=== PATIENT | male | born 1930 | race Caucasian/White ===

== ENCOUNTER 2016-07-05 08:05 | Emergency (ER) | payer MEDICARE ==
[~2016-07-05] VITALS: Ht 177.8 cm; Wt 99.8 kg
[~2016-07-05 08:05] MED LIST: AVOD0.5CAP PO; CPR250T PO; CYCL10TA9 PO; FLUT16SP22 NS; LEVO75TA57 PO; LORA10CA PO; LOVA20TA2 PO; MECL-124 PO; MNTL10T PO; MTF500T PO; SULF1TAB38 PO; TADA2.5T PO; TEST5GEL6 TD; TMSL.4C PO; VARD20TA30 PO; meclizine
[2016-07-05 08:59] LABS: BASOPHILS % (AUTO) 0 % (0-10); EOSINOPHILS % (AUTO) 0 % (0-10); LYMPHOCYTES % (AUTO) 33 % (12-44); MEAN CORPUSCULAR HEMOGLOBIN 30 PG (25-34); MEAN CORPUSCULAR HGB CONC 33 G/DL (32-36); MEAN CORPUSCULAR VOLUME 90 FL (80-99); MEAN PLATELET VOLUME 11.3 FL (7.4-10.4); MONOCYTES # (AUTO) 0.9 X 10^3 (0.0-1.0); MONOCYTES % (AUTO) 10 % (0-12); NEUTROPHILS # (AUTO) 5.2 X 10^3 (1.8-7.8); NEUTROPHILS % (AUTO) 57 % (42-75); PLATELET COUNT 273 10^3/uL (130-400); RED BLOOD COUNT 5.07 10^6/uL (4.35-5.85); RED CELL DISTRIBUTION WIDTH 15.7 % (10.0-14.5); WHITE BLOOD COUNT 9.3 10^3/uL (4.3-11.0)
[2016-07-05] MEDS ORDERED: TAMOXIFEN (09:02)
[2016-07-05] MEDS ORDERED: CIALIS (09:02)
[2016-07-05] MEDS ORDERED: CRESTOR (09:02)
[2016-07-05 09:10] LABS: ANION GAP 10 MMOL/L (5-14); BLOOD UREA NITROGEN 15 MG/DL (7-18); BUN/CREATININE RATIO 16; CARBON DIOXIDE 23 MMOL/L (21-32); CHLORIDE 102 MMOL/L (98-107); CREATININE SERUM 0.92 MG/DL (0.60-1.30); POTASSIUM 4.3 MMOL/L (3.6-5.0); SODIUM 135 MMOL/L (135-145)
[2016-07-05 09:11] LABS: ALANINE AMINOTRANSFERASE 19 U/L (0-55); ALBUMIN 4.2 G/DL (3.2-4.5); ASPARTATE AMINO TRANSFERASE 19 U/L (5-34); BILIRUBIN,TOTAL 0.8 MG/DL (0.1-1.0); CALCIUM 9.7 MG/DL (8.5-10.1); GFR ESTIMATED > 60; GLUCOSE 131 MG/DL (70-105); TOTAL PROTEIN 7.5 G/DL (6.4-8.2)
[2016-07-05 09:20] LABS: BILIRUBIN,URINE NEGATIVE (NEGATIVE); KETONES,URINE 1+ (NEGATIVE); LEUKOCYTE ESTERASE ,URINE NEGATIVE (NEGATIVE); NITRITE,URINE NEGATIVE (NEGATIVE); PH,URINE 5 (5-9); PROTEIN,URINE NEGATIVE (NEGATIVE); UROBILINOGEN,URINE NORMAL (NORMAL)
[2016-07-05 09:27] LABS: SQUAMOUS EPITHELIAL CELL,UR RARE /HPF; WBC,URINE RARE /HPF
--- NOTE | 2016-07-05 10:19 | ED General ---
General Chief Complaint: Dizziness/Syncope Stated Complaint: DIZZINESS Nursing Triage Note: TO ROOM 03 VIA WITH COMPLAINTS OF DIZZINESS STARTING LAST NIGHT. DENIES ANY OTHER SYMPTOMS. Nursing Sepsis Screen: No Definite Risk Source of Information: Patient, Family Exam Limitations: No Limitations History of Present Illness Time Seen by Provider: 10:19 Initial Comments The patient is an 85-year-old white male who presents this morning with a sense of lightheadedness and impaired balance. He denies spinning or tinnitus. He is not normally this way. He reported that previously he had had a mild episode of this after eating [place] food. Coincidentally I suspect he ate [place]i food yesterday evening. Timing/Duration: 12 Hours Allergies and Home Medications Allergies Coded Allergies: No Known Drug Allergies (Unverified , 11/25/09) Home Medications Dutasteride 0.5 Mg Cap, 0.5 MG PO PRN, (Reported) Fluticasone Propionate 16 Gm [place].susp, 16 GM NS PRN, (Reported) Levothyroxine Sodium 75 Mcg Tablet, 50 MCG PO DAILY, (Reported) Metformin Hcl 500 Mg Tablet, 1 EACH PO BID WITH MEALS, (Reported) [Cialis] , (Reported) [Crestor] , (Reported) [Tamoxifen] , (Reported) Constitutional: see HPI EENTM: no symptoms reported Respiratory: no symptoms reported Cardiovascular: no symptoms reported Gastrointestinal: no symptoms reported Genitourinary: no symptoms reported Musculoskeletal: no symptoms reported Skin: no symptoms reported Psychiatric/Neurological: No Symptoms Reported Hematologic/Lymphatic: No Symptoms Reported Immunological/Allergic: no symptoms reported Past Tgxsybf-Bybvux-Nyfqit Hx Patient Social History Alcohol Use: Denies Use Recreational Drug Use: No Smoking Status: Never a Smoker Former Smoker/When Quit: Feb 09, 1969 2nd Hand Smoke Exposure: No Recent Foreign Travel: No Contact w/Someone Who Travel: No Recent Infectious Disease Expo: No Recent Hopitalizations: No Immunizations Up To Date Date of Pneumonia Vaccine: Feb 09, 2009 Seasonal Allergies Seasonal Allergies: Yes Surgeries HX Surgeries: Yes (cyst removed, repair of fx fibula with plate) Respiratory Hx Respiratory Disorders: No Cardiovascular Hx Cardiac Disorders: Yes Cardiac Disorders: High Cholesterol, Hypertension Neurological Hx Neurological Disorders: No Reproductive System Hx Reproductive Disorders: No Sexually Transmitted Disease: No Genitourinary Hx Genitourinary Disorders: Yes Genitourinary Disorders: Benign Prostatic Hyperpl Gastrointestinal Hx Gastrointestinal Disorders: No Gastrointestinal Disorders: Gastroesophageal Reflux, Gastrointestinal Bleed, Chronic Constipation, Hemorrhoids Musculoskeletal Hx Musculoskeletal Disorders: Yes Musculoskeletal Disorders: Arthritis, Fractures Endocrine Hx Endocrine Disorders: Yes (TAKES METFORMIN) Endocrine Disorders: Hypothyroidsim, Diabetes, Non-Insulin dep HEENT HX ENT Disorders: No Hearing Impairment: Hard of Hearing, Bilateral Hearing Aide Cancer Hx Cancer: No Psychosocial Hx Psychiatric Problems: No Integumentary HX Skin/Integumentary Disorder: No Blood Transfusions Hx Blood Disorders: No Family Medical History Family Medial History: Diabetes mellitus 19 FATHER G8 BROTHER FH: lung cancer G8 BROTHER (PAST AWAY FROM [facility]) Physical Exam Vital Signs Vital Sign - Last 12Hours 07/05/16 07/05/16 08:30 08:40 Temp 98.0 Pulse 73 Resp 18 B/P (MAP) 141/77 Pulse Ox 91 O2 Delivery Nasal Cannula O2 Flow Rate 2.00 Capillary Refill : Less Than 3 Seconds General Appearance: No Apparent Distress, WD/WN Eyes: Bilateral Eye Normal Inspection HEENT: Normal ENT Inspection Neck: Normal Inspection Respiratory: Chest Non Tender, Lungs Clear, Normal Breath Sounds, No Accessory Muscle Use, No Respiratory Distress Cardiovascular: Regular Rate, Rhythm, No Edema, No Gallop, No JVD, No Murmur, Normal Peripheral Pulses Gastrointestinal: Normal Bowel Sounds, No Organomegaly, No Pulsatile Mass, Non Tender, Soft Back: Normal Inspection, No CVA Tenderness, No Vertebral Tenderness Extremity: Normal Capillary Refill, Normal Inspection, Normal Range of Motion, Non Tender, No Calf Tenderness, No Pedal Edema Neurologic/Psychiatric: Alert, Oriented x3, No Motor/Sensory Deficits, Normal Mood/Affect Skin: Normal Color Lymphatic: No Adenopathy Progress/Results/Core Measures Results/Orders Lab Results Laboratory Tests Test 07/05/16 08:40 07/05/16 09:10 Range/Units White Blood Count 9.3 4.3-11.0 10^3/uL Red Blood Count 5.07 4.35-5.85 10^6/uL Hemoglobin 15.3 13.3-17.7 G/DL Hematocrit 46 40-54 % Mean Corpuscular Volume 90 80-99 FL Mean Corpuscular Hemoglobin 30 25-34 PG Mean Corpuscular Hemoglobin Concent 33 32-36 G/DL Red Cell Distribution Width 15.7 H 10.0-14.5 % Platelet Count 273 130-400 10^3/uL Mean Platelet Volume 11.3 H 7.4-10.4 FL Neutrophils (%) (Auto) 57 42-75 % Lymphocytes (%) (Auto) 33 12-44 % Monocytes (%) (Auto) 10 0-12 % Eosinophils (%) (Auto) 0 0-10 % Basophils (%) (Auto) 0 0-10 % Neutrophils # (Auto) 5.2 1.8-7.8 X 10^3 Lymphocytes # (Auto) 3.0 1.0-4.0 X 10^3 Monocytes # (Auto) 0.9 0.0-1.0 X 10^3 Eosinophils # (Auto) 0.0 0.0-0.3 10^3/uL Basophils # (Auto) 0.0 0.0-0.1 10^3/uL Sodium Level 135 135-145 MMOL/L Potassium Level 4.3 3.6-5.0 MMOL/L Chloride Level 102 98-107 MMOL/L Carbon Dioxide Level 23 21-32 MMOL/L Anion Gap 10 5-14 MMOL/L Blood Urea Nitrogen 15 7-18 MG/DL Creatinine 0.92 0.60-1.30 MG/DL Estimat Glomerular Filtration Rate > 60 BUN/Creatinine Ratio 16 Glucose Level 131 H 70-105 MG/DL Calcium Level 9.7 8.5-10.1 MG/DL Total Bilirubin 0.8 0.1-1.0 MG/DL Aspartate Amino Transf (AST/SGOT) 19 5-34 U/L Alanine Aminotransferase (ALT/SGPT) 19 0-55 U/L Alkaline Phosphatase 47 40-136 U/L Total Protein 7.5 6.4-8.2 G/DL Albumin 4.2 3.2-4.5 G/DL Urine Color YELLOW Urine Clarity CLEAR Urine pH 5 5-9 Urine Specific [place] 1.020 1.016-1.022 Urine Protein NEGATIVE NEGATIVE Urine Glucose (UA) NEGATIVE NEGATIVE Urine Ketones 1+ H NEGATIVE Urine Nitrite NEGATIVE NEGATIVE Urine Bilirubin NEGATIVE NEGATIVE Urine Urobilinogen NORMAL NORMAL MG/DL Urine Leukocyte Esterase NEGATIVE NEGATIVE Urine RBC (Auto) NEGATIVE NEGATIVE Urine RBC RARE /HPF Urine WBC RARE /HPF Urine Squamous Epithelial Cells RARE /HPF Urine Crystals NONE /LPF Urine Bacteria NEGATIVE /HPF Urine Casts NONE /LPF Urine Mucus NEGATIVE /LPF Urine Culture Indicated NO My Orders Orders - JADA BERKOWITZ MD Cbc With Automated Diff (07/05/16 08:51) Comprehensive Metabolic Panel (07/05/16 08:51) Ua Culture If Indicated (07/05/16 08:51) Continuous Ekg Monitoring (07/05/16 09:44) Ekg Tracing (07/05/16 10:01) Troponin I (07/05/16 10:01) Vital Signs/I&O Vital Sign - Last 12Hours 07/05/16 07/05/16 08:30 08:40 Temp 98.0 Pulse 73 Resp 18 B/P (MAP) 141/77 Pulse Ox 91 89 O2 Delivery Nasal Cannula O2 Flow Rate 2.00 Blood Pressure Mean: 98 Departure Impression Impression: Primary Impression: Impairment of balance Disposition: 01 HOME, SELF-CARE Condition: Stable/Unchanged Departure-Patient Inst. Decision time for Depature: 10:18 Referrals: BAN FRANK MD (PCP/Family) Primary Care Physician Add. Discharge Instructions: All discharge instructions reviewed with patient and/or family. Voiced understanding. Rest today and engage only and light activities If symptoms continue see your provider JADA BERKOWITZ MD July 05, 2016 10:19
[2016-07-05 10:54] VITALS: BP 118/70
== END 2016-07-05 10:54 | disposition home or self-care (01) ==
LOC: EDUNIT# 08:05 → ER 08:07
DX: R26.2 Difficulty in walking, not elsewhere classified (principal); I10 Essential (primary) hypertension; E11.9 Type 2 diabetes mellitus without complications; Z79.84 Long term (current) use of oral hypoglycemic drugs; Z79.899 Other long term (current) drug therapy
CPT/HCPCS: 36415; 80053; 81000; 84484; 85025; 93005

== ENCOUNTER 2016-08-09 10:52 | Emergency (ER) | payer MEDICARE ==
[~2016-08-09] VITALS: Ht 177.8 cm; Wt 90.7 kg
[~2016-08-09 10:52] MED LIST changes: +CIALIS; +CRESTOR; +TAMOXIFEN
--- NOTE | 2016-08-09 11:07 | ED EENT ---
History of Present Illness General Chief Complaint: Cough/Cold/Flu Symptoms Stated Complaint: SINUS INFECTION Source: patient Exam Limitations: no limitations History of Present Illness Time seen by provider: 11:05 Initial Comments To ER with concerns of a sinus infection. He has left maxillary tenderness since last night. He also some swelling to that side of his face. He states he had a similar event last year that was believed to be a sinus infection. He was given a shot of steroids and oral antibiotics and he cleared up in about 5 days. He does report some sinus drainage and a cough that only occurs when he is lying down. Denies fevers or chills. Timing/Duration: abrupt Severity: moderate Location: facial Associated Symptoms: denies symptoms Allergies and Home Medications Allergies Coded Allergies: No Known Drug Allergies (Unverified , 11/25/09) Home Medications Amoxicillin/Potassium Clav 1 Each Tablet, 1 EACH PO BID, #14 Prescribed by: SONIA RUIZ on 08/09/16 1141 Dutasteride 0.5 Mg Cap, 0.5 MG PO PRN, (Reported) Fluticasone Propionate 16 Gm [place].susp, 16 GM NS PRN, (Reported) Levothyroxine Sodium 75 Mcg Tablet, 50 MCG PO DAILY, (Reported) Metformin Hcl 500 Mg Tablet, 1 EACH PO BID WITH MEALS, (Reported) Ondansetron 8 Mg Tab.rapdis, 8 MG PO Q6H PRN for NAUSEA/VOMITING-1ST LINE, #10 Prescribed by: SONIA RUIZ on 08/09/16 1141 [Cialis] , (Reported) [Crestor] , (Reported) [Tamoxifen] , (Reported) Review of Systems Constitutional: see HPI Eyes: No Symptoms Reported Ears: No Symptoms Reported Nose: no symptoms reported Mouth: no symptoms reported Throat: no symptoms reported Respiratory: no symptoms reported Cardiovascular: no symptoms reported Musculoskeletal: no symptoms reported Skin: no symptoms reported Past Kyurhkl-Wnqeso-Sbdamy Hx Patient Social History Former Smoker/When Quit: Feb 09, 1969 2nd Hand Smoke Exposure: No Recent Foreign Travel: No Contact w/Someone Who Travel: No Recent Hopitalizations: No Immunizations Up To Date Date of Pneumonia Vaccine: Feb 09, 2009 Seasonal Allergies Seasonal Allergies: Yes Surgeries HX Surgeries: Yes (cyst removed, repair of fx fibula with plate) Respiratory Hx Respiratory Disorders: No Cardiovascular Hx Cardiac Disorders: Yes Cardiac Disorders: High Cholesterol, Hypertension Neurological Hx Neurological Disorders: No Reproductive System Hx Reproductive Disorders: No Sexually Transmitted Disease: No Genitourinary Hx Genitourinary Disorders: Yes Genitourinary Disorders: Benign Prostatic Hyperpl Gastrointestinal Hx Gastrointestinal Disorders: No Gastrointestinal Disorders: Gastroesophageal Reflux, Gastrointestinal Bleed, Chronic Constipation, Hemorrhoids Musculoskeletal Hx Musculoskeletal Disorders: Yes Musculoskeletal Disorders: Arthritis, Fractures Endocrine Hx Endocrine Disorders: Yes (TAKES METFORMIN) Endocrine Disorders: Hypothyroidsim, Diabetes, Non-Insulin dep HEENT HX ENT Disorders: No Hearing Impairment: Hard of Hearing, Bilateral Hearing Aide Cancer Hx Cancer: No Psychosocial Hx Psychiatric Problems: No Integumentary HX Skin/Integumentary Disorder: No Blood Transfusions Hx Blood Disorders: No Family Medical History Family Medial History: Diabetes mellitus 19 FATHER G8 BROTHER FH: lung cancer G8 BROTHER ([facility] Physical Exam Vital Signs Vital Sign - Last 12Hours 08/09/16 11:02 Temp 97.5 Pulse 72 Resp 16 B/P (MAP) 149/72 Pulse Ox 98 O2 Delivery Room Air General Appearance: WD/WN, no apparent distress Eyes: bilateral eye EOMI, bilateral eye PERRL, bilateral eye normal inspection Ears: bilateral ear TM normal, bilateral ear auricle normal, bilateral ear canal normal Mouth/Throat: normal mouth inspection, other (there is no fluctuant abscess to the buccal or lingual mucosa surrounding the left upper teeth. Externally there is a bit of swelling over the left maxillary sinus with tenderness to palpation.) Neck: non-tender, full range of motion Respiratory: no respiratory distress, no accessory muscle use Gastrointestinal: normal bowel sounds, non tender, soft Neurologic/Psychiatric: alert, normal mood/affect, oriented x 3 Skin: normal color, warm/dry Progress/Results/Core Measures Results/Orders My Orders Orders - SONIA RUIZ APRN Dexamethasone Pf Injection (Decadron Pf (08/09/16 11:15) Ceftriaxone Injection (Rocephin Injectio (08/09/16 11:15) Lidocaine 1% Injection (Xylocaine 1% Inj (08/09/16 11:15) Ct Maxillofacial Wo (08/09/16 11:08) Medications Given in ED Current Medications Medications Dose Ordered Sig/Justus Route Start Time Stop Time Status Last Admin Dose Admin Ceftriaxone Sodium 1,000 mg ONCE ONCE IM 08/09/16 11:15 08/09/16 11:17 DC 08/09/16 11:38 1,000 MG Dexamethasone Sodium Phosphate 10 mg ONCE ONCE IM 08/09/16 11:15 08/09/16 11:17 DC 08/09/16 11:39 10 MG Lidocaine HCl 2.1 ml ONCE ONCE INJ 08/09/16 11:15 08/09/16 11:17 DC 08/09/16 11:38 2.1 ML Vital Signs/I&O Vital Sign - Last 12Hours 08/09/16 08/09/16 08/09/16 08/09/16 11:02 11:38 11:38 11:39 Temp 97.5 97.5 97.5 97.5 Pulse 72 Resp 16 B/P (MAP) 149/72 Pulse Ox 98 O2 Delivery Room Air Departure Impression Impression: Primary Impression: Dental abscess Disposition: HOME, SELF-CARE Condition: Stable Departure-Patient Inst. Decision time for Depature: 11:09 Referrals: BAN FRANK MD (PCP/Family) Primary Care Physician Patient Instructions: NO INSTRUCTIONS GIVEN Add. Discharge Instructions: 1. Return to ER for any concerns 2. See your regular doctor dentist next week 3. Antibiotics as directed and the nausea medication as needed. Eat food with the antibiotics because they may upset your stomach. All discharge instructions reviewed with patient and/or family. Voiced understanding. Scripts Ondansetron (Zofran Odt) 8 Mg Tab.rapdis 8 MG PO Q6H Y for NAUSEA/VOMITING-1ST LINE, #10 TAB Prov: SONIA RUIZ APRN 08/09/16 Amoxicillin/Potassium Clav (Augmentin 875-125 Tablet) 1 Each Tablet 1 EACH PO BID, #14 TAB Prov: SONIA RUIZ APRN 08/09/16 Copy Copies To 1: BAN FRANK MD, PETER J APRN Aug 09, 2016 11:07
[2016-08-09] MEDS ORDERED: LIDOCAINE 1% INJ 20 ML (XYLOCAINE) VIAL INJ ONE (11:15)
[2016-08-09] MEDS ORDERED: cefTRIAXone 1 GM (ROCEPHIN) VIAL IM ONE (11:15)
[2016-08-09] MEDS ORDERED: DEXAMETHASONE PF 10 MG/ML (DECADRON) VIAL IM ONE (11:15)
[2016-08-09] MEDS ORDERED: AMOX-358 PO (11:41)
[2016-08-09] MEDS ORDERED: ONDA8TAB9 PO (11:41)
--- NOTE | 2016-08-09 11:43 | Diagnostic Imaging Report ---
PROCEDURE: CT maxillofacial without contrast. TECHNIQUE: Multiple contiguous axial images were obtained through the facial bones without the use of intravenous contrast. INDICATION: Left cheek swelling. Findings: Noncontrasted study. There is considerable beam hardening artifact from dental amalgam. There is lucency surrounding the roots of the remaining anterior molar in the left maxilla. This does extend into the base of the maxillary sinus which shows diffuse mucosal thickening. There is adjacent soft tissue edema along the cheek and the left maxilla. The right maxillary sinuses clear. Ethmoid sinuses are clear as is the frontal sinus. IMPRESSION: 1. 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 Dictated by: Dictated on workstation # [id number]
[2016-08-09 11:51] VITALS: BP 142/70
== END 2016-08-09 11:51 | disposition home or self-care (01) ==
LOC: EDUNIT# 10:52 → ER 10:54
DX: K04.7 Periapical abscess without sinus (principal); E03.9 Hypothyroidism, unspecified; E11.9 Type 2 diabetes mellitus without complications; M19.90 Unspecified osteoarthritis, unspecified site; N40.0 Benign prostatic hyperplasia without lower urinary tract symptoms; I10 Essential (primary) hypertension; E78.00 Pure hypercholesterolemia, unspecified; Z87.891 Personal history of nicotine dependence; Z79.84 Long term (current) use of oral hypoglycemic drugs
CPT/HCPCS: 70486; 99282

== ENCOUNTER → 2016-08-14 | Outpatient (CLI) | payer MEDICARE ==
[~2016-08-14] MED LIST changes: +AMOX-358 PO; +ONDA8TAB9 PO
== END ==
LOC: CARD 12:31
PROVIDERS: ATTEND Internal Medicine Cardiovascular Disease
DX: I25.10 Atherosclerotic heart disease of native coronary artery without angina pectoris (principal); R07.89 Other chest pain; I10 Essential (primary) hypertension; E78.2 Mixed hyperlipidemia; E03.9 Hypothyroidism, unspecified
CPT/HCPCS: 93306

== ENCOUNTER → 2020-04-19 | Outpatient (CLI) | payer MEDICARE ==
--- NOTE | 2020-04-19 12:06 | Diagnostic Imaging Report ---
PROCEDURE: CT abdomen and pelvis without contrast. TECHNIQUE: Multiple contiguous axial images were obtained through the abdomen and pelvis without the use of intravenous contrast. Auto Exposure Controls were utilized during the CT exam to meet ALARA standards for radiation dose reduction. INDICATION: Gross hematuria. FINDINGS: Linear atelectasis and/or scarring is seen in the left lung base. There is an approximately 1 cm low-density subcapsular nodule in the right hepatic lobe, laterally. This could represent cyst or hemangioma. Otherwise, unenhanced images of the liver, gallbladder, pancreas, adrenal glands and spleen are unremarkable. There is no evidence of renal calculus or hydronephrosis. No perinephric fluid collection is seen. There is no evidence of free fluid within the abdomen or pelvis. No localized inflammation is identified. Bladder is decompressed and unopacified but otherwise unremarkable. There is significant enlargement of the prostate gland which indents the base of the urinary bladder. There is moderate lumbar spondylosis and aortoiliac atherosclerotic calcification. That is herniated into the inguinal canals, greater on the left. IMPRESSION: No evidence of urinary tract calculus or obstruction although there is significant enlargement of the prostate gland which indents the bladder base. Dictated by: Dictated on workstation # [id number]
--- NOTE | 2020-04-19 13:32 | Diagnostic Imaging Report ---
INDICATION: Hematuria. History of renal calculi. COMPARISON: CT from same day. FINDINGS: Single supine radiographic view of the abdomen was obtained and demonstrates nondistended loops of small bowel. There is no large collection of free peritoneal air. Moderate air and stool are seen scattered throughout the colon. No unexpected extraosseous calcifications or radiopaque foreign bodies are seen. Bony structures show no gross acute abnormalities. IMPRESSION: 1. Nonobstructed small bowel gas pattern. 2. Moderate colonic air and stool. Please correlate for constipation Dictated by: Dictated on workstation # [id number]
== END ==
LOC: RAD 11:05
PROVIDERS: ATTEND Urology
DX: N40.0 Benign prostatic hyperplasia without lower urinary tract symptoms (principal); K56.41 Fecal impaction; Z87.442 Personal history of urinary calculi
CPT/HCPCS: 74018; 74176

== ENCOUNTER 2020-09-24 05:51 | Inpatient (IN) | payer MEDICARE ==
[~2020-09-24] VITALS: Ht 178 cm; Wt 94.0 kg
[2020-09-24] MEDS ORDERED: DIFLORASONE (06:06)
[2020-09-24] MEDS ORDERED: FINA5TAB6 (06:06)
[2020-09-24] MEDS ORDERED: METF-397 PO (06:06)
[2020-09-24] MEDS ORDERED: ROSU20TA32 PO (06:06)
[2020-09-24] MEDS ORDERED: MTP25TSR PO (06:06)
[2020-09-24 06:13] LABS: BASOPHILS % (AUTO) 0 % (0-10); MONOCYTES # (AUTO) 2.2 10^3/uL (0.0-1.0)
[2020-09-24] MEDS ORDERED: ASPIRIN 81 MG CHEW (CHILDREN'S ASA) PO ONE (06:15)
[2020-09-24 06:16] LABS: EOSINOPHILS # (AUTO) 0.1 10^3/uL (0.0-0.3); EOSINOPHILS % (AUTO) 0 % (0-10); HEMATOCRIT 52 % (40-54); HEMOGLOBIN 16.9 g/dL (13.3-17.7); LYMPHOCYTES # (AUTO) 2.5 10^3/uL (1.0-4.0); LYMPHOCYTES % (AUTO) 15 % (12-44); MEAN CORPUSCULAR HEMOGLOBIN 29 pg (25-34); MEAN CORPUSCULAR HGB CONC 32 g/dL (32-36); MEAN CORPUSCULAR VOLUME 89 fL (80-99); MEAN PLATELET VOLUME 11.1 fL (9.0-12.2); MONOCYTES % (AUTO) 13 % (0-12); NEUTROPHILS # (AUTO) 12.7 10^3/uL (1.8-7.8); NEUTROPHILS % (AUTO) 72 % (42-75); PLATELET COUNT 423 10^3/uL (130-400); WHITE BLOOD COUNT 17.6 10^3/uL (4.3-11.0)
[2020-09-24 06:21] LABS: ALBUMIN 4.2 GM/DL (3.2-4.5)
[2020-09-24 06:22] LABS: POTASSIUM 4.1 MMOL/L (3.6-5.0)
[2020-09-24 06:24] LABS: INR 1.2 (0.8-1.4); PROTHROMBIN TIME PATIENT 15.1 SEC (12.2-14.7); TOTAL PROTEIN 8.4 GM/DL (6.4-8.2)
[2020-09-24 06:26] LABS: BILIRUBIN,TOTAL 1.1 MG/DL (0.1-1.0)
[2020-09-24 06:28] LABS: CREATININE SERUM 1.37 MG/DL (0.60-1.30)
[2020-09-24] MEDS ORDERED: LIDOCAINE 2% VISCOUS 15 ML UDC PO ONE (06:30)
[2020-09-24] MEDS ORDERED: ANTACID SUSP 30 ML UDC (MYLANTA) PO ONE (06:30)
[2020-09-24 06:42] LABS: BAND NEUTROPHILS 5 %; EOSINOPHILS % (MANUAL) 1 %; LYMPHOCYTES % (MANUAL) 15 %; MONOCYTES % (MANUAL) 10 %; NEUTROPHILS % (MANUAL) 69 %
[2020-09-24] MEDS ORDERED: LACTATED RINGERS 1,000 ML IV ONE (06:45)
--- NOTE | 2020-09-24 06:50 | ED Abdominal Pain ---
General Chief Complaint: Abdominal/GI Problems Stated Complaint: ACID REFLUX Nursing Triage Note: MID ABDOMINAL PAIN, VOMITTING, REFLUX SINCE THURSDAY. Source of Information: Patient, Family Exam Limitations: No Limitations NPO Since: 16:30 yesterday (SILVIA WOODS STUDENT) History of Present Illness Date Seen by Provider: Sep 24, 2020 Time Seen by Provider: 06:10 Initial Comments Pt presents to ED with at bedside with complaints of abd pain for 2 days. He states that he had intractable nausea w/ vomiting on Thursday with continuous 7/10 epigastric pain along with reflux into his mouth. He came to the ED this morning after he had trouble falling asleep last night and continuous symptoms. Last BM on Thursday and has had decreased appetite since his symptoms began. He has taken Pepto Bismol yesterday and tried sitting upright with no relief of symptoms. Denies chest pain, SOB. History of 3x CABG. Timing/Duration: 2-3 Days Severity/Quality: Moderate, Dull Location: Epigastric Radiation: No Radiation Activities at Onset: None Modifying Factors: Improves With Other (Pt took Pepto Bismol yesterday with no relief) Associated Symptoms: No Chest Pain, No Fever/Chills, No Fatigue; Heartburn, Nausea/Vomiting; No Shortness of Air (SILVIA WOODS STUDENT) Initial Comments The patient also endorses episodes of emesis 10 times yesterday. No fevers or chills. He checked his temperature throughout. He denies any sick contacts or recent travel. No diarrhea. He has had regular bowel movements up until his last one Thursday morning. He has had poor appetite. He feels slightly weak and short of breath worse with exertion. Not worse with laying down flat. He denies a history of pancreatitis. He drinks 1 glass of scotch a year. He denies a history of aortic aneurysm. The pain is not sharp and does not radiate to his back or anywhere else. (REMI HA) Allergies and Home Medications Allergies Coded Allergies: No Known Drug Allergies (Unverified , 11/25/09) Home Medications Aspirin 81 Mg Tablet., 81 MG PO HS, (Reported) Last Action: Reviewed Levothyroxine Sodium 75 Mcg Tablet, 75 MCG PO DAILY, (Reported) Last Action: Reviewed Lisinopril 5 Mg Tablet, 5 MG PO HS, (Reported) Last Action: Reviewed Metformin HCl 500 Mg Tablet, 500 MG PO DAILY, (Reported) Last Action: Reviewed Methyl-B12/l-Mefolate/B6 Phos 1 Each Tablet, 1 EACH PO DAILY, (Reported) Last Action: Reviewed Metoprolol Succinate 25 Mg Tab.er.24h, 25 MG PO DAILY, (Reported) Last Action: Reviewed Multivitamin 1 Each Tablet, 1 EACH PO DAILY, (Reported) Last Action: Reviewed Rosuvastatin Calcium 20 Mg Tablet, 20 MG PO HS, (Reported) Last Action: Reviewed Tadalafil 5 Mg Tablet, 5 MG PO HS, (Reported) Last Action: Reviewed Patient Home Medication List Home Medication List Reviewed: Yes (SILVIA WOODS) Review of Systems Review of Systems Constitutional: No chills, No dizziness, No fever EENTM: No Eye Pain, No Mouth Pain Respiratory: Denies Cough, Denies Shortness of Air Cardiovascular: Denies Chest Pain, Denies Edema, Denies Lightheadedness Gastrointestinal: Abdominal Pain (7/10 epigastric, dull, nonradiating), Nausea, Vomiting Genitourinary: Denies Burning, Denies Drainage, Denies Hematuria Musculoskeletal: No back pain, No joint pain Skin: No change in color, No change in hair/nails Psychiatric/Neurological: Denies Headache, Denies Numbness, Denies Paresthesia (SILVIA WOODS) All Other Systems Reviewed Negative Unless Noted: Yes (SILVIA WOODS) Past Ayysioj-Gqvmwd-Bfurgo Hx Patient Social History Tobacco Use?: Yes Tobacco type used: Cigarettes Smoking Status: Former Smoker (20 pack/year history, quit 20-30 years ago) Substance use?: No Alcohol Use?: No Pt feels they are or have been: No (SILVIA WOODS) Immunizations Up To Date First/Initial COVID19 Vaccinat: 05/30 Second COVID19 Vaccination Leodan: 06/29 (SILVIA WOODS) Seasonal Allergies Seasonal Allergies: Yes (SILVIA WOODS) Past Medical History Surgery/Hospitalization HX: CABG, GERD, HTN, HYPOTHRYOID, BPH, NIDDM Surgeries: Yes (cyst removed, repair of fx fibula with plate) Respiratory: No Currently Using CPAP: No Currently Using BIPAP: No Cardiac: Yes High Cholesterol, Hypertension Neurological: No Reproductive Disorders: No Sexually Transmitted Disease: No Benign Prostatic Hyperpl Gastrointestinal: No Gastroesophageal Reflux, Gastrointestinal Bleed, Chronic Constipation, Hemorrhoids Musculoskeletal: Yes Arthritis, Fractures Endocrine: Yes (TAKES METFORMIN) Hypothyroidsim, Diabetes, Non-Insulin dep Hearing Impairment: Hard of Hearing, Bilateral Hearing Aide Cancer: No Psychosocial: No Integumentary: No Blood Disorders: No (SILVIA WOODS [employer] STUDENT) Family Medical History Diabetes mellitus 19 FATHER G8 BROTHER FH: lung cancer G8 BROTHER (PA[facility] AWAY FROM [facility]) Physical Exam Vital Signs Vital Signs - First Documented 09/24/20 09/24/20 06:00 07:14 Temp 36.4 Pulse 91 Resp 18 B/P (MAP) 144/79 (100) Pulse Ox 92 O2 Delivery Room Air O2 Flow Rate 2.00 (REMI HA) Vital Signs Capillary Refill : Less Than 3 Seconds (SILVIA WOODS VIP Parking STUDENT) Height/Weight/BMI Height: 5'10.00" Weight: 200lbs. 4.0oz. 90.491296hh; 29.00 BMI Method:Estimated General Appearance: WD/WN, moderate distress (tachypneic, speaks in short phrases) HEENT: PERRL/EOMI, normal ENT inspection, pharynx normal Neck: non-tender, full range of motion, supple, normal inspection Respiratory: chest non-tender, lungs clear, normal breath sounds, no accessory muscle use, other (clear lungs, short/rapid breathing 93% O2sat on RA) Cardiovascular: normal peripheral pulses, regular rate, rhythm, no edema, no murmur Peripheral Pulses: 2+ Radial Pulses (R), 2+ Radial Pulses (L) Gastrointestinal: normal bowel sounds, soft, tenderness (mild tenderness epigastric, no radiation) Rectal: deferred Extremities: normal range of motion, non-tender, normal inspection, no pedal edema, normal capillary refill Back: normal inspection, no CVA tenderness, no vertebral tenderness Neurologic/Psychiatric: no motor/sensory deficits, alert; No normal mood/affect (anxious); oriented x 3 Skin: normal color, warm/dry (SILVIA WOODS [employer]ing STUDENT) Progress/Results/Core Measures Results/Orders Lab Results Laboratory Tests Test 09/24/20 06:06 09/24/20 06:09 Range/Units Lipase 14 8-78 U/L White Blood Count 17.6 H 4.3-11.0 10^3/uL Red Blood Count 5.90 H 4.30-5.52 10^6/uL Hemoglobin 16.9 13.3-17.7 g/dL Hematocrit 52 40-54 % Mean Corpuscular Volume 89 80-99 fL Mean Corpuscular Hemoglobin 29 25-34 pg Mean Corpuscular Hemoglobin Concent 32 32-36 g/dL Red Cell Distribution Width 14.2 10.0-14.5 % Platelet Count 423 H 130-400 10^3/uL Mean Platelet Volume 11.1 9.0-12.2 fL Immature Granulocyte % (Auto) 0 % Neutrophils (%) (Auto) 72 42-75 % Lymphocytes (%) (Auto) 15 12-44 % Monocytes (%) (Auto) 13 H 0-12 % Eosinophils (%) (Auto) 0 0-10 % Basophils (%) (Auto) 0 0-10 % Neutrophils # (Auto) 12.7 H 1.8-7.8 10^3/uL Lymphocytes # (Auto) 2.5 1.0-4.0 10^3/uL Monocytes # (Auto) 2.2 H 0.0-1.0 10^3/uL Eosinophils # (Auto) 0.1 0.0-0.3 10^3/uL Basophils # (Auto) 0.0 0.0-0.1 10^3/uL Immature Granulocyte # (Auto) 0.1 0.0-0.1 10^3/uL Neutrophils % (Manual) 69 % Lymphocytes % (Manual) 15 % Monocytes % (Manual) 10 % Eosinophils % (Manual) 1 % Band Neutrophils 5 % Percent Immature Platelet Fraction 8.7 H 0.0-7.6 % Prothrombin Time 15.1 H 12.2-14.7 SEC INR Comment 1.2 0.8-1.4 Activated Partial Thromboplast Time 38 H 24-35 SEC Sodium Level 130 L 135-145 MMOL/L Potassium Level 4.1 3.6-5.0 MMOL/L Chloride Level 89 L 98-107 MMOL/L Carbon Dioxide Level 25 21-32 MMOL/L Anion Gap 16 H 5-14 MMOL/L Blood Urea Nitrogen 18 7-18 MG/DL Creatinine 1.37 H 0.60-1.30 MG/DL Estimat Glomerular Filtration Rate 49 BUN/Creatinine Ratio 13 Glucose Level 190 H 70-105 MG/DL Calcium Level 11.0 H 8.5-10.1 MG/DL Corrected Calcium 10.8 H 8.5-10.1 MG/DL Magnesium Level 2.0 1.6-2.4 MG/DL Total Bilirubin 1.1 H 0.1-1.0 MG/DL Aspartate Amino Transf (AST/SGOT) 18 5-34 U/L Alanine Aminotransferase (ALT/SGPT) 12 0-55 U/L Alkaline Phosphatase 58 40-136 U/L Myoglobin 65.9 10.0-92.0 NG/ML Troponin I < 0.028 <0.028 NG/ML Total Protein 8.4 H 6.4-8.2 GM/DL Albumin 4.2 3.2-4.5 GM/DL (REMI HA) My Orders Orders - REMI HA Continuous Ekg Monitoring (09/24/20 06:01) Ekg Tracing (09/24/20 06:01) Cbc With Automated Diff (09/24/20 06:01) Magnesium (09/24/20 06:01) Chest 1 View, Ap/Pa Only (09/24/20 06:01) Comprehensive Metabolic Panel (09/24/20 06:01) Myoglobin Serum (09/24/20 06:01) Protime With Inr (09/24/20 06:01) Partial Thromboplastin Time (09/24/20 06:01) O2 (09/24/20 06:01) Lipid Panel (09/25/20 06:00) Ed Iv/Invasive Line Start (09/24/20 06:01) Troponin I (09/24/20 06:01) Aspirin Chewable Tablet (Baby Aspirin Ch (09/24/20 06:15) Manual Differential (09/24/20 06:09) Lipase (09/24/20 06:20) Antacid Suspension (Mylanta Suspension (09/24/20 06:30) Lidocaine 2% Viscous 15 Ml (Xylocaine Vi (09/24/20 06:30) Ed Iv/Invasive Line Start (09/24/20 06:41) Lactated Ringers (Lr 1000 Ml Iv Solution (09/24/20 06:45) Ondansetron Injection (Zofran Injectio (09/24/20 07:00) Morphine Injection (Morphine Injection (09/24/20 06:59) Ct Abdomen/Pelvis W (09/24/20 06:59) Iohexol Injection (Omnipaque 350 Mg/Ml 1 (09/24/20 08:00) Received Contrast (Hold Metformin- Contr (09/24/20 08:00) Ns (Ivpb) (Sodium Chloride 0.9% Ivpb Bag (09/24/20 08:00) (REMI HA) Medications Given in ED Current Medications Medications Dose Ordered Sig/Justus Route Start Time Stop Time Status Last Admin Dose Admin Al Hydrox/Mg Hydrox/Simethicone 30 ml ONCE ONCE PO 09/24/20 06:30 09/24/20 06:31 DC 09/24/20 06:33 30 ML Aspirin 324 mg ONCE ONCE PO 09/24/20 06:15 09/24/20 06:16 DC 09/24/20 06:33 324 MG Iohexol 100 ml ONCE ONCE IV 09/24/20 08:00 09/24/20 08:01 DC 09/24/20 07:49 100 ML Lactated Ringer's 1,000 ml @ 0 mls/hr Q0M ONCE IV 09/24/20 06:45 09/24/20 06:46 DC 09/24/20 06:48 0 MLS/HR Lidocaine HCl 5 ml ONCE ONCE PO 09/24/20 06:30 09/24/20 06:31 DC 09/24/20 06:33 5 ML Ondansetron HCl 8 mg ONCE ONCE IVP 09/24/20 07:00 09/24/20 07:01 DC 09/24/20 07:08 8 MG Sodium Chloride 100 ml ONCE ONCE IV 09/24/20 08:00 09/24/20 08:01 DC 09/24/20 07:49 100 ML (REMI HA) Vital Signs/I&O 09/24/20 09/24/20 06:00 07:14 Temp 36.4 Pulse 91 Resp 18 B/P (MAP) 144/79 (100) Pulse Ox 92 O2 Delivery Room Air Nasal Cannula O2 Flow Rate 2.00 (REMI HA) Blood Pressure Mean: 100 Progress Progress Note : Time: 07:04 Progress Note Atypical angina versus PUD versus bowel obstruction versus gastroenteritis from viral or other source. His electrolytes certainly demonstrate he has been vomiting. His creatinine is a little bit elevated probably owing to him being dehydrated. A liter of lactated Ringer's was ordered. His initial troponin is negative making atypical angina much less likely. We did give him some aspirin. We attempted a GI cocktail which she promptly vomited up but pretty 15 to 20 minutes he had it in his stomach he stated his pain did improve significantly. Our next step is to get a CT of the abdomen and pelvis with IV contrast. 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 (REMI HA) Initial ECG Impression Date: Sep 24, 2020 Initial ECG Impression Time: 06:06 Initial ECG Rate: 92 Initial ECG Rhythm: Normal Sinus Initial ECG Intervals: QT (523) Initial ECG Impression: Normal, Nonspecific Changes Initial ECG Comparisson: Unchanged Comment Right bundle branch block with no clinically relevant ST changes. Prolonged QTC. (REMI HA) Diagnostic Imaging Diagonstic Imaging: Xray Plain Films/CT/US/NM/MRI: chest Comments [facility]. [place], [place] NAME: SKYLARTREVOR Rochelle [facility] REC#: [id number] PT STATUS: REG ER : 1930 PHYSICIAN: REMI HA MD ADMIT DATE: 09/24/20/ER Draft Date of Exam:09/24/20 CHEST 1 VIEW, AP/PA ONLY INDICATION: Chest pain. Comparison made with prior examination from 10/07/2014. FINDINGS: There is cardiomegaly. There is some bibasal atelectasis and/or pneumonitis. There may be trace bilateral pleural effusions. There is no pneumothorax. Mediastinum is unremarkable. There has been previous median sternotomy and coronary bypass graft. IMPRESSION: Cardiomegaly and some bibasal atelectasis and/or pneumonitis and trace bilateral pleural effusions. Dictated on workstation # [id number] Dict: 09/24/20 0724 Trans: 09/24/20 0730 [facility] [id number] Interpreted by: MARIAH CHENG MD Electronically signed by: Reviewed: Reviewed by Me Diagonstic Imaging: CT Plain Films/CT/US/NM/MRI: abdomen, pelvis Comments [facility]. [place], [place] NAME: TREVOR CHENG [facility] REC#: [id number] PT STATUS: ADM IN : 1930 PHYSICIAN: REMI HA MD ADMIT DATE: 09/24/20 Signed Date of Exam:09/24/20 CT ABDOMEN/PELVIS W PROCEDURE: CT abdomen and pelvis with contrast. TECHNIQUE: Multiple contiguous axial images were obtained through the abdomen and pelvis after administration of intravenous contrast. Auto Exposure Controls were utilized during the CT exam to meet ALARA standards for radiation dose reduction. All CT scans use one or more of the following dose optimizing techniques: automated exposure control, MA and/or KvP adjustment based on patient size and exam type or iterative reconstruction. INDICATION: Midabdominal pain and vomiting, reflux since Thursday. COMPARISON STUDY: CT abdomen pelvis from April 19. FINDINGS: Mild linear atelectasis seen in both lung bases. Stomach is distended with mild distention of the esophagus consistent with reflux. Some coronary artery calcifications are present. The liver, spleen, pancreas, gallbladder, adrenal glands and kidneys appear normal. Urinary bladder is normal. Prostate gland is mildly enlarged. Trace amount of ascites is present. Fat-containing inguinal hernia is present. The appendix is normal. Small bowel obstruction is present with change in caliber in the right lower quadrant. 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 No aneurysms are present. Degenerative changes present in the lumbar spine. IMPRESSION: 1. There is small bowel obstruction. 2. Senescent changes are present with degenerative spine and arterial sclerosis. Report was called to [facility], Dr. Ha by cristi at 8:00am. Dictated by: Dictated on workstation # [id number] Dict: 09/24/20 0750 Trans: 09/24/20 1014 [facility] [id number] Interpreted by: ERICA AGUIAR MD Electronically signed by: ERICA AGUIAR MD 09/24/20 1014 Reviewed: Reviewed by Me (REMI HA) Departure Communication (Admissions) Time/Spoke to Admitting Phy: 08:00 Discussed the case with Dr. Sanchez and he would like medicine to consult. NG tube placement and small bowel follow-through in the morning. Time/Spoke to Consulting Phy: 08:15 Discussed the case with Dr. Allen, internal medicine and she agrees to consult on the case. (REMI HA) Impression Primary Impression: Small bowel obstruction Disposition: ADMITTED INPATIENT Condition: Stable Admissions Decision to Admit Reason: Admit from ER (General) Decision to Admit/Date: Sep 24, 2020 Time/Decision to Admit Time: 08:20 (REMI HA) Departure-Patient Inst. Referrals: BAN FRANK MD (PCP/Family) Primary Care Physician SILVIA WOODS MED STUDENT Sep 24, 2020 06:50 REMI HA Sep 24, 2020 07:06
[2020-09-24] MEDS ORDERED: morphine INJ 10 MG/ML 1ML (SYR OR VIAL) IVP STA (06:59)
[2020-09-24] MEDS ORDERED: ONDANSETRON 4 MG/2 ML (SDV) Z0FRAN IVP ONE (07:00)
--- NOTE | 2020-09-24 07:30 | Diagnostic Imaging Report ---
INDICATION: Chest pain. Comparison made with prior examination from 10/07/2014. FINDINGS: There is cardiomegaly. There is some bibasal atelectasis and/or pneumonitis. There may be trace bilateral pleural effusions. There is no pneumothorax. Mediastinum is unremarkable. There has been previous median sternotomy and coronary bypass graft. IMPRESSION: Cardiomegaly and some bibasal atelectasis and/or pneumonitis and trace bilateral pleural effusions. Dictated by: Dictated on workstation # [id number]
[2020-09-24] MEDS ORDERED: IOHEXOL 350 MG/ML 100 ML (OMNIPAQUE 350) VIAL IV ONE (08:00)
[2020-09-24] MEDS ORDERED: NS 100 ML (IVPB) BAG IV ONE (08:00)
[2020-09-24] MEDS ORDERED: HOLD METFORMIN - RECEIVED CONTRAST 20 ML VIAL IV SCH (08:00)
--- NOTE | 2020-09-24 08:03 | Diagnostic Imaging Report ---
PROCEDURE: CT abdomen and pelvis with contrast. TECHNIQUE: Multiple contiguous axial images were obtained through the abdomen and pelvis after administration of intravenous contrast. Auto Exposure Controls were utilized during the CT exam to meet ALARA standards for radiation dose reduction. All CT scans use one or more of the following dose optimizing techniques: automated exposure control, MA and/or KvP adjustment based on patient size and exam type or iterative reconstruction. INDICATION: Midabdominal pain and vomiting, reflux since Thursday. COMPARISON STUDY: CT abdomen pelvis from April 19. FINDINGS: Mild linear atelectasis seen in both lung bases. Stomach is distended with mild distention of the esophagus consistent with reflux. Some coronary artery calcifications are present. The liver, spleen, pancreas, gallbladder, adrenal glands and kidneys appear normal. Urinary bladder is normal. Prostate gland is mildly enlarged. Trace amount of ascites is present. Fat-containing inguinal hernia is present. The appendix is normal. Small bowel obstruction is present with change in caliber in the right lower quadrant. 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 No aneurysms are present. Degenerative changes present in the lumbar spine. IMPRESSION: 1. There is small bowel obstruction. 2. Senescent changes are present with degenerative spine and arterial sclerosis. Report was called to [facility], Dr. Ha by sung at 8:00am. Dictated by: Dictated on workstation # [id number]
--- NOTE | 2020-09-24 08:48 | History & Physical-Surgical ---
JAMES COWAN 09/24/20 0847: History of Present Illness History of Present Illness Reason for visit/HPI PT is an 89 y/o male presenting to ER for abdominal pain. PT reports the pain started Thursday morning around 0200, and vomiting 10x until 0500. Last BM was on Thursday. Pain located in the mid abdominal region. He reports passing some flatus. Pain was 6-7/10, but none after morphine was given at ER. No radiation of pain. Reports the pain was dull. NPO since yesterday. Vomited 1x at ER. Nothing makes the pain worse. No hx of previous abdominal surgery. No hx of similar symptoms. Date of Admission 09/24/20 Date Seen by a Provider: Sep 24, 2020 Time Seen by a Provider: 08:48 Attending Physician Admitting Physician Tulio Dove MD Consult Allergies and Home Medications Allergies Coded Allergies: No Known Drug Allergies (Unverified , 11/25/09) Home Medications Aspirin 81 Mg Tablet.dr, 81 MG PO HS, (Reported) Last Action: Reviewed Levothyroxine Sodium 75 Mcg Tablet, 75 MCG PO DAILY, (Reported) Last Action: Reviewed Lisinopril 5 Mg Tablet, 5 MG PO HS, (Reported) Last Action: Reviewed Metformin HCl 500 Mg Tablet, 500 MG PO DAILY, (Reported) Last Action: Reviewed Methyl-B12/l-Mefolate/B6 Phos 1 Each Tablet, 1 EACH PO DAILY, (Reported) Last Action: Reviewed Metoprolol Succinate 25 Mg Tab.er.24h, 25 MG PO DAILY, (Reported) Last Action: Reviewed Multivitamin 1 Each Tablet, 1 EACH PO DAILY, (Reported) Last Action: Reviewed Rosuvastatin Calcium 20 Mg Tablet, 20 MG PO HS, (Reported) Last Action: Reviewed Tadalafil 5 Mg Tablet, 5 MG PO HS, (Reported) Last Action: Reviewed Past Jungjsb-Dpjddq-Xtgidd Hx Patient Social History Substance use?: No Alcohol Use?: No Immunizations Up To Date First/Initial COVID19 Vaccinat: 05/30 Second COVID19 Vaccination Leodan: 06/29 Tetanus Booster (TDap): Unknown Date of Pneumonia Vaccine: Feb 09, 2009 Current Status Advance Directives: No Communicates: Verbally Primary Language: Niuean Preferred Spoken Language: Niuean Is interpretation needed?: No Past Medical History Surgeries: CABG Fractures Hypothyroidsim, Diabetes, 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 Blood Disorders: No Family Medical History Diabetes mellitus 19 FATHER G8 BROTHER FH: lung cancer G8 BROTHER (PAST AWAY FROM [facility]) Review of Systems Constitutional: No chills, No dizziness EENTM: No ear discharge, No mouth swelling Respiratory: No cough, No wheezing Cardiovascular: No chest pain, No edema Gastrointestinal: abdominal pain; No jaundice Musculoskeletal: No muscle twitching, No muscle weakness Skin: No change in color, No change in hair/nails Psychiatric/Neurological: Denies Anxiety, Denies Depressed Physical Exam Vital Signs Vital Signs - First Documented 09/24/20 09/24/20 06:00 07:14 Temp 36.4 Pulse 91 Resp 18 B/P (MAP) 144/79 (100) Pulse Ox 92 O2 Delivery Room Air O2 Flow Rate 2.00 Capillary Refill : Less Than 3 Seconds Height, Weight, BMI Height: 5'10.00" Weight: 200lbs. 4.0oz. [id number]; 29.00 BMI Method:Estimated Eyes: Bilateral Eye PERRL HEENT: PERRL/EOMI, Moist Mucous Membranes Neck: Full Range of Motion, Normal Inspection Respiratory: Chest Non Tender, Lungs Clear Cardiovascular: Regular Rate, Rhythm, No JVD Gastrointestinal: Distended, Tenderness Neurologic/Psychiatric: Alert, Oriented x3 Skin: Normal Color, Warm/Dry Lymphatic: No Adenopathy Data Review Labs Laboratory Tests 09/24/20 06:06: Lipase 14 09/24/20 06:09: White Blood Count 17.6H, Red Blood Count 5.90H, Hemoglobin 16.9, Hematocrit 52, Mean Corpuscular Volume 89, Mean Corpuscular Hemoglobin 29, Mean Corpuscular Hemoglobin Concent 32, Red Cell Distribution Width 14.2, Platelet Count 423H, Me an Platelet Volume 11.1, Immature Granulocyte % (Auto) 0, Neutrophils (%) (Auto) 72, Lymphocytes (%) (Auto) 15, Monocytes (%) (Auto) 13H, Eosinophils (%) (Auto) 0, Basophils (%) (Auto) 0, Neutrophils # (Auto) 12.7H, Lymphocytes # (Auto) 2.5, Monocytes # (Auto) 2.2H, Eosinophils # (Auto) 0.1, Basophils # (Auto) 0.0, Rachel ture Granulocyte # (Auto) 0.1, Neutrophils % (Manual) 69, Lymphocytes % (Manual) 15, Monocytes % (Manual) 10, Eosinophils % (Manual) 1, Band Neutrophils 5, Percent Immature Platelet Fraction 8.7H, Prothrombin Time 15.1H, INR Comment 1.2, Activated Partial Thromboplast Time 38H, Sodium Level 130L, Potassium Level 4.1, Chloride Level 89L, Carbon Dioxide Level 25, Anion Gap 16H, Blood Urea Nitrogen 18, Creatinine 1.37H, Estimat Glomerular Filtration Rate 49, BUN/Creatinine Ratio 13, Glucose Level 190H, Calcium Level 11.0H, Corrected Calcium 10.8H, Magnesium Level 2.0, Total Bilirubin 1.1H, Aspartate Amino Transf (AST/SGOT) 18, Alanine Aminotransferase (ALT/SGPT) 12, Alkaline Phosphatase 58, Myoglobin 65.9, Troponin I < 0.028, Total Protein 8.4H, Albumin 4.2 09/24/20 12:12: Glucometer 148H 09/24/20 15:54: Glucometer 137H Assessment/Plan Assessment/Plan Admission Diagonsis 1. Small bowel obstruction 2. Inguinal hernia NG tube was placed in ER. Admit to hospital. Continue NPO. Monitor NGT contents and volume. Monitor BMs, if any, and flatus passing. Repeat imaging tomorrow. DB SANCHEZ DO 09/24/201902: History of Present Illness History of Present Illness Reason for visit/HPI Chief complaint nausea vomiting epigastric abdominal pain. Patient is a 89-year-old male that began having abdominal pain nausea and vomiting on Thursday. Patient had multiple episodes of emesis on Thursday. Patient states that he started feeling better on Thursday which she did not have any emesis but today he began having nausea and emesis again. Patient states he is passing flatus and did have some bowel movements. He has epigastric abdominal pain that he rates at a 6-7 out of 10. No radiation of pain. It is a dull type pain. He is not been able to really take anything by mouth. He denies any history of abdominal surgery. He has no other symptoms like this before. Patient had a CT scan showing findings consistent with small bowel obstruction. He has bilateral fat-containing hernias but no evidence of bowel in these hernias that would be causing obstruction. Allergies and Home Medications Allergies Coded Allergies: No Known Drug Allergies (Unverified , 11/25/09) Home Medications Aspirin 81 Mg Tablet.dr, 81 MG PO HS, (Reported) Last Action: Reviewed Levothyroxine Sodium 75 Mcg Tablet, 75 MCG PO DAILY, (Reported) Last Action: Reviewed Lisinopril 5 Mg Tablet, 5 MG PO HS, (Reported) Last Action: Reviewed Metformin HCl 500 Mg Tablet, 500 MG PO DAILY, (Reported) Last Action: Reviewed Methyl-B12/l-Mefolate/B6 Phos 1 Each Tablet, 1 EACH PO DAILY, (Reported) Last Action: Reviewed Metoprolol Succinate 25 Mg Tab.er.24h, 25 MG PO DAILY, (Reported) Last Action: Reviewed Multivitamin 1 Each Tablet, 1 EACH PO DAILY, (Reported) Last Action: Reviewed Rosuvastatin Calcium 20 Mg Tablet, 20 MG PO HS, (Reported) Last Action: Reviewed Tadalafil 5 Mg Tablet, 5 MG PO HS, (Reported) Last Action: Reviewed Patient Home Medication List Home Medication List Reviewed: Yes Past Skgpmtk-Tqqzic-Bfxyfx Hx Patient Social History Marrital Status: Employed/Student: retired Tobacco Use?: No Use of E-Cig and/or Vaping dev: No Substance use?: No Alcohol Use?: No Past Medical History Diabetes, Non-Insulin dep Family Medical History Diabetes mellitus 19 FATHER G8 BROTHER FH: lung cancer G8 BROTHER (PAST AWAY FROM [facility]) Cancer (Lung), Diabetes Review of Systems Constitutional: No chills, No dizziness EENTM: No ear discharge, No mouth swelling Respiratory: No cough, No wheezing Cardiovascular: No chest pain, No edema Gastrointestinal: abdominal pain, nausea, vomiting Genitourinary: No decreased output, No discharge Musculoskeletal: No back pain, No joint pain, No muscle twitching, No muscle weakness Skin: No change in color, No change in hair/nails Psychiatric/Neurological: Denies Anxiety, Denies Depressed, Denies Emotional Problems All Other Systems Reviewed Negative Unless Noted: Yes (Negative excepted noted.) Physical Exam General Appearance: No Apparent Distress, WD/WN HEENT: PERRL/EOMI, Normal ENT Inspection, Other (NG tube ) Neck: Full Range of Motion, Normal Inspection, Non Tender Respiratory: Chest Non Tender, No Accessory Muscle Use, No Respiratory Distress Cardiovascular: Regular Rate, Rhythm, No JVD Gastrointestinal: Distended, Tenderness (Epigastric area bilateral inguinal hernia reducible) Rectal: Deferred Back: Normal Inspection, No CVA Tenderness, No Vertebral Tenderness Neurologic/Psychiatric: Alert, Oriented x3, No Motor/Sensory Deficits Skin: Normal Color, Warm/Dry Lymphatic: No Adenopathy Assessment/Plan Assessment/Plan Admission Diagonsis Small bowel obstruction likely partial Nausea and vomiting Bilateral inguinal hernia Epigastric abdominal pain History of CABG Diabetes type 2 Admission Status: Inpatient Order (span 2 midnights) Reason for Inpatient Admission: Patient needs IV fluids. Bowel rest. Further radiological imaging. Patient will need to be reevaluated for possible surgical intervention this will take a stay of over 2 midnights. Assessment/Plan Small bowel obstruction likely partial Nausea and vomiting Bilateral inguinal hernia Epigastric abdominal pain History of CABG Diabetes type 2 Electrolyte abnormalities. NG tube already been placed in the emergency department. N.p.o. Small bowel follow-through to evaluate for obstruction. Patient with bilateral inguinal hernias but these are fat-containing do not see bowel through hernias causing obstruction. Will await small bowel follow-through to see if cause of obstruction can be identified. Repeat labs in the morning. IV fluid resuscitation patient was discussed we will continue conservative measures at this time and may need surgical intervention which she understands. Patient agrees with plan. This was also discussed with his . Supervisory-Addendum Brief Verification & Attestation Participated in pt care: history, MDM, physical Personally performed: exam, history, MDM, supervision of care Care discussed with: Medical Student Procedures: n/a Results interpretation: Verified all documentation Verification and Attestation of Medical Student E/M Service A medical student performed and documented this service in my presence. I reviewed and verified all information documented by the medical student and made modifications to such information, when appropriate. I personally performed the physical exam and medical decision making. Db Sanchez, Sep 24, 2020,19:09 JAMES COWAN Sep 24, 2020 08:47 DB SANCHEZ DO Sep 24, 2020 19:03
[2020-09-24 09:45] VITALS: BP 127/62
[2020-09-24] MEDS ORDERED: PROMETHAZINE INJ 25 MG/ML (PHENERGAN) AMP IVP PRN (10:00)
[2020-09-24] MEDS: NS W/KCL 20 MEQ/L 1,000 ML IV SCH ×3 (10:42→23:44)
[2020-09-24] MEDS ORDERED: inSUlin ASPART (NovoLOG) 1 UNIT/0.01 ML (CHARGE PER UNIT) SC SCH ×2 (11:00→16:00)
[2020-09-24 12:10] VITALS: BP 126/60
--- NOTE | 2020-09-24 13:07 | ED Abdominal Pain ---
General Chief Complaint: Abdominal/GI Problems Stated Complaint: ACID REFLUX Nursing Triage Note: MID ABDOMINAL PAIN, VOMITTING, REFLUX SINCE THURSDAY. Source of Information: Patient, Family Exam Limitations: No Limitations NPO Since: 16:30 yesterday History of Present Illness Date Seen by Provider: Sep 24, 2020 Time Seen by Provider: 06:10 Allergies and Home Medications Allergies Coded Allergies: No Known Drug Allergies (Unverified , 11/25/09) Home Medications Amoxicillin/Potassium Clav 1 Each Tablet, 1 EACH PO BID Prescribed by: SONIA URIZ on 08/09/16 1141 Dutasteride 0.5 Mg Cap, 0.5 MG PO PRN, (Reported) Fluticasone Propionate 16 Gm [place].susp, 16 GM NS PRN, (Reported) Levothyroxine Sodium 75 Mcg Tablet, 50 MCG PO DAILY, (Reported) Metformin Hcl 500 Mg Tablet, 1 EACH PO BID WITH MEALS, (Reported) Ondansetron 8 Mg Tab.rapdis, 8 MG PO Q6H PRN for NAUSEA/VOMITING-1ST LINE Prescribed by: SONIA RUIZ on 08/09/16 1141 Past Jnawxrn-Kktqxp-Nlynkj Hx Patient Social History Tobacco Use?: No Substance use?: No Alcohol Use?: No Pt feels they are or have been: No Immunizations Up To Date First/Initial COVID19 Vaccinat: 05/30 Second COVID19 Vaccination Leodan: 06/29 Seasonal Allergies Seasonal Allergies: Yes Past Medical History Surgery/Hospitalization HX: CABG, GERD, HTN, HYPOTHRYOID, BPH, NIDDM Surgeries: Yes (cyst removed, repair of fx fibula with plate) Respiratory: No Currently Using CPAP: No Currently Using BIPAP: No Cardiac: Yes High Cholesterol, Hypertension Neurological: No Reproductive Disorders: No Sexually Transmitted Disease: No Benign Prostatic Hyperpl Gastrointestinal: No Gastroesophageal Reflux, Gastrointestinal Bleed, Chronic Constipation, Hemorrhoids Musculoskeletal: Yes Arthritis, Fractures Endocrine: Yes (TAKES METFORMIN) Hypothyroidsim, Diabetes, Non-Insulin dep Hearing Impairment: Hard of Hearing, Bilateral Hearing Aide Cancer: No Psychosocial: No Integumentary: No Blood Disorders: No Family Medical History Diabetes mellitus 19 FATHER G8 BROTHER FH: lung cancer G8 BROTHER (PAST AWAY FROM [facility]) Physical Exam Vital Signs Vital Signs - First Documented 09/24/20 06:00 Temp 36.4 Pulse 91 Resp 18 B/P (MAP) 144/79 (100) Pulse Ox 92 O2 Delivery Room Air Capillary Refill : Less Than 3 Seconds Height/Weight/BMI Height: 5'10.00" Weight: 200lbs. 4.0oz. 90.790244vb; 29.00 BMI Method:Estimated Progress/Results/Core Measures Results/Orders Lab Results Laboratory Tests Test 09/24/20 06:09 Range/Units White Blood Count 17.6 H 4.3-11.0 10^3/uL Red Blood Count 5.90 H 4.30-5.52 10^6/uL Hemoglobin 16.9 13.3-17.7 g/dL Hematocrit 52 40-54 % Mean Corpuscular Volume 89 80-99 fL Mean Corpuscular Hemoglobin 29 25-34 pg Mean Corpuscular Hemoglobin Concent 32 32-36 g/dL Red Cell Distribution Width 14.2 10.0-14.5 % Platelet Count 423 H 130-400 10^3/uL Mean Platelet Volume 11.1 9.0-12.2 fL Immature Granulocyte % (Auto) 0 % Neutrophils (%) (Auto) 72 42-75 % Lymphocytes (%) (Auto) 15 12-44 % Monocytes (%) (Auto) 13 H 0-12 % Eosinophils (%) (Auto) 0 0-10 % Basophils (%) (Auto) 0 0-10 % Neutrophils # (Auto) 12.7 H 1.8-7.8 10^3/uL Lymphocytes # (Auto) 2.5 1.0-4.0 10^3/uL Monocytes # (Auto) 2.2 H 0.0-1.0 10^3/uL Eosinophils # (Auto) 0.1 0.0-0.3 10^3/uL Basophils # (Auto) 0.0 0.0-0.1 10^3/uL Immature Granulocyte # (Auto) 0.1 0.0-0.1 10^3/uL Percent Immature Platelet Fraction 8.7 H 0.0-7.6 % Vital Signs/I&O 09/24/20 06:00 Temp 36.4 Pulse 91 Resp 18 B/P (MAP) 144/79 (100) Pulse Ox 92 O2 Delivery Room Air Blood Pressure Mean: 100 Departure Departure-Patient Inst. Referrals: BAN FRANK MD (PCP/Family) Primary Care Physician SILVIA WOODS MED STUDENT Sep 24, 2020 13:07
[2020-09-24] MEDS ORDERED: ASPI-1238 PO (13:12)
[2020-09-24] MEDS ORDERED: LEVO75TA6 PO (13:12)
[2020-09-24] MEDS ORDERED: LISI-729 PO (13:12)
[2020-09-24] MEDS ORDERED: MULT-1136 PO (13:12)
[2020-09-24] MEDS ORDERED: METH1TAB59 PO (13:12)
[2020-09-24] MEDS ORDERED: TADA5TAB3 PO (13:12)
--- NOTE | 2020-09-24 13:24 | Consultation - Hospitalist ---
HPI History of Present Illness: HPI/Chief Complaint Pt is an 89yoCM with a PMH of CAD s/p CABG, HTN, HLD, BPH, HLD, NIDDMII, and hypothyroidism who presented to the ER due to abdominal pain. He reports that he has never had anything similar to this. His symptoms started on 09/22. He had a BM that evenign without relief. He has has multiple episodes of vomiting even with NGT. He denies any previous abdominal surgeyr. Imaging revealed SBO and he is being admitted to surgery. I am consulted for medical management. Source: patient Date Seen 09/24/20 Attending Physician eJnaro Sanchez DO PCP Tulio Dove MD Referring Physician Date of Admission Sep 24, 2020 at 08:20 Home Medications & Allergies Home Medications Reviewed patient Home Medication Reconciliation performed by pharmacy medication reconciliations tree and shrub technician and/or nursing. Patients Allergies have been reviewed. Allergies Allergies Coded Allergies No Known Drug Allergies (Dbcclskeuc93/17/10) Past Zinedyw-Jagjlb-Biafqc Hx Patient Social History Tobacco Use?: No Smokeless Tobacco Frequency: Former User Use of E-Cig and/or Vaping dev: No Substance use?: No Alcohol Use?: No Immunizations Up To Date First/Initial COVID19 Vaccinat: 05/30 Second COVID19 Vaccination Leodan: 06/29 Tetanus Booster (TDap): Unknown Date of Pneumonia Vaccine: Feb 09, 2009 Current Status Advance Directives: No Advance Directive Location: Home Communicates: Verbally Primary Language: Persian Preferred Spoken Language: Persian Is interpretation needed?: No Past Medical History Surgeries: CABG Fractures Hypothyroidsim, Diabetes, 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 Blood Disorders: No Family Medical History Reviewed Nursing Family Hx Diabetes mellitus 19 FATHER G8 BROTHER FH: lung cancer G8 BROTHER (PAST AWAY FROM [facility]) Review of Systems Constitutional: No chills, No fever EENTM: no symptoms reported Respiratory: No cough, No short of breath Cardiovascular: No chest pain, No edema; Hx of Intervention; No palpitations Gastrointestinal: see HPI Genitourinary: no symptoms reported Musculoskeletal: no symptoms reported Skin: no symptoms reported Psychiatric/Neurological: No Symptoms Reported Physical Exam Physical Exam Vital Signs Vital Signs - First Documented 09/24/20 09/24/20 06:00 07:14 Temp 36.4 Pulse 91 Resp 18 B/P (MAP) 144/79 (100) Pulse Ox 92 O2 Delivery Room Air O2 Flow Rate 2.00 Capillary Refill : Less Than 3 Seconds Height, Weight, BMI Height: 5'10.00" Weight: 200lbs. 4.0oz. 90.359926pi; 29.66 BMI Method:Estimated General Appearance: No Apparent Distress, WD/WN Eyes: Bilateral Eye PERRL HEENT: PERRL/EOMI, Moist Mucous Membranes; No Scleral Icterus (L), No Scleral Icterus (R); Other (NGT in place) Neck: Normal Inspection, Supple Respiratory: Lungs Clear, No Accessory Muscle Use, No Respiratory Distress Cardiovascular: Regular Rate, Rhythm, No Edema, No Murmur Gastrointestinal: Abnormal Bowel Sounds (quiet), Distended; No Guarding; Tenderness (mild/diffuse) Neurologic/Psychiatric: Alert, Oriented x3, Normal Mood/Affect Skin: Normal Color, Warm/Dry Lymphatic: No Adenopathy Results Results/Procedures Labs Laboratory Tests 09/24/20 06:09 Patient resulted labs reviewed. Imaging: Reviewed Imaging Report Imaging [facility], [place] NAME: TREVOR CHENG [facility] REC#: [id number] PT STATUS: REG ER : 1930 PHYSICIAN: REMI HA MD ADMIT DATE: 09/24/20/ER Signed Date of Exam:09/24/20 CHEST 1 VIEW, AP/PA ONLY INDICATION: Chest pain. Comparison made with prior examination from 10/07/2014. FINDINGS: There is cardiomegaly. There is some bibasal atelectasis and/or pneumonitis. There may be trace bilateral pleural effusions. There is no pneumothorax. Mediastinum is unremarkable. There has been previous median sternotomy and coronary bypass graft. IMPRESSION: Cardiomegaly and some bibasal atelectasis and/or pneumonitis and trace bilateral pleural effusions. Dictated by: Dictated on workstation # [id number] Dict: 09/24/20723 Trans: 09/24/20824 [facility] [id number] Interpreted by: MARIAH CHENG MD Electronically signed by: MARIAH CHENG MD 09/24/20824 [facility] [place], [place] NAME: TREVOR CHENG [facility] REC#: [id number] PT STATUS: ADM IN : 1930 PHYSICIAN: REMI HA MD ADMIT DATE: 09/24/20 Signed Date of Exam:09/24/20 CT ABDOMEN/PELVIS W PROCEDURE: CT abdomen and pelvis with contrast. TECHNIQUE: Multiple contiguous axial images were obtained through the abdomen and pelvis after administration of intravenous contrast. Auto Exposure Controls were utilized during the CT exam to meet ALARA standards for radiation dose reduction. All CT scans use one or more of the following dose optimizing techniques: automated exposure control, MA and/or KvP adjustment based on patient size and exam type or iterative reconstruction. INDICATION: Midabdominal pain and vomiting, reflux since Thursday. COMPARISON STUDY: CT abdomen pelvis from April 19. FINDINGS: Mild linear atelectasis seen in both lung bases. Stomach is distended with mild distention of the esophagus consistent with reflux. Some coronary artery calcifications are present. The liver, spleen, pancreas, gallbladder, adrenal glands and kidneys appear normal. Urinary bladder is normal. Prostate gland is mildly enlarged. Trace amount of ascites is present. Fat-containing inguinal hernia is present. The appendix is normal. Small bowel obstruction is present with change in caliber in the right lower quadrant. 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 No aneurysms are present. Degenerative changes present in the lumbar spine. IMPRESSION: 1. There is small bowel obstruction. 2. Senescent changes are present with degenerative spine and arterial sclerosis. Report was called to [facility], Dr. Ha by cristi at 8:00am. Dictated by: Dictated on workstation # [id number] Dict: 09/24/20 0750 Trans: 09/24/20 1014 [facility] [id number] Interpreted by: ERICA AGUIAR MD Electronically signed by: ERICA AGUIAR MD 09/24/20 1014 Assessment/Plan Assessment and Plan Assess & Plan/Chief Complaint SBO Management per primary Continue pain regimen NGT in place Bowel rest HTN CABG HLD BP well controlled Hold home meds while NPO BPH Hold home meds while NPO- monitor for need for hui hypothyroidism Hold home meds NIDDMII fasting blood sugar 190 JUSTO,JUAREZ M MD Sep 24, 2020 13:23
[2020-09-24] MEDS: inSUlin ASPART (NovoLOG) 1 UNIT/0.01 ML (CHARGE PER UNIT) SC SCH ×2 (15:57→21:23)
[2020-09-24 16:00] VITALS: BP 125/58
[2020-09-24] MEDS: morphine INJ 4 MG/ML 1 ML (VIAL/SYRINGE) IVP PRN (17:31)
--- NOTE | 2020-09-24 17:41 | History & Physical-Surgical ---
History of Present Illness History of Present Illness Reason for visit/HPI PT is an 89 y/o male presenting to ER for abdominal pain. PT reports the pain started Thursday morning around 0200, and vomiting 10x until 0500. Last BM was on Thursday. Pain located in the mid abdominal region. He reports passing some flatus. Pain was 6-7/10, but none after morphine was given at ER. No radiation of pain. Reports the pain was dull. NPO since yesterday. Vomited 1x at ER. Not belia makes the pain worse. No hx of previous abdominal surgery. No hx of similar symptoms. Date of Admission Sep 24, 2020 at 08:20 Date Seen by a Provider: Sep 24, 2020 Time Seen by a Provider: 08:05 I consulted on this patient on 09/24/20 08 Attending Physician Jenaro Sanchez DO Admitting Physician Tulio Dove MD Consult Allergies and Home Medications Allergies Coded Allergies: No Known Drug Allergies (Unverified , 11/25/09) Home Medications Aspirin 81 Mg Tablet.dr, 81 MG PO HS, (Reported) Last Action: Reviewed Levothyroxine Sodium 75 Mcg Tablet, 75 MCG PO DAILY, (Reported) Last Action: Reviewed Lisinopril 5 Mg Tablet, 5 MG PO HS, (Reported) Last Action: Reviewed Metformin HCl 500 Mg Tablet, 500 MG PO DAILY, (Reported) Last Action: Reviewed Methyl-B12/l-Mefolate/B6 Phos 1 Each Tablet, 1 EACH PO DAILY, (Reported) Last Action: Reviewed Metoprolol Succinate 25 Mg Tab.er.24h, 25 MG PO DAILY, (Reported) Last Action: Reviewed Multivitamin 1 Each Tablet, 1 EACH PO DAILY, (Reported) Last Action: Reviewed Rosuvastatin Calcium 20 Mg Tablet, 20 MG PO HS, (Reported) Last Action: Reviewed Tadalafil 5 Mg Tablet, 5 MG PO HS, (Reported) Last Action: Reviewed Past Vkofrhm-Gqrnwj-Iupjvh Hx Patient Social History Tobacco Use?: No Smokeless Tobacco Frequency: Former User Use of E-Cig and/or Vaping dev: No Substance use?: No Alcohol Use?: No Immunizations Up To Date First/Initial COVID19 Vaccinat: 05/30 Second COVID19 Vaccination Leodan: 06/29 Tetanus Booster (TDap): Unknown Date of Pneumonia Vaccine: Feb 09, 2009 Current Status Advance Directives: No Advance Directive Location: Home Communicates: Verbally Primary Language: Persian Preferred Spoken Language: Persian Is interpretation needed?: No Past Medical History Surgeries: CABG Fractures Hypothyroidsim, Diabetes, 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 Blood Disorders: No Family Medical History Reviewed Nursing Family Hx Diabetes mellitus 19 FATHER G8 BROTHER FH: lung cancer G8 BROTHER (PAST AWAY FROM LUNG CA) Review of Systems Constitutional: No chills, No dizziness EENTM: No ear discharge, No mouth pain Respiratory: No cough, No wheezing Cardiovascular: No chest pain, No edema Gastrointestinal: abdominal pain; No jaundice Musculoskeletal: No muscle twitching, No muscle weakness Skin: No change in color, No change in hair/nails Psychiatric/Neurological: Denies Anxiety, Denies Depressed Physical Exam Vital Signs Vital Signs - First Documented 09/24/20 09/24/20 06:00 07:14 Temp 36.4 Pulse 91 Resp 18 B/P (MAP) 144/79 (100) Pulse Ox 92 O2 Delivery Room Air O2 Flow Rate 2.00 Capillary Refill : Less Than 3 Seconds Height, Weight, BMI Height: 5'10.00" Weight: 200lbs. 4.0oz. 90.925035cn; 29.66 BMI Method:Estimated Eyes: Bilateral Eye PERRL HEENT: PERRL/EOMI Neck: Full Range of Motion, Normal Inspection Respiratory: Chest Non Tender, Lungs Clear Cardiovascular: Regular Rate, Rhythm, No JVD Gastrointestinal: Distended, Tenderness Neurologic/Psychiatric: Alert, Oriented x3 Skin: Normal Color, Warm/Dry Lymphatic: No Adenopathy Data Review Labs Laboratory Tests 09/24/20 06:06: Lipase 14 09/24/20 06:09: White Blood Count 17.6H, Red Blood Count 5.90H, Hemoglobin 16.9, Hematocrit 52, Mean Corpuscular Volume 89, Mean Corpuscular Hemoglobin 29, Mean Corpuscular Hemoglobin Concent 32, Red Cell Distribution Width 14.2, Platelet Count 423H, Mean Platelet Volume 11.1, Immature Granulocyte % (Auto) 0, Neutrophils (%) (Auto) 72, Lymphocytes (%) (Auto) 15, Monocytes (%) (Auto) 13H, Eosinophils (%) (Auto) 0, Basophils (%) (Auto) 0, Neutrophils # (Auto) 12.7H, Lymphocytes # (Auto) 2.5, Monocytes # (Auto) 2.2H, Eosinophils # (Auto) 0.1, Basophils # (Auto) 0.0, Immature Granulocyte # (Auto) 0.1, Neutrophils % (Manual) 69, Lymphocytes % (Manual) 15, Monocytes % (Manual) 10, Eosinophils % (Manual) 1, Band Neutrophils 5, Percent Immature Platelet Fraction 8.7H, Prothrombin Time 15.1H, INR Comment 1.2, Activated Partial Thromboplast Time 38H, Sodium Level 130L, Potassium Level 4.1, Chloride Level 89L, Carbon Dioxide Level 25, Anion Gap 16H, Blood Urea Nitrogen 18, Creatinine 1.37H, Estimat Glomerular Filtration Rate 49, BUN/Creatinine Ratio 13, Glucose Level 190H, Calcium Level 11.0H, Corrected Calcium 10.8H, Magnesium Level 2.0, Total Bilirubin 1.1H, Aspartate Amino Transf (AST/SGOT) 18, Alanine Aminotransferase (ALT/SGPT) 12, Alkaline Phosphatase 58, Myoglobin 65.9, Troponin I < 0.028, Total Protein 8.4H, Albumin 4.2 09/24/20 12:12: Glucometer 148H 09/24/20 15:54: Glucometer 137H Assessment/Plan Assessment/Plan Admission Diagonsis 1. Small bowel obstruction 2. Inguinal hernia NG tube was placed in ER. Admit to hospital. Continue NPO. Monitor NGT contents and volume. Monitor BMs, if any, and flatus passing. Repeat imaging tomorrow. JAMES COWAN Sep 24, 2020 17:41
[2020-09-24] MEDS: ONDANSETRON 4 MG/2 ML (SDV) Z0FRAN IVP PRN (19:56)
[2020-09-24 20:01] VITALS: BP 138/63
[2020-09-25] VITALS (12 sets, daily range): BP systolic 109–139; BP diastolic 61–70
[2020-09-25] MEDS: ONDANSETRON 4 MG/2 ML (SDV) Z0FRAN IVP PRN ×2 (05:27→14:24)
[2020-09-25 06:11] LABS: BASOPHILS % (AUTO) 0 % (0-10); EOSINOPHILS # (AUTO) 0.1 10^3/uL (0.0-0.3); EOSINOPHILS % (AUTO) 0 % (0-10); HEMATOCRIT 46 % (40-54); LYMPHOCYTES # (AUTO) 1.3 10^3/uL (1.0-4.0); LYMPHOCYTES % (AUTO) 10 % (12-44); MEAN CORPUSCULAR HEMOGLOBIN 29 pg (25-34); MEAN CORPUSCULAR HGB CONC 32 g/dL (32-36); MEAN CORPUSCULAR VOLUME 89 fL (80-99); MEAN PLATELET VOLUME 10.9 fL (9.0-12.2); MONOCYTES # (AUTO) 1.9 10^3/uL (0.0-1.0); MONOCYTES % (AUTO) 15 % (0-12); NEUTROPHILS # (AUTO) 9.7 10^3/uL (1.8-7.8); NEUTROPHILS % (AUTO) 75 % (42-75); PLATELET COUNT 330 10^3/uL (130-400)
[2020-09-25 06:19] LABS: POTASSIUM 4.7 MMOL/L (3.6-5.0)
[2020-09-25 06:21] LABS: CALCIUM 9.4 MG/DL (8.5-10.1)
[2020-09-25 06:25] LABS: CREATININE SERUM 0.85 MG/DL (0.60-1.30)
[2020-09-25] MEDS: inSUlin ASPART (NovoLOG) 1 UNIT/0.01 ML (CHARGE PER UNIT) SC SCH ×4 (06:32→20:34)
[2020-09-25] MEDS: NS W/KCL 20 MEQ/L 1,000 ML IV SCH ×3 (06:32→22:41)
[2020-09-25] MEDS ORDERED: DIATRIZOATE MEGLUM/SODIUM 37% 120 ML (GASTROGRAFIN) NG ONE (08:00)
--- NOTE | 2020-09-25 08:04 | Progress Note - Surgery ---
JAMES COWAN 09/25/20 0803: Subjective Date Seen by a Provider: Sep 25, 2020 Time Seen by a Provider: 07:40 Subjective/Events-last exam PT reports pain is improved since yesterday. Reports abdomen feels less distended compared to yesterday. Denies passing flatus or having BM.y. NG tube continues in place. Reports vomiting 6x since yesterday. Review of Systems General: No Chills, No Fatigue HEENT: No Head Aches, No Visual Changes Pulmonary: No Dyspnea, No Cough Cardiovascular: No: Chest Pain, Palpitations Gastrointestinal: Vomiting; No: Diarrhea Genitourinary: No Dysuria, No Frequency Musculoskeletal: No: neck pain, shoulder pain Neurological: No: Weakness, Numbness Objective Exam Vital Signs Date Time Temp Pulse Resp B/P (MAP) Pulse Ox O2 Delivery O2 Flow Rate FiO2 09/25/20 03:55 37.1 77 18 126/70 (88) 95 Nasal Cannula 4.00 09/25/20 00:57 94 Nasal Cannula 4.00 09/25/20 00:41 36.1 64 18 117/69 (85) 94 Nasal Cannula 4.00 09/24/20 20:01 36.8 77 20 138/63 (88) 95 Nasal Cannula 3.50 09/24/20 20:00 Nasal Cannula 4.00 09/24/20 16:00 36.6 76 20 125/58 (80) 96 Nasal Cannula 3.50 09/24/20 12:10 36.6 75 20 126/60 (82) 94 Room Air 09/24/20 09:45 36.6 81 20 127/62 (83) 95 Room Air 09/24/20 09:27 80 19 125/57 95 Nasal Cannula 3.00 I & O 09/25/20 06:59 Intake Total 1000 ml Output Total 2478 ml Balance -1478 ml Capillary Refill : Less Than 3 Seconds General Appearance: No Apparent Distress, WD/WN HEENT: PERRL/EOMI, Normal ENT Inspection, Other (NG tube ) Neck: Full Range of Motion, Normal Inspection, Non Tender Respiratory: Chest Non Tender, No Accessory Muscle Use, No Respiratory Distress Cardiovascular: Regular Rate, Rhythm, No JVD Peripheral Pulses: 2+ Radial Pulses (R), 2+ Radial Pulses (L) Gastrointestinal: soft, tenderness (mild tenderness epigastric, no radiation) Neurologic/Psychiatric: Alert, Oriented x3, No Motor/Sensory Deficits Skin: Normal Color, Warm/Dry Lymphatic: No Adenopathy Results Lab Laboratory Tests 09/24/20 12:12: Glucometer 148H 09/24/20 15:54: Glucometer 137H 09/24/20 20:27: Glucometer 137H 09/25/20 05:58: White Blood Count 13.0H, Red Blood Count 5.19, Hemoglobin 15.0, Hematocrit 46, Mean Corpuscular Volume 89, Mean Corpuscular Hemoglobin 29, Mean Corpuscular Hemoglobin Concent 32, Red Cell Distribution Width 14.2, Platelet Count 330, Mean Platelet Volume 10.9, Immature Granulocyte % (Auto) 0, Neutrophils (%) (Auto) 75, Lymphocytes (%) (Auto) 10L, Monocytes (%) (Auto) 15H, Eosinophils (%) (Auto) 0, Basophils (%) (Auto) 0, Neutrophils # (Auto) 9.7H, Lymphocytes # (Auto) 1.3, Monocytes # (Auto) 1.9H, Eosinophils # (Auto) 0.1, Basophils # (Auto) 0.0, Immature Granulocyte # (Auto) 0.0, Sodium Level 134L, Potassium Level 4.7, Chloride Level 99, Carbon Dioxide Level 24, Anion Gap 11, Blood Urea Nitrogen 16, Creatinine 0.85, Estimat Glomerular Filtration Rate 85, BUN/Creatinine Ratio 19, Glucose Level 125H, Calcium Level 9.4, Triglycerides Level 59, Cholesterol Level 98, LDL Cholesterol Direct 25, VLDL Cholesterol 12, HDL Cholesterol 50 Assessment/Plan Assessment/Plan Assessment/Plan Small bowel obstruction likely partial Nausea and vomiting Bilateral inguinal hernia Epigastric abdominal pain History of CABG Diabetes type 2 Electrolyte abnormalities. Continue w NG tube in place and NPO. NG tube already been placed in the emergency department. Patient with bilateral inguinal hernias but these are fat-containing do not see bowel through hernias causing obstruction. Will await small bowel follow-through to see if cause of obstruction can be identified. Continue conservative measures at this time and may need surgical intervention which he understands. DB SANCHEZ DO 09/25/20 1324: Subjective Subjective/Events-last exam Having nausea and emesis despite NG tube. Abdomen more distended today. No flatus or bm. More pain in the middle of abdomen. Denies fever sweats chills shortness of breath or chest pain. Small bowel follow through in process and no movement of contrast out of stomach thus far. Objective Exam General Appearance: Other (Appears uncomfortable, ng tube in) HEENT: PERRL/EOMI, Normal ENT Inspection, Other (NG tube ) Neck: Normal Inspection, Non Tender Respiratory: Chest Non Tender, No Accessory Muscle Use, No Respiratory Distress Cardiovascular: Regular Rate, Rhythm, No JVD Gastrointestinal: distended, tenderness (mild tenderness epigastric area and tympanic) Neurologic/Psychiatric: Alert, Oriented x3, No Motor/Sensory Deficits Skin: Normal Color, Warm/Dry Lymphatic: No Adenopathy Assessment/Plan Assessment/Plan Assessment/Plan Small bowel obstruction likely partial Nausea and vomiting Bilateral inguinal hernia Epigastric abdominal pain History of CABG Diabetes type 2 Electrolyte abnormalities. Patient with small bowel obstruction, contrast not making through and appears more uncomfortable. Feel best option is to do exploratory laparotomy all other indicated procedures at this time. On ct scan believe to see transition point. Consent. NPO. To or today. Supervisory-Addendum Brief Verification & Attestation Participated in pt care: history, MDM, physical Personally performed: exam, history, MDM, supervision of care Care discussed with: Medical Student Procedures: n/a Results interpretation: Verified all documentation Verification and Attestation of Medical Student E/M Service A medical student performed and documented this service in my presence. I reviewed and verified all information documented by the medical student and made modifications to such information, when appropriate. I personally performed the physical exam and medical decision making. Db Sanchez, Sep 25, 2020,13:24 JAMES COWAN Sep 25, 2020 08:03 DB SANCHEZ DO Sep 25, 2020 13:24
[2020-09-25] MEDS ORDERED: DIATRIZOATE MEGLUM/SODIUM 37% 120 ML (GASTROGRAFIN) NG NR (08:10)
--- NOTE | 2020-09-25 11:26 | Progress Note ---
JENY PHELPS 09/25/20 1126: Subjective Date Seen by a Provider: Sep 25, 2020 Time Seen by a Provider: 09:35 Subjective/Events-last exam 89yo WM with PMH of HLD, HTN, T2DM, CABG 3x, and BPH appears under than stated age presents with abdominal pain starting 3 days ago along with nausea and vomiting. On 09/24, he went to the ED in the morning where he was given NGT yet still continues to vomit and Dr. Sanchez in surgery was consulted. 09/25, small bowel xray was performed 07:45 and resulted in having to be redone due to negative movement. Pt seemed to be groggy, reports nausea, bilious vomit, and abdomen still distended. Denies any pain. Review of Systems General: Other (Unable to obtain due to Post Small Bowel Xray grogginess) HEENT: Other (Unable to obtain due to Post Small Bowel Xray grogginess) Pulmonary: Other (Unable to obtain due to Post Small Bowel Xray grogginess) Cardiovascular: Other (Unable to obtain due to Post Small Bowel Xray grogginess) Gastrointestinal: Nausea, Vomiting (Bilious), Other (Unable to obtain due to Post Small Bowel Xray grogginess) Genitourinary: Other (Unable to obtain due to Post Small Bowel Xray grogginess) Musculoskeletal: other (Unable to obtain due to Post Small Bowel Xray grogginess) Neurological: Confusion Objective Exam Last Set of Vital Signs Vital Signs Date Time Temp Pulse Resp B/P (MAP) Pulse Ox O2 Delivery O2 Flow Rate FiO2 09/25/20 08:00 95 Nasal Cannula 4.00 09/25/20 07:58 36.2 82 20 109/64 (79) Capillary Refill : Less Than 3 Seconds I&O Intake and Output 09/25/20 00:00 Intake Total 1000 ml Output Total 1626 ml Balance -626 ml Intake Oral 0 ml IV Total 1000 ml Output Urine Total 325 ml Gastric Drainage Total 1300 ml Emesis 1 ml Daily Weight Change No General: Mild Distress HEENT: EOMI Neck: Supple Lungs: Clear to Auscultation Heart: Regular Rate Abdomen: Soft, No Tenderness Skin: No Rashes, No Significant Lesion Results Lab Laboratory Tests 09/24/20 12:12: Glucometer 148H 09/24/20 15:54: Glucometer 137H 09/24/20 20:27: Glucometer 137H 09/25/20 05:58: White Blood Count 13.0H, Red Blood Count 5.19, Hemoglobin 15.0, Hematocrit 46, Mean Corpuscular Volume 89, Mean Corpuscular Hemoglobin 29, Mean Corpuscular Hemoglobin Concent 32, Red Cell Distribution Width 14.2, Platelet Count 330, Mean Platelet Volume 10.9, Immature Granulocyte % (Auto) 0, Neutrophils (%) (Auto) 75, Lymphocytes (%) (Auto) 10L, Monocytes (%) (Auto) 15H, Eosinophils (%) (Auto) 0, Basophils (%) (Auto) 0, Neutrophils # (Auto) 9.7H, Lymphocytes # (Auto) 1.3, Monocytes # (Auto) 1.9H, Eosinophils # (Auto) 0.1, Basophils # (Auto) 0.0, Immature Granulocyte # (Auto) 0.0, Sodium Level 134L, Potassium Level 4.7, Chloride Level 99, Carbon Dioxide Level 24, Anion Gap 11, Blood Urea Nitrogen 16, Creatinine 0.85, Estimat Glomerular Filtration Rate 85, BUN/Creatinine Ratio 19, Glucose Level 125H, Calcium Level 9.4, Triglycerides Level 59, Cholesterol Level 98, LDL Cholesterol Direct 25, VLDL Cholesterol 12, HDL Cholesterol 50 09/25/20 10:07: Glucometer 116H Assessment/Plan Assessment/Plan Assess & Plan/Chief Complaint Small bowel obstruction likely partial Nausea and vomiting Bilateral inguinal hernia Epigastric abdominal pain History of CABG T2DM 09/25/20: Continue Odansetron 8mg Q6H PRN as Antiemetic Repeat Small Bowel Xray to check for obstruction Maintain NPO Continue Diabetic Management Maintain NGT KAT ABDI DO 09/26/20 0602: Subjective Subjective/Events-last exam Pt about the same today X-ray showed no evidence of any movement in the bowel series Zofran has been given for the nausea NG tube in place and clamped Will talk to cardiology because it does appear that he will need some sort of surgery and he is 89 years old Review of Systems General: Fatigue, Malaise Gastrointestinal: Nausea, Vomiting (Bilious), Abdominal Pain Neurological: Weakness Objective Exam General: Alert, Oriented X3, Cooperative, No Acute Distress Lungs: Clear to Auscultation Heart: Regular Rate Abdomen: Other (Distended, hypoactive bowel sounds) Assessment/Plan Assessment/Plan Assess & Plan/Chief Complaint Assessment: Small bowel obstruction CAD Hypertension Advanced age Plan: Consult cardiology Surgical team appreciated Supervisory-Addendum Brief Verification & Attestation Participated in pt care: history, MDM, physical Personally performed: exam, history, MDM, supervision of care Care discussed with: Medical Student Procedures: n/a Results interpretation: Verified all documentation Verification and Attestation of Medical Student E/M Service A medical student performed and documented this service in my presence. I reviewed and verified all information documented by the medical student and made modifications to such information, when appropriate. I personally performed the physical exam and medical decision making. Kat Abdi, Sep 26, 2020,06:01 JENY PHELPS Sep 25, 2020 11:26 KAT ABDI DO Sep 26, 2020 06:02
[2020-09-25] MEDS: LACTATED RINGERS 1,000 ML IV PRN ×2 (15:28→16:27)
--- NOTE | 2020-09-25 15:39 | Diagnostic Imaging Report ---
INDICATION: Small bowel obstruction. TECHNIQUE: The patient was given 120 mL of Gastrografin contrast mixed with 120 mL of water through the NG tube. Serial radiographs of the abdomen were obtained. FINDINGS: The preliminary radiograph shows gaseous distention of the stomach. There are numerous gaseous distended small bowel loops in the central abdomen. Serial radiographs carried out to approximately 3 hours demonstrate only mild emptying of contrast in the proximal small bowel loops. The procedure was terminated early. The patient is being taken to the OR for exploratory laparotomy. IMPRESSION: Distended stomach and small bowel loops, suggestive of a small bowel obstruction. The procedure was terminated early. The patient is being taken to the OR for exploration. Dictated by: Dictated on workstation # [id number]
[2020-09-25] MEDS ORDERED: ceFAZolin 2 GM IV Premixed 50 ML IV ONE (16:30)
--- NOTE | 2020-09-25 16:53 | Progress Note-Post Operative ---
Post-Operative Progess Note Surgeon (s)/Security Services Manager (s) Surgeon DB QUIGLEY DO Security Services Manager: Dr. Felix Pre-Operative Diagnosis small bowel obstruction Post-Operative Diagnosis internal hernia, ischemic small bowel Procedure & Operative Findings Date of Procedure 09/25/20 Procedure Performed/Findings exploratory laparotomy with small bowel resection, manual decompression of small bowel Anesthesia Type gen Estimated Blood Loss Estimated blood loss (mL): minimal Specimens/Packing Specimens Removed small bowel DB QUIGLEY DO Sep 25, 2020 16:53
[2020-09-25] MEDS ORDERED: fentaNYL INJ 100 MCG/2 ML AMP ONE (17:28)
[2020-09-25] MEDS ORDERED: ONDANSETRON 4 MG/2 ML (SDV) Z0FRAN IVP PRN (17:30)
[2020-09-25] MEDS ORDERED: fentaNYL INJ 100 MCG/2 ML AMP IVP ONE (17:30)
[2020-09-25] MEDS: ENOXAPARIN 40 MG/0.4 ML (LOVENOX) SYR SC SCH (17:48)
[2020-09-25] MEDS ORDERED: NS IV 1000 ML 1,000 ML IV SCH (18:15)
[2020-09-25] MEDS: FAMOTIDINE 20MG/2ML IV (PEPCID) IVP SCH (20:38)
[2020-09-25] MEDS: morphine INJ 4 MG/ML 1 ML (VIAL/SYRINGE) IVP PRN (20:38)
[2020-09-25] MEDS: ceFAZolin 2 GM IV Premixed 50 ML IV SCH (22:41)
--- NOTE | 2020-09-25 23:37 | OPERATIVE REPORT ---
DATE OF SERVICE: 09/25/2020 PREOPERATIVE DIAGNOSIS: Small bowel obstruction. POSTOPERATIVE DIAGNOSIS: Internal hernia causing small bowel obstruction with ischemic bowel. PROCEDURE: Exploratory laparotomy with small bowel resection, manual decompression of small bowel. SURGEON: Jenaro Sanchez DO CUSTOMER SERVICE SALES CONSULTANT: Dr. Felix, assisted in retraction, dissection and closure and to help decrease operative time due to comorbidities and advanced age. ANESTHESIA: General. ESTIMATED BLOOD LOSS: Minimal. COMPLICATIONS: None. INDICATIONS: The patient is an 89-year-old male who has been having nausea and vomiting and was found to have a suggestion of small bowel obstruction on CT scan. The patient was undergoing small bowel follow through; however, Gastrografin was not making progress and his abdomen becoming more distended and the patient appearing more ill on exam. We discussed risks and benefits of exploratory laparotomy and all other indicated procedures. He understands and wishes to proceed. Consent was signed in the chart. DESCRIPTION OF PROCEDURE: The patient was taken to the operating suite. He was prepped and draped in sterile fashion. Timeout was performed. Midline incision was made. Cautery was used to dissect down to the subcutaneous tissues and the abdomen was entered. Small bowel was significantly dilated, which was continued to be brought out of the abdominal cavity and ran until an internal hernia caused by a band was present with portion of the small bowel having a questionable ischemic appearance. Distal to this area, the small bowel was decompressed. The small bowel distally was dissected around and a SAMIA stapler was fired across. The area proximal to this ischemic changes was dissected around the small bowel and a SAMIA stapler was fired across. LigaSure was used to divide the mesentery and specimen was removed. The dilated small bowel was then manually decompressed after making an opening in the staple line. A ligd-up-qxus anastomosis was then created using a SAMIA stapler and also a TA stapler. A crotch stitch was placed using 3-0 Vicryl. The mesenteric defect was then closed using 3-0 Vicryl. The small bowel was ran noting no other pathology. The colon was inspected with normal appearance. The stomach was significantly dilated. NG tube was replaced and gastric contents were removed. At this time, the abdomen was irrigated with copious amounts of irrigation and suction. Hemostasis had been achieved. The fascia was then closed using 1-0 looped PDS. The skin was then closed using jill. The patient was taken to recovery room in stable condition. Job ID: [id number] DocumentID: [id number] Dictated Date: 09/25/2020 21:23:06 Centerless Grinding Machine Adjuster Date: 09/25/2020 23:37:11 Dictated By: DO BRAD VALLECILLO
[2020-09-26 00:10] VITALS: BP 119/68
[2020-09-26] MEDS: morphine INJ 4 MG/ML 1 ML (VIAL/SYRINGE) IVP PRN (00:26)
[2020-09-26 03:37] VITALS: BP 146/74
[2020-09-26] MEDS: inSUlin ASPART (NovoLOG) 1 UNIT/0.01 ML (CHARGE PER UNIT) SC SCH ×4 (05:25→21:08)
[2020-09-26 05:45] LABS: BASOPHILS # (AUTO) 0.1 10^3/uL (0.0-0.1); BASOPHILS % (AUTO) 0 % (0-10); EOSINOPHILS % (AUTO) 0 % (0-10); HEMATOCRIT 49 % (40-54); HEMOGLOBIN 15.6 g/dL (13.3-17.7); LYMPHOCYTES % (AUTO) 8 % (12-44); MEAN CORPUSCULAR HEMOGLOBIN 29 pg (25-34); MEAN CORPUSCULAR HGB CONC 32 g/dL (32-36); MEAN CORPUSCULAR VOLUME 91 fL (80-99); MEAN PLATELET VOLUME 11.5 fL (9.0-12.2); MONOCYTES # (AUTO) 1.5 10^3/uL (0.0-1.0); MONOCYTES % (AUTO) 12 % (0-12); NEUTROPHILS % (AUTO) 80 % (42-75); PLATELET COUNT 328 10^3/uL (130-400); WHITE BLOOD COUNT 12.6 10^3/uL (4.3-11.0)
[2020-09-26 05:58] LABS: ALBUMIN 3.1 GM/DL (3.2-4.5)
[2020-09-26 05:59] LABS: POTASSIUM 5.1 MMOL/L (3.6-5.0)
[2020-09-26 06:00] LABS: CALCIUM 8.8 MG/DL (8.5-10.1)
[2020-09-26 06:01] LABS: TOTAL PROTEIN 6.1 GM/DL (6.4-8.2)
[2020-09-26 06:03] LABS: BILIRUBIN,TOTAL 0.6 MG/DL (0.1-1.0)
[2020-09-26 06:04] LABS: CREATININE SERUM 0.96 MG/DL (0.60-1.30)
[2020-09-26] MEDS: NS W/KCL 20 MEQ/L 1,000 ML IV SCH ×5 (06:14→21:08)
[2020-09-26] MEDS: ceFAZolin 2 GM IV Premixed 50 ML IV SCH (06:14)
--- NOTE | 2020-09-26 07:15 | Progress Note - Surgery ---
JAMES COWAN 09/26/20 0715: Subjective Date Seen by a Provider: Sep 26, 2020 Time Seen by a Provider: 07:10 Subjective/Events-last exam PT is status post exploratory laparotomy with small bowel resection, manual decompression of small bowel yesterday. Denies fevers, nausea or vomiting. Repo rts passing flatus. Denies having any BM. Continues NPO c NGT. Reports some pain at incision site, but it is better compared to yesterday. Review of Systems General: No Chills, No Night Sweats HEENT: No Head Aches, No Visual Changes Pulmonary: No Dyspnea, No Cough Cardiovascular: No: Chest Pain, Palpitations Gastrointestinal: No: Nausea, Vomiting Musculoskeletal: No: neck pain, shoulder pain Neurological: No: Weakness, Numbness Objective Exam Vital Signs Date Time Temp Pulse Resp B/P (MAP) Pulse Ox O2 Delivery O2 Flow Rate FiO2 09/26/20 03:37 37.2 95 16 146/74 (98) 92 Nasal Cannula 4.00 09/26/20 00:10 37.4 104 18 119/68 (85) 93 Nasal Cannula 4.00 09/25/20 20:45 Nasal Cannula 4.00 09/25/20 20:01 36.5 102 18 135/62 (86) 94 Nasal Cannula 4.00 09/25/20 18:29 91 Nasal Cannula 4.00 09/25/20 18:00 36.1 20 128/65 (86) 95 Nasal Cannula 4 09/25/20 18:00 Nasal Cannula 4 09/25/20 17:50 20 130/66 (87) 95 Nasal Cannula 4 09/25/20 17:45 Nasal Cannula 4 09/25/20 17:40 20 133/61 (85) 95 OxyMask 6 09/25/20 17:30 20 129/63 (85) 95 OxyMask 10 09/25/20 17:30 OxyMask 10 09/25/20 17:20 20 120/64 (82) 95 OxyMask 10 09/25/20 17:15 OxyMask 10 09/25/20 17:08 OxyMask 10 09/25/20 17:08 36.1 16 124/70 (88) 94 OxyMask 10 09/25/20 16:00 36.4 87 20 139/62 (87) 94 Nasal Cannula 4.00 4.00 8/17/21 11:51 36.4 87 20 139/62 (87) 94 Nasal Cannula 4.00 09/25/20 08:00 95 Nasal Cannula 4.00 09/25/20 07:58 36.2 82 20 109/64 (79) 95 Nasal Cannula 4.00 I & O 09/26/20 07:00 Intake Total 1050 ml Output Total 1775 ml Balance -725 ml Capillary Refill : Less Than 3 SecondsLess Than 3 Seconds General Appearance: No Apparent Distress HEENT: PERRL/EOMI, Other (NG tube ) Neck: Normal Inspection Respiratory: Chest Non Tender, No Accessory Muscle Use, No Respiratory Distress Cardiovascular: Regular Rate, Rhythm, No JVD Peripheral Pulses: 2+ Radial Pulses (R), 2+ Radial Pulses (L) Gastrointestinal: distended, tenderness (mild tenderness epigastric area and tympanic) Neurologic/Psychiatric: Alert, Oriented x3, No Motor/Sensory Deficits Skin: Normal Color, Warm/Dry Lymphatic: No Adenopathy Results Lab Laboratory Tests 09/25/20 10:07: Glucometer 116H 09/25/20 18:07: Glucometer 142H 09/25/20 20:17: Glucometer 143H 09/26/20 05:15: White Blood Count 12.6H, Red Blood Count 5.34, Hemoglobin 15.6, Hematocrit 49, Mean Corpuscular Volume 91, Mean Corpuscular Hemoglobin 29, Mean Corpuscular Hemoglobin Concent 32, Red Cell Distribution Width 14.4, Platelet Count 328, Mean Platelet Volume 11.5, Immature Granulocyte % (Auto) 1, Neutrophils (%) (Auto) 80H, Lymphocytes (%) (Auto) 8L, Monocytes (%) (Auto) 12, Eosinophils (%) (Auto) 0, Basophils (%) (Auto) 0, Neutrophils # (Auto) 10.0H, Lymphocytes # (Auto) 1.0, Monocytes # (Auto) 1.5H, Eosinophils # (Auto) 0.0, Basophils # (Auto) 0.1, Immature Granulocyte # (Auto) 0.1, Sodium Level 136, Potassium Level 5.1H, Chloride Level 105, Carbon Dioxide Level 20L, Anion Gap 11, Blood Urea Nitrogen 16, Creatinine 0.96, Estimat Glomerular Filtration Rate 74, BUN/Creatinine Ratio 17, Glucose Level 154H, Calcium Level 8.8, Corrected Calcium 9.5, Magnesium Level 2.0, Total Bilirubin 0.6, Aspartate Amino Transf (AST/SGOT) 18, Alanine Aminotransferase (ALT/SGPT) 9, Alkaline Phosphatase 34L, Total Protein 6.1L, Albumin 3.1L 09/26/20 05:19: Glucometer 152H Assessment/Plan Assessment/Plan Assessment/Plan Assessment: Small bowel obstruction CAD Hypertension Advanced age Plan: Continue to monitor his recovery status post exploratory laparotomy with small bowel resection, manual decompression of small bowel. Encourage ambulation and IS therapy. Consult cardiology regarding hypertension. DB QUIGLEY DO 09/26/201: Subjective Subjective/Events-last exam Feeling better today. Passing a little flatus. No nausea or emesis. Pain controlled. NG tube in place. Denies fever sweats chills shortness of breath or chest pain. Using IS. Objective Exam General Appearance: No Apparent Distress HEENT: PERRL/EOMI Neck: Normal Inspection Respiratory: Chest Non Tender, No Accessory Muscle Use, No Respiratory Distress Cardiovascular: Regular Rate, Rhythm, No JVD Gastrointestinal: distended (significantly less distended), tenderness ( incisional tenderness) Neurologic/Psychiatric: Alert, Oriented x3, No Motor/Sensory Deficits Skin: Normal Color, Warm/Dry, Other (incision clean dry intact) Lymphatic: No Adenopathy Assessment/Plan Assessment/Plan Assessment/Plan s/p ex lap, small bowel resection and manual decompression small bowel. If contiue to pass flatus remove ng tube and start clears. Remove hui if maintains good urine output LR 125 ml/hr PT Lovenox/Pepcid Vicodin added for oral pain control Use IS Supervisory-Addendum Brief Verification & Attestation Participated in pt care: history, MDM, physical Personally performed: exam, history, MDM, supervision of care Care discussed with: Medical Student Procedures: n/a Results interpretation: Verified all documentation Verification and Attestation of Medical Student E/M Service A medical student performed and documented this service in my presence. I reviewed and verified all information documented by the medical student and made modifications to such information, when appropriate. I personally performed the physical exam and medical decision making. Db Quigley Sep 26, 2020,22:01 JAMES COWAN Sep 26, 2020 07:15 DB QUIGLEY DO Sep 26, 2020 22:01
--- NOTE | 2020-09-26 07:36 | Anesthesia-General Post-Op ---
General Patient Condition Mental Status/LOC: Same as Preop Cardiovascular: Satisfactory Nausea/Vomiting: Absent Respiratory: Satisfactory Pain: Controlled Complications: Absent Post Op Complications Complications None Follow Up Care/Instructions Patient Instructions None needed. Anesthesia/Patient Condition Patient Condition Patient is doing well, no complaints, stable vital signs, no apparent adverse anesthesia problems. No complications reported per nursing. D/C home per [facility] Criteria: JESUSITA Mahoney CRNA Sep 26, 2020 07:36
[2020-09-26 07:56] VITALS: BP 113/63
--- NOTE | 2020-09-26 09:15 | Physical Therapy Evaluation ---
PT Evaluation-General Medical Diagnosis Admission Date Sep 24, 2020 at 08:20 Medical Diagnosis: Abdominal pain, Exploratory laparotomy with small bowel resection Onset Date: Sep 22, 2020 Therapy Diagnosis Therapy Diagnosis: gait deficit, strength deficit Height/Weight Height (Feet): 5 Height (Inches): 10.00 Weight (Pounds): 200 Weight (Ounces): 4.0 Precautions Precautions/Isolations: Fall Prevention, Standard Precautions Referral Physician: Dr. Sanchez Reason for Referral: Evaluation/Treatment Social History Home: Single Level Current Living Status: Significant Other Entry Into Home: Stairs With Railing PT Steps Into Home: 3 Prior Prior Level of Function SCALE: Activities may be completed with or without assistive devices. 8-Abjnqnlcib-pbcqjbd completes the activity by him/herself with no assistance from a helper. 5-Set-up or Clean-up Assistance-helper sets up or cleans up; patient completes activity. [place] assists only prior to or following the activity. 4-Supervision or Touching Assistance-helper provides verbal cues and/or touching/steadying and/or contact guard assistance as patient completes activity. Assistance may be provided throughout the activity or intermittently. 3-Partial/Moderate Assistance-helper does LESS THAN HALF the effort. [place] lifts, holds or supports trunk or limbs, but provides less than half the effort. 2-Substantial/Maximal Assistance-helper does MORE THAN HALF the effort. [place] lifts or holds trunk or limbs and provides more than half the effort. 8-Mmmtqnldb-njbnox does ALL the effort. Patient does none of the effort to co mplete the activity. Or, the assistance of 2 or more helpers is required for the patient to complete the activity. If activity was not attempted, code reason: 7-Patient Refused. 9-Not Applicable-not attempted and the patient did not perform the activity before the current illness, exacerbation or injury. 10-Not Attempted due to Environmental Limitations-(lack of equipment, weather restraints, etc.). 88-Not Attempted due to Medical Conditions or Safety Concerns. Bed Mobility: 6 Transfers (B,C,W/C): 6 Gait: 6 Stairs: 6 Wheelchair Mobility: 6 Indoor Mobility (Ambulation): Independent Stairs: Independent Prior Devices Use: None PT Evaluation-Current Subjective Patient lying supine in bed upon PT arrival, agreeable to treatment. Patient reports pain "only when I cough" and rates that at 8/10. Patient has IV, NG, Bynum, 4 L O2 s/p exploratory laparotomy with small bowel resection. Objective Patient Orientation: Person, Place, Time, Situation Attachments: Bynum Catheter, IV Neuromuscular (Tone, Coordination, Reflexes) Coordination intact bilaterally in LEs, no noticeable signs of increased tone in LEs. Sensory Vision: Wears Glasses Hearing: Hearing Aid/Aides Sensation Right Lower Extremit: Intact Sensation Left Lower Extremity: Intact Transfers Roll Left to Right (QC): 3 Sit to Lying (QC): 3 Lying to Sitting/Side of Bed(Q: 3 Sit to Stand (QC): 4 Chair/Umf-pu-Lcxyf Xfer(QC): 4 Toilet Transfer (QC): 4 Car Transfer (QC): 4 Gait Does the Patient Walk?: Yes Mode of Locomotion: Walk Anticipated Mode of Locomotion: Walk Walk 10 feet (QC): 4 Walk 50 ft with 2 Turns(QC): 4 Walk 150 ft (QC): 4 Walking 10ft/uneven surface-QC: 4 Distance: 60 Gait Assistive Device: FWW Comments/Gait Description Patient ambulates with forward trunk posture due to recent surgery. Patient ambulates 60 feet with FWW with min a and verbal cues for posture, safety, progression and conservation of energy. Balance Sitting Static: Good Sitting Dynamic: Fair Standing Static: Fair Standing Dynamic: Fair Picking up an Object (QC): 1 Assessment/Needs Patient tolerated treatment fair with no reports of significant increase in abdominal pain. Patient performs all bed mobility with mod A and transfers with min A. Patient ambulates 60 feet with FWW with min a and verbal cues for safety, progression, balance and posture. Patient in chair post treatment with all needs met, nursing notified, call light in reach. Rehab Potential: Good Equipment Needs FWW PT Short Term Goals Short Term Goals Time Frame: Oct 02, 2020 Roll Left & Right: 4 Sit to lyin Lying to sitting on side of be: 4 Sit to stand: 5 Chair/ufp-yk-klmyr transfer: 5 Toilet transfer: 5 Car transfer: 5 Walk 10 feet: 5 Walk 50 feet with two turns: 5 Walk 150 feet: 5 Walking 10ft on uneven surface: 5 1 step (curb): 4 4 steps: 4 12 steps: 4 Picking up objects: 4 Does pt use a wc or scooter: No Wheel 50ft w/2 turns: 9 Wheel 150 feet: 9 Type: N/A PT [employer] Agent Goals Fdc Goals PT Fdc Goals Time Frame: Oct 17, 2020 Roll Left & Right (QC): 6 Sit to Lying (QC): 6 Lying-Sitting on Side/Bed(QC): 6 Sit to Stand (QC): 6 Chair/Hah-sr-Ykxog Xfer(QC): 6 Toilet Transfer (QC): 6 Car Transfer (QC): 6 Does the Patient Walk: Yes Walk 10 feet (QC): 6 Walk 50ft with 2 Turns (QC): 6 Walk 150 ft (QC): 6 Walking 10ft on Uneven Surface: 6 1 Step (curb) (QC): 5 4 Steps (QC): 5 12 Steps (QC): 5 Picking up an Object (QC): 5 Does the Pt use WC or Scooter?: No Wheel 50 feet with 2 turns (QC: 9 Type: N/A Wheel 150 feet: 9 Type: N/A PT Plan Problem List Problem List: Activity Tolerance, Functional Strength, Safety, Balance, Gait, Transfer, Bed Mobility, ROM Treatment/Plan Treatment Plan: Continue Plan of Care Treatment Plan: Bed Mobility, Concurrent Therapy, Education, Functional Activity Yeimi, Functional Strength, Group Therapy, Gait, Safety, Therapeutic Exercise, Transfers Treatment Duration: Oct 24, 2020 Frequency: 6 times per week Estimated Hrs Per Day: .25 hour per day Patient and/or Family Agrees t: Yes Safety Risks/Education Patient Education: Gait Training, Reviewed Precautions, Safety Issues Teaching Recipient: Patient Teaching Methods: Demonstration, Discussion Response to Teaching: Verbalize Understanding, Return Demonstration Time/GCodes Time In: 829 Time Out: 914 Total Billed Treatment Time: 45 Total Billed Treatment Visit, Ha Borja JOHN A PT Sep 26, 2020 09:15
[2020-09-26 11:55] VITALS: BP 104/63
--- NOTE | 2020-09-26 12:56 | Progress Note ---
JENY PHELPS 09/26/20 1256: Subjective Date Seen by a Provider: Sep 26, 2020 Time Seen by a Provider: 09:00 Subjective/Events-last exam Pt reports feeling much better post exploratory laparotomy revealing small bowel ischemia and it was cut out. Surgery will update pt. Pt is in recovery reporting abdominal pain and cough, but denies any fever, chills, vomiting, diarrhea. Abd seems much less distended than at the time of admission. Consult cardiology. Awaiting PT/OT and CBC/CMP. Review of Systems General: No Chills, No Fatigue, No Appetite (Hasn't been able to eat due to post surgery) HEENT: No Head Aches, No Visual Changes, No Sore Throat Pulmonary: No Dyspnea; Cough Cardiovascular: No: Chest Pain, Edema Gastrointestinal: Abdominal Pain; No: Nausea, Vomiting, Diarrhea Genitourinary: No Dysuria, No Frequency, No Incontinence Musculoskeletal: No: neck pain, back pain, leg pain Neurological: No: Weakness, Numbness, Seizures Objective Exam Last Set of Vital Signs Vital Signs Date Time Temp Pulse Resp B/P (MAP) Pulse Ox O2 Delivery O2 Flow Rate FiO2 09/26/20 11:55 36.5 94 18 104/63 (77) 94 Nasal Cannula 3.50 Capillary Refill : Less Than 3 SecondsLess Than 3 Seconds I&O Intake and Output 09/26/20 00:00 Intake Total 1050 ml Output Total 2152 ml Balance -1102 ml Intake Oral 0 ml IV Total 1050 ml Output Urine Total 1350 ml Gastric Drainage Total 800 ml Emesis 2 ml General: Alert, Oriented X3, Cooperative, Mild Distress HEENT: EOMI Neck: Supple Lungs: Clear to Auscultation, Normal Air Movement Heart: Regular Rate Abdomen: Soft Extremities: No Clubbing, No Cyanosis Skin: No Rashes Results Lab Laboratory Tests 09/25/20 18:07: Glucometer 142H 09/25/20 20:17: Glucometer 143H 09/26/20 05:15: White Blood Count 12.6H, Red Blood Count 5.34, Hemoglobin 15.6, Hematocrit 49, Mean Corpuscular Volume 91, Mean Corpuscular Hemoglobin 29, Mean Corpuscular Hemoglobin Concent 32, Red Cell Distribution Width 14.4, Platelet Count 328, Mean Platelet Volume 11.5, Immature Granulocyte % (Auto) 1, Neutrophils (%) (Auto) 80H, Lymphocytes (%) (Auto) 8L, Monocytes (%) (Auto) 12, Eosinophils (%) (Auto) 0, Basophils (%) (Auto) 0, Neutrophils # (Auto) 10.0H, Lymphocytes # (Auto) 1.0, Monocytes # (Auto) 1.5H, Eosinophils # (Auto) 0.0, Basophils # (Auto) 0.1, Immature Granulocyte # (Auto) 0.1, Sodium Level 136, Potassium Level 5.1H, Chloride Level 105, Carbon Dioxide Level 20L, Anion Gap 11, Blood Urea Nitrogen 16, Creatinine 0.96, Estimat Glomerular Filtration Rate 74, BUN/Creatinine Ratio 17, Glucose Level 154H, Calcium Level 8.8, Corrected Calcium 9.5, Magnesium Level 2.0, Total Bilirubin 0.6, Aspartate Amino Transf (AST/SGOT) 18, Alanine Aminotransferase (ALT/SGPT) 9, Alkaline Phosphatase 34L, Total Protein 6.1L, Albumin 3.1L 09/26/20 05:19: Glucometer 152H 09/26/20 10:28: Glucometer 150H Microbiology 09/25/20 MRSA Screen - Final, Complete MRSA not isolated Assessment/Plan Assessment/Plan Assess & Plan/Chief Complaint Small bowel obstruction likely partial Nausea and vomiting Bilateral inguinal hernia Epigastric abdominal pain History of CABG T2DM 09/26/20: Continue medications Post surgical reassessment by surgery PT/OT CBC/CMP Cardiology consult 09/25/20: Continue Odansetron 8mg Q6H PRN as Antiemetic Repeat Small Bowel Xray to check for obstruction Maintain NPO Continue Diabetic Management Maintain NGT KAT ABDI DO 09/27/20 0516: Subjective Subjective/Events-last exam Patient doing really well NG tube still in place Patient is hungry No bowel movement or flatus Check meds and labs Review of Systems Gastrointestinal: Abdominal Pain Objective Exam General: Alert, Oriented X3, Cooperative, No Acute Distress Lungs: Clear to Auscultation Heart: Regular Rate Psych/Mental Status: Mental Status NL Assessment/Plan Assessment/Plan Assess & Plan/Chief Complaint 09/26/2020: NG tube Monitor closely Appreciate surgery Appreciate cardiology Supervisory-Addendum Brief Verification & Attestation Participated in pt care: history, MDM, physical Personally performed: exam, history, MDM, supervision of care Care discussed with: Medical Student Procedures: n/a Results interpretation: Verified all documentation Verification and Attestation of Medical Student E/M Service A medical student performed and documented this service in my presence. I reviewed and verified all information documented by the medical student and made modifications to such information, when appropriate. I personally performed the physical exam and medical decision making. Kat Abdi, Sep 27, 2020,05:15 JENY PHELPS Sep 26, 2020 12:56 KAT ABDI DO Sep 27, 2020 05:16
--- NOTE | 2020-09-26 13:56 | Occupational Therapy Eval ---
OT Evaluation-General/PLF Medical Diagnosis Admission Date Sep 24, 2020 at 08:20 Medical Diagnosis: Abdominal pain, Exploratory laparotomy with small bowel resection Onset Date: Sep 22, 2020 Therapy Diagnosis Therapy Diagnosis: decreased ADL status, weakness Height/Weight Height (Feet): 5 Height (Inches): 10.00 Weight (Pounds): 200 Weight (Ounces): 4.0 Precautions Precautions/Isolations: Fall Prevention, Standard Precautions Referral Physician: Robby Referral Reason: Evaluation/Treatment Medical History Additional Medical History CABG, Fractures, Hypothyroidsim, Diabetes, Bilateral Hearing Aide Current History ED due to abdominal pain Social History Home: Single Level Current Living Status: Significant Other Entry Into Home: Stairs With Railing Steps Into Home: 3 ADL-Prior Level of Function SCALE: Activities may be completed with or without assistive devices. 9-Osdbepgtsd-bnddyfv completes the activity by him/herself with no assistance from a helper. 5-Set-up or Clean-up Assistance-helper sets up or cleans up; patient completes activity. [place] assists only prior to or following the activity. 4-Supervision or Touching Assistance-helper provides verbal cues and/or touching/steadying and/or contact guard assistance as patient completes activity. Assistance may be provided throughout the activity or intermittently. 3-Partial/Moderate Assistance-helper does LESS THAN HALF the effort. [place] lifts, holds or supports trunk or limbs, but provides less than half the effort. 2-Substantial/Maximal Assistance-helper does MORE THAN HALF the effort. [place] lifts or holds trunk or limbs and provides more than half the effort. 8-Mxfsvgfbb-oefdxf does ALL the effort. Patient does none of the effort to complete the activity. Or, the assistance of 2 or more helpers is required for the patient to complete the activity. If activity was not attempted, code reason: 7-Patient Refused. 9-Not Applicable-not attempted and the patient did not perform the activity before the current illness, exacerbation or injury. 10-Not Attempted due to Environmental Limitations-(lack of equipment, weather restraints, etc.). 88-Not Attempted due to Medical Conditions or Safety Concerns. ADL PLOF Comments Pt reports IND with ADLs and functional mobility at PLOF, no AD/AE Self Care: Independent Functional Cognition: Independent DME/Equipment: Bath Chair, Shower OT Current Status Subjective Pt laying in bed, present. Pt agreeable to OT evaluation. Mental Status/Objective Patient Orientation: Person, Place, Situation Current Glasses/Contacts: Yes Dentures/Partials: Yes Hand Dominance: Right Upper Extremity ROM WFL, BUE shoulder flexion to approx 130 degrees Upper Extremity Coordination WFL Upper Extremity Sensation WFL Upper Extremity Strength grossly 3+/5 ADL-Treatment Eating (QC): 88 (Pt currently NPO) Oral Hygiene (QC): 5 (set up, pt able to use oral swab) Other Treatments Pt laying in bed, OT educated pt on purpose and benefit of OT, he verbalized understanding. Pt provided information about PLOF and home set up, and participated in UE screen. Pt indicates he feels weak since being admitted to the hospital. In order to increase BUE strength and activity tolerance, pt completed x10 reps each of the following BUE exercises: shoulder flexion, elbow flexion/extension, and finger flexion/extension. Pt instructed to complete 2-3 times a day, increasing reps as tolerated, he verbalized understanding. Pt washed his face with set up assistance. Pt declined OOB activities at this time as he would like to rest. Per PT evaluation, pt requires min A with functional mobility using FWW with verbal cues for posture and safety. Post tx, pt laying in bed, call light in reach and all needs met. Education OT Patient Education: Correct positioning, Modified ADL techniques, Progress toward Goal/Update tx plan, Purpose of tx/functional activities, Rehab process Teaching Recipient: Patient Teaching Methods: Discussion Response to Teaching: Verbalize Understanding OT Group Home Goals Group Home Goals Time Frame: Oct 05, 2020 Eating (QC): 6 Oral Hygiene (QC): 6 Toileting Hygiene (QC): 6 Shower/Bathe Self (QC): 6 Upper Body Dressing (QC): 6 Lower Body Dressing (QC): 6 On/Off Footwear (QC): 6 Additional Goals: 1-Demonstrate ADL Tasks, 2-Verbalize Understanding, 3- ImproveStrength/Yeimi 1=Demonstrate adherence to instructed precautions during ADL tasks. 2=Patient will verbalize/demonstrate understanding of assistive devices/modifications for ADL. 3=Patient will improve strength/tolerance for activity to enable patient to perform ADL's. OT Education/Plan Problem List/Assessment Assessment: Decreased Activ Tolerance, Decreased UE Strength, Impaired Funct Balance, Impaired I ADL's, Impaired Self-Care Skills Discharge Recommendations Plan/Recommendations: Continue POC Treatment Plan/Plan of Care Patient would benefit from OT for education, treatment and training to promote independence in ADL's, mobility, safety and/or upper extremity function for ADL's. Plan of Care: ADL Retraining, Functional Mobility, UE Funct Exercise/Act Treatment Duration: Oct 05, 2020 Frequency: 5 times per week Estimated Hrs Per Day: .25 hour per day Rehab Potential: Good Time/GCodes Start Time: 13:30 Stop Time: 13:42 Total Time Billed (hr/min): 12 Billed Treatment Time 1, NEFTALI HEREDIA OT Sep 26, 2020 13:56
[2020-09-26 15:47] VITALS: BP 125/61
--- NOTE | 2020-09-26 16:46 | Consultation-Cardiology ---
HPI-Cardiology Cardiology Consultation: Date of Consultation 09/26/2020 Date of Admission 09/24/2020 Attending Physician Jenaro Sanchez DO Admitting Physician Tulio Dove MD Consulting Physician Jose uLis Hernández Jr., MD HPI: Time Seen by a Provider: 16:46 Chief Complaint: Reason for consultation: Coronary artery disease. I had the pleasure of seeing Tu on the medical/surgical unit this afternoon. He has a history of coronary artery disease with previous coronary bypass surgery, hypertension, and hyperlipidemia. He normally follows with one of my partners in the office. He presented to the hospital with 2 days of abdominal discomfort. Yesterday a consultation was requested for a preoperative cardiac evaluation. However, when I came to the floor to see the patient yesterday, he had already been taken to the operating room. He had a partial small bowel resection. He is now on the floor resting comfortably. He is still n.p.o. and has an NG tube. He denies any chest discomfort, dyspnea, paroxysmal nocturnal dyspnea, orthopnea, palpitations, lightheadedness, syncope, or lower extremity edema. He is a retired professor of history. Certain portions of this document may have been dictated utilizing voice recognition technology. Inherent to this technology, typographical and grammatical errors may exist. As much as I am diligent to identify and correct these mistakes, some errors may remain in the document. Review of Systems-Cardiology Review of Systems Other comments Review of 10 organ systems is as per the history of present illness, otherwise negative. All Other Systems Reviewed Negative Unless Noted: Yes (Negative excepted noted.) CZD-Fewnkw-Bvezhz Hx Patient Social History Marrital Status: Employed/Student: retired Former smoker/When Quit: Feb 09, 1969 2nd Hand Smoke Exposure: No Have you traveled recently?: No Alcohol Use?: No Immunizations Up To Date Date of Pneumonia Vaccine: Feb 09, 2009 Past Medical History PMH As described under Assessment. Family Medical History Family History: Diabetes mellitus 19 FATHER G8 BROTHER FH: lung cancer G8 BROTHER (PAST AWAY FROM LUNG [facility]) Allergies and Home Medications Allergies Coded Allergies: No Known Drug Allergies (Unverified , 11/25/09) Home Medications Aspirin 81 Mg Tablet.dr, 81 MG PO HS, (Reported) Last Action: Reviewed Levothyroxine Sodium 75 Mcg Tablet, 75 MCG PO DAILY, (Reported) Last Action: Reviewed Lisinopril 5 Mg Tablet, 5 MG PO HS, (Reported) Last Action: Reviewed Metformin HCl 500 Mg Tablet, 500 MG PO DAILY, (Reported) Last Action: Reviewed Methyl-B12/l-Mefolate/B6 Phos 1 Each Tablet, 1 EACH PO DAILY, (Reported) Last Action: Reviewed Metoprolol Succinate 25 Mg Tab.er.24h, 25 MG PO DAILY, (Reported) Last Action: Reviewed Multivitamin 1 Each Tablet, 1 EACH PO DAILY, (Reported) Last Action: Reviewed Rosuvastatin Calcium 20 Mg Tablet, 20 MG PO HS, (Reported) Last Action: Reviewed Tadalafil 5 Mg Tablet, 5 MG PO HS, (Reported) Last Action: Reviewed Patient Home Medication List Home Medication List Reviewed: Yes Exam Vital Signs Vital Signs Date Time Temp Pulse Resp B/P (MAP) Pulse Ox O2 Delivery O2 Flow Rate FiO2 09/26/20 15:47 36.6 92 18 125/61 (82) 98 Nasal Cannula 2.00 Physical Exam General: Alert. No acute distress. Well nourished and appears stated age. Eye: Extraocular movements are intact. Conjunctivae are clear. There are no xanthelasma. HENT: Normocephalic. Atraumatic. Carotid pulsations 2/2 without bruits. Neck: Jugular venous pressure does not appear elevated. No thyromegaly appreciated. Respiratory: Lungs are clear to auscultation. Respirations are non-labored. Breath sounds are equal. Symmetrical chest wall expansion. Cardiovascular: Normal rate. Regular rhythm. No murmur. No gallop. Point of maximal impulse is not appear displaced. Good pulses equal in all extremities. No edema. Gastrointestinal: Soft. Diminished bowel sounds. NG tube in place. Skin: Skin turgor is normal. There is no pallor. Musculoskeletal: No kyphosis or scoliosis appreciated. Neurologic: Alert and oriented to person, place, time. Cranial nerves 3-12 appear grossly intact. The patient has good motor tone strength in the upper and lower extremities bilaterally. Psychiatric: Cooperative. Appropriate mood & affect. Labs Laboratory Tests Test 09/25/20 20:17 09/26/20 05:15 09/26/20 05:19 09/26/20 10:28 Range/Units Glucometer 143 H 152 H 150 H 70-110 MG/DL White Blood Count 12.6 H 4.3-11.0 10^3/uL Red Blood Count 5.34 4.30-5.52 10^6/uL Hemoglobin 15.6 13.3-17.7 g/dL Hematocrit 49 40-54 % Mean Corpuscular Volume 91 80-99 fL Mean Corpuscular Hemoglobin 29 25-34 pg Mean Corpuscular Hemoglobin Concent 32 32-36 g/dL Red Cell Distribution Width 14.4 10.0-14.5 % Platelet Count 328 130-400 10^3/uL Mean Platelet Volume 11.5 9.0-12.2 fL Immature Granulocyte % (Auto) 1 % Neutrophils (%) (Auto) 80 H 42-75 % Lymphocytes (%) (Auto) 8 L 12-44 % Monocytes (%) (Auto) 12 0-12 % Eosinophils (%) (Auto) 0 0-10 % Basophils (%) (Auto) 0 0-10 % Neutrophils # (Auto) 10.0 H 1.8-7.8 10^3/uL Lymphocytes # (Auto) 1.0 1.0-4.0 10^3/uL Monocytes # (Auto) 1.5 H 0.0-1.0 10^3/uL Eosinophils # (Auto) 0.0 0.0-0.3 10^3/uL Basophils # (Auto) 0.1 0.0-0.1 10^3/uL Immature Granulocyte # (Auto) 0.1 0.0-0.1 10^3/uL Sodium Level 136 135-145 MMOL/L Potassium Level 5.1 H 3.6-5.0 MMOL/L Chloride Level 105 98-107 MMOL/L Carbon Dioxide Level 20 L 21-32 MMOL/L Anion Gap 11 5-14 MMOL/L Blood Urea Nitrogen 16 7-18 MG/DL Creatinine 0.96 0.60-1.30 MG/DL Estimat Glomerular Filtration Rate 74 BUN/Creatinine Ratio 17 Glucose Level 154 H 70-105 MG/DL Calcium Level 8.8 8.5-10.1 MG/DL Corrected Calcium 9.5 8.5-10.1 MG/DL Magnesium Level 2.0 1.6-2.4 MG/DL Total Bilirubin 0.6 0.1-1.0 MG/DL Aspartate Amino Transf (AST/SGOT) 18 5-34 U/L Alanine Aminotransferase (ALT/SGPT) 9 0-55 U/L Alkaline Phosphatase 34 L 40-136 U/L Total Protein 6.1 L 6.4-8.2 GM/DL Albumin 3.1 L 3.2-4.5 GM/DL Test 09/26/20 15:50 Range/Units Glucometer 143 H 70-110 MG/DL ECG Impression ECG Comment Electrocardiogram from admission shows sinus tachycardia with right bundle branch block and possible old inferior infarct. Diagnosis/Problems Diagnosis/Problems (1) Coronary artery disease without angina pectoris Assessment & Plan: He had previous coronary bypass surgery. He is not having any angina at this point in time. Resume Aspirin, metoprolol and statin medication when he is taking oral medications. (2) Primary hypertension Assessment & Plan: Blood pressure is stable despite holding his medication for surgery. Resume outpatient antihypertensive medication when taking oral medications. Can administer IV metoprolol if needed. (3) Mixed hyperlipidemia Assessment & Plan: Resume statin when able. (4) Type 2 diabetes mellitus with complication Assessment & Plan: This is being managed by the hospitalist. JOSE LUIS HERNÁNDEZ JR, MD Sep 26, 2020 16:46
[2020-09-26] MEDS: ENOXAPARIN 40 MG/0.4 ML (LOVENOX) SYR SC SCH (17:06)
[2020-09-26 19:55] VITALS: BP 144/66
[2020-09-26] MEDS: FAMOTIDINE 20MG/2ML IV (PEPCID) IVP SCH (21:08)
[2020-09-26] MEDS ORDERED: LACTATED RINGERS 1,000 ML BAG IV SCH (22:00)
[2020-09-27] VITALS (7 sets, daily range): BP systolic 103–133; BP diastolic 63–74
[2020-09-27] MEDS: LACTATED RINGERS 1,000 ML IV SCH ×4 (00:18→18:40)
[2020-09-27] MEDS: inSUlin ASPART (NovoLOG) 1 UNIT/0.01 ML (CHARGE PER UNIT) SC SCH ×4 (05:51→20:15)
[2020-09-27 06:19] LABS: BASOPHILS % (AUTO) 0 % (0-10); EOSINOPHILS # (AUTO) 0.1 10^3/uL (0.0-0.3); EOSINOPHILS % (AUTO) 1 % (0-10); HEMATOCRIT 45 % (40-54); HEMOGLOBIN 14.2 g/dL (13.3-17.7); LYMPHOCYTES # (AUTO) 1.8 10^3/uL (1.0-4.0); LYMPHOCYTES % (AUTO) 14 % (12-44); MEAN CORPUSCULAR HEMOGLOBIN 29 pg (25-34); MEAN CORPUSCULAR HGB CONC 32 g/dL (32-36); MEAN CORPUSCULAR VOLUME 92 fL (80-99); MEAN PLATELET VOLUME 11.1 fL (9.0-12.2); MONOCYTES # (AUTO) 2.1 10^3/uL (0.0-1.0); MONOCYTES % (AUTO) 16 % (0-12); NEUTROPHILS # (AUTO) 9.3 10^3/uL (1.8-7.8); NEUTROPHILS % (AUTO) 69 % (42-75); PLATELET COUNT 324 10^3/uL (130-400); WHITE BLOOD COUNT 13.4 10^3/uL (4.3-11.0)
[2020-09-27 06:29] LABS: ALBUMIN 2.9 GM/DL (3.2-4.5); POTASSIUM 4.6 MMOL/L (3.6-5.0)
[2020-09-27 06:31] LABS: TOTAL PROTEIN 5.8 GM/DL (6.4-8.2)
[2020-09-27 06:33] LABS: BILIRUBIN,TOTAL 0.6 MG/DL (0.1-1.0)
[2020-09-27 06:35] LABS: CREATININE SERUM 0.81 MG/DL (0.60-1.30)
--- NOTE | 2020-09-27 07:18 | Progress Note - Surgery ---
JAMES COWAN 09/27/20 0718: Subjective Date Seen by a Provider: Sep 27, 2020 Time Seen by a Provider: 07:15 Subjective/Events-last exam PT is status post exploratory laparotomy with small bowel resection, manual decompression of small bowel on 09/25. Has not passed any flatus since last seen. Denies any BMs. Has no nausea, vomiting or fevers. NG tube removed. On clear liquid diet. Folly is out. Review of Systems General: No Chills, No Night Sweats HEENT: No Head Aches, No Visual Changes Pulmonary: No Dyspnea, No Cough Cardiovascular: No: Chest Pain, Lt Headedness Gastrointestinal: No: Nausea, Vomiting Genitourinary: No Dysuria, No Frequency Objective Exam Vital Signs Date Time Temp Pulse Resp B/P (MAP) Pulse Ox O2 Delivery O2 Flow Rate FiO2 09/27/20 04:16 37.2 83 20 125/66 (85) 94 Nasal Cannula 2.00 09/27/20 00:01 94 Nasal Cannula 2.00 09/27/20 00:00 37.1 86 22 132/69 (90) 94 Nasal Cannula 2.00 09/26/20 21:05 Nasal Cannula 4.00 09/26/20 19:55 37.2 89 20 144/66 (92) 94 Nasal Cannula 2.00 09/26/20 15:47 36.6 92 18 125/61 (82) 98 Nasal Cannula 2.00 09/26/20 11:55 36.5 94 18 104/63 (77) 94 Nasal Cannula 3.50 09/26/20 08:00 Nasal Cannula 4.00 09/26/20 07:56 37.2 89 20 113/63 (80) 94 Nasal Cannula 4.00 I & O 09/27/20 07:00 Intake Total 2740 ml Output Total 875 ml Balance 1865 ml Capillary Refill : Less Than 3 SecondsLess Than 3 Seconds General Appearance: No Apparent Distress HEENT: PERRL/EOMI Neck: Normal Inspection Respiratory: Chest Non Tender, No Accessory Muscle Use, No Respiratory Distress Cardiovascular: Regular Rate, Rhythm, No JVD Peripheral Pulses: 2+ Radial Pulses (R), 2+ Radial Pulses (L) Gastrointestinal: distended (significantly less distended), tenderness (incisional tenderness) Neurologic/Psychiatric: Alert, Oriented x3, No Motor/Sensory Deficits Skin: Normal Color, Warm/Dry, Other (incision clean dry intact) Lymphatic: No Adenopathy Results Lab Laboratory Tests 09/26/20 10:28: Glucometer 150H 09/26/20 15:50: Glucometer 143H 09/26/20 20:53: Glucometer 165H 09/27/20 05:42: Glucometer 103 09/27/20 06:05: White Blood Count 13.4H, Red Blood Count 4.86, Hemoglobin 14.2, Hematocrit 45, Mean Corpuscular Volume 92, Mean Corpuscular Hemoglobin 29, Mean Corpuscular Hemoglobin Concent 32, Red Cell Distribution Width 14.6H, Platelet Count 324, Mean Platelet Volume 11.1, Immature Granulocyte % (Auto) 1, Neutrophils (%) (Auto) 69, Lymphocytes (%) (Auto) 14, Monocytes (%) (Auto) 16H, Eosinophils (%) (Auto) 1, Basophils (%) (Auto) 0, Neutrophils # (Auto) 9.3H, Lymphocytes # (Auto) 1.8, Monocytes # (Auto) 2.1H, Eosinophils # (Auto) 0.1, Basophils # (Auto ) 0.0, Immature Granulocyte # (Auto) 0.1, Sodium Level 136, Potassium Level 4.6, Chloride Level 105, Carbon Dioxide Level 23, Anion Gap 8, Blood Urea Nitrogen 16, Creatinine 0.81, Estimat Glomerular Filtration Rate 90, BUN/Creatinine Ratio 20, Glucose Level 99, Calcium Level 9.0, Corrected Calcium 9.9, Total Bilirubin 0.6, Aspartate Amino Transf (AST/SGOT) 24, Alanine Aminotransferase (ALT/SGPT) 12, Alkaline Phosphatase 42, Total Protein 5.8L, Albumin 2.9L Microbiology 09/25/20 MRSA Screen - Final, Complete MRSA not isolated Assessment/Plan Assessment/Plan Assessment/Plan 09/26/2020: s/p ex lap, small bowel resection and manual decompression small bowel. NG tube removed. Monitor closely. Discuss his discharge DB SANCHEZ DO 09/27/20 2935: Subjective Subjective/Events-last exam Patient states he is doing okay today. He has been tolerating liquids he states. He has had no more flatus or bowel movement though he states. His abdomen seems to be more distended. He is using incentive spirometer. Patient is not having any nausea vomiting fever sweats chills shortness of breath or chest pain at this time. Objective Exam General Appearance: No Apparent Distress HEENT: PERRL/EOMI Neck: Normal Inspection Respiratory: Chest Non Tender, No Accessory Muscle Use, No Respiratory Distress Cardiovascular: Regular Rate, Rhythm, No JVD Gastrointestinal: distended (More than yesterday), tenderness (incisional tenderness) Neurologic/Psychiatric: Alert, Oriented x3, No Motor/Sensory Deficits Skin: Normal Color, Warm/Dry Lymphatic: No Adenopathy Assessment/Plan Assessment/Plan Assessment/Plan s/p ex lap, small bowel resection and manual decompression small bowel. Abdomen more distended today. Instructed the patient to stay n.p.o. until starts passing flatus more today. Increase activity. Also consider inpatient rehab will have him evaluated. Pain control Incentive spirometry SCDs and Lovenox for DVT prophylaxis Supervisory-Addendum Brief Verification & Attestation Participated in pt care: history, MDM, physical Personally performed: exam, history, MDM, supervision of care Care discussed with: Medical Student Procedures: n/a Results interpretation: Verified all documentation Verification and Attestation of Medical Student E/M Service A medical student performed and documented this service in my presence. I reviewed and verified all information documented by the medical student and made modifications to such information, when appropriate. I personally performed the physical exam and medical decision making. Db Sanchez, Sep 27, 2020,14:54 JAMES COWAN Sep 27, 2020 07:18 DB SANCHEZ DO Sep 27, 2020 14:55
[2020-09-27] MEDS ORDERED: lisINopril 5 MG (PRINIVIL) TABLET PO ONE (09:30)
[2020-09-27] MEDS ORDERED: ASPIRIN E.C. 81 MG (ECOTRIN) TAB PO ONE (09:30)
--- NOTE | 2020-09-27 09:32 | Cardiology Progress Note ---
Progress Note-Cardiology Events since last exam Date Seen by Provider: Sep 27, 2020 Time Seen by Provider: 09:31 Events since last exam We are following him for his history of coronary artery disease. He is now on a liquid diet and able to take oral medications. He denies chest pain, dyspnea, palpitations, syncope, or ankle edema. Certain portions of this document may have been dictated utilizing voice rec ognition technology. Inherent to this technology, typographical and grammatical errors may exist. As much as I am diligent to identify and correct these mistakes, some errors may remain in the document. Vitals Last set of Vitals Signs Vital Signs 09/27/20 11:56 Temp 36.7 Pulse 91 Resp 20 B/P (MAP) 133/74 (93) Pulse Ox 96 O2 Delivery Nasal Cannula O2 Flow Rate 2.00 Labs Labs Laboratory Tests 09/27/20 06:05 Exam Vital Signs Vital Signs Date Time Temp Pulse Resp B/P (MAP) Pulse Ox O2 Delivery O2 Flow Rate FiO2 09/27/20 11:56 36.7 91 20 133/74 (93) 96 Nasal Cannula 2.00 Physical Exam General: Alert. No acute distress. Eye: No xanthelasma. HENT: Normocephalic. Neck: Jugular venous pressure does not appear elevated. Respiratory: Lungs are clear to auscultation. Respirations are non-labored. Breath sounds are equal. Symmetrical chest wall expansion. Cardiovascular: Normal rate. Regular rhythm. No murmur. No gallop. No edema. Gastrointestinal: Soft. Hypoactive bowel sounds. Skin: Warm. Dry. Neurologic: Alert and oriented to person, place, time. Cranial nerves 3-11 grossly intact. Psychiatric: Cooperative. Appropriate mood & affect. Labs Laboratory Tests Test 09/26/20 15:50 09/26/20 20:53 09/27/20 05:42 09/27/20 06:05 Range/Units Glucometer 143 H 165 H 103 70-110 MG/DL White Blood Count 13.4 H 4.3-11.0 10^3/uL Red Blood Count 4.86 4.30-5.52 10^6/uL Hemoglobin 14.2 13.3-17.7 g/dL Hematocrit 45 40-54 % Mean Corpuscular Volume 92 80-99 fL Mean Corpuscular Hemoglobin 29 25-34 pg Mean Corpuscular Hemoglobin Concent 32 32-36 g/dL Red Cell Distribution Width 14.6 H 10.0-14.5 % Platelet Count 324 130-400 10^3/uL Mean Platelet Volume 11.1 9.0-12.2 fL Immature Granulocyte % (Auto) 1 % Neutrophils (%) (Auto) 69 42-75 % Lymphocytes (%) (Auto) 14 12-44 % Monocytes (%) (Auto) 16 H 0-12 % Eosinophils (%) (Auto) 1 0-10 % Basophils (%) (Auto) 0 0-10 % Neutrophils # (Auto) 9.3 H 1.8-7.8 10^3/uL Lymphocytes # (Auto) 1.8 1.0-4.0 10^3/uL Monocytes # (Auto) 2.1 H 0.0-1.0 10^3/uL Eosinophils # (Auto) 0.1 0.0-0.3 10^3/uL Basophils # (Auto) 0.0 0.0-0.1 10^3/uL Immature Granulocyte # (Auto) 0.1 0.0-0.1 10^3/uL Sodium Level 136 135-145 MMOL/L Potassium Level 4.6 3.6-5.0 MMOL/L Chloride Level 105 98-107 MMOL/L Carbon Dioxide Level 23 21-32 MMOL/L Anion Gap 8 5-14 MMOL/L Blood Urea Nitrogen 16 7-18 MG/DL Creatinine 0.81 0.60-1.30 MG/DL Estimat Glomerular Filtration Rate 90 BUN/Creatinine Ratio 20 Glucose Level 99 70-105 MG/DL Calcium Level 9.0 8.5-10.1 MG/DL Corrected Calcium 9.9 8.5-10.1 MG/DL Total Bilirubin 0.6 0.1-1.0 MG/DL Aspartate Amino Transf (AST/SGOT) 24 5-34 U/L Alanine Aminotransferase (ALT/SGPT) 12 0-55 U/L Alkaline Phosphatase 42 40-136 U/L Total Protein 5.8 L 6.4-8.2 GM/DL Albumin 2.9 L 3.2-4.5 GM/DL Test 09/27/20 10:10 Range/Units Glucometer 148 H 70-110 MG/DL Diagnosis/Problems Diagnosis/Problems (1) Coronary artery disease without angina pectoris Assessment & Plan: He had previous coronary bypass surgery. He is not having any angina at this point in time. Resume Aspirin, metoprolol and statin medication today. (2) Primary hypertension Assessment & Plan: He is now taking oral medication. I have resumed his beta- vanessa and ROSHNI inhibitor. (3) Mixed hyperlipidemia Assessment & Plan: Rosuvastatin has been resumed. (4) Type 2 diabetes mellitus with complication Assessment & Plan: This is being managed by the hospitalist. JOSE LUIS GILMORE JR, MD Sep 27, 2020 09:32
--- NOTE | 2020-09-27 10:08 | Physical Therapy Daily Note ---
PT Daily Note-Current Subjective Patient agrees to PT. Mental Status Patient Orientation: Normal For Age Attachments: Oxygen, IV Transfers SCALE: Activities may be completed with or without assistive devices. 9-Pshchzmhnr-amncpgz completes the activity by him/herself with no assistance from a helper. 5-Set-up or Clean-up Assistance-helper sets up or cleans up; patient completes activity. Chelsea assists only prior to or following the activity. 4-Supervision or Touching Assistance-helper provides verbal cues and/or touching/steadying and/or contact guard assistance as patient completes activity. Assistance may be provided throughout the activity or intermittently. 3-Partial/Moderate Assistance-helper does LESS THAN HALF the effort. Chelsea lifts, holds or supports trunk or limbs, but provides less than half the effort. 2-Substantial/Maximal Assistance-helper does MORE THAN HALF the effort. Chelsea lifts or holds trunk or limbs and provides more than half the effort. 4-Ywmzkvszz-arkqel does ALL the effort. Patient does none of the effort to complete the activity. Or, the assistance of 2 or more helpers is required for the patient to complete the activity. If activity was not attempted, code reason: 7-Patient Refused. 9-Not Applicable-not attempted and the patient did not perform the activity before the current illness, exacerbation or injury. 10-Not Attempted due to Environmental Limitations-(lack of equipment, weather restraints, etc.). 88-Not Attempted due to Medical Conditions or Safety Concerns. Lying to Sitting/Side of Bed(Q: 4 Sit to Stand (QC): 4 Chair/Qnz-if-Fnblm Xfer(QC): 4 Gait Training Does the Patient Walk?: Yes Distance: 300' Walk 10 feet (QC): 4 Walk 50 ft with 2 Turns(QC): 4 Walk 150 ft (QC): 4 Gait Assistive Device: FWW SBA/functional gait sequence Assessment Patient and nursing instructed to ambulate PRN in hallway. Patient progressing with mobility. PT Short Term Goals Short Term Goals Time Frame: Oct 02, 2020 Roll Left & Right: 4 Sit to lyin Lying to sitting on side of be: 4 Sit to stand: 5 Chair/qfn-dy-olaoa transfer: 5 Toilet transfer: 5 Car transfer: 5 Walk 10 feet: 5 Walk 50 feet with two turns: 5 Walk 150 feet: 5 Walking 10ft on uneven surface: 5 1 step (curb): 4 4 steps: 4 12 steps: 4 Picking up objects: 4 Does pt use a wc or scooter: No Wheel 50ft w/2 turns: 9 Wheel 150 feet: 9 Type: N/A PT Shelter Goals Shelter Goals PT Shelter Goals Time Frame: Oct 17, 2020 Roll Left & Right (QC): 6 Sit to Lying (QC): 6 Lying-Sitting on Side/Bed(QC): 6 Sit to Stand (QC): 6 Chair/Rht-pc-Erlbe Xfer(QC): 6 Toilet Transfer (QC): 6 Car Transfer (QC): 6 Does the Patient Walk: Yes Walk 10 feet (QC): 6 Walk 50ft with 2 Turns (QC): 6 Walk 150 ft (QC): 6 Walking 10ft on Uneven Surface: 6 1 Step (curb) (QC): 5 4 Steps (QC): 5 12 Steps (QC): 5 Picking up an Object (QC): 5 Does the Pt use WC or Scooter?: No Wheel 50 feet with 2 turns (QC: 9 Type: N/A Wheel 150 feet: 9 Type: N/A PT Plan Treatment/Plan Treatment Plan: Continue Plan of Care Treatment Plan: Bed Mobility, Concurrent Therapy, Education, Functional Activity Yeimi, Functional Strength, Group Therapy, Gait, Safety, Therapeutic Exercise, Transfers Treatment Duration: Oct 24, 2020 Frequency: 6 times per week Estimated Hrs Per Day: .25 hour per day Patient and/or Family Agrees t: Yes Time/GCodes Time In: 917 Time Out: 927 Total Billed Treatment Time: 10 Total Billed Treatment 1 visit FA 10 min WARNER COX PT Sep 27, 2020 10:08
--- NOTE | 2020-09-27 12:16 | Progress Note ---
JENY PHELPS 09/27/20 1216: Subjective Date Seen by a Provider: Sep 27, 2020 Time Seen by a Provider: 08:00 Subjective/Events-last exam NGT was removed and was on clear liquid diet. Pt states he was able to walk down the rojo and sit. Denies fever, chills, vomiting, diarrhea, or chest pain. Surge ry plans on discussing possible discharge with him soon. Review of Systems General: No Chills, No Fatigue; Appetite (Clear liquid diet) HEENT: No Head Aches, No Visual Changes, No Sore Throat Pulmonary: No Dyspnea; Cough Cardiovascular: No: Chest Pain, Palpitations, Edema Gastrointestinal: No: Nausea, Vomiting, Diarrhea Genitourinary: No Dysuria, No Frequency, No Incontinence Musculoskeletal: No: neck pain, back pain, leg pain Neurological: No: Weakness, Numbness Objective Exam Last Set of Vital Signs Vital Signs Date Time Temp Pulse Resp B/P (MAP) Pulse Ox O2 Delivery O2 Flow Rate FiO2 09/27/20 11:56 36.7 91 20 133/74 (93) 96 Nasal Cannula 2.00 Capillary Refill : Less Than 3 SecondsLess Than 3 Seconds I&O Intake and Output0 09/27/20 00:00 Intake Total 1940 ml Output Total 1025 ml Balance 915 ml Intake Oral 840 ml IV Total 1100 ml Output Urine Total 1025 ml General: Alert, Oriented X3, Cooperative, Mild Distress HEENT: EOMI Neck: Supple Lungs: Clear to Auscultation Heart: Other (Irregular) Abdomen: No Tenderness Extremities: No Clubbing, No Cyanosis, No Edema Skin: No Rashes, No Significant Lesion Neuro: Normal Speech Psych/Mental Status: Mental Status NL (Possibly forgetfull as he forgot we saw him yesterday), Mood NL Results Lab Laboratory Tests 09/26/20 15:50: Glucometer 143H 09/26/20 20:53: Glucometer 165H 09/27/20 05:42: Glucometer 103 09/27/20 06:05: White Blood Count 13.4H, Red Blood Count 4.86, Hemoglobin 14.2, Hematocrit 45, Mean Corpuscular Volume 92, Mean Corpuscular Hemoglobin 29, Mean Corpuscular Hemoglobin Concent 32, Red Cell Distribution Width 14.6H, Platelet Count 324, Mean Platelet Volume 11.1, Immature Granulocyte % (Auto) 1, Neutrophils (%) (Auto) 69, Lymphocytes (%) (Auto) 14, Monocytes (%) (Auto) 16H, Eosinophils (%) (Auto) 1, Basophils (%) (Auto) 0, Neutrophils # (Auto) 9.3H, Lymphocytes # (Auto) 1.8, Monocytes # (Auto) 2.1H, Eosinophils # (Auto) 0.1, Basophils # (Auto) 0.0, Immature Granulocyte # (Auto) 0.1, Sodium Level 136, Potassium Level 4.6, Chloride Level 105, Carbon Dioxide Level 23, Anion Gap 8, Blood Urea Nitrogen 16, Creatinine 0.81, Estimat Glomerular Filtration Rate 90, BUN/Creatinine Ratio 20, Glucose Level 99, Calcium Level 9.0, Corrected Calcium 9.9, Total Bilirubin 0.6, Aspartate Amino Transf (AST/SGOT) 24, Alanine Aminotransferase (ALT/SGPT) 12, Alkaline Phosphatase 42, Total Protein 5.8L, Albumin 2.9L 09/27/20 10:10: Glucometer 148H Microbiology 09/25/20 MRSA Screen - Final, Complete MRSA not isolated Assessment/Plan Assessment/Plan Assess & Plan/Chief Complaint Small bowel obstruction likely partial Nausea and vomiting Bilateral inguinal hernia Epigastric abdominal pain History of CABG T2DM 09/27/20: Surgery will discuss possible discharge soon Continue current medical management NG Tube was removed, on clear liquid diet CBC/CMP reviewed 09/26/20: Continue medications Post surgical reassessment by surgery PT/OT CBC/CMP Cardiology consult 09/25/20: Continue Odansetron 8mg Q6H PRN as Antiemetic Repeat Small Bowel Xray to check for obstruction Maintain NPO Continue Diabetic Management Maintain NGT KAT BUSTAMANTE DO 09/27/202117: Subjective Subjective/Events-last exam Pt doing really well Passed some gas yesterday morning but nothing since No nausea or vomiting Tolerating clear liquid diet Likely discharge home tomorrow per surgery Working with PT and OT of one year at the bedside today Supervisory-Addendum Brief Verification & Attestation Participated in pt care: history, MDM, physical Personally performed: exam, history, MDM, supervision of care Care discussed with: Medical Student Procedures: n/a Results interpretation: Verified all documentation Verification and Attestation of Medical Student E/M Service A medical student performed and documented this service in my presence. I reviewed and verified all information documented by the medical student and made modifications to such information, when appropriate. I personally performed the physical exam and medical decision making. Kat Bustamante, Sep 27, 2020,21:16 JENY PHELPS Sep 27, 2020 12:16 KAT BUSTAMANTE DO Sep 27, 2020 21:18
--- NOTE | 2020-09-27 13:06 | Occupational Ther Daily Note ---
OT Current Status-Daily Note Subjective Physician asking how pt was doing and if pt would be a candidate for ARU. Physician referred to SW and that per PT notes that pt was ambulating well, discussed with physician that OT was going to educate pt on lower body AE due to inability to dress B LE due to medical diagnosis. Pt alert, lying in bed. Spo use present in room. Pt agreed to therapy though indicated he was too exhausted to complete OOB tasks. Mental Status/Objective Patient Orientation: Person, Place, Time, Situation Attachments: IV ADL-Treatment Pt educated on using physical anthropologist to doff socks and to don/doff pants/underwear. Pt stated that he has 2 reachers at home. asked if she could just assist pt with lower body dressing. WHITFIELD educated both that it was better to have pt complete as much for himself as possible. Demonstrated and educated pt on using sock aid to don socks. Pt verbalized understanding of sock aide though did not want to attempt. Pt then told WHITFIELD to take AE out of room. After therapy, pt lying in bed with call light/phone in reach. All needs met in room. Therapy Code Descriptions/Definitions Functional [place] Measure: 0=Not Assessed/NA 4=Minimal Assistance 1=Total Assistance 5=Supervision or Setup 2=Maximal Assistance 6=Modified [place] 3=Moderate Assistance 7=Complete IndependenceSCALE: Activities may be completed with or without assistive devices. 6-Umdiemuniw-cxiyjbb completes the activity by him/herself with no assistance from a helper. 5-Set-up or Clean-up Assistance-helper sets up or cleans up; patient completes activity. [place] assists only prior to or following the activity. 4-Supervision or Touching Assistance-helper provides verbal cues and/or touching/steadying and/or contact guard assistance as patient completes activity. Assistance may be provided throughout the activity or intermittently. 3-Partial/Moderate Assistance-helper does LESS THAN HALF the effort. [place] lifts, holds or supports trunk or limbs, but provides less than half the effort. 2-Substantial/Maximal Assistance-helper does MORE THAN HALF the effort. [place] lifts or holds trunk or limbs and provides more than half the effort. 5-Fbgrsdeqr-efecrc does ALL the effort. Patient does none of the effort to complete the activity. Or, the assistance of 2 or more helpers is required for the patient to complete the activity. If activity was not attempted, code reason: 7-Patient Refused. 9-Not Applicable-not attempted and the patient did not perform the activity before the current illness, exacerbation or injury. 10-Not Attempted due to Environmental Limitations-(lack of equipment, weather restraints, etc.). 88-Not Attempted due to Medical Conditions or Safety Concerns. OT Research Physicist Goals Custodial Goals Time Frame: Oct 05, 2020 Eating (QC): 6 Oral Hygiene (QC): 6 Toileting Hygiene (QC): 6 Shower/Bathe Self (QC): 6 Upper Body Dressing (QC): 6 Lower Body Dressing (QC): 6 On/Off Footwear (QC): 6 Additional Goals: 1-Demonstrate ADL Tasks, 2-Verbalize Understanding, 3- ImproveStrength/Yeimi 1=Demonstrate adherence to instructed precautions during ADL tasks. 2=Patient will verbalize/demonstrate understanding of assistive devices/modifications for ADL. 3=Patient will improve strength/tolerance for activity to enable patient to perform ADL's. OT Education/Plan Problem List/Assessment Assessment: Decreased Activ Tolerance, Impaired Self-Care Skills Discharge Recommendations Plan/Recommendations: Continue POC Treatment Plan/Plan of Care Patient would benefit from OT for education, treatment and training to promote independence in ADL's, mobility, safety and/or upper extremity function for ADL's. Plan of Care: ADL Retraining, Functional Mobility, UE Funct Exercise/Act Treatment Duration: Oct 05, 2020 Frequency: 5 times per week Estimated Hrs Per Day: .25 hour per day Rehab Potential: Good Time/GCodes Start Time: 12:52 Stop Time: 13:00 Total Time Billed (hr/min): 8 Billed Treatment Time 1 visit-FA 1 (8 min) ROBERTO JAIN Sep 27, 2020 13:06
[2020-09-27] MEDS: ENOXAPARIN 40 MG/0.4 ML (LOVENOX) SYR SC SCH (16:46)
[2020-09-27] MEDS: ROSUVASTATIN 20 MG (CRESTOR) TABLET PO SCH (20:15)
[2020-09-27] MEDS: FAMOTIDINE 20MG/2ML IV (PEPCID) IVP SCH (20:19)
[2020-09-28] VITALS (7 sets, daily range): BP systolic 116–135; BP diastolic 60–69
[2020-09-28] MEDS: LACTATED RINGERS 1,000 ML IV SCH ×3 (05:14→21:19)
[2020-09-28] MEDS: LEVOTHYROXINE 75 MCG (LEVOTHROID) TABLET PO SCH (06:01)
[2020-09-28] MEDS: inSUlin ASPART (NovoLOG) 1 UNIT/0.01 ML (CHARGE PER UNIT) SC SCH ×4 (06:01→21:10)
--- NOTE | 2020-09-28 08:01 | Progress Note - Surgery ---
JAMES COWAN 09/28/20 0801: Subjective Date Seen by a Provider: Sep 28, 2020 Time Seen by a Provider: 07:56 Subjective/Events-last exam PT continues in hospital. He reports passing flatus several times since 0500 this morning. Denies any BMs. Denies nausea, vomiting, fevers or chills. Abdomen feels less distended compared to yesterday he reports. Reports no complaints with urination. Reports using IS. NPO since yesterday. Review of Systems General: No Chills, No Night Sweats HEENT: No Head Aches, No Visual Changes Pulmonary: No Dyspnea, No Cough Cardiovascular: No: Chest Pain, Palpitations Gastrointestinal: No: Nausea, Vomiting Genitourinary: No Dysuria, No Frequency Musculoskeletal: No: neck pain, shoulder pain Neurological: No: Weakness, Numbness Objective Exam Vital Signs Date Time Temp Pulse Resp B/P (MAP) Pulse Ox O2 Delivery O2 Flow Rate FiO2 09/28/20 07:29 36.8 86 18 132/61 (84) 93 Nasal Cannula 1.00 09/28/20 04:11 37.2 77 16 127/67 (87) 91 Nasal Cannula 1.00 09/28/20 00:09 37.2 80 20 116/65 (82) 91 Nasal Cannula 1.00 09/27/20 20:20 Room Air 09/27/20 20:00 37.6 83 16 117/66 (83) 90 Room Air 09/27/20 16:00 37.5 85 16 103/63 (76) 92 09/27/20 11:56 36.7 91 20 133/74 (93) 96 Nasal Cannula 2.00 09/27/20 08:00 Nasal Cannula 2.00 I & O 09/28/20 07:00 Intake Total 1880 ml Output Total 1050 ml Balance 830 ml Capillary Refill : Less Than 3 SecondsLess Than 3 Seconds General Appearance: No Apparent Distress HEENT: PERRL/EOMI Neck: Normal Inspection Respiratory: Chest Non Tender, No Accessory Muscle Use, No Respiratory Distress Cardiovascular: Regular Rate, Rhythm, No JVD Peripheral Pulses: 2+ Radial Pulses (R), 2+ Radial Pulses (L) Gastrointestinal: distended (improved compared to yesterday ) Neurologic/Psychiatric: Alert, Oriented x3, No Motor/Sensory Deficits Skin: Normal Color, Warm/Dry Lymphatic: No Adenopathy Results Lab Laboratory Tests 09/27/20 10:10: Glucometer 148H 09/27/20 15:56: Glucometer 132H 09/27/20 20:05: Glucometer 113H 09/28/20 05:25: Glucometer 90 Microbiology 09/25/20 MRSA Screen - Final, Complete MRSA not isolated Assessment/Plan Assessment/Plan Assessment/Plan s/p ex lap, small bowel resection and manual decompression small bowel. Abdomen less distended compared to yesterday. Encourage activity. Likely will do inpatient rehab before discharge. Pain control Incentive spirometry DB SANCHEZ DO 09/28/20 1502: Subjective Subjective/Events-last exam Passing flatus and had small bm. Abdomen distended. Tolerating some cliears this morning. Using IS some. Ambulating with walker some. No nausea or vomiting. Denies n/v fever sweats chills shortness of breath or chest pain at this time. Objective Exam General Appearance: No Apparent Distress HEENT: PERRL/EOMI Neck: Normal Inspection Respiratory: Chest Non Tender, No Accessory Muscle Use, No Respiratory Distress Cardiovascular: Regular Rate, Rhythm, No JVD Gastrointestinal: non tender (incision c/d/i without signs of infection.), distended (same as yesterday) Extremity: Normal Inspection, Normal Range of Motion Neurologic/Psychiatric: Alert, Oriented x3 Skin: Normal Color, Warm/Dry Lymphatic: No Adenopathy Assessment/Plan Assessment/Plan Assessment/Plan s/p ex lap, small bowel resection and manual decompression small bowel. Encourage activity/ambulation Use IS 10 x per hr while awake Eval for inpatient rehab before discharge. Pain control Lovenox/SCD's Repeat labs in am. Supervisory-Addendum Brief Verification & Attestation Participated in pt care: history, MDM, physical Personally performed: exam, history, MDM, supervision of care Care discussed with: Medical Student Procedures: n/a Results interpretation: Verified all documentation Verification and Attestation of Medical Student E/M Service A medical student performed and documented this service in my presence. I reviewed and verified all information documented by the medical student and made modifications to such information, when appropriate. I personally performed the physical exam and medical decision making. Db Sanchez, Sep 28, 2020,15:02 JAMES COWAN Sep 28, 2020 08:01 DB SANCHEZ DO Sep 28, 2020 15:02
--- NOTE | 2020-09-28 08:42 | Cardiology Progress Note ---
Progress Note-Cardiology Events since last exam Date Seen by Provider: Sep 28, 2020 Time Seen by Provider: 08:41 Events since last exam I am following him due to his history of coronary artery disease now status post exploratory laparotomy. He tells me he is passing gas but he is still n.p.o. He is ordered for his oral cardiac medications but has not yet received any due to his n.p.o. status. He denies chest pain, dyspnea, palpitations, syncope, or ankle edema. Certain portions of this document may have been dictated utilizing voice recognition technology. Inherent to this technology, typographical and grammatical errors may exist. As much as I am diligent to identify and correct these mistakes, some errors may remain in the document. Vitals Last set of Vitals Signs Vital Signs 09/28/20 07:29 Temp 36.8 Pulse 86 Resp 18 B/P (MAP) 132/61 (84) Pulse Ox 93 O2 Delivery Nasal Cannula O2 Flow Rate 1.00 Exam Vital Signs Vital Signs Date Time Temp Pulse Resp B/P (MAP) Pulse Ox O2 Delivery O2 Flow Rate FiO2 09/28/20 07:29 36.8 86 18 132/61 (84) 93 Nasal Cannula 1.00 Physical Exam General: Alert. No acute distress. Eye: No xanthelasma. HENT: Normocephalic. Neck: Jugular venous pressure does not appear elevated. Respiratory: Lungs are clear to auscultation. Respirations are non-labored. Breath sounds are equal. Symmetrical chest wall expansion. Cardiovascular: Normal rate. Regular rhythm. No murmur. No gallop. No edema. Gastrointestinal: Soft. Normal bowel sounds. Skin: Warm. Dry. Neurologic: Alert and oriented to person, place, time. Cranial nerves 3-11 grossly intact. Psychiatric: Cooperative. Appropriate mood & affect. Labs Laboratory Tests Test 09/27/20 10:10 09/27/20 15:56 09/27/20 20:05 09/28/20 05:25 Range/Units Glucometer 148 H 132 H 113 H 90 70-110 MG/DL Diagnosis/Problems Diagnosis/Problems (1) Coronary artery disease without angina pectoris Assessment & Plan: He had previous coronary bypass surgery. He is not having any angina at this point in time. Resume Aspirin, metoprolol and statin medication when okay with surgery. From a cardiac standpoint, there do not appear to be any acute, active cardiac issues at this time. As such, cardiology will sign off. Please call if you have other questions or concerns. I did put an order for the staff to get him an appointment to see me in the office in 1 month. (2) Primary hypertension Assessment & Plan: Resume beta-vanessa and ROSHNI inhibitor when okay with surgery. If he remains n.p.o. and his blood pressures start to become elevated, he can be treated with IV metoprolol every 6 hours as needed. (3) Mixed hyperlipidemia Assessment & Plan: Resume rosuvastatin when okayed by surgery. (4) Type 2 diabetes mellitus with complication Assessment & Plan: This is being managed by the hospitalist. JOSE LUIS GILMORE JR, MD Sep 28, 2020 08:42
[2020-09-28] MEDS ORDERED: LEVOTHYROXINE 75 MCG (LEVOTHROID) TABLET PO SCH (09:00)
[2020-09-28] MEDS: lisINopril 5 MG (PRINIVIL) TABLET PO SCH (09:05)
[2020-09-28] MEDS: ASPIRIN E.C. 81 MG (ECOTRIN) TAB PO SCH ×2 (09:06→09:48)
--- NOTE | 2020-09-28 09:40 | Physical Therapy Daily Note ---
PT Daily Note-Current Subjective Patient agrees to PT. Not as alert on this date. Pain Numeric Pain Scale: 5-Moderate Pain Location: Medial, Lower Location Body Site: Abdomen Pain Description: Pressure, Acute Mental Status Patient Orientation: Person, Time, Situation Attachments: Oxygen, IV Transfers SCALE: Activities may be completed with or without assistive devices. 2-Dsigmedfuk-egvhpxs completes the activity by him/herself with no assistance from a helper. 5-Set-up or Clean-up Assistance-helper sets up or cleans up; patient completes activity. [place] assists only prior to or following the activity. 4-Supervision or Touching Assistance-helper provides verbal cues and/or touching/steadying and/or contact guard assistance as patient completes activity. Assistance may be provided throughout the activity or intermittently. 3-Partial/Moderate Assistance-helper does LESS THAN HALF the effort. [place] lifts, holds or supports trunk or limbs, but provides less than half the effort. 2-Substantial/Maximal Assistance-helper does MORE THAN HALF the effort. [place] lifts or holds trunk or limbs and provides more than half the effort. 1-Bnepesdhl-jjcqki does ALL the effort. Patient does none of the effort to complete the activity. Or, the assistance of 2 or more helpers is required for the patient to complete the activity. If activity was not attempted, code reason: 7-Patient Refused. 9-Not Applicable-not attempted and the patient did not perform the activity before the current illness, exacerbation or injury. 10-Not Attempted due to Environmental Limitations-(lack of equipment, weather restraints, etc.). 88-Not Attempted due to Medical Conditions or Safety Concerns. Lying to Sitting/Side of Bed(Q: 3 Sit to Stand (QC): 4 (SBA) Chair/Avg-vc-Woukf Xfer(QC): 4 (SBA) Gait Training Does the Patient Walk?: Yes Distance: 300' Walk 10 feet (QC): 4 Walk 50 ft with 2 Turns(QC): 4 Walk 150 ft (QC): 4 Gait Assistive Device: FWW safe and functional with no deviation/SBA for IV pole and O2. Assessment Nursing instructed to ambulate with patient PRN to increase activity and promote bowel activity. Patient and RN voice understanding. PT Short Term Goals Short Term Goals Time Frame: Oct 02, 2020 Roll Left & Right: 4 Sit to lyin Lying to sitting on side of be: 4 Sit to stand: 5 Chair/ypv-st-nykuf transfer: 5 Toilet transfer: 5 Car transfer: 5 Walk 10 feet: 5 Walk 50 feet with two turns: 5 Walk 150 feet: 5 Walking 10ft on uneven surface: 5 1 step (curb): 4 4 steps: 4 12 steps: 4 Picking up objects: 4 Does pt use a wc or scooter: No Wheel 50ft w/2 turns: 9 Wheel 150 feet: 9 Type: N/A PT Fpc Goals Fpc Goals PT Fpc Goals Time Frame: Oct 17, 2020 Roll Left & Right (QC): 6 Sit to Lying (QC): 6 Lying-Sitting on Side/Bed(QC): 6 Sit to Stand (QC): 6 Chair/Cvn-em-Prwpq Xfer(QC): 6 Toilet Transfer (QC): 6 Car Transfer (QC): 6 Does the Patient Walk: Yes Walk 10 feet (QC): 6 Walk 50ft with 2 Turns (QC): 6 Walk 150 ft (QC): 6 Walking 10ft on Uneven Surface: 6 1 Step (curb) (QC): 5 4 Steps (QC): 5 12 Steps (QC): 5 Picking up an Object (QC): 5 Does the Pt use WC or Scooter?: No Wheel 50 feet with 2 turns (QC: 9 Type: N/A Wheel 150 feet: 9 Type: N/A PT Plan Treatment/Plan Treatment Plan: Continue Plan of Care Treatment Plan: Bed Mobility, Concurrent Therapy, Education, Functional Activity Yeimi, Functional Strength, Group Therapy, Gait, Safety, Therapeutic Exercise, Transfers Treatment Duration: Oct 24, 2020 Frequency: 6 times per week Estimated Hrs Per Day: .25 hour per day Patient and/or Family Agrees t: Yes Time/GCodes Time In: 846 Time Out: 903 Total Billed Treatment Time: 17 Total Billed Treatment 1 visit FA 17 min WARNER COX PT Sep 28, 2020 09:40
--- NOTE | 2020-09-28 12:04 | Occupational Ther Daily Note ---
OT Current Status-Daily Note Subjective Pt laying in bed, agreeable to OT tx Mental Status/Objective Patient Orientation: Person, Place, Situation Attachments: IV ADL-Treatment Therapy Code Descriptions/Definitions Functional [place] Measure: 0=Not Assessed/NA 4=Minimal Assistance 1=Total Assistance 5=Supervision or Setup 2=Maximal Assistance 6=Modified [place] 3=Moderate Assistance 7=Complete IndependenceSCALE: Activities may be completed with or without assistive devices. 3-Oafvjdijnn-owvyjem completes the activity by him/herself with no assistance from a helper. 5-Set-up or Clean-up Assistance-helper sets up or cleans up; patient completes activity. [place] assists only prior to or following the activity. 4-Supervision or Touching Assistance-helper provides verbal cues and/or touching/steadying and/or contact guard assistance as patient completes activity. Assistance may be provided throughout the activity or intermittently. 3-Partial/Moderate Assistance-helper does LESS THAN HALF the effort. [place] lifts, holds or supports trunk or limbs, but provides less than half the effort. 2-Substantial/Maximal Assistance-helper does MORE THAN HALF the effort. [place] lifts or holds trunk or limbs and provides more than half the effort. 3-Mmjihxtro-ebsqde does ALL the effort. Patient does none of the effort to complete the activity. Or, the assistance of 2 or more helpers is required for the patient to complete the activity. If activity was not attempted, code reason: 7-Patient Refused. 9-Not Applicable-not attempted and the patient did not perform the activity before the current illness, exacerbation or injury. 10-Not Attempted due to Environmental Limitations-(lack of equipment, weather restraints, etc.). 88-Not Attempted due to Medical Conditions or Safety Concerns. Other Treatment Pt laying in bed, agreeable to OT tx. Pt declines OOB activities at this time, as he was up walking with PT earlier and had just returned to bed after being up in recliner for a couple hours. Pt agreeable to UE exercises in order to increase overall strength and activity tolerance BUEs. Pt completed x15 reps each of the following BUEs: shoulder flexion, elbow flexion, elbow extension, and finger flexion/extension. Pt took rest breaks as needed between exercises. OT instructed pt to continue completing exercises throughout the day, increasing reps as tolerated, he verbalized understanding. Post tx, pt laying in bed, call light in reach and all needs met. Education OT Patient Education: Correct positioning, Energy conservation, Exercise program, Modified ADL techniques, Progress toward Goal/Update tx plan, Purpose of tx/functional activities, Rehab process Teaching Recipient: Patient Teaching Methods: Discussion Response to Teaching: Verbalize Understanding OT Dining Room Coordinator Goals Dining Room Coordinator Goals Time Frame: Oct 05, 2020 Eating (QC): 6 Oral Hygiene (QC): 6 Toileting Hygiene (QC): 6 Shower/Bathe Self (QC): 6 Upper Body Dressing (QC): 6 Lower Body Dressing (QC): 6 On/Off Footwear (QC): 6 Additional Goals: 1-Demonstrate ADL Tasks, 2-Verbalize Understanding, 3- ImproveStrength/Yeimi 1=Demonstrate adherence to instructed precautions during ADL tasks. 2=Patient will verbalize/demonstrate understanding of assistive devices/modifications for ADL. 3=Patient will improve strength/tolerance for activity to enable patient to perform ADL's. OT Education/Plan Problem List/Assessment Assessment: Decreased Activ Tolerance, Decreased UE Strength, Impaired Funct Balance, Impaired I ADL's, Impaired Self-Care Skills Discharge Recommendations Plan/Recommendations: Continue POC Treatment Plan/Plan of Care Patient would benefit from OT for education, treatment and training to promote independence in ADL's, mobility, safety and/or upper extremity function for ADL's. Plan of Care: ADL Retraining, Functional Mobility, UE Funct Exercise/Act Treatment Duration: Oct 05, 2020 Frequency: 5 times per week Estimated Hrs Per Day: .25 hour per day Rehab Potential: Good Time/GCodes Start Time: 11:00 Stop Time: 11:10 Total Time Billed (hr/min): 10 Billed Treatment Time 1, EX NEFTALI GUILLORY OT Sep 28, 2020 12:04
--- NOTE | 2020-09-28 15:27 | Physician Query Clarification ---
Physician Query-General Query to Physician: The medical record reflects the following clinical evidence: Clinical Indicators: Requiring 3-4 L of 02 to maintain O2 sats, Before and After surgery, 09/24 RR consistently 18 -22, 02 sat 94% on 4L (P/F = 202)(before surgery) Sp02 91% on 1L (P/F = 258)(after surgery) Risk Factor(s): 09/24 Chest Xray: "basal atelectasis and/or pneumonitis", Abdominal pain, SBO, No home 02 Treatment: Supplemental 02, extended stay required to wean 02 - was still on O2 3 days after surgery, IS, 1. Acute respiratory failure with hypoxia 2. Other explanation of clinical findings 3. Unable to determine (no explanation for clinical findings) Please clarify and document your clinical opinion in the progress notes and discharge summary including the definitive and/or presumptive diagnosis, (suspected or probable), related to the above clinical findings. Please include clinical findings supporting your diagnosis. Tracy Short MSN, RN Clinical Barn Operator [phone] [email or web address] PHYSICIAN RESPONSE: Based on the clinical findings in the record, please respond to the query above on this document as an addendum. Physician Response: Physician Response acute resp failure with hypoxia If you have questions please contact: Body Cleaner: Ext: Thank you for your time and cooperation. Clinical Barn Operator/Body Cleaner This is a permanent part of the medical record TRACY SHORT Sep 28, 2020 15:27 DB QUIGLEY DO Sep 30, 2020 20:52
[2020-09-28] MEDS: ENOXAPARIN 40 MG/0.4 ML (LOVENOX) SYR SC SCH (17:37)
[2020-09-28] MEDS ORDERED: lisINopril 5 MG (PRINIVIL) TABLET PO SCH (21:00)
[2020-09-28] MEDS ORDERED: ROSUVASTATIN 20 MG (CRESTOR) TABLET PO SCH (21:00)
[2020-09-28] MEDS ORDERED: ASPIRIN E.C. 81 MG (ECOTRIN) TAB PO SCH (21:00)
[2020-09-28] MEDS: ROSUVASTATIN 20 MG (CRESTOR) TABLET PO SCH (21:18)
[2020-09-28] MEDS: FAMOTIDINE 20MG/2ML IV (PEPCID) IVP SCH (21:19)
[2020-09-29 04:20] VITALS: BP 121/60
[2020-09-29] MEDS: LEVOTHYROXINE 75 MCG (LEVOTHROID) TABLET PO SCH (05:30)
[2020-09-29] MEDS: LACTATED RINGERS 1,000 ML IV SCH ×3 (05:30→21:53)
[2020-09-29 05:33] LABS: HEMATOCRIT 43 % (40-54); HEMOGLOBIN 13.8 g/dL (13.3-17.7); MEAN CORPUSCULAR HEMOGLOBIN 29 pg (25-34); MEAN CORPUSCULAR HGB CONC 32 g/dL (32-36); MEAN CORPUSCULAR VOLUME 91 fL (80-99); MEAN PLATELET VOLUME 11.2 fL (9.0-12.2); PLATELET COUNT 328 10^3/uL (130-400); WHITE BLOOD COUNT 13.2 10^3/uL (4.3-11.0)
[2020-09-29 05:48] LABS: POTASSIUM 3.9 MMOL/L (3.6-5.0)
[2020-09-29 05:49] LABS: CALCIUM 8.5 MG/DL (8.5-10.1)
[2020-09-29] MEDS: inSUlin ASPART (NovoLOG) 1 UNIT/0.01 ML (CHARGE PER UNIT) SC SCH ×4 (05:52→20:54)
[2020-09-29 05:54] LABS: CREATININE SERUM 0.77 MG/DL (0.60-1.30)
[2020-09-29 05:56] LABS: MAGNESIUM 1.9 MG/DL (1.6-2.4)
--- NOTE | 2020-09-29 07:53 | Progress Note - Surgery ---
JAMES COWAN 09/29/20 0753: Subjective Date Seen by a Provider: Sep 29, 2020 Time Seen by a Provider: 07:47 Subjective/Events-last exam PT continues in hospital. He reports having 14 BMs since yesterday afternoon. The quality of his stool has been a mix of loose and solid. Denies blood in the stool. Continues on clears only. No complaints with urination. Has been ambulating with a walker. Has been using IS. Reports some abdominal pain with coughing, but it is better compared to yesterday. He denies fevers, nausea or vomiting. Review of Systems General: No Chills, No Night Sweats HEENT: No Head Aches, No Visual Changes Pulmonary: No Dyspnea, No Cough Cardiovascular: No: Chest Pain, Palpitations Gastrointestinal: No: Nausea, Vomiting Genitourinary: No Dysuria, No Frequency Musculoskeletal: No: neck pain, shoulder pain Neurological: No: Weakness, Numbness Objective Exam Vital Signs Date Time Temp Pulse Resp B/P (MAP) Pulse Ox O2 Delivery O2 Flow Rate FiO2 09/29/20 04:20 36.4 77 16 121/60 (80) 92 Nasal Cannula 1.00 09/28/20 23:48 36.2 86 18 119/69 (86) 95 Nasal Cannula 1.00 09/28/20 22:00 Nasal Cannula 2.00 09/28/20 21:20 Nasal Cannula 1.00 09/28/20 20:26 37.4 88 18 131/60 (83) 90 Nasal Cannula 1.00 09/28/20 15:52 36.8 89 20 135/60 (85) 90 Nasal Cannula 1.00 09/28/20 11:16 37.2 87 18 128/62 (84) 90 Room Air 09/28/20 08:00 Room Air I & O 09/29/20 07:00 Intake Total 3280 ml Output Total 250 ml Balance 3030 ml Capillary Refill : Less Than 3 SecondsLess Than 3 Seconds General Appearance: No Apparent Distress Respiratory: Chest Non Tender, No Accessory Muscle Use, No Respiratory Distress Cardiovascular: Regular Rate, Rhythm Gastrointestinal: non tender (incision without signs of infection.), distended Neurologic/Psychiatric: Alert, Oriented x3 Skin: Normal Color, Warm/Dry Lymphatic: No Adenopathy Results Lab Laboratory Tests 09/28/20 11:24: Glucometer 95 09/28/20 15:55: Glucometer 95 09/28/20 20:31: Glucometer 117H 09/29/20 05:16: White Blood Count 13.2H, Red Blood Count 4.73, Hemoglobin 13.8, Hematocrit 43, Mean Corpuscular Volume 91, Mean Corpuscular Hemoglobin 29, Mean Corpuscular Hemoglobin Concent 32, Red Cell Distribution Width 14.3, Platelet Count 328, Mean Platelet Volume 11.2, Sodium Level 132L, Potassium Level 3.9, Chloride Level 101, Carbon Dioxide Level 22, Anion Gap 9, Blood Urea Nitrogen 12, Creatinine 0.77, Estimat Glomerular Filtration Rate 95, BUN/Creatinine Ratio 16, Glucose Level 91, Calcium Level 8.5, Magnesium Level 1.9 Microbiology 09/25/20 MRSA Screen - Final, Complete MRSA not isolated Assessment/Plan Assessment/Plan Assessment/Plan s/p ex lap, small bowel resection and manual decompression small bowel. Encourage activity/ambulation Use IS 10 x per hr while awake Eval for inpatient rehab before discharge. Pain control Lovenox/SCD's Repeat labs in am. DB SANCHEZ DO 09/29/20 1532: Subjective Subjective/Events-last exam Patient feeling better today. Patient having multiple bowel movements. They are loose stools. Tolerating clears. Less distention and abdomen feeling better. Using incentive spirometer. Denies any nausea vomiting fever sweats chills shortness of breath or chest pain at this time. Objective Exam General Appearance: No Apparent Distress HEENT: PERRL/EOMI Neck: Non Tender Respiratory: Chest Non Tender, No Accessory Muscle Use, No Respiratory Distress Cardiovascular: Regular Rate, Rhythm, No JVD Gastrointestinal: non tender (Clean and dry slight erythema surrounding the incision), distended (Less) Extremity: Normal Inspection Neurologic/Psychiatric: Alert, Oriented x3 Skin: Normal Color, Warm/Dry Lymphatic: No Adenopathy Assessment/Plan Assessment/Plan Assessment/Plan s/p ex lap, small bowel resection and manual decompression small bowel. Encourage activity/ambulation Use IS 10 x per hr while awake Eval for inpatient rehab before discharge. Advance diet Pain control Lovenox/SCD's Considering IRF Supervisory-Addendum Brief Verification & Attestation Participated in pt care: history, MDM, physical Personally performed: exam, history, MDM, supervision of care Care discussed with: Medical Student Procedures: n/a Results interpretation: Verified all documentation Verification and Attestation of Medical Student E/M Service A medical student performed and documented this service in my presence. I reviewed and verified all information documented by the medical student and made modifications to such information, when appropriate. I personally performed the physical exam and medical decision making. Db Sanchez, Sep 29, 2020,15:32 JAMES COWAN Sep 29, 2020 07:53 DB SANCHEZ DO Sep 29, 2020 15:32
[2020-09-29 08:13] VITALS: BP 118/65
--- NOTE | 2020-09-29 08:31 | Physical Therapy Daily Note ---
PT Daily Note-Current Subjective Patient agrees to PT. Mental Status Patient Orientation: Normal For Age Attachments: Oxygen, IV Transfers SCALE: Activities may be completed with or without assistive devices. 7-Cntmevhwcl-arfpqeo completes the activity by him/herself with no assistance from a helper. 5-Set-up or Clean-up Assistance-helper sets up or cleans up; patient completes activity. [place] assists only prior to or following the activity. 4-Supervision or Touching Assistance-helper provides verbal cues and/or touching/steadying and/or contact guard assistance as patient completes activity. Assistance may be provided throughout the activity or intermittently. 3-Partial/Moderate Assistance-helper does LESS THAN HALF the effort. [place] lifts, holds or supports trunk or limbs, but provides less than half the effort. 2-Substantial/Maximal Assistance-helper does MORE THAN HALF the effort. [place] lifts or holds trunk or limbs and provides more than half the effort. 4-Dwgjypmmk-velzda does ALL the effort. Patient does none of the effort to complete the activity. Or, the assistance of 2 or more helpers is required for the patient to complete the activity. If activity was not attempted, code reason: 7-Patient Refused. 9-Not Applicable-not attempted and the patient did not perform the activity before the current illness, exacerbation or injury. 10-Not Attempted due to Environmental Limitations-(lack of equipment, weather restraints, etc.). 88-Not Attempted due to Medical Conditions or Safety Concerns. Lying to Sitting/Side of Bed(Q: 4 (SBA with VC's to log roll to right and push to sit EOB with patient performing without difficulty) Sit to Stand (QC): 4 (SBA) Toilet Transfer (QC): 4 (SBA) Gait Training Does the Patient Walk?: Yes Distance: 400' Walk 10 feet (QC): 4 (SBA) Walk 50 ft with 2 Turns(QC): 4 (SBA) Walk 150 ft (QC): 4 (SBA) Gait Assistive Device: FWW steady functional gait sequence with no deviation Assessment Patient tolerated treatment well and is on toilet with call light in hand. Increase activity as tolerated. Patient has been up with nursing ambulating PRN. PT Short Term Goals Short Term Goals Time Frame: Oct 02, 2020 Roll Left & Right: 4 Sit to lyin Lying to sitting on side of be: 4 Sit to stand: 5 Chair/voy-tr-afxcf transfer: 5 Toilet transfer: 5 Car transfer: 5 Walk 10 feet: 5 Walk 50 feet with two turns: 5 Walk 150 feet: 5 Walking 10ft on uneven surface: 5 1 step (curb): 4 4 steps: 4 12 steps: 4 Picking up objects: 4 Does pt use a wc or scooter: No Wheel 50ft w/2 turns: 9 Wheel 150 feet: 9 Type: N/A PT Optical Assistant Goals [facility] Goals PT [facility] Goals Time Frame: Oct 17, 2020 Roll Left & Right (QC): 6 Sit to Lying (QC): 6 Lying-Sitting on Side/Bed(QC): 6 Sit to Stand (QC): 6 Chair/Avt-nh-Rrqtg Xfer(QC): 6 Toilet Transfer (QC): 6 Car Transfer (QC): 6 Does the Patient Walk: Yes Walk 10 feet (QC): 6 Walk 50ft with 2 Turns (QC): 6 Walk 150 ft (QC): 6 Walking 10ft on Uneven Surface: 6 1 Step (curb) (QC): 5 4 Steps (QC): 5 12 Steps (QC): 5 Picking up an Object (QC): 5 Does the Pt use WC or Scooter?: No Wheel 50 feet with 2 turns (QC: 9 Type: N/A Wheel 150 feet: 9 Type: N/A PT Plan Treatment/Plan Treatment Plan: Continue Plan of Care Treatment Plan: Bed Mobility, Concurrent Therapy, Education, Functional Activity [place], Functional Strength, Group Therapy, Gait, Safety, Therapeutic Exercise, Transfers Treatment Duration: Oct 24, 2020 Frequency: 6 times per week Estimated Hrs Per Day: .25 hour per day Patient and/or Family Agrees t: Yes Time/GCodes Time In: 745 Time Out: 755 Total Billed Treatment Time: 10 Total Billed Treatment 1 visit FA 10 min WARNER COX PT Sep 29, 2020 08:31
[2020-09-29] MEDS: ASPIRIN E.C. 81 MG (ECOTRIN) TAB PO SCH (09:07)
[2020-09-29] MEDS: lisINopril 5 MG (PRINIVIL) TABLET PO SCH (09:07)
[2020-09-29 12:07] VITALS: BP 119/68
[2020-09-29 16:00] VITALS: BP 124/68
[2020-09-29] MEDS: AUGMENTIN 875 MG TAB (AMOXICILLIN/CLAVULANATE) PO SCH (17:40)
[2020-09-29] MEDS: ENOXAPARIN 40 MG/0.4 ML (LOVENOX) SYR SC SCH (17:40)
[2020-09-29 20:30] VITALS: BP 120/68
[2020-09-29] MEDS: FAMOTIDINE 20MG/2ML IV (PEPCID) IVP SCH (20:54)
[2020-09-29] MEDS: ROSUVASTATIN 20 MG (CRESTOR) TABLET PO SCH (20:54)
[2020-09-30] VITALS (8 sets, daily range): BP systolic 105–144; BP diastolic 58–79
[2020-09-30] MEDS: LACTATED RINGERS 1,000 ML IV SCH ×3 (05:19→18:29)
[2020-09-30] MEDS: LEVOTHYROXINE 75 MCG (LEVOTHROID) TABLET PO SCH (05:19)
[2020-09-30] MEDS: inSUlin ASPART (NovoLOG) 1 UNIT/0.01 ML (CHARGE PER UNIT) SC SCH ×4 (05:19→21:21)
[2020-09-30] MEDS: ASPIRIN E.C. 81 MG (ECOTRIN) TAB PO SCH (08:05)
[2020-09-30] MEDS: lisINopril 5 MG (PRINIVIL) TABLET PO SCH (08:05)
[2020-09-30] MEDS: AUGMENTIN 875 MG TAB (AMOXICILLIN/CLAVULANATE) PO SCH (08:05)
--- NOTE | 2020-09-30 08:26 | Progress Note - Surgery ---
JAMES COWAN 09/30/20 0826: Subjective Date Seen by a Provider: Sep 30, 2020 Time Seen by a Provider: 07:50 Subjective/Events-last exam PT reports having several BMs and passing flatus since yesterday. No blood in the stool. Has abdominal pain with movement. On soft food diet. Denies fever. Abdomen less distended. Review of Systems General: No Chills, No Night Sweats HEENT: No Head Aches, No Visual Changes Pulmonary: No Dyspnea, No Cough Cardiovascular: No: Chest Pain, Lt Headedness Gastrointestinal: No: Nausea, Vomiting Genitourinary: No Dysuria, No Frequency Musculoskeletal: No: neck pain, arm pain Neurological: No: Weakness, Numbness Objective Exam Vital Signs Date Time Temp Pulse Resp B/P (MAP) Pulse Ox O2 Delivery O2 Flow Rate FiO2 09/30/20 07:40 36.5 75 18 122/72 (89) 94 Nasal Cannula 1.00 09/30/20 04:15 36.4 79 18 123/66 (85) 94 Nasal Cannula 1.00 09/30/20 00:00 36.3 74 17 128/73 (91) 94 Nasal Cannula 1.00 09/29/20 20:55 Nasal Cannula 1.00 09/29/20 20:30 37.1 74 20 120/68 (85) 95 Nasal Cannula 1.00 09/29/20 16:00 36.8 75 20 124/68 (86) 95 Nasal Cannula 1.00 09/29/20 12:07 36.6 78 18 119/68 (85) 91 Nasal Cannula 1.00 I & O 09/30/20 07:00 Intake Total 6240 ml Output Total 275 ml Balance 5965 ml Capillary Refill : Less Than 3 SecondsLess Than 3 Seconds General Appearance: No Apparent Distress Respiratory: Chest Non Tender, No Accessory Muscle Use, No Respiratory Distress Cardiovascular: Regular Rate, Rhythm, No JVD Gastrointestinal: non tender (Clean and dry slight erythema surrounding the incision), distended (Less) Extremity: Normal Inspection Neurologic/Psychiatric: Alert, Oriented x3 Skin: Normal Color, Warm/Dry Lymphatic: No Adenopathy Results Lab Laboratory Tests 09/29/20 10:33: Glucometer 81 09/29/20 16:05: Glucometer 132H 09/29/20 20:11: Glucometer 135H 09/30/20 05:19: Glucometer 102 Microbiology 09/25/20 MRSA Screen - Final, Complete MRSA not isolated Assessment/Plan Assessment/Plan Assessment/Plan s/p ex lap, small bowel resection and manual decompression small bowel. Encourage activity/ambulation Use IS 10 x per hr while awake Eval for inpatient rehab before discharge. Continues on soft foods. Pain control DB SANCHEZ DO 09/30/20 1119: Subjective Subjective/Events-last exam Tolerating diet. Has bowel function. Denies n/v fever sweats chills shortness of breath or chest pain. Objective Exam General Appearance: No Apparent Distress HEENT: Normal ENT Inspection Neck: Non Tender, Supple Respiratory: Chest Non Tender, No Accessory Muscle Use, No Respiratory Distress Cardiovascular: Regular Rate, Rhythm, No JVD Gastrointestinal: non tender (Clean and dry slight erythema surrounding the incision), distended (same as yesterday) Extremity: Normal Inspection Neurologic/Psychiatric: Alert, Oriented x3 Skin: Normal Color, Other (erythema around incision) Lymphatic: No Adenopathy Assessment/Plan Assessment/Plan Assessment/Plan s/p ex lap, small bowel resection and manual decompression small bowel. Encourage activity/ambulation Use IS 10 x per hr while awake Eval for inpatient rehab before discharge. Advance diet Pain control Lovenox for dvt prophylaxis Supervisory-Addendum Brief Verification & Attestation Participated in pt care: history, MDM, physical Personally performed: exam, history, MDM, supervision of care Care discussed with: Medical Student Procedures: n/a Results interpretation: Verified all documentation Verification and Attestation of Medical Student E/M Service A medical student performed and documented this service in my presence. I reviewed and verified all information documented by the medical student and made modifications to such information, when appropriate. I personally performed the physical exam and medical decision making. Db Sanchez, Sep 30, 2020,11:18 JAMES COWAN Sep 30, 2020 08:26 DB SANCHEZ DO Sep 30, 2020 11:19
[2020-09-30] MEDS ORDERED: ACETAMINOPHEN 325 MG TABLET PO PRN (17:15)
[2020-09-30] MEDS: ENOXAPARIN 40 MG/0.4 ML (LOVENOX) SYR SC SCH (17:18)
[2020-09-30 17:46] LABS: BASOPHILS # (AUTO) 0.1 10^3/uL (0.0-0.1); BASOPHILS % (AUTO) 0 % (0-10); EOSINOPHILS # (AUTO) 0.1 10^3/uL (0.0-0.3); EOSINOPHILS % (AUTO) 1 % (0-10); HEMATOCRIT 42 % (40-54); HEMOGLOBIN 13.5 g/dL (13.3-17.7); LYMPHOCYTES # (AUTO) 2.5 10^3/uL (1.0-4.0); LYMPHOCYTES % (AUTO) 15 % (12-44); MEAN CORPUSCULAR HEMOGLOBIN 29 pg (25-34); MEAN CORPUSCULAR HGB CONC 32 g/dL (32-36); MEAN CORPUSCULAR VOLUME 89 fL (80-99); MEAN PLATELET VOLUME 10.6 fL (9.0-12.2); MONOCYTES # (AUTO) 2.7 10^3/uL (0.0-1.0); MONOCYTES % (AUTO) 16 % (0-12); NEUTROPHILS # (AUTO) 10.9 10^3/uL (1.8-7.8); NEUTROPHILS % (AUTO) 66 % (42-75); PLATELET COUNT 336 10^3/uL (130-400); WHITE BLOOD COUNT 16.5 10^3/uL (4.3-11.0)
--- NOTE | 2020-09-30 17:53 | Diagnostic Imaging Report ---
HISTORY: Postop fever. COMPARISON: 09/24/2020. TECHNIQUE: Frontal view of the chest. FINDINGS: There are bibasilar airspace opacities which have increased since the previous exam. There appears to be a small left pleural effusion. There is no pneumothorax. Sternotomy wires and post-CABG changes are noted. The cardiac silhouette is stable in size. IMPRESSION: 1. Bibasilar airspace opacities appear increased compared to the prior exam, may be due to atelectasis or infiltrate. 2. Small left pleural effusion. Dictated by: Dictated on workstation # [id number]
[2020-09-30 18:04] LABS: POTASSIUM 3.5 MMOL/L (3.6-5.0)
[2020-09-30 18:05] LABS: CALCIUM 8.5 MG/DL (8.5-10.1)
[2020-09-30 18:07] LABS: BAND NEUTROPHILS 1 %; LYMPHOCYTES % (MANUAL) 18 %; MONOCYTES % (MANUAL) 11 %; NEUTROPHILS % (MANUAL) 70 %
[2020-09-30 18:08] LABS: BASOPHILS % (MANUAL) 0 %; EOSINOPHILS % (MANUAL) 0 %; RBC MORPH NORMAL
[2020-09-30 18:10] LABS: CREATININE SERUM 0.7 MG/DL (0.60-1.30)
[2020-09-30] MEDS ORDERED: CEFEPIME INJECTION 1,000 MG in WATER (STERILE) FOR INJECTION 10 ML IV ONE (19:30)
[2020-09-30] MEDS ORDERED: PIPERACILLIN/TAZOBACTAM (BULK) 4.5 GM in NS (IVPB) 100 ML IV SCH (20:00)
--- NOTE | 2020-09-30 20:32 | Progress Note - Hospitalist ---
Subjective HPI/CC On Admission Date Seen by Provider: Sep 30, 2020 Time Seen by Provider: 19:30 Pt is an 89yoCM with a PMH of CAD s/p CABG, HTN, HLD, BPH, HLD, NIDDMII, and hypothyroidism who presented to the ER due to abdominal pain. He reports that he has never had anything similar to this. His symptoms started on 09/22. He had a BM that evenign without relief. He has has multiple episodes of vomiting even with NGT. He denies any previous abdominal surgeyr. Imaging revealed SBO and he is being admitted to surgery. I am consulted for medical management. Subjective/Events-last exam He has been having fevers. He has had a bit of a cough but not much. He is not short of breath. His abdominal incision has been draining bloody pus. Focused Exam Lactate Level 09/30/20 17:40: Lactic Acid Level 0.83 Lactic Acid Level Laboratory Tests Test 09/30/20 17:40 Lactic Acid Level 0.83 MMOL/L (0.50-2.00) Objective Exam Vital Signs Vital Signs Date Time Temp Pulse Resp B/P (MAP) Pulse Ox O2 Delivery O2 Flow Rate FiO2 09/30/20 19:58 36.4 77 20 105/58 (74) 96 Nasal Cannula 1.00 Capillary Refill : Less Than 3 SecondsLess Than 3 Seconds General Appearance: No Apparent Distress, WD/WN Respiratory: Lungs Clear, Normal Breath Sounds, No Respiratory Distress Cardiovascular: Regular Rate, Rhythm, No Murmur Gastrointestinal: Distended, Tenderness, Other (abdominal incision erythe matous, draining bloody pus) Extremity: Normal Inspection, Non Tender, Pedal Edema Neurologic/Psychiatric: Alert, Oriented x3, Normal Mood/Affect Skin: Other (abdominal incision erythematous, draining bloody pus) Results/Procedures Lab Laboratory Tests 09/30/20 17:40 Patient resulted labs reviewed. Imaging: Reviewed Imaging Report Assessment/Plan Assessment and Plan Assess & Plan/Chief Complaint Sepsis Infected incision s/p small bowel resection Possible pneumonia SIRS+ with fever and leukocytosis Procalcitonin elevated Lactic acid normal Abdominal incision leaking bloody pus Obtain wound culture CXR with bibasilar atelectasis vs infiltrate Started on Clindamycin Begin Comfort Sanchez notified Diagnosis/Problems Diagnosis/Problems (1) Sepsis Status: Acute (2) Infected incision Status: Acute (3) Pneumonia Status: Acute Qualifiers: Laterality: bilateral Lung location: lower lobe of lung (4) S/P small bowel resection Status: Acute JORDAN OGDEN MD Sep 30, 2020 20:32
[2020-09-30] MEDS ORDERED: PIPERACILLIN/TAZOBACTAM (BULK) 4.5 GM in NS (IVPB) 100 ML IV ONE (20:45)
[2020-09-30] MEDS: ROSUVASTATIN 20 MG (CRESTOR) TABLET PO SCH (21:21)
[2020-09-30] MEDS: FAMOTIDINE 20MG/2ML IV (PEPCID) IVP SCH (21:21)
[2020-09-30 21:25] LABS: BILIRUBIN,URINE NEGATIVE (NEGATIVE); CLARITY,URINE CLEAR; COLOR,URINE YELLOW; GLUCOSE, URINE (UA) 1+ (NEGATIVE); KETONES,URINE TRACE (NEGATIVE); LEUKOCYTE ESTERASE ,URINE NEGATIVE (NEGATIVE); NITRITE,URINE NEGATIVE (NEGATIVE); PH,URINE 6.5 (5-9); PROTEIN,URINE TRACE (NEGATIVE)
[2020-09-30 21:37] LABS: BACTERIA,URINE TRACE /HPF; RBC,URINE 0-2 /HPF; WBC,URINE 0-2 /HPF
[2020-09-30 21:38] LABS: AMORPHOUS SEDIMENT,UR RARE AMOR URATES /LPF
[2020-09-30] MEDS: CLINDAMYCIN 600 MG/50 ML IVPB 50 ML IV SCH (22:26)
[2020-09-30] MEDS ORDERED: RT-ALBUTEROL SULF 2.5 MG/3 ML PRE-MIX VIAL INH PRN (22:45)
[2020-10-01] VITALS: BP 117/57
[2020-10-01] MEDS ORDERED: CEFEPIME INJECTION 1,000 MG in WATER (STERILE) FOR INJECTION 10 ML IV SCH ×2
[2020-10-01] MEDS: PIPERACILLIN/TAZOBACTAM (BULK) 4.5 GM in NS (IVPB) 100 ML IV SCH ×3 (03:15→18:20)
[2020-10-01 03:55] VITALS: BP 118/67
[2020-10-01] MEDS: LEVOTHYROXINE 75 MCG (LEVOTHROID) TABLET PO SCH (05:21)
[2020-10-01] MEDS: LACTATED RINGERS 1,000 ML IV SCH ×3 (05:21→18:20)
[2020-10-01] MEDS: CLINDAMYCIN 600 MG/50 ML IVPB 50 ML IV SCH ×3 (05:21→22:07)
[2020-10-01] MEDS: inSUlin ASPART (NovoLOG) 1 UNIT/0.01 ML (CHARGE PER UNIT) SC SCH ×4 (05:42→20:29)
[2020-10-01 06:01] LABS: BASOPHILS % (AUTO) 0 % (0-10); EOSINOPHILS # (AUTO) 0.2 10^3/uL (0.0-0.3); EOSINOPHILS % (AUTO) 2 % (0-10); HEMATOCRIT 41 % (40-54); HEMOGLOBIN 13.1 g/dL (13.3-17.7); LYMPHOCYTES # (AUTO) 2.2 10^3/uL (1.0-4.0); LYMPHOCYTES % (AUTO) 15 % (12-44); MEAN CORPUSCULAR HEMOGLOBIN 29 pg (25-34); MEAN CORPUSCULAR HGB CONC 32 g/dL (32-36); MEAN CORPUSCULAR VOLUME 90 fL (80-99); MEAN PLATELET VOLUME 11.1 fL (9.0-12.2); MONOCYTES # (AUTO) 2.2 10^3/uL (0.0-1.0); MONOCYTES % (AUTO) 15 % (0-12); NEUTROPHILS # (AUTO) 9.4 10^3/uL (1.8-7.8); NEUTROPHILS % (AUTO) 66 % (42-75); PLATELET COUNT 312 10^3/uL (130-400); WHITE BLOOD COUNT 14.2 10^3/uL (4.3-11.0)
[2020-10-01 06:09] LABS: POTASSIUM 3.3 MMOL/L (3.6-5.0)
[2020-10-01 06:11] LABS: CALCIUM 8.7 MG/DL (8.5-10.1)
[2020-10-01 06:15] LABS: CREATININE SERUM 0.68 MG/DL (0.60-1.30)
[2020-10-01 06:17] LABS: MAGNESIUM 1.8 MG/DL (1.6-2.4)
--- NOTE | 2020-10-01 07:23 | Progress Note - Surgery ---
JAMES COWAN 10/01/20 0723: Subjective Date Seen by a Provider: Oct 01, 2020 Time Seen by a Provider: 07:00 Subjective/Events-last exam Continues in hospital. The PT had fever last night which broke after acetaminophen. He reports last night Dr. Rock was inspecting his incision, which oozed dark blood and squirting when pressed. The contents were reportedly foul smelling. [place] were removed and the incision was packed. PT was started on Zozin and cefepime at that time. He had a chest xray, which showed bibsilar airspace opacities that were increased which may be d/t atelectasis or infiltrate. There was also a small L pleural effusion. PT reports having 1 BM since I last saw him. Last white count was 14.2. Review of Systems HEENT: No Head Aches, No Visual Changes Pulmonary: No Dyspnea Cardiovascular: Edema; No: Chest Pain Gastrointestinal: No: Nausea, Vomiting Genitourinary: No Dysuria, No Frequency Musculoskeletal: No: neck pain, shoulder pain Neurological: No: Weakness, Numbness Focused Exam Lactate Level 09/30/20 17:40: Lactic Acid Level 0.83 Objective Exam Vital Signs Date Time Temp Pulse Resp B/P (MAP) Pulse Ox O2 Delivery O2 Flow Rate FiO2 10/01/20 03:55 37.1 80 22 118/67 (84) 93 Nasal Cannula 1.00 10/01/20 03:12 Nasal Cannula 2.00 09/30/20 23:30 36.4 73 20 109/66 (80) 96 Nasal Cannula 1.00 09/30/20 22:37 36.4 91 92 09/30/20 20:15 Nasal Cannula 1.00 09/30/20 19:58 36.4 77 20 105/58 (74) 96 Nasal Cannula 1.00 09/30/20 16:00 38.3 78 20 113/62 (79) 94 Nasal Cannula 1.00 09/30/20 11:24 37.5 80 18 124/70 (88) 93 Nasal Cannula 1.00 09/30/20 08:00 Nasal Cannula 1.00 09/30/20 07:40 36.5 75 18 122/72 (89) 94 Nasal Cannula 1.00 I & O 10/01/20 07:00 Intake Total 1360 ml Output Total 800 ml Balance 560 ml Capillary Refill : Less Than 3 SecondsLess Than 3 Seconds General Appearance: No Apparent Distress, WD/WN Respiratory: Normal Breath Sounds, No Respiratory Distress Cardiovascular: Regular Rate, Rhythm, No Murmur Gastrointestinal: non tender (Clean and dry slight erythema surrounding the incision), distended (same as yesterday) Extremity: Normal Inspection, Non Tender, Pedal Edema Neurologic/Psychiatric: Alert, Oriented x3, Normal Mood/Affect Skin: Other (abdominal incision erythematous, draining bloody pus) Results Lab Laboratory Tests 09/30/20 10:16: Glucometer 130H 09/30/20 16:00: Glucometer 152H 09/30/20 17:40: White Blood Count 16.5H, Red Blood Count 4.68, Hemoglobin 13.5, Hematocrit 42, Mean Corpuscular Volume 89, Mean Corpuscular Hemoglobin 29, Mean Corpuscular Hemoglobin Concent 32, Red Cell Distribution Width 14.3, Platelet Count 336, Mean Platelet Volume 10.6, Immature Granulocyte % (Auto) 1, Neutrophils (%) (Auto) 66, Lymphocytes (%) (Auto) 15, Monocytes (%) (Auto) 16H, Eosinophils (%) (Auto) 1, Basophils (%) (Auto) 0, Neutrophils # (Auto) 10.9H, Lymphocytes # (Auto) 2.5, Monocytes # (Auto) 2.7H, Eosinophils # (Auto) 0.1, Basophils # (Auto) 0.1, Immature Granulocyte # (Auto) 0.2H, Neutrophils % (Manual) 70, Lymphocytes % (Manual) 18, Monocytes % (Manual) 11, Eosinophils % (Manual) 0, Basophils % (Manual) 0, Band Neutrophils 1, Blood Morphology Comment NORMAL, Sodium Level 131L, Potassium Level 3.5L, Chloride Level 98, Carbon Dioxide Level 26, Anion Gap 7, Blood Urea Nitrogen 7, Creatinine 0.70, Estimat Glomerular Filtration Rate 106, BUN/Creatinine Ratio 10, Glucose Level 137H, Lactic Acid Level 0.83, Calcium Level 8.5, Procalcitonin 0.59H 09/30/20 20:22: Glucometer 168H 09/30/20 21:13: Urine Color YELLOW, Urine Clarity CLEAR, Urine pH 6.5, Urine Specific [place] 1.010L, Urine Protein TRACEH, Urine Glucose (UA) 1+H, Urine Ketones TRACEH, Urine Nitrite NEGATIVE, Urine Bilirubin NEGATIVE, Urine Urobilinogen 4.0, Urine Leukocyte Esterase NEGATIVE, Urine RBC (Auto) TRACE-I, Urine RBC 0-2, Urine WBC 0-2, Urine Crystals PRESENTH, Urine Amorphous Sediment RARE HARIS URATESH, Urine Bacteria TRACE, Urine Casts NONE, Urine Mucus NEGATIVE, Urine Culture Indicated NO 10/01/20 05:00: Glucometer 114H 10/01/20 05:52: White Blood Count 14.2H, Red Blood Count 4.52, Hemoglobin 13.1L, Hematocrit 41, Mean Corpuscular Volume 90, Mean Corpuscular Hemoglobin 29, Mean Corpuscular Hemoglobin Concent 32, Red Cell Distribution Width 14.2, Platelet Count 312, Mean Platelet Volume 11.1, Immature Granulocyte % (Auto) 2, Neutrophils (%) (Auto) 66, Lymphocytes (%) (Auto) 15, Monocytes (%) (Auto) 15H, Eosinophils (%) (Auto) 2, Basophils (%) (Auto) 0, Neutrophils # (Auto) 9.4H, Lymphocytes # (Auto) 2.2, Monocytes # (Auto) 2.2H, Eosinophils # (Auto) 0.2, Basophils # (Auto) 0.0, Immature Granulocyte # (Auto) 0.3H, Sodium Level 133L, Potassium Level 3.3L, Chloride Level 101, Carbon Dioxide Level 26, Anion Gap 6, Blood Urea Nitrogen 6L, Creatinine 0.68, Estimat Glomerular Filtration Rate 110, BUN/Creatinine Ratio 9, Glucose Level 124H, Calcium Level 8.7, Magnesium Level 1.8, Procalcitonin 0.50H Microbiology 09/25/20 MRSA Screen - Final, Complete MRSA not isolated Assessment/Plan Assessment/Plan Assessment/Plan s/p ex lap, small bowel resection and manual decompression small bowel. Cellulitis of incision Continue to pack incision and current antibiotic therapy. Inpatient rehab before discharge once cellutitis is controlled. Advance diet Pain control Lovenox for dvt prophylaxis DB SANCHEZ DO 10/01/20 2009: Subjective Subjective/Events-last exam Patient with fever yesterday. Patient had drainage from his incisional wound that was bloody purulent. Patient had some jill removed irrigated and packed. Patient having bowel movement and flatus. Patient feeling better today. Patient chest x-ray demonstrating some infiltrate versus atelectasis. Patient has been started on Zosyn and clindamycin. Patient denies any nausea vomiting fever sweats chills shortness of breath or chest pain at this time. WBC down to 14.2. Objective Exam General Appearance: No Apparent Distress, WD/WN Neck: Non Tender, Supple Respiratory: Chest Non Tender, No Accessory Muscle Use, No Respiratory Distress Cardiovascular: Regular Rate, Rhythm, No JVD Gastrointestinal: non tender (Clean and dry slight erythema surrounding the incision), distended (Minimal); No tenderness; other (Incision erythema surrounding midline incision middle portion opened and packed, clean and dry at this time tissue appears) Extremity: Normal Inspection, Non Tender, Pedal Edema Neurologic/Psychiatric: Alert, Oriented x3, Normal Mood/Affect Skin: Normal Color Lymphatic: No Adenopathy Assessment/Plan Assessment/Plan Assessment/Plan Sepsis Infected incision s/p ex lap small bowel resection manual decompression of small bowel. Possible pneumonia Patient continue on Zosyn and clindamycin. Cultures obtained and awaiting. Patient to continue diet as tolerates. Instructed to use incentive spirometer and met protocol. Patient continue to increase activity as tolerates. Wound care. Supervisory-Addendum Brief Verification & Attestation Participated in pt care: history, MDM, physical Personally performed: exam, history, MDM, supervision of care Care discussed with: Medical Student Procedures: n/a Results interpretation: Verified all documentation Verification and Attestation of Medical Student E/M Service A medical student performed and documented this service in my presence. I reviewed and verified all information documented by the medical student and made modifications to such information, when appropriate. I personally performed the physical exam and medical decision making. Db Sanchez, Oct 01, 2020,20:09 JAMES COWAN Oct 01, 2020 07:23 DB SANCHEZ DO Oct 01, 2020 20:09
[2020-10-01] MEDS: RT-ALBUTEROL SULF 2.5 MG/3 ML PRE-MIX VIAL INH SCH ×2 (08:01→20:59)
--- NOTE | 2020-10-01 08:36 | Physical Therapy Daily Note ---
PT Daily Note-Current Subjective Patient reports he is feeling better today and agrees to PT. Mental Status Patient Orientation: Normal For Age Attachments: Oxygen, IV Transfers SCALE: Activities may be completed with or without assistive devices. 2-Vvmxloylyh-zlhxxcy completes the activity by him/herself with no assistance from a helper. 5-Set-up or Clean-up Assistance-helper sets up or cleans up; patient completes activity. [place] assists only prior to or following the activity. 4-Supervision or Touching Assistance-helper provides verbal cues and/or touching/steadying and/or contact guard assistance as patient completes activity. Assistance may be provided throughout the activity or intermittently. 3-Partial/Moderate Assistance-helper does LESS THAN HALF the effort. [place] lifts, holds or supports trunk or limbs, but provides less than half the effort. 2-Substantial/Maximal Assistance-helper does MORE THAN HALF the effort. [place] lifts or holds trunk or limbs and provides more than half the effort. 6-Zfcbpzxiq-kjymdt does ALL the effort. Patient does none of the effort to complete the activity. Or, the assistance of 2 or more helpers is required for the patient to complete the activity. If activity was not attempted, code reason: 7-Patient Refused. 9-Not Applicable-not attempted and the patient did not perform the activity before the current illness, exacerbation or injury. 10-Not Attempted due to Environmental Limitations-(lack of equipment, weather restraints, etc.). 88-Not Attempted due to Medical Conditions or Safety Concerns. Roll Left & Right (QC): 6 Lying to Sitting/Side of Bed(Q: 6 Sit to Stand (QC): 4 (SBA) Chair/Uei-ug-Seavv Xfer(QC): 4 (SBA) Gait Training Does the Patient Walk?: Yes Distance: 300' Walk 10 feet (QC): 5 Walk 50 ft with 2 Turns(QC): 5 Walk 150 ft (QC): 5 Gait Assistive Device: FWW safe and functional/shuffle gait sequence Exercises Seated Therapy Exercises: Ankle pumps, Long arc quads, Hip flexion Seated Reps: 15 (2 sets) Assessment Patient tolerated treatment well and is up in recliner. Patient improving with gross motor skills. PT Short Term Goals Short Term Goals Time Frame: Oct 02, 2020 Roll Left & Right: 4 Sit to lyin Lying to sitting on side of be: 4 Sit to stand: 5 Chair/fmg-pd-ohuoe transfer: 5 Toilet transfer: 5 Car transfer: 5 Walk 10 feet: 5 Walk 50 feet with two turns: 5 Walk 150 feet: 5 Walking 10ft on uneven surface: 5 1 step (curb): 4 4 steps: 4 12 steps: 4 Picking up objects: 4 Does pt use a wc or scooter: No Wheel 50ft w/2 turns: 9 Wheel 150 feet: 9 Type: N/A PT Model Builder Display Goals Model Builder Display Goals PT Nursing Home Goals Time Frame: Oct 17, 2020 Roll Left & Right (QC): 6 Sit to Lying (QC): 6 Lying-Sitting on Side/Bed(QC): 6 Sit to Stand (QC): 6 Chair/Ayy-an-Npjdt Xfer(QC): 6 Toilet Transfer (QC): 6 Car Transfer (QC): 6 Does the Patient Walk: Yes Walk 10 feet (QC): 6 Walk 50ft with 2 Turns (QC): 6 Walk 150 ft (QC): 6 Walking 10ft on Uneven Surface: 6 1 Step (curb) (QC): 5 4 Steps (QC): 5 12 Steps (QC): 5 Picking up an Object (QC): 5 Does the Pt use WC or Scooter?: No Wheel 50 feet with 2 turns (QC: 9 Type: N/A Wheel 150 feet: 9 Type: N/A PT Plan Treatment/Plan Treatment Plan: Continue Plan of Care Treatment Plan: Bed Mobility, Concurrent Therapy, Education, Functional Activity Yeimi, Functional Strength, Group Therapy, Gait, Safety, Therapeutic Exercise, Transfers Treatment Duration: Oct 24, 2020 Frequency: 6 times per week Estimated Hrs Per Day: .25 hour per day Patient and/or Family Agrees t: Yes Time/GCodes Time In: 740 Time Out: 803 Total Billed Treatment Time: 23 Total Billed Treatment 1 visit EX 8 min FA 15 min WARNER COX PT Oct 01, 2020 08:36
[2020-10-01 08:40] VITALS: BP 111/65
[2020-10-01] MEDS: lisINopril 5 MG (PRINIVIL) TABLET PO SCH (09:10)
[2020-10-01] MEDS: ASPIRIN E.C. 81 MG (ECOTRIN) TAB PO SCH (09:10)
--- NOTE | 2020-10-01 09:49 | Occupational Ther Daily Note ---
OT Current Status-Daily Note Subjective Pt seated in recliner, agreeable to OT tx. Mental Status/Objective Patient Orientation: Person, Place, Situation Attachments: IV, Oxygen (1L) ADL-Treatment Therapy Code Descriptions/Definitions Functional [place] Measure: 0=Not Assessed/NA 4=Minimal Assistance 1=Total Assistance 5=Supervision or Setup 2=Maximal Assistance 6=Modified [place] 3=Moderate Assistance 7=Complete IndependenceSCALE: Activities may be completed with or without assistive devices. 2-Gnoaeizwdf-scvwiwg completes the activity by him/herself with no assistance from a helper. 5-Set-up or Clean-up Assistance-helper sets up or cleans up; patient completes activity. [place] assists only prior to or following the activity. 4-Supervision or Touching Assistance-helper provides verbal cues and/or touching/steadying and/or contact guard assistance as patient completes activity. Assistance may be provided throughout the activity or intermittently. 3-Partial/Moderate Assistance-helper does LESS THAN HALF the effort. [place] lifts, holds or supports trunk or limbs, but provides less than half the effort. 2-Substantial/Maximal Assistance-helper does MORE THAN HALF the effort. [place] lifts or holds trunk or limbs and provides more than half the effort. 7-Cpclaeitj-uzrfdm does ALL the effort. Patient does none of the effort to complete the activity. Or, the assistance of 2 or more helpers is required for the patient to complete the activity. If activity was not attempted, code reason: 7-Patient Refused. 9-Not Applicable-not attempted and the patient did not perform the activity before the current illness, exacerbation or injury. 10-Not Attempted due to Environmental Limitations-(lack of equipment, weather restraints, etc.). 88-Not Attempted due to Medical Conditions or Safety Concerns. Eating (QC): 6 (IND) Oral Hygiene (QC): 4 (supervision standing at sink.) Toileting Hygiene (QC): 4 (SBA, pt able to perform hygiene and manage clothes.) Toilet Transfer (QC): 4 (CGA on/off toilet.) Other Treatment Pt seated in recliner, used FWW with SBA to bathroom and onto toilet. Pt completed toileting, then stood at sink to perform oral care with supervision. Pt returned to recliner using FWW, SBA. OT managed IV/O2 lines throughout session. Post tx, pt seated in recliner, call light in reach and all needs met. Education OT Patient Education: Correct positioning, Energy conservation, Exercise program, Modified ADL techniques, Progress toward Goal/Update tx plan, Purpose of tx/functional activities, Rehab process Teaching Recipient: Patient Teaching Methods: Discussion Response to Teaching: Verbalize Understanding OT Inspector Returned Materials Goals Inspector Returned Materials Goals Time Frame: Oct 05, 2020 Eating (QC): 6 Oral Hygiene (QC): 6 Toileting Hygiene (QC): 6 Shower/Bathe Self (QC): 6 Upper Body Dressing (QC): 6 Lower Body Dressing (QC): 6 On/Off Footwear (QC): 6 Additional Goals: 1-Demonstrate ADL Tasks, 2-Verbalize Understanding, 3- ImproveStrength/Yeimi 1=Demonstrate adherence to instructed precautions during ADL tasks. 2=Patient will verbalize/demonstrate understanding of assistive devices/modifications for ADL. 3=Patient will improve strength/tolerance for activity to enable patient to perform ADL's. OT Education/Plan Problem List/Assessment Assessment: Decreased Activ Tolerance, Decreased UE Strength, Impaired Funct Balance, Impaired I ADL's, Impaired Self-Care Skills Discharge Recommendations Plan/Recommendations: Continue POC Treatment Plan/Plan of Care Patient would benefit from OT for education, treatment and training to promote independence in ADL's, mobility, safety and/or upper extremity function for ADL's. Plan of Care: ADL Retraining, Functional Mobility, UE Funct Exercise/Act Treatment Duration: Oct 05, 2020 Frequency: 5 times per week Estimated Hrs Per Day: .25 hour per day Rehab Potential: Good Time/GCodes Start Time: 09:30 Stop Time: 09:45 Total Time Billed (hr/min): 15 Billed Treatment Time 1, ADL NEFTALI GUILLORY OT Oct 01, 2020 09:49
[2020-10-01 12:03] VITALS: BP 108/62
--- NOTE | 2020-10-01 13:44 | Progress Note - Hospitalist ---
Subjective HPI/CC On Admission Date Seen by Provider: Oct 01, 2020 Time Seen by Provider: 11:50 Pt is an 89yoCM with a PMH of CAD s/p CABG, HTN, HLD, BPH, HLD, NIDDMII, and hypothyroidism who presented to the ER due to abdominal pain. He reports that he has never had anything similar to this. His symptoms started on 09/22. He had a BM that evenign without relief. He has has multiple episodes of vomiting even with NGT. He denies any previous abdominal surgeyr. Imaging revealed SBO and he is being admitted to surgery. I am consulted for medical management. Subjective/Events-last exam He is feeling a little better today. He is not having any fevers. His wound was packed and dressed. He is having some pain around the incision site. Focused Exam Lactate Level 09/30/20 17:40: Lactic Acid Level 0.83 Objective Exam Vital Signs Vital Signs Date Time Temp Pulse Resp B/P (MAP) Pulse Ox O2 Delivery O2 Flow Rate FiO2 10/01/20 12:03 36.1 78 24 108/62 (77) 94 Nasal Cannula 1.00 Capillary Refill : Less Than 3 SecondsLess Than 3 Seconds General Appearance: No Apparent Distress, WD/WN Respiratory: Lungs Clear, Normal Breath Sounds, No Respiratory Distress Cardiovascular: Regular Rate, Rhythm, No Murmur Gastrointestinal: Normal Bowel Sounds, Soft, Distended Extremity: Normal Inspection, Pedal Edema Neurologic/Psychiatric: Alert, Oriented x3, Normal Mood/Affect Skin: Other (Abdominal incision erythematous, packing in place) Results/Procedures Lab Laboratory Tests 09/30/20 17:40 10/01/20 05:52 Patient resulted labs reviewed. Imaging: Reviewed Imaging Report Assessment/Plan Assessment and Plan Assess & Plan/Chief Complaint Sepsis Infected incision s/p small bowel resection Possible pneumonia Surgery primary s/p small bowel resection 09/25 Abdominal incision leaking bloody pus 09/30 Wound culture pending CXR with bibasilar atelectasis vs infiltrate Continue Zosyn and clindamycin Diagnosis/Problems Diagnosis/Problems (1) Sepsis Status: Acute (2) Infected incision Status: Acute (3) Pneumonia Status: Acute Qualifiers: Laterality: bilateral Lung location: lower lobe of lung (4) S/P small bowel resection Status: Acute JORDAN OGDEN MD Oct 01, 2020 13:44
[2020-10-01 16:00] VITALS: BP 128/71
[2020-10-01] MEDS: ENOXAPARIN 40 MG/0.4 ML (LOVENOX) SYR SC SCH (18:05)
[2020-10-01 20:00] VITALS: BP 113/61
[2020-10-01] MEDS: HYDROcodone/APAP 5 MG/325 MG (LORTAB) TAB PO PRN (20:47)
[2020-10-01] MEDS: ROSUVASTATIN 20 MG (CRESTOR) TABLET PO SCH (20:47)
[2020-10-01] MEDS: FAMOTIDINE 20MG/2ML IV (PEPCID) IVP SCH (20:47)
[2020-10-02] VITALS: BP 117/57
[2020-10-02] MEDS: PIPERACILLIN/TAZOBACTAM (BULK) 4.5 GM in NS (IVPB) 100 ML IV SCH ×3 (03:10→18:41)
[2020-10-02 04:00] VITALS: BP 126/65
[2020-10-02] MEDS: inSUlin ASPART (NovoLOG) 1 UNIT/0.01 ML (CHARGE PER UNIT) SC SCH ×4 (05:22→20:37)
[2020-10-02] MEDS: LACTATED RINGERS 1,000 ML IV SCH ×3 (06:07→22:49)
[2020-10-02] MEDS: LEVOTHYROXINE 75 MCG (LEVOTHROID) TABLET PO SCH (06:07)
[2020-10-02] MEDS: CLINDAMYCIN 600 MG/50 ML IVPB 50 ML IV SCH ×3 (06:51→22:49)
[2020-10-02] MEDS: RT-ALBUTEROL SULF 2.5 MG/3 ML PRE-MIX VIAL INH SCH ×2 (07:36→22:24)
--- NOTE | 2020-10-02 07:41 | Progress Note - Surgery ---
JAMES COWAN 10/02/20 0741: Subjective Date Seen by a Provider: Oct 02, 2020 Time Seen by a Provider: 07:30 Subjective/Events-last exam Continues in hospital. Gauze with some brown/red fluid, but denies drainage from incision. Erythema is better at incision compared to yesterday. Denies fevers nausea or vomiting. Had a couple BMs yesterday. Passing flatus. Review of Systems General: No Chills, No Night Sweats HEENT: No Head Aches, No Visual Changes Pulmonary: No Dyspnea, No Pleuritic Chest Pain Cardiovascular: Edema; No: Chest Pain Gastrointestinal: No: Nausea, Vomiting Genitourinary: No Dysuria, No Frequency Musculoskeletal: No: shoulder pain Neurological: No: Weakness, Numbness Focused Exam Lactate Level 09/30/20 17:40: Lactic Acid Level 0.83 Objective Exam Vital Signs Date Time Temp Pulse Resp B/P (MAP) Pulse Ox O2 Delivery O2 Flow Rate FiO2 10/02/20 04:00 37.0 68 18 126/65 (85) 96 Nasal Cannula 1.00 10/02/20 00:00 36.8 69 18 117/57 (77) 95 Nasal Cannula 1.00 10/01/20 21:00 92 Nasal Cannula 1.00 10/01/20 20:00 Nasal Cannula 1.00 10/01/20 20:00 36.9 68 20 113/61 (78) 94 10/01/20 16:00 35.9 73 20 128/71 (90) 95 Nasal Cannula 1.00 10/01/20 12:03 36.1 78 24 108/62 (77) 94 Nasal Cannula 1.00 10/01/20 08:40 35.9 76 20 111/65 (80) 94 Nasal Cannula 1.00 10/01/20 08:01 92 Nasal Cannula 1.00 10/01/20 08:00 Nasal Cannula 1.00 I & O 10/02/20 07:00 Intake Total 1400 ml Output Total 2450 ml Balance -1050 ml Capillary Refill : Less Than 3 SecondsLess Than 3 Seconds General Appearance: No Apparent Distress, WD/WN Respiratory: No Accessory Muscle Use, No Respiratory Distress Cardiovascular: Regular Rate, Rhythm, No JVD Gastrointestinal: non tender (Clean and dry slight erythema surrounding the incision), distended (same ); No tenderness; other (Incision erythema surrounding midline incision middle portion opened and packed, gauze with some brown/red fluid. ) Extremity: Normal Inspection, Non Tender, Pedal Edema Neurologic/Psychiatric: Alert, Oriented x3, Normal Mood/Affect Skin: Normal Color Results Lab Laboratory Tests 10/01/20 10:58: Glucometer 156H 10/01/20 15:35: Glucometer 132H 10/01/20 20:23: Glucometer 147H 10/02/20 05:21: Glucometer 104 Microbiology 10/01/20 Gram Stain - Final, Resulted 10/01/20 Sputum Culture - Preliminary, Resulted Slight Growth Present 09/30/20 Gram Stain - Final, Resulted 09/30/20 Wound Culture - Preliminary, Resulted Slight Growth Present Assessment/Plan Assessment/Plan Assessment/Plan Sepsis Infected incision s/p ex lap small bowel resection manual decompression of small bowel. Possible pneumonia Patient continue on Zosyn and clindamycin. Patient to continue diet as tolerates. Instructed to use incentive spirometer and met protocol. Patient continue to increase activity as tolerates. Wound care. DB SANCHEZ DO 10/02/202152: Subjective Subjective/Events-last exam Still has drainage from midline incision. Erythema looks little bit better today. Patient tolerating diet and passing flatus and bowel movements. Patient pain controlled. No new complaints. Denies nausea vomiting fever sweats chills shortness of breath or chest pain Objective Exam General Appearance: No Apparent Distress, WD/WN HEENT: PERRL/EOMI, TMs Normal Neck: Normal Inspection, Non Tender Respiratory: Chest Non Tender, No Accessory Muscle Use, No Respiratory Distress Cardiovascular: Regular Rate, Rhythm, No JVD Gastrointestinal: distended (same ), other (Incision erythema surrounding midline incision middle portion opened a gauze with some brown/red fluid. ) Extremity: Normal Inspection, Non Tender, Pedal Edema Neurologic/Psychiatric: Alert, Oriented x3, Normal Mood/Affect Skin: Normal Color Assessment/Plan Assessment/Plan Assessment/Plan Sepsis Infected incision s/p ex lap small bowel resection manual decompression of small bowel. Possible pneumonia Patient continue on Zosyn and clindamycin. Patient to continue diet as tolerates. Instructed to use incentive spirometer and met protocol. Patient continue to increase activity as tolerates. Opened rest of incision, wound vac placed work on getting home vac. PT repeat labs in am Supervisory-Addendum Brief Verification & Attestation Participated in pt care: history, MDM, physical Personally performed: exam, history, MDM, supervision of care Care discussed with: Medical Student Procedures: n/a Results interpretation: Verified all documentation Verification and Attestation of Medical Student E/M Service A medical student performed and documented this service in my presence. I reviewed and verified all information documented by the medical student and made modifications to such information, when appropriate. I personally performed the physical exam and medical decision making. Db Sanchez, Oct 02, 2020,21:54 JAMES COWAN Oct 02, 2020 07:41 DB SANCHEZ DO Oct 02, 2020 21:53
[2020-10-02 07:56] VITALS: BP 111/61
[2020-10-02] MEDS: lisINopril 5 MG (PRINIVIL) TABLET PO SCH (08:49)
[2020-10-02] MEDS: ASPIRIN E.C. 81 MG (ECOTRIN) TAB PO SCH (08:49)
--- NOTE | 2020-10-02 09:39 | Physical Therapy Daily Note ---
PT Daily Note-Current Subjective Patient is in bed and agrees to PT. Pain Numeric Pain Scale: 5-Moderate Pain Location: Medial, Lower Location Body Site: Abdomen Pain Description: Pressure Mental Status Patient Orientation: Normal For Age Attachments: Oxygen, IV Transfers SCALE: Activities may be completed with or without assistive devices. 8-Jigkuqhyog-wdhuibo completes the activity by him/herself with no assistance from a helper. 5-Set-up or Clean-up Assistance-helper sets up or cleans up; patient completes activity. [place] assists only prior to or following the activity. 4-Supervision or Touching Assistance-helper provides verbal cues and/or touching/steadying and/or contact guard assistance as patient completes activity. Assistance may be provided throughout the activity or intermittently. 3-Partial/Moderate Assistance-helper does LESS THAN HALF the effort. [place] lifts, holds or supports trunk or limbs, but provides less than half the effort. 2-Substantial/Maximal Assistance-helper does MORE THAN HALF the effort. [place] lifts or holds trunk or limbs and provides more than half the effort. 3-Ntmiddjhv-bxgniu does ALL the effort. Patient does none of the effort to complete the activity. Or, the assistance of 2 or more helpers is required for the patient to complete the activity. If activity was not attempted, code reason: 7-Patient Refused. 9-Not Applicable-not attempted and the patient did not perform the activity before the current illness, exacerbation or injury. 10-Not Attempted due to Environmental Limitations-(lack of equipment, weather restraints, etc.). 88-Not Attempted due to Medical Conditions or Safety Concerns. Lying to Sitting/Side of Bed(Q: 5 (with log rolling and use of side rail) Sit to Stand (QC): 5 Chair/Dry-bl-Zwtqb Xfer(QC): 5 Gait Training Does the Patient Walk?: Yes Distance: 300' Walk 10 feet (QC): 4 (SBA) Walk 50 ft with 2 Turns(QC): 4 (SBA) Walk 150 ft (QC): 4 (SBA) Gait Assistive Device: FWW assist for IV pole/safe and functional gait sequence with no deviation Exercises Seated Therapy Exercises: Ankle pumps, Long arc quads Seated Reps: 15 Assessment Patient is up in recliner with needs met. Patient stands and uses urinal independently during session. Increase activity as tolerated by patient. Nursing to continue to ambulate with patient PRN. PT Short Term Goals Short Term Goals Time Frame: Oct 02, 2020 Roll Left & Right: 4 Sit to lyin Lying to sitting on side of be: 4 Sit to stand: 5 Chair/xaw-fh-jyade transfer: 5 Toilet transfer: 5 Car transfer: 5 Walk 10 feet: 5 Walk 50 feet with two turns: 5 Walk 150 feet: 5 Walking 10ft on uneven surface: 5 1 step (curb): 4 4 steps: 4 12 steps: 4 Picking up objects: 4 Does pt use a wc or scooter: No Wheel 50ft w/2 turns: 9 Wheel 150 feet: 9 Type: N/A PT Roundhouse Worker Goals Roundhouse Worker Goals PT [facility] Goals Time Frame: Oct 17, 2020 Roll Left & Right (QC): 6 Sit to Lying (QC): 6 Lying-Sitting on Side/Bed(QC): 6 Sit to Stand (QC): 6 Chair/Ppx-qe-Jsytd Xfer(QC): 6 Toilet Transfer (QC): 6 Car Transfer (QC): 6 Does the Patient Walk: Yes Walk 10 feet (QC): 6 Walk 50ft with 2 Turns (QC): 6 Walk 150 ft (QC): 6 Walking 10ft on Uneven Surface: 6 1 Step (curb) (QC): 5 4 Steps (QC): 5 12 Steps (QC): 5 Picking up an Object (QC): 5 Does the Pt use WC or Scooter?: No Wheel 50 feet with 2 turns (QC: 9 Type: N/A Wheel 150 feet: 9 Type: N/A PT Plan Treatment/Plan Treatment Plan: Continue Plan of Care Treatment Plan: Bed Mobility, Concurrent Therapy, Education, Functional Activity Yeimi, Functional Strength, Group Therapy, Gait, Safety, Therapeutic Exercise, Transfers Treatment Duration: Oct 24, 2020 Frequency: 6 times per week Estimated Hrs Per Day: .25 hour per day Patient and/or Family Agrees t: Yes Time/GCodes Time In: 735 Time Out: 746 Total Billed Treatment Time: 11 Total Billed Treatment 1 visit FA 11 min WARNER COX PT Oct 02, 2020 09:39
[2020-10-02 11:35] VITALS: BP 122/67
--- NOTE | 2020-10-02 11:57 | Occupational Ther Daily Note ---
OT Current Status-Daily Note Subjective Pt declines any OOB activity secondary to pain. He reports pain as 8/10 and states meds given earlier in AM. Pain Numeric Pain Scale: 8 Location Body Site: Abdomen Pain Description: Ache, Acute Mental Status/Objective Patient Orientation: Person, Place, Time, Situation Attachments: IV ADL-Treatment Therapy Code Descriptions/Definitions Functional [place] Measure: 0=Not Assessed/NA 4=Minimal Assistance 1=Total Assistance 5=Supervision or Setup 2=Maximal Assistance 6=Modified [place] 3=Moderate Assistance 7=Complete IndependenceSCALE: Activities may be completed with or without assistive devices. 6-Qctcegakkn-wdsmayf completes the activity by him/herself with no assistance from a helper. 5-Set-up or Clean-up Assistance-helper sets up or cleans up; patient completes activity. [place] assists only prior to or following the activity. 4-Supervision or Touching Assistance-helper provides verbal cues and/or touching/steadying and/or contact guard assistance as patient completes activity. Assistance may be provided throughout the activity or intermittently. 3-Partial/Moderate Assistance-helper does LESS THAN HALF the effort. [place] lifts, holds or supports trunk or limbs, but provides less than half the effort. 2-Substantial/Maximal Assistance-helper does MORE THAN HALF the effort. [place] lifts or holds trunk or limbs and provides more than half the effort. 2-Kjqjlrxjy-fxifcs does ALL the effort. Patient does none of the effort to complete the activity. Or, the assistance of 2 or more helpers is required for the patient to complete the activity. If activity was not attempted, code reason: 7-Patient Refused. 9-Not Applicable-not attempted and the patient did not perform the activity before the current illness, exacerbation or injury. 10-Not Attempted due to Environmental Limitations-(lack of equipment, weather restraints, etc.). 88-Not Attempted due to Medical Conditions or Safety Concerns. Other Treatment Pt participated in UE AROM exercises. Verbal cues for correct technique/control of movement. Pt often with speedy pace and requires cues to slow movement. Good recall of exercises learned in past sessions and ability to count reps. Min cues for breathing techniques and to not hold breath during exercises. Short rest break required after 15 reps. Education provided on continuing exercises outside of therapy time in effort to maintain strength and endurance needed for ADLs and transfers. Pt left in bed, all needs within reach. Education OT Patient Education: Energy conservation, Exercise program, Progress toward Goal/Update tx plan, Purpose of tx/functional activities, Rehab process Teaching Recipient: Patient Teaching Methods: Demonstration, Discussion Response to Teaching: Verbalize Understanding OT Filling Machine Operator Goals Filling Machine Operator Goals Time Frame: Oct 05, 2020 Eating (QC): 6 Oral Hygiene (QC): 6 Toileting Hygiene (QC): 6 Shower/Bathe Self (QC): 6 Upper Body Dressing (QC): 6 Lower Body Dressing (QC): 6 On/Off Footwear (QC): 6 Additional Goals: 1-Demonstrate ADL Tasks, 2-Verbalize Understanding, 3- ImproveStrength/Yeimi 1=Demonstrate adherence to instructed precautions during ADL tasks. 2=Patient will verbalize/demonstrate understanding of assistive devices/modifications for ADL. 3=Patient will improve strength/tolerance for activity to enable patient to perform ADL's. OT Education/Plan Problem List/Assessment Assessment: Decreased Activ Tolerance, Decreased UE Strength Discharge Recommendations Plan/Recommendations: Continue POC Treatment Plan/Plan of Care Treatment,Training & Education: Yes Patient would benefit from OT for education, treatment and training to promote independence in ADL's, mobility, safety and/or upper extremity function for ADL's. Plan of Care: ADL Retraining, Functional Mobility, UE Funct Exercise/Act Treatment Duration: Oct 05, 2020 Frequency: 5 times per week Estimated Hrs Per Day: .25 hour per day Rehab Potential: Good Time/GCodes Start Time: 11:27 Stop Time: 11:38 Total Time Billed (hr/min): 11 Billed Treatment Time 1, EX NEFTALI GUILLORY OT Oct 02, 2020 11:57
[2020-10-02 16:00] VITALS: BP 123/67
[2020-10-02] MEDS: morphine INJ 4 MG/ML 1 ML (VIAL/SYRINGE) IVP PRN (16:12)
[2020-10-02] MEDS: HYDROcodone/APAP 5 MG/325 MG (LORTAB) TAB PO PRN (16:55)
[2020-10-02] MEDS: ENOXAPARIN 40 MG/0.4 ML (LOVENOX) SYR SC SCH (16:55)
[2020-10-02 19:41] VITALS: BP 117/63
[2020-10-02] MEDS: FAMOTIDINE 20MG/2ML IV (PEPCID) IVP SCH (21:38)
[2020-10-02] MEDS: ROSUVASTATIN 20 MG (CRESTOR) TABLET PO SCH (21:38)
[2020-10-03 00:15] VITALS: BP 127/71
[2020-10-03] MEDS: PIPERACILLIN/TAZOBACTAM (BULK) 4.5 GM in NS (IVPB) 100 ML IV SCH ×3 (03:16→18:19)
[2020-10-03 04:39] VITALS: BP 130/72
[2020-10-03] MEDS: inSUlin ASPART (NovoLOG) 1 UNIT/0.01 ML (CHARGE PER UNIT) SC SCH ×4 (05:40→21:15)
[2020-10-03 05:58] LABS: HEMATOCRIT 41 % (40-54); HEMOGLOBIN 13.2 g/dL (13.3-17.7); MEAN CORPUSCULAR HEMOGLOBIN 29 pg (25-34); MEAN CORPUSCULAR HGB CONC 32 g/dL (32-36); MEAN CORPUSCULAR VOLUME 90 fL (80-99); MEAN PLATELET VOLUME 10.9 fL (9.0-12.2); PLATELET COUNT 341 10^3/uL (130-400); WHITE BLOOD COUNT 12.9 10^3/uL (4.3-11.0)
[2020-10-03 06:07] LABS: POTASSIUM 3.8 MMOL/L (3.6-5.0)
[2020-10-03 06:08] LABS: CALCIUM 8.8 MG/DL (8.5-10.1)
[2020-10-03 06:13] LABS: CREATININE SERUM 0.67 MG/DL (0.60-1.30)
[2020-10-03 06:15] LABS: MAGNESIUM 1.7 MG/DL (1.6-2.4)
[2020-10-03] MEDS: LEVOTHYROXINE 75 MCG (LEVOTHROID) TABLET PO SCH (06:38)
[2020-10-03] MEDS: CLINDAMYCIN 600 MG/50 ML IVPB 50 ML IV SCH ×3 (06:38→22:30)
[2020-10-03] MEDS: LACTATED RINGERS 1,000 ML IV SCH ×3 (06:40→22:30)
[2020-10-03 08:06] VITALS: BP 129/70
--- NOTE | 2020-10-03 08:06 | Progress Note - Surgery ---
JAMES COWAN 10/03/20 0806: Subjective Date Seen by a Provider: Oct 03, 2020 Time Seen by a Provider: 07:30 Subjective/Events-last exam PT now with wound vac. Reports a couple of BMs yesterday. Passing flatus. Abdominal pain with crunching or coughing. No nausea, vomiting, or fevers. No blood per rectum. Incision pain is less. Review of Systems General: No Chills HEENT: No Head Aches, No Visual Changes Pulmonary: No Dyspnea, No Cough Cardiovascular: Edema (less); No: Chest Pain, Lt Headedness Gastrointestinal: No: Nausea, Vomiting Genitourinary: No Dysuria, No Frequency Musculoskeletal: No: neck pain, arm pain Neurological: No: Weakness, Change in speech Focused Exam Lactate Level 09/30/20 17:40: Lactic Acid Level 0.83 Objective Exam Vital Signs Date Time Temp Pulse Resp B/P (MAP) Pulse Ox O2 Delivery O2 Flow Rate FiO2 10/03/20 04:39 36.4 75 20 130/72 (91) 95 Nasal Cannula 1.00 10/03/20 00:15 36.3 70 20 127/71 (89) 94 Nasal Cannula 1.00 10/02/20 22:24 92 Nasal Cannula 1.00 10/02/20 20:00 Nasal Cannula 1.00 10/02/20 19:41 36.5 75 18 117/63 (81) 94 Nasal Cannula 1.00 10/02/20 16:00 37.1 78 20 123/67 (85) 95 Nasal Cannula 1.00 10/02/20 11:35 36.6 75 18 122/67 (85) 96 Nasal Cannula 1.00 I & O 10/03/20 07:00 Intake Total 2970 ml Output Total 3750 ml Balance -780 ml Capillary Refill : Less Than 3 SecondsLess Than 3 Seconds General Appearance: No Apparent Distress, WD/WN Neck: Normal Inspection, Non Tender Respiratory: No Accessory Muscle Use, No Respiratory Distress Cardiovascular: Regular Rate, Rhythm, No JVD Gastrointestinal: distended (less), other (Incision erythema (improved) surrounding midline incision opened with wound) Extremity: Normal Inspection, Non Tender, Pedal Edema Neurologic/Psychiatric: Alert, Oriented x3, Normal Mood/Affect Skin: Normal Color Results Lab Laboratory Tests 10/02/20 10:23: Glucometer 149H 10/02/20 15:43: Glucometer 152H 10/02/20 20:13: Glucometer 182H 10/03/20 05:25: Glucometer 109 10/03/20 05:45: White Blood Count 12.9H, Red Blood Count 4.62, Hemoglobin 13.2L, Hematocrit 41, Mean Corpuscular Volume 90, Mean Corpuscular Hemoglobin 29, Mean Corpuscular Hemoglobin Concent 32, Red Cell Distribution Width 14.2, Platelet Count 341, Mean Platelet Volume 10.9, Sodium Level 134L, Potassium Level 3.8, Chloride Level 101, Carbon Dioxide Level 28, Anion Gap 5, Blood Urea Nitrogen 4L, Creatinine 0.67, Estimat Glomerular Filtration Rate 112, BUN/Creatinine Ratio 6, Glucose Level 110H, Calcium Level 8.8, Magnesium Level 1.7 Microbiology 10/01/20 Gram Stain - Final, Resulted 10/01/20 Sputum Culture - Preliminary, Resulted Usual upper respiratory heather 09/30/20 Gram Stain - Final, Resulted 09/30/20 Wound Culture - Preliminary, Resulted Mixed Bacterial Heather Testing In Progress Assessment/Plan Assessment/Plan Assessment/Plan Sepsis Infected incision s/p ex lap small bowel resection manual decompression of small bowel. Possible pneumonia Patient continue on Zosyn and clindamycin. Patient to continue diet as tolerates. Instructed to use incentive spirometer and met protocol. Patient continue to increase activity as tolerates. Continue with wound vac placed work on getting home vac. PT DB SANCHEZ DO 10/03/20 2224: Subjective Subjective/Events-last exam Patient doing okay. Patient tolerating diet. Having bowel function. Patient wound VAC placed yesterday. Patient denies nausea vomiting fever sweats chills shortness of breath or chest pain. On Zosyn clindamycin. Objective Exam General Appearance: No Apparent Distress, WD/WN HEENT: PERRL/EOMI Neck: Normal Inspection Respiratory: Chest Non Tender, No Accessory Muscle Use, No Respiratory Distress Cardiovascular: Regular Rate, Rhythm, No JVD Gastrointestinal: distended, other (Incision erythema (improved) wound VAC in place) Extremity: Normal Inspection, Non Tender, Pedal Edema Neurologic/Psychiatric: Alert, Oriented x3 Skin: Normal Color Lymphatic: No Adenopathy Assessment/Plan Assessment/Plan Assessment/Plan Sepsis Infected incision s/p ex lap small bowel resection manual decompression of small bowel. Possible pneumonia Patient continue on Zosyn and clindamycin. Patient to continue diet as tolerates. Instructed to use incentive spirometer and mat protocol. Patient continue to increase activity as tolerates. Continue with wound vac placed work on getting home vac. Swing bed PT Supervisory-Addendum Brief Verification & Attestation Participated in pt care: history, MDM, physical Personally performed: exam, history, MDM, supervision of care Care discussed with: Medical Student Procedures: n/a Results interpretation: Verified all documentation Verification and Attestation of Medical Student E/M Service A medical student performed and documented this service in my presence. I reviewed and verified all information documented by the medical student and made modifications to such information, when appropriate. I personally performed the physical exam and medical decision making. Db Sanchez, Oct 03, 2020,18:34 JAMES COWAN Oct 03, 2020 08:06 DB SANCHEZ DO Oct 03, 2020 18:34
[2020-10-03] MEDS: RT-ALBUTEROL SULF 2.5 MG/3 ML PRE-MIX VIAL INH SCH ×2 (08:36→19:06)
[2020-10-03] MEDS: ASPIRIN E.C. 81 MG (ECOTRIN) TAB PO SCH (08:49)
[2020-10-03] MEDS: lisINopril 5 MG (PRINIVIL) TABLET PO SCH (08:49)
[2020-10-03 11:59] VITALS: BP 121/66
--- NOTE | 2020-10-03 12:10 | Occupational Ther Daily Note ---
OT Current Status-Daily Note Subjective "I need help ordering my lunch." Mental Status/Objective Patient Orientation: Person, Place, Situation Attachments: IV ADL-Treatment Therapy Code Descriptions/Definitions Functional [place] Measure: 0=Not Assessed/NA 4=Minimal Assistance 1=Total Assistance 5=Supervision or Setup 2=Maximal Assistance 6=Modified [place] 3=Moderate Assistance 7=Complete IndependenceSCALE: Activities may be completed with or without assistive devices. 3-Ohpsbfuwrc-dhvkgbh completes the activity by him/herself with no assistance from a helper. 5-Set-up or Clean-up Assistance-helper sets up or cleans up; patient completes activity. Skip[place] assists only prior to or following the activity. 4-Supervision or Touching Assistance-helper provides verbal cues and/or touching/steadying and/or contact guard assistance as patient completes activity. Assistance may be provided throughout the activity or intermittently. 3-Partial/Moderate Assistance-helper does LESS THAN HALF the effort. Skipwith lifts, holds or supports trunk or limbs, but provides less than half the effort. 2-Substantial/Maximal Assistance-helper does MORE THAN HALF the effort. Skipwith lifts or holds trunk or limbs and provides more than half the effort. 0-Seajmyioc-evvhgu does ALL the effort. Patient does none of the effort to complete the activity. Or, the assistance of 2 or more helpers is required for the patient to complete the activity. If activity was not attempted, code reason: 7-Patient Refused. 9-Not Applicable-not attempted and the patient did not perform the activity before the current illness, exacerbation or injury. 10-Not Attempted due to Environmental Limitations-(lack of equipment, weather restraints, etc.). 88-Not Attempted due to Medical Conditions or Safety Concerns. Other Treatment Pt sleeping at OT arrival. He reports not ordering lunch yet and requests assistance. Pt noted to have difficulty with word finding and requires assist with finding simple words such as "orange and tomato soup." Cues needed for locating phone number in order to place meal request. Assist needed with placing order secondary to being [place] and unable to distinguish what the other person on the phone was saying. Encouragement provided to transfer to recliner in order to eat lunch, yet pt continues to decline stating "I was in there for over an hour this morning." Sitting EOB, he participated in AROM exercises to promote increased endurance and strength needed for ADLs and transfers. Short rest breaks needed throughout secondary to poor endurance. Cues for slow controlled movement as pt has tendency to lomeli through reps. 1 set x15 reps, shoulder and elbow in all planes. Pt returned to supine, all needs within reach, daughter in room. Education OT Patient Education: Correct positioning, Energy conservation, Exercise program, Progress toward Goal/Update tx plan, Purpose of tx/functional activities Teaching Recipient: Patient Teaching Methods: Discussion Response to Teaching: Verbalize Understanding, Return Demonstration, Reinforcement Needed OT Seasonal Delivery Driver Goals [facility] Goals Time Frame: Oct 05, 2020 Eating (QC): 6 Oral Hygiene (QC): 6 Toileting Hygiene (QC): 6 Shower/Bathe Self (QC): 6 Upper Body Dressing (QC): 6 Lower Body Dressing (QC): 6 On/Off Footwear (QC): 6 Additional Goals: 1-Demonstrate ADL Tasks, 2-Verbalize Understanding, 3- ImproveStrength/Yeimi 1=Demonstrate adherence to instructed precautions during ADL tasks. 2=Patient will verbalize/demonstrate understanding of assistive devices/max fications for ADL. 3=Patient will improve strength/tolerance for activity to enable patient to perform ADL's. OT Education/Plan Problem List/Assessment Assessment: Decreased Activ Tolerance, Decreased Safety Aware, Decreased UE Strength, Impaired Cognition Discharge Recommendations Plan/Recommendations: Continue POC Treatment Plan/Plan of Care Patient would benefit from OT for education, treatment and training to promote independence in ADL's, mobility, safety and/or upper extremity function for ADL's. Plan of Care: ADL Retraining, Functional Mobility, UE Funct Exercise/Act Treatment Duration: Oct 05, 2020 Frequency: 5 times per week Estimated Hrs Per Day: .25 hour per day Rehab Potential: Good Time/GCodes Start Time: 11:28 Stop Time: 11:44 Total Time Billed (hr/min): 16 Billed Treatment Time 1, EX (16 min) Migdalia Hinton OT Oct 03, 2020 12:10
--- NOTE | 2020-10-03 13:00 | Physical Therapy Daily Note ---
PT Daily Note-Current Subjective Pt agreeable to treatment. Pt states during ambulation "I am wearing down faster today." Pt requests BR following gait training. Mental Status Patient Orientation: Person, Place, Situation Attachments: Oxygen, Drains, IV O2 1L/min Transfers SCALE: Activities may be completed with or without assistive devices. 0-Xqoofntysf-vwyuhnt completes the activity by him/herself with no assistance from a helper. 5-Set-up or Clean-up Assistance-helper sets up or cleans up; patient completes activity. [place] assists only prior to or following the activity. 4-Supervision or Touching Assistance-helper provides verbal cues and/or touching/steadying and/or contact guard assistance as patient completes activity. Assistance may be provided throughout the activity or intermittently. 3-Partial/Moderate Assistance-helper does LESS THAN HALF the effort. [place] lift s, holds or supports trunk or limbs, but provides less than half the effort. 2-Substantial/Maximal Assistance-helper does MORE THAN HALF the effort. [place] lifts or holds trunk or limbs and provides more than half the effort. 8-Eiwlmcleq-fanisk does ALL the effort. Patient does none of the effort to complete the activity. Or, the assistance of 2 or more helpers is required for the patient to complete the activity. If activity was not attempted, code reason: 7-Patient Refused. 9-Not Applicable-not attempted and the patient did not perform the activity before the current illness, exacerbation or injury. 10-Not Attempted due to Environmental Limitations-(lack of equipment, weather restraints, etc.). 88-Not Attempted due to Medical Conditions or Safety Concerns. Pt transfers mod (I) with HOB up and from elevated bed. Gait Training Gait Assistive Device: FWW Pt amb with FWW and CGA, f/u IV pole x 200ft. Exercises Supine Ex: Ankle pumps Supine Reps: 10 Seated Therapy Exercises: Long arc quads, Hip abd/add Seated Reps: 10 Treatments Pt toileted upon return to room. Assessment Current Status: Good Progress Pt fatigued quicker during treatment per pt. Pt darcie well. Pt resting in chair with call light, O2 insitu and all needs met. PT Short Term Goals Short Term Goals Time Frame: Oct 02, 2020 Roll Left & Right: 4 Sit to lyin Lying to sitting on side of be: 4 Sit to stand: 5 Chair/ccf-uj-doocq transfer: 5 Toilet transfer: 5 Car transfer: 5 Walk 10 feet: 5 Walk 50 feet with two turns: 5 Walk 150 feet: 5 Walking 10ft on uneven surface: 5 1 step (curb): 4 4 steps: 4 12 steps: 4 Picking up objects: 4 Does pt use a wc or scooter: No Wheel 50ft w/2 turns: 9 Wheel 150 feet: 9 Type: N/A PT Laminating Machine Tender Goals Intermediate Goals PT Laminating Machine Tender Goals Time Frame: Oct 17, 2020 Roll Left & Right (QC): 6 Sit to Lying (QC): 6 Lying-Sitting on Side/Bed(QC): 6 Sit to Stand (QC): 6 Chair/Jtl-nf-Syjru Xfer(QC): 6 Toilet Transfer (QC): 6 Car Transfer (QC): 6 Does the Patient Walk: Yes Walk 10 feet (QC): 6 Walk 50ft with 2 Turns (QC): 6 Walk 150 ft (QC): 6 Walking 10ft on Uneven Surface: 6 1 Step (curb) (QC): 5 4 Steps (QC): 5 12 Steps (QC): 5 Picking up an Object (QC): 5 Does the Pt use WC or Scooter?: No Wheel 50 feet with 2 turns (QC: 9 Type: N/A Wheel 150 feet: 9 Type: N/A PT Plan Treatment/Plan Treatment Plan: Continue Plan of Care Treatment Plan: Bed Mobility, Concurrent Therapy, Education, Functional Activity Yeimi, Functional Strength, Group Therapy, Gait, Safety, Therapeutic Exercise, Transfers Treatment Duration: Oct 24, 2020 Frequency: 6 times per week Estimated Hrs Per Day: .25 hour per day Patient and/or Family Agrees t: Yes Time/GCodes Time In: 900 Time Out: 925 Total Billed Treatment Time: 25 Total Billed Treatment 1, ther ex 10', gait 15' [facility]ENTER[facility]lin Oct 03, 2020 13:00
[2020-10-03 15:52] VITALS: BP 129/71
[2020-10-03] MEDS: ENOXAPARIN 40 MG/0.4 ML (LOVENOX) SYR SC SCH (18:19)
[2020-10-03 20:01] VITALS: BP 133/74
[2020-10-03] MEDS: ROSUVASTATIN 20 MG (CRESTOR) TABLET PO SCH (21:36)
[2020-10-03] MEDS: FAMOTIDINE 20MG/2ML IV (PEPCID) IVP SCH (21:36)
[2020-10-04] VITALS: BP 127/72
[2020-10-04] MEDS: PIPERACILLIN/TAZOBACTAM (BULK) 4.5 GM in NS (IVPB) 100 ML IV SCH ×2 (02:47→11:16)
[2020-10-04] MEDS: inSUlin ASPART (NovoLOG) 1 UNIT/0.01 ML (CHARGE PER UNIT) SC SCH ×2 (06:08→11:11)
[2020-10-04] MEDS: LEVOTHYROXINE 75 MCG (LEVOTHROID) TABLET PO SCH (06:34)
[2020-10-04] MEDS: CLINDAMYCIN 600 MG/50 ML IVPB 50 ML IV SCH ×2 (06:34→15:08)
[2020-10-04] MEDS: LACTATED RINGERS 1,000 ML IV SCH ×2 (06:40→14:33)
[2020-10-04] MEDS: RT-ALBUTEROL SULF 2.5 MG/3 ML PRE-MIX VIAL INH SCH (07:22)
--- NOTE | 2020-10-04 07:35 | Progress Note - Surgery ---
JAMES COWAN 10/04/20 0735: Subjective Date Seen by a Provider: Oct 04, 2020 Time Seen by a Provider: 07:20 Subjective/Events-last exam PT reports passing a couple of BMs yesterday. He is passing flatus. No nausea, vomiting and fevers. Pain at incision site is reduced compared to yesterday. Continues on wound vac. Review of Systems General: No Chills, No Night Sweats HEENT: No Head Aches, No Visual Changes Pulmonary: No Dyspnea, No Pleuritic Chest Pain Cardiovascular: No: Chest Pain, Lt Headedness Gastrointestinal: No: Nausea, Vomiting Genitourinary: No Dysuria, No Frequency Musculoskeletal: No: neck pain, arm pain Neurological: No: Weakness, Change in speech Objective Exam Vital Signs Date Time Temp Pulse Resp B/P (MAP) Pulse Ox O2 Delivery O2 Flow Rate FiO2 10/04/20 07:24 92 Nasal Cannula 1.00 10/04/20 00:00 36.6 72 18 127/72 (90) 96 Nasal Cannula 1.00 10/03/20 20:01 36.8 74 18 133/74 (93) 94 Nasal Cannula 1.00 10/03/20 20:00 Nasal Cannula 1.00 10/03/20 19:06 93 Nasal Cannula 1.00 10/03/20 15:52 36.9 71 20 129/71 (90) 96 Nasal Cannula 1.00 10/03/20 11:59 36.8 75 18 121/66 (84) 94 Nasal Cannula 1.00 10/03/20 08:36 91 Nasal Cannula 1.00 10/03/20 08:06 36.5 72 20 129/70 (89) 92 Nasal Cannula 1.00 10/03/20 08:00 Nasal Cannula 1.00 I & O 10/04/20 07:00 Intake Total 2900 ml Output Total 4100 ml Balance -1200 ml Capillary Refill : Less Than 3 SecondsLess Than 3 Seconds General Appearance: No Apparent Distress, WD/WN Neck: Normal Inspection Respiratory: No Accessory Muscle Use, No Respiratory Distress Cardiovascular: Regular Rate, Rhythm, No JVD Gastrointestinal: distended (less), other (Incision erythema (same) wound VAC in place) Extremity: Normal Inspection, Non Tender, Pedal Edema Neurologic/Psychiatric: Alert, Oriented x3 Skin: Normal Color Results Lab Laboratory Tests 10/03/20 10:53: Glucometer 144H 10/03/20 15:25: Glucometer 142H 10/03/20 20:12: Glucometer 166H 10/04/20 06:06: Glucometer 115H Microbiology 10/01/20 Gram Stain - Final, Complete 10/01/20 Sputum Culture - Final, Complete Usual upper respiratory heather 09/30/20 Gram Stain - Final, Resulted 09/30/20 Wound Culture - Preliminary, Resulted Haemophilus parahaemolyticus Gram Pos Mixed Bacterial Heather Strep anginosus Staphylococcus epidermidis Assessment/Plan Assessment/Plan Assessment/Plan Sepsis Infected incision s/p ex lap small bowel resection manual decompression of small bowel. Possible pneumonia Patient continue on Zosyn and clindamycin. Patient to continue diet as tolerates. Instructed to use incentive spirometer and mat protocol. Patient continue to increase activity as tolerates. Continue with wound vac placed work on getting home vac. Swing bed. Discuss discharge. PT DB SANCHEZ DO 10/04/201917: Subjective Subjective/Events-last exam Patient having bowel function. No significant abdominal pain. Wound VAC in place. Patient tolerating diet. Denies nausea vomiting fever sweats chills shortness of breath or chest pain. Objective Exam General Appearance: No Apparent Distress, WD/WN HEENT: PERRL/EOMI Neck: Normal Inspection, Non Tender Respiratory: Chest Non Tender, No Accessory Muscle Use, No Respiratory Distress Cardiovascular: Regular Rate, Rhythm, No JVD Gastrointestinal: distended (less), other (Incision erythema resolved wound VAC in place) Extremity: Normal Inspection, Non Tender, Pedal Edema Neurologic/Psychiatric: Alert, Oriented x3 Skin: Normal Color Assessment/Plan Assessment/Plan Assessment/Plan Sepsis Infected wound s/p ex lap small bowel resection manual decompression of small bowel. Possible pneumonia Patient continue on Zosyn and clindamycin. Patient to continue diet as tolerate s. Instructed to use incentive spirometer and mat protocol. Patient continue to increase activity as tolerates. Continue with wound vac placed work on getting home vac. Swing bed for wound care. PT Supervisory-Addendum Brief Verification & Attestation Participated in pt care: history, MDM, physical Personally performed: exam, history, MDM, supervision of care Care discussed with: Medical Student Procedures: n/a Results interpretation: Verified all documentation Verification and Attestation of Medical Student E/M Service A medical student performed and documented this service in my presence. I reviewed and verified all information documented by the medical student and made modifications to such information, when appropriate. I personally performed the physical exam and medical decision making. Db Sanchez, Oct 04, 2020,19:18 JAMES COWAN Oct 04, 2020 07:35 DB SANCHEZ DO Oct 04, 2020 19:18
[2020-10-04 08:00] VITALS: BP 122/70
[2020-10-04] MEDS: ASPIRIN E.C. 81 MG (ECOTRIN) TAB PO SCH (08:50)
[2020-10-04] MEDS: lisINopril 5 MG (PRINIVIL) TABLET PO SCH (08:50)
--- NOTE | 2020-10-04 09:54 | Physical Therapy Daily Note ---
PT Daily Note-Current Subjective Pt in bed upon arrival with daughter in room. Pt agrees to tx. Mental Status Patient Orientation: Person, Place, Time, Situation Attachments: Oxygen (1), Drains, IV Transfers SCALE: Activities may be completed with or without assistive devices. 0-Yzblqfzipb-bgfsggp completes the activity by him/herself with no assistance from a helper. 5-Set-up or Clean-up Assistance-helper sets up or cleans up; patient completes activity. [place] assists only prior to or following the activity. 4-Supervision or Touching Assistance-helper provides verbal cues and/or touching/steadying and/or contact guard assistance as patient completes activity. Assistance may be provided throughout the activity or intermittently. 3-Partial/Moderate Assistance-helper does LESS THAN HALF the effort. [place] lifts, holds or supports trunk or limbs, but provides less than half the effort. 2-Substantial/Maximal Assistance-helper does MORE THAN HALF the effort. [place] lifts or holds trunk or limbs and provides more than half the effort. 4-Zrpdbgtbo-mwokvh does ALL the effort. Patient does none of the effort to complete the activity. Or, the assistance of 2 or more helpers is required for the patient to complete the activity. If activity was not attempted, code reason: 7-Patient Refused. 9-Not Applicable-not attempted and the patient did not perform the activity before the current illness, exacerbation or injury. 10-Not Attempted due to Environmental Limitations-(lack of equipment, weather restraints, etc.). 88-Not Attempted due to Medical Conditions or Safety Concerns. Roll Left & Right (QC): 4 Lying to Sitting/Side of Bed(Q: 4 Sit to Stand (QC): 4 All transfers required CGA, stand to sit required VC for pt to grab arms of chair prior to sitting. Gait Training Does the Patient Walk?: Yes Distance: 100' Walk 10 feet (QC): 4 Walk 50 ft with 2 Turns(QC): 4 Gait Assistive Device: FWW Pt required CGA for amb with FWW. Pt amb in room 100'. Pt had no gait deviations noted. Treatments Pt performed bed mobility followed by amb in room. Pt used restroom with SBA. Pt able to sit to stand and wash hands with CGA and had steady balance. Pt went to recliner and was left with all needs met, call light in hand. Assessment Current Status: Good Progress Pt amb with CGA and no rest breaks needed. Pt able to toilet SBA. Pt overall slightly weak. PT Short Term Goals Short Term Goals Time Frame: Oct 02, 2020 Roll Left & Right: 4 Sit to lyin Lying to sitting on side of be: 4 Sit to stand: 5 Chair/frt-jn-ilgna transfer: 5 Toilet transfer: 5 Car transfer: 5 Walk 10 feet: 5 Walk 50 feet with two turns: 5 Walk 150 feet: 5 Walking 10ft on uneven surface: 5 1 step (curb): 4 4 steps: 4 12 steps: 4 Picking up objects: 4 Does pt use a wc or scooter: No Wheel 50ft w/2 turns: 9 Wheel 150 feet: 9 Type: N/A PT Chcf Goals Jet Handler Goals PT Chcf Goals Time Frame: Oct 17, 2020 Roll Left & Right (QC): 6 Sit to Lying (QC): 6 Lying-Sitting on Side/Bed(QC): 6 Sit to Stand (QC): 6 Chair/Ytr-ig-Brrzl Xfer(QC): 6 Toilet Transfer (QC): 6 Car Transfer (QC): 6 Does the Patient Walk: Yes Walk 10 feet (QC): 6 Walk 50ft with 2 Turns (QC): 6 Walk 150 ft (QC): 6 Walking 10ft on Uneven Surface: 6 1 Step (curb) (QC): 5 4 Steps (QC): 5 12 Steps (QC): 5 Picking up an Object (QC): 5 Does the Pt use WC or Scooter?: No Wheel 50 feet with 2 turns (QC: 9 Type: N/A Wheel 150 feet: 9 Type: N/A PT Plan Problem List Problem List: Functional Strength Treatment/Plan Treatment Plan: Continue Plan of Care Treatment Plan: Bed Mobility, Concurrent Therapy, Education, Functional Activity Yeimi, Functional Strength, Group Therapy, Gait, Safety, Therapeutic Exercise, Transfers Treatment Duration: Oct 24, 2020 Frequency: 6 times per week Estimated Hrs Per Day: .25 hour per day Patient and/or Family Agrees t: Yes Safety Risks/Education Patient Education: Gait Training, Transfer Techniques, Correct Positioning Teaching Recipient: Patient, Family Teaching Methods: Demonstration, Discussion Response to Teaching: Verbalize Understanding, Return Demonstration Time/GCodes Time In: 926 Time Out: 950 Total Billed Treatment Time: 24 Total Billed Treatment 1, GT, CAROLYN CLARK CINDER CRANE OPERATOR Oct 04, 2020 09:54
--- NOTE | 2020-10-04 11:32 | Occupational Ther Daily Note ---
OT Current Status-Daily Note Subjective Pt reports pain in abdomen only with movement or when coughing. Mental Status/Objective Patient Orientation: Person, Place, Situation Pt presents with reduced short term memory and insight. Extra time noted for processing commands. ADL-Treatment Therapy Code Descriptions/Definitions Functional [place] Measure: 0=Not Assessed/NA 4=Minimal Assistance 1=Total Assistance 5=Supervision or Setup 2=Maximal Assistance 6=Modified [place] 3=Moderate Assistance 7=Complete IndependenceSCALE: Activities may be completed with or without assistive devices. 4-Qptyksudtz-wbgalkb completes the activity by him/herself with no assistance from a helper. 5-Set-up or Clean-up Assistance-helper sets up or cleans up; patient completes activity. [place] assists only prior to or following the activity. 4-Supervision or Touching Assistance-helper provides verbal cues and/or touching/steadying and/or contact guard assistance as patient completes activity. Assistance may be provided throughout the activity or intermittently. 3-Partial/Moderate Assistance-helper does LESS THAN HALF the effort. [place] lifts, holds or supports trunk or limbs, but provides less than half the effort. 2-Substantial/Maximal Assistance-helper does MORE THAN HALF the effort. [place] lifts or holds trunk or limbs and provides more than half the effort. 8-Ubnblpfyu-uydzha does ALL the effort. Patient does none of the effort to complete the activity. Or, the assistance of 2 or more helpers is required for the patient to complete the activity. If activity was not attempted, code reason: 7-Patient Refused. 9-Not Applicable-not attempted and the patient did not perform the activity before the current illness, exacerbation or injury. 10-Not Attempted due to Environmental Limitations-(lack of equipment, weather restraints, etc.). 88-Not Attempted due to Medical Conditions or Safety Concerns. Toileting Hygiene (QC): 4 Toilet Transfer (QC): 4 Upon OT arrival, pt with new wound vac, IV infusing, and on 1L oxygen [place]. He verbalizes urgency to void. OT provided pt with urinal secondary to urgency. He stood at recliner with Supervision. No LOB or unsteadiness noted when managing clothing or urinal in standing. SBA needed if ambulating to bathroom secondary to needing assist with management of wound vac, oxygen tank and IV pole. Pt reports wanting to shave, yet when his retrieved his electric razor, he states "wait, wait, we need to talk about this first...what do you want me to do with that." Mild cognitive impairments noted. Education OT Patient Education: Energy conservation, Modified ADL techniques, Progress toward Goal/Update tx plan, Purpose of tx/functional activities, Rehab process Teaching Recipient: Patient Teaching Methods: Discussion Response to Teaching: Verbalize Understanding, Reinforcement Needed OT Candy Waffle Assembler Goals Candy Waffle Assembler Goals Time Frame: Oct 05, 2020 Eating (QC): 6 Oral Hygiene (QC): 6 Toileting Hygiene (QC): 6 Shower/Bathe Self (QC): 6 Upper Body Dressing (QC): 6 Lower Body Dressing (QC): 6 On/Off Footwear (QC): 6 Additional Goals: 1-Demonstrate ADL Tasks, 2-Verbalize Understanding, 3-Imp roveStrength/Yeimi 1=Demonstrate adherence to instructed precautions during ADL tasks. 2=Patient will verbalize/demonstrate understanding of assistive devices/modifications for ADL. 3=Patient will improve strength/tolerance for activity to enable patient to perform ADL's. OT Education/Plan Problem List/Assessment Assessment: Decreased Activ Tolerance, Decreased UE Strength, Impaired I ADL's, Impaired Self-Care Skills Discharge Recommendations Plan/Recommendations: Continue POC Treatment Plan/Plan of Care Treatment,Training & Education: Yes Patient would benefit from OT for education, treatment and training to promote independence in ADL's, mobility, safety and/or upper extremity function for ADL's. Plan of Care: ADL Retraining, Functional Mobility, UE Funct Exercise/Act Treatment Duration: Oct 05, 2020 Frequency: 5 times per week Estimated Hrs Per Day: .25 hour per day Agreement: Yes Rehab Potential: Good Time/GCodes Start Time: 10:50 Stop Time: 11:09 Total Time Billed (hr/min): 19 Billed Treatment Time 1, ADL Migdalia Hinton OT Oct 04, 2020 11:32
[2020-10-04] MEDS: morphine INJ 4 MG/ML 1 ML (VIAL/SYRINGE) IVP PRN (14:33)
[2020-10-04] MEDS ORDERED: FAMOTIDINE 20 MG (PEPCID) TABLET PO SCH (21:00)
== END 2020-10-04 15:26 | disposition swing bed (61) | DRG 329 ==
LOC: EDUNIT# 05:51 → ER 05:55 → 4TH 08:20
PROVIDERS: ADMIT Surgery; ATTEND Surgery
PROC: 0DB80ZZ Excision of Small Intestine, Open Approach (ICD-10-PCS; principal; 2020-09-25 15:28)
DX: K40.30 Unilateral inguinal hernia, with obstruction, without gangrene, not specified as recurrent (principal); J96.01 Acute respiratory failure with hypoxia; A41.9 Sepsis, unspecified organism; J18.9 Pneumonia, unspecified organism; T81.41XA Infection following a procedure, superficial incisional surgical site, initial encounter; T81.44XA Sepsis following a procedure, initial encounter; L03.311 Cellulitis of abdominal wall; K40.90 Unilateral inguinal hernia, without obstruction or gangrene, not specified as recurrent; K21.9 Gastro-esophageal reflux disease without esophagitis; E86.0 Dehydration; E11.9 Type 2 diabetes mellitus without complications; I10 Essential (primary) hypertension; I25.10 Atherosclerotic heart disease of native coronary artery without angina pectoris; E03.9 Hypothyroidism, unspecified; N40.0 Benign prostatic hyperplasia without lower urinary tract symptoms; E78.00 Pure hypercholesterolemia, unspecified; E78.2 Mixed hyperlipidemia; M19.91 Primary osteoarthritis, unspecified site; Z87.891 Personal history of nicotine dependence; Z95.1 Presence of aortocoronary bypass graft; Z79.84 Long term (current) use of oral hypoglycemic drugs; Z79.82 Long term (current) use of aspirin; H91.93 Unspecified hearing loss, bilateral; Z97.4 Presence of external hearing-aid; Z83.3 Family history of diabetes mellitus
CPT/HCPCS: 36410; 36415; 71045; 74177; 74250; 76937; 80048; 80053; 80061; 81000; 82947; 83605; 83690; 83735; 83874; 84145; 84484; 85007; 85025; 85027; 85610; 85730; 87070; 87077; 87081; 87205; 88307; 93005; 94640; 94664; 94760; 96361; 96374; 96375

== ENCOUNTER 2020-10-03 15:03 | Inpatient (IN) | payer MEDICARE ==
[~2020-10-03] VITALS: Ht 178 cm; Wt 101.3 kg
[~2020-10-03 15:03] MED LIST changes: +ASPI-1238 PO; +DIFLORASONE; +FINA5TAB6; +LEVO75TA6 PO; +LISI-729 PO; +METF-397 PO; +METH1TAB59 PO; +MTP25TSR PO; +MULT-1136 PO; +ROSU20TA32 PO; +TADA5TAB3 PO
[2020-10-04] MEDS ORDERED: RT-ALBUTEROL SULF 2.5 MG/3 ML PRE-MIX VIAL INH PRN (15:45)
[2020-10-04] MEDS ORDERED: HYDROcodone/APAP 5 MG/325 MG (LORTAB) TAB PO PRN (15:45)
[2020-10-04] MEDS ORDERED: PROMETHAZINE INJ 25 MG/ML (PHENERGAN) AMP IVP PRN (15:45)
[2020-10-04] MEDS ORDERED: PIPERACILLIN/TAZOBACTAM (BULK) 4.5 GM in NS (IVPB) 100 ML IV SCH (15:45)
[2020-10-04] MEDS ORDERED: ONDANSETRON 4 MG/2 ML (SDV) Z0FRAN IVP PRN (15:45)
[2020-10-04] MEDS: LACTATED RINGERS 1,000 ML IV SCH ×2 (15:57→22:44)
[2020-10-04] MEDS: inSUlin ASPART (NovoLOG) 1 UNIT/0.01 ML (CHARGE PER UNIT) SC SCH ×2 (16:28→20:02)
[2020-10-04 17:31] VITALS: BP 136/63
[2020-10-04] MEDS: ENOXAPARIN 40 MG/0.4 ML (LOVENOX) SYR SC SCH (18:03)
[2020-10-04] MEDS: PIPERACILLIN/TAZOBACTAM (BULK) 4.5 GM in NS (IVPB) 100 ML IV SCH (18:03)
[2020-10-04] MEDS: RT-ALBUTEROL SULF 2.5 MG/3 ML PRE-MIX VIAL INH SCH (19:24)
[2020-10-04] MEDS: ROSUVASTATIN 20 MG (CRESTOR) TABLET PO SCH (20:12)
[2020-10-04] MEDS: FAMOTIDINE 20 MG (PEPCID) TABLET PO SCH (20:12)
[2020-10-04] MEDS: CLINDAMYCIN 600 MG/50 ML IVPB 50 ML IV SCH (22:44)
[2020-10-05] MEDS: PIPERACILLIN/TAZOBACTAM (BULK) 4.5 GM in NS (IVPB) 100 ML IV SCH ×3 (02:43→18:15)
[2020-10-05 05:25] VITALS: BP 147/61
[2020-10-05] MEDS: inSUlin ASPART (NovoLOG) 1 UNIT/0.01 ML (CHARGE PER UNIT) SC SCH ×4 (06:32→20:36)
[2020-10-05] MEDS: CLINDAMYCIN 600 MG/50 ML IVPB 50 ML IV SCH ×2 (06:36→14:17)
[2020-10-05] MEDS: LEVOTHYROXINE 75 MCG (LEVOTHROID) TABLET PO SCH (06:36)
[2020-10-05] MEDS: RT-ALBUTEROL SULF 2.5 MG/3 ML PRE-MIX VIAL INH SCH ×2 (07:30→19:30)
[2020-10-05] MEDS: lisINopril 5 MG (PRINIVIL) TABLET PO SCH (08:09)
[2020-10-05] MEDS: FAMOTIDINE 20 MG (PEPCID) TABLET PO SCH ×2 (08:09→20:52)
[2020-10-05] MEDS: ASPIRIN E.C. 81 MG (ECOTRIN) TAB PO SCH (08:09)
[2020-10-05] MEDS: LACTATED RINGERS 1,000 ML IV SCH ×2 (08:09→13:55)
--- NOTE | 2020-10-05 08:11 | Progress Note - Surgery ---
JAMES COWAN 10/05/20 0811: Subjective Date Seen by a Provider: Oct 05, 2020 Time Seen by a Provider: 07:15 Subjective/Events-last exam PT reports last bowel movement was the day before yesterday. Continues to pass flatus. No fever, no nausea, no vomiting. No shortness of breath. no cough. Continues on wound vac. He is eating solid foods now. Reports some abdominal pain and incision pain with moments, but this pain is improving. Review of Systems General: No Chills, No Night Sweats HEENT: No Head Aches, No Visual Changes Pulmonary: No Dyspnea, No Cough Cardiovascular: No: Chest Pain, Lt Headedness Gastrointestinal: No: Nausea, Vomiting Genitourinary: No Dysuria, No Frequency Neurological: No: Weakness, Change in speech Objective Exam Vital Signs Date Time Temp Pulse Resp B/P (MAP) Pulse Ox O2 Delivery O2 Flow Rate FiO2 10/05/20 07:31 95 Nasal Cannula 1.00 10/05/20 05:25 36.6 84 20 147/61 (89) 93 Nasal Cannula 1.00 10/04/20 21:00 Nasal Cannula 1.00 10/04/20 19:24 95 Nasal Cannula 2.00 10/04/20 17:31 36.9 72 20 136/63 (87) 95 Nasal Cannula 1.00 I & O 10/05/20 07:00 Intake Total 1710 ml Output Total 2575 ml Balance -865 ml Capillary Refill : General Appearance: No Apparent Distress, WD/WN Neck: Normal Inspection, Non Tender, Supple Respiratory: No Accessory Muscle Use, No Respiratory Distress Cardiovascular: Regular Rate, Rhythm, No JVD Gastrointestinal: non tender, soft, no organomegaly, no pulsatile mass, distended (improved ), other (incision erythema improved ) Extremity: Non Tender, No Calf Tenderness Neurologic/Psychiatric: Alert, Oriented x3, No Motor/Sensory Deficits, Normal Mood/Affect Skin: Normal Color, Warm/Dry Lymphatic: No Adenopathy Results Lab Laboratory Tests 10/04/20 19:56: Glucometer 145H Assessment/Plan Assessment/Plan Assessment/Plan Sepsis Infected wound s/p ex lap small bowel resection manual decompression of small bowel. Possible pneumonia Patient to continue diet of solid food as tolerates. Instructed to use incentive spirometer and mat protocol. Patient continue to increase activity as tolerates. Continue with wound vac placed work on getting home vac. On swing bed for wound care. DB SANCHEZ DO 10/05/20 0943: Subjective Subjective/Events-last exam Tolerating diet. + bowel function. Wound vac in place. Pain controlled. Denies n/v fever sweats chills shortness of breath or chest pain. Objective Exam General Appearance: No Apparent Distress, WD/WN HEENT: PERRL/EOMI, Normal ENT Inspection Neck: Normal Inspection, Non Tender Respiratory: Chest Non Tender, No Accessory Muscle Use, No Respiratory Distress Cardiovascular: Regular Rate, Rhythm, No JVD Gastrointestinal: non tender, soft, distended (minimal), other (incision erythema improved ) Extremity: Non Tender, No Calf Tenderness Neurologic/Psychiatric: Alert, Oriented x3, No Motor/Sensory Deficits Skin: Normal Color, Warm/Dry Lymphatic: No Adenopathy Assessment/Plan Assessment/Plan Assessment/Plan Sepsis Infected wound s/p ex lap small bowel resection manual decompression of small bowel. Possible pneumonia Patient to continue diet of solid food as tolerates. Instructed to use incentive spirometer and mat protocol. Patient continue to increase activity as tolerates. Continue with wound vac placed work on getting home vac. On swing bed for wound care. Labs tomorrow. Supervisory-Addendum Brief Verification & Attestation Participated in pt care: history, MDM, physical Personally performed: exam, history, MDM, supervision of care Care discussed with: Medical Student Procedures: n/a Results interpretation: Verified all documentation Verification and Attestation of Medical Student E/M Service A medical student performed and documented this service in my presence. I reviewed and verified all information documented by the medical student and made modifications to such information, when appropriate. I personally performed the physical exam and medical decision making. Db Sanchez, Oct 05, 2020,09:42 JAMES COWAN Oct 05, 2020 08:11 DB SANCHEZ DO Oct 05, 2020 09:43
--- NOTE | 2020-10-05 09:18 | Physical Therapy Evaluation ---
PT Evaluation-General Medical Diagnosis Admission Date Oct 04, 2020 at 15:42 Medical Diagnosis: Abdominal pain, Exploratory laparotomy with small bowel resection Onset Date: Sep 22, 2020 Therapy Diagnosis Therapy Diagnosis: generalized weakness/debility Height/Weight Height (Feet): 5 Height (Inches): 10.00 Weight (Pounds): 200 Weight (Ounces): 4.0 Precautions Precautions/Isolations: Fall Prevention, Standard Precautions, Pressure Ulcer Referral Physician: Laura Reason for Referral: Evaluation/Treatment Medical History Current History SWB status and abdominal wound vac Reviewed History: Yes Social History Home: Single Level Current Living Status: Spouse Entry Into Home: Stairs With Railing PT Steps Into Home: 3 Prior Prior Level of Function SCALE: Activities may be completed with or without assistive devices. 1-Mpfddypjvj-qunwzci completes the activity by him/herself with no assistance from a helper. 5-Set-up or Clean-up Assistance-helper sets up or cleans up; patient completes activity. [place] assists only prior to or following the activity. 4-Supervision or Touching Assistance-helper provides verbal cues and/or touching/steadying and/or contact guard assistance as patient completes activity. Assistance may be provided throughout the activity or intermittently. 3-Partial/Moderate Assistance-helper does LESS THAN HALF the effort. [place] lifts, holds or supports trunk or limbs, but provides less than half the effort. 2-Substantial/Maximal Assistance-helper does MORE THAN HALF the effort. [place] lifts or holds trunk or limbs and provides more than half the effort. 9-Jabjgzdqo-nnoyuq does ALL the effort. Patient does none of the effort to complete the activity. Or, the assistance of 2 or more helpers is required for the patient to complete the activity. If activity was not attempted, code reason: 7-Patient Refused. 9-Not Applicable-not attempted and the patient did not perform the activity before the current illness, exacerbation or injury. 10-Not Attempted due to Environmental Limitations-(lack of equipment, weather restraints, etc.). 88-Not Attempted due to Medical Conditions or Safety Concerns. Bed Mobility: 6 Transfers (B,C,W/C): 6 Gait: 6 Stairs: 6 Indoor Mobility (Ambulation): Independent Stairs: Independent Prior Devices Use: None PT Evaluation-Current Subjective Patient agrees to PT. Pain Numeric Pain Scale: 5-Moderate Pain Location: Medial, Lower Location Body Site: Abdomen Pain Description: Pressure Objective Patient Orientation: Normal For Age Attachments: Oxygen, IV wound vac ROM/Strength ROM Lower Extremities bilateral LE WFL Strength Lower Extremities 4-/5 grossly bilateral LE Integumentary/Posture Bowel Incontinence: No Bladder Incontinence: No Posture slightly kyphotic Neuromuscular (Tone, Coordination, Reflexes) grossly intact Sensory Vision: Functional Hearing: Impaired Transfers Roll Left & Right (QC): 4 (SBA) Sit to Lying (QC): 4 (SBA) Lying to Sitting/Side of Bed(Q: 4 (SBA) Sit to Stand (QC): 4 (SBA) Chair/Cim-kt-Kuhxd Xfer(QC): 4 (SBA) Toilet Transfer (QC): 4 (SBA) Car Transfer (QC): 4 (SBA simulated) Gait Does the Patient Walk?: Yes Mode of Locomotion: Walk Anticipated Mode of Locomotion: Walk Walk 10 feet (QC): 4 (SBA) Walk 50 ft with 2 Turns(QC): 4 (SBA) Walk 150 ft (QC): 4 (SBA) Walking 10ft/uneven surface-QC: 4 (SBA) Distance: 300' Gait Assistive Device: FWW Wheelchair Training Wheel 50 ft with 2 turns (QC): 9 Wheel 150 ft (QC): 9 Stairs 1 Step (curb) (QC): 88 4 Steps (QC): 88 12 Steps (QC): 9 Balance Sitting Static: Normal Sitting Dynamic: Normal Standing Static: Normal Standing Dynamic: Normal Picking up an Object (QC): 88 (due to wound vac/abdominal incision) Treatment Patient toileted self with urinal with SBA and ambulated 300' with very slow, functional gait sequence Assessment/Needs 89 y.o. male, will benefit from skilled PT to address functional strength and mobility to improve current LOF to safely return to home at maximum LOF. Rehab Potential: Fair PT Auto Electrical Technician Goals Snf Goals PT Snf Goals Time Frame: Oct 27, 2020 Roll Left & Right (QC): 6 Sit to Lying (QC): 6 Lying-Sitting on Side/Bed(QC): 6 Sit to Stand (QC): 6 Chair/Dzc-fd-Naaez Xfer(QC): 6 Toilet Transfer (QC): 6 Car Transfer (QC): 6 Does the Patient Walk: Yes Walk 10 feet (QC): 6 Walk 50ft with 2 Turns (QC): 6 Walk 150 ft (QC): 6 Walking 10ft on Uneven Surface: 6 1 Step (curb) (QC): 6 4 Steps (QC): 6 12 Steps (QC): 9 Picking up an Object (QC): 6 Wheel 50 feet with 2 turns (QC: 9 Wheel 150 feet: 9 PT Plan Problem List Problem List: Activity Tolerance, Functional Strength, Safety, Balance, Gait, Transfer, Bed Mobility Treatment/Plan Treatment Plan: Continue Plan of Care Treatment Plan: Bed Mobility, Education, Functional Activity Yeimi, Functional Strength, Gait, Safety, Therapeutic Exercise, Transfers Treatment Duration: Oct 27, 2020 Frequency: 6 times per week Estimated Hrs Per Day: .25 hour per day Patient and/or Family Agrees t: Yes Time/GCodes Time In: 735 Time Out: 800 Total Billed Treatment Time: 25 Total Billed Treatment 1 visit EVModC 10 min FA 15 min WARNER COX PT Oct 05, 2020 09:18
--- NOTE | 2020-10-05 12:23 | Occupational Therapy Eval ---
OT Evaluation-General/PLF Medical Diagnosis Admission Date Oct 04, 2020 at 15:42 Medical Diagnosis: Abdominal pain, Exploratory laparotomy with small bowel resection Onset Date: Sep 22, 2020 Therapy Diagnosis Therapy Diagnosis: Impaired ADLs Height/Weight Height (Feet): 5 Height (Inches): 10.00 Weight (Pounds): 200 Weight (Ounces): 4.0 Precautions Precautions/Isolations: Fall Prevention, Standard Precautions, Pressure Ulcer Referral Physician: Laura Referral Reason: Evaluation/Treatment Medical History Pertinent Medical History: CABG, CAD, DM, HTN Reviewed History: Yes Social History Home: Single Level Current Living Status: Spouse Entry Into Home: Stairs With Railing Steps Into Home: 3 ADL-Prior Level of Function SCALE: Activities may be completed with or without assistive devices. 4-Upyezehcbl-vvfdagx completes the activity by him/herself with no assistance from a helper. 5-Set-up or Clean-up Assistance-helper sets up or cleans up; patient completes activity. [place] assists only prior to or following the activity. 4-Supervision or Touching Assistance-helper provides verbal cues and/or touching/steadying and/or contact guard assistance as patient completes activity. Assistance may be provided throughout the activity or intermittently. 3-Partial/Moderate Assistance-helper does LESS THAN HALF the effort. [place] lifts, holds or supports trunk or limbs, but provides less than half the effort. 2-Substantial/Maximal Assistance-helper does MORE THAN HALF the effort. [place] lifts or holds trunk or limbs and provides more than half the effort. 5-Yptvxfosu-lyempx does ALL the effort. Patient does none of the effort to complete the activity. Or, the assistance of 2 or more helpers is required for the patient to complete the activity. If activity was not attempted, code reason: 7-Patient Refused. 9-Not Applicable-not attempted and the patient did not perform the activity before the current illness, exacerbation or injury. 10-Not Attempted due to Environmental Limitations-(lack of equipment, weather restraints, etc.). 88-Not Attempted due to Medical Conditions or Safety Concerns. ADL PLOF Comments Pt reports Indep with ADLs. No AD utilized prior to admission. 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 Self Care: Independent Functional Cognition: Unknown DME/Equipment: Bath Chair, Shower OT Current Status Subjective "That was the first BM I have had since my surgery." Mental Status/Objective Patient Orientation: Person, Place, Situation Memory: 4 (Poor STM) Attachments: Drains, IV, Oxygen Current Hearing Aids: Yes Hand Dominance: Right Upper Extremity ROM WFL Upper Extremity Strength 3+/5 throughout ADL-Treatment Eating (QC): 5 Oral Hygiene (QC): 4 Shower/Bathe Self (QC): 3 Upper Body Dressing (QC): 4 Lower Body Dressing (QC): 2 On/Off Footwear (QC): 1 Toileting Hygiene (QC): 4 Sponge bath performed sitting EOB due to wound vac still in place. Pt able to wash upper body, thighs and marcela area without assist. Declines attempt to wash below knees as pt apprehensive with bending forward secondary to incisional pain. Unable to perform figure 4 technique to reach feet. Anticipate assist needed. He stood with sup and ambulated to/from bathroom with use of FWW and SBA. Assist only to manage multiple lines. Pt with poor awareness/safety with wound vac tubing and IV line. Cues for safety and attention. He was able to lower/stand from toilet with Sup and performed marcela care without assist. Cue to initiate clothing management prior to sitting on toilet. Due to inability to reach feet, anticipate assist needed with threading feet into LB clothing or with donning socks. Ot educated pt on use of AE for improved indep however pt does not appear motivated to learn. OT discussed practice during next session if pain does not subside. Pt returned to supine, all needs within reach and RN notified. Education OT Patient Education: Energy conservation, Progress toward Goal/Update tx plan, Purpose of tx/functional activities, Rehab process, Safety issues, Use of adapted equipment Teaching Recipient: Patient Teaching Methods: Demonstration, Discussion Response to Teaching: Reinforcement Needed OT Short Term Goals Short Term Goals Eatin Oral hygiene: 6 Toileting hygiene: 6 Shower/bathe self: 3 Upper body dressin Lower body dressin Putting on/taking off footwear: 3 OT Airconditioning Engineer Goals Airconditioning Engineer Goals Eating (QC): 6 Oral Hygiene (QC): 6 Toileting Hygiene (QC): 6 Shower/Bathe Self (QC): 5 Upper Body Dressing (QC): 5 Lower Body Dressing (QC): 4 On/Off Footwear (QC): 4 1=Demonstrate adherence to instructed precautions during ADL tasks. 2=Patient will verbalize/demonstrate understanding of assistive devices/modifications for ADL. 3=Patient will improve strength/tolerance for activity to enable patient to perform ADL's. OT Education/Plan Problem List/Assessment Assessment: Decreased Activ Tolerance, Decreased Safety Aware, Decreased UE Strength, Impaired Cognition, Impaired Funct Balance, Impaired Self-Care Skills Discharge Recommendations Plan/Recommendations: Continue POC Therapy Discharge Recommendati: Homemaker Support, Home & Family Equpiment Recommendations-D/C: Obstetrics Teacher, Sock Aide Treatment Plan/Plan of Care Treatment,Training & Education: Yes Patient would benefit from OT for education, treatment and training to promote independence in ADL's, mobility, safety and/or upper extremity function for ADL's. Plan of Care: ADL Retraining, Functional Mobility, Group Exercise/Act as Ind, UE Funct Exercise/Act Treatment Duration: Oct 19, 2020 Frequency: 5 times per week Estimated Hrs Per Day: .25 hour per day Agreement: Yes Rehab Potential: Fair Time/GCodes Start Time: 09:56 Stop Time: 10:28 Total Time Billed (hr/min): 32 Billed Treatment Time 1, EVL (10 min) 1, ADL (22 min) Migdalia Hinton OT Oct 05, 2020 12:23
[2020-10-05 17:22] VITALS: BP 142/64
[2020-10-05] MEDS: ENOXAPARIN 40 MG/0.4 ML (LOVENOX) SYR SC SCH (17:32)
[2020-10-05] MEDS: ROSUVASTATIN 20 MG (CRESTOR) TABLET PO SCH (20:52)
[2020-10-06] MEDS: LACTATED RINGERS 1,000 ML IV SCH ×3 (01:17→15:47)
[2020-10-06] MEDS: PIPERACILLIN/TAZOBACTAM (BULK) 4.5 GM in NS (IVPB) 100 ML IV SCH ×3 (02:20→18:03)
[2020-10-06 05:08] LABS: HEMATOCRIT 42 % (40-54); HEMOGLOBIN 13.2 g/dL (13.3-17.7); MEAN CORPUSCULAR HEMOGLOBIN 29 pg (25-34); MEAN CORPUSCULAR HGB CONC 32 g/dL (32-36); MEAN CORPUSCULAR VOLUME 90 fL (80-99); MEAN PLATELET VOLUME 11.4 fL (9.0-12.2); PLATELET COUNT 330 10^3/uL (130-400); WHITE BLOOD COUNT 10.5 10^3/uL (4.3-11.0)
[2020-10-06 05:16] VITALS: BP 120/66
[2020-10-06 05:30] LABS: POTASSIUM 4.3 MMOL/L (3.6-5.0)
[2020-10-06 05:31] LABS: CALCIUM 9.5 MG/DL (8.5-10.1)
[2020-10-06] MEDS: inSUlin ASPART (NovoLOG) 1 UNIT/0.01 ML (CHARGE PER UNIT) SC SCH ×4 (05:35→20:37)
[2020-10-06 05:36] LABS: CREATININE SERUM 0.78 MG/DL (0.60-1.30)
[2020-10-06 05:38] LABS: MAGNESIUM 2.1 MG/DL (1.6-2.4)
[2020-10-06] MEDS: LEVOTHYROXINE 75 MCG (LEVOTHROID) TABLET PO SCH (06:13)
[2020-10-06] MEDS: lisINopril 5 MG (PRINIVIL) TABLET PO SCH (08:21)
[2020-10-06] MEDS: ASPIRIN E.C. 81 MG (ECOTRIN) TAB PO SCH (08:21)
[2020-10-06] MEDS: FAMOTIDINE 20 MG (PEPCID) TABLET PO SCH ×2 (08:21→20:36)
--- NOTE | 2020-10-06 09:14 | Progress Note - Surgery ---
DIANECHINJOSE LUIS 10/06/20 0913: Subjective Date Seen by a Provider: Oct 06, 2020 Time Seen by a Provider: 08:36 Subjective/Events-last exam Tolerating diet. + bowel function x2 last night - no blood. Wound vac in place clean appearing sanguinous fluid being drained. Wound site tender but margins look like healthy healing tissue. Pain controlled. Denies n/v fever sweats chills shortness of breath or chest pain. Review of Systems General: No Chills, No Night Sweats, No Fatigue, No Malaise; Appetite HEENT: No Head Aches, No Visual Changes, No Eye Pain, No Ear Pain, No Dysphasia, No Sinus Congestion, No Post Nasal Drip, No Sore Throat Pulmonary: No Dyspnea, No Cough, No Pleuritic Chest Pain Cardiovascular: No: Chest Pain, Palpitations, Orthopnea, Paroxysmal Noc. Dyspnea, Edema, Lt Headedness Gastrointestinal: Abdominal Pain; No: Nausea, Vomiting, Diarrhea, Constipation, Melena, Hematochezia Genitourinary: No Dysuria, No Frequency, No Incontinence, No Hematuria, No Retention Musculoskeletal: No: neck pain, shoulder pain, arm pain, back pain, hand pain, leg pain, foot pain Neurological: Weakness; No: Numbness, Incoordination, Change in speech, Confusion, Seizures Pain from incision only Objective Exam Vital Signs Date Time Temp Pulse Resp B/P (MAP) Pulse Ox O2 Delivery O2 Flow Rate FiO2 10/06/20 05:16 36.6 67 18 120/66 (84) 93 Nasal Cannula 1.00 10/05/20 23:30 Nasal Cannula 1.00 10/05/20 21:02 Nasal Cannula 1.00 10/05/20 19:30 93 Nasal Cannula 1.00 10/05/20 17:22 36.8 74 20 142/64 (90) 94 Nasal Cannula 1.00 I & O 10/06/20 07:00 Intake Total 2400 ml Output Total 4550 ml Balance -2150 ml Capillary Refill : General Appearance: No Apparent Distress, WD/WN HEENT: PERRL/EOMI, Normal ENT Inspection, Pharynx Normal, Moist Mucous Membranes Neck: Normal Inspection, Non Tender, Supple Respiratory: Chest Non Tender, Lungs Clear, Normal Breath Sounds, No Accessory Muscle Use, No Respiratory Distress Cardiovascular: Regular Rate, Rhythm, No Edema, No Gallop, No JVD, No Murmur, Normal Peripheral Pulses Peripheral Pulses: 2+ Radial Pulses (R), 2+ Radial Pulses (L) Gastrointestinal: non tender, soft, no organomegaly, other (incision erythema improved ) Extremity: Normal Capillary Refill, Normal Range of Motion, Non Tender, No Calf Tenderness, No Pedal Edema Neurologic/Psychiatric: Alert, Oriented x3, No Motor/Sensory Deficits, Normal Mood/Affect, impregnator carbon products II-XII Norm as Tested Skin: Normal Color, Warm/Dry Lymphatic: No Adenopathy (Cervical and axillary) Results Lab Laboratory Tests 10/05/20 11:10: Glucometer 133H 10/05/20 20:02: Glucometer 143H 10/06/20 04:20: White Blood Count 10.5, Red Blood Count 4.63, Hemoglobin 13.2L, Hematocrit 42, Mean Corpuscular Volume 90, Mean Corpuscular Hemoglobin 29, Mean Corpuscular Hemoglobin Concent 32, Red Cell Distribution Width 14.2, Platelet Count 330, Mean Platelet Volume 11.4, Sodium Level 135, Potassium Level 4.3, Chloride Level 102, Carbon Dioxide Level 27, Anion Gap 6, Blood Urea Nitrogen 5L, Creatinine 0.78, Estimat Glomerular Filtration Rate 94, BUN/Creatinine Ratio 6, Glucose Level 116H, Calcium Level 9.5, Magnesium Level 2.1 Assessment/Plan Assessment/Plan Assessment/Plan Sepsis Infected wound s/p ex lap small bowel resection manual decompression of small bowel Patient to continue diet of solid food as tolerates. Instructed to use ICS. Patient continue to increase activity as tolerates. Continue with wound vac placed work on getting home vac. CAROLIN FELIX DO 10/06/20 1255: Subjective Time Seen by a Provider: 09:31 Subjective/Events-last exam Pt seen and examined, lying in bed and looks a little tired. He finally had a good BM yesterday and today, hadn't had any before that. Review of Systems General: No Chills, No Night Sweats; Fatigue, Malaise Pulmonary: No Dyspnea, No Cough Cardiovascular: No: Chest Pain, Palpitations Gastrointestinal: Abdominal Pain; No: Nausea, Vomiting Objective Exam General Appearance: No Apparent Distress, Chronically ill HEENT: Moist Mucous Membranes Respiratory: Lungs Clear, Normal Breath Sounds, No Accessory Muscle Use, No Re spiratory Distress Cardiovascular: Regular Rate, Rhythm, No Murmur Gastrointestinal: non tender, soft, no organomegaly, other (incision with wound VAC in place looks good, no erythema seen ) Assessment/Plan Assessment/Plan Assessment/Plan S/P SB resection with wound infection Plan change wound VAC on Thursday, encourage pt to eat more and will start protein shakes to help with healing. Also told pt to ambulate more and use IS. Supervisory-Addendum Brief Verification & Attestation Participated in pt care: history, MDM, physical Personally performed: exam, history, MDM, supervision of care Care discussed with: Medical Student Procedures: n/a Verification and Attestation of Medical Student E/M Service A medical student performed and documented this service. I then reviewed and verified all information documented by the medical student and made modifications to such information, when appropriate. I personally performed a physical exam, medical decision making and then discussed any differences between the notes and made revisions as necessary to create one note. Carolin Felix , 10/06/20 , 12:55 JOSE LUIS LAROSE Oct 06, 2020 09:13 CAROLIN FELIX DO Oct 06, 2020 12:55
[2020-10-06] MEDS: RT-ALBUTEROL SULF 2.5 MG/3 ML PRE-MIX VIAL INH SCH ×2 (09:20→21:08)
--- NOTE | 2020-10-06 10:57 | Consultation - Hospitalist ---
HPI History of Present Illness: HPI/Chief Complaint Patient is an 89-year-old male known to me from recent admission for small bowel obstruction who was admitted to swing bed status for continued physical therapy, Occupational Therapy, IV antibiotics, and wound VAC care. He has been doing well postoperatively following his bowel resection. I am consulted for medical management. He states there's a little more redness around his wound today. Otherwise he has no complaints. Date Seen 10/06/20 Attending Physician Jenaro Sanchez DO PCP Tulio Doev MD Referring Physician Date of Admission Oct 04, 2020 at 15:42 Home Medications & Allergies Home Medications Reviewed patient Home Medication Reconciliation performed by pharmacy medication reconciliations assembly technician and/or nursing. Patients Allergies have been reviewed. 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 Blood Disorders: No Family Medical History Diabetes mellitus 19 FATHER G8 BROTHER FH: lung cancer G8 BROTHER (PAST AWAY FROM [facility]) Cancer, Diabetes Review of Systems Constitutional: No chills, No fever EENTM: no symptoms reported Respiratory: no symptoms reported Cardiovascular: no symptoms reported Gastrointestinal: see HPI Genitourinary: no symptoms reported Musculoskeletal: no symptoms reported Skin: no symptoms reported Psychiatric/Neurological: No Symptoms Reported Physical Exam Physical Exam Vital Signs Vital Signs - First Documented 10/04/20 17:31 Temp 36.9 Pulse 72 Resp 20 B/P (MAP) 136/63 (87) Pulse Ox 95 O2 Delivery Nasal Cannula O2 Flow Rate 1.00 Capillary Refill : Height, Weight, BMI Height: 5'10.00" Weight: 200lbs. 4.0oz. [id number]; 29.66 BMI Method:Estimated General Appearance: No Apparent Distress, Chronically ill, Obese HEENT: PERRL/EOMI, Moist Mucous Membranes Neck: Normal Inspection, Supple Respiratory: Lungs Clear, No Accessory Muscle Use, Other (on 1lpm NC) Cardiovascular: Regular Rate, Rhythm, No Murmur, Normal Peripheral Pulses Gastrointestinal: Normal Bowel Sounds, Non Tender, Soft, Other (wound vac in p lace, mild erythema on the left side of wound) Extremity: Normal Capillary Refill, Non Tender, No Pedal Edema Neurologic/Psychiatric: Alert, Oriented x3, Normal Mood/Affect Skin: Normal Color, Warm/Dry Results Results/Procedures Labs Laboratory Tests 10/06/20 04:20 Patient resulted labs reviewed. Assessment/Plan Assessment and Plan Assess & Plan/Chief Complaint Sepsis Infected incision s/p small bowel resection Surgery primary s/p small bowel resection 09/25 Continue Zosyn, completed clindamycin yesterday Leukocytosis resolved Wound vac in place, surgery managing PT/OT Hypothyroidism Continue Synthroid CAD HTN HLD Continue home statin Continue metoprolol, lisinopril Continue ASA DVT ppx: JUAREZ Doshi MD Oct 06, 2020 10:57
--- NOTE | 2020-10-06 11:44 | Physical Therapy Daily Note ---
PT Daily Note-Current Subjective Pt is in bed, alert and ready to work with PT. Mental Status Patient Orientation: Person, Place, Time, Situation Attachments: Oxygen, Drains, IV Transfers SCALE: Activities may be completed with or without assistive devices. 3-Aacvpuhkrc-tmviqos completes the activity by him/herself with no assistance from a helper. 5-Set-up or Clean-up Assistance-helper sets up or cleans up; patient completes activity. [place] assists only prior to or following the activity. 4-Supervision or Touching Assistance-helper provides verbal cues and/or touching/steadying and/or contact guard assistance as patient completes activity. Assistance may be provided throughout the activity or intermittently. 3-Partial/Moderate Assistance-helper does LESS THAN HALF the effort. [place] lifts, holds or supports trunk or limbs, but provides less than half the effort. 2-Substantial/Maximal Assistance-helper does MORE THAN HALF the effort. [place] lifts or holds trunk or limbs and provides more than half the effort. 0-Fdhdgbumu-kmnlxy does ALL the effort. Patient does none of the effort to complete the activity. Or, the assistance of 2 or more helpers is required for the patient to complete the activity. If activity was not attempted, code reason: 7-Patient Refused. 9-Not Applicable-not attempted and the patient did not perform the activity before the current illness, exacerbation or injury. 10-Not Attempted due to Environmental Limitations-(lack of equipment, weather restraints, etc.). 88-Not Attempted due to Medical Conditions or Safety Concerns. Roll Left & Right (QC): 5 Sit to Lying (QC): 5 Lying to Sitting/Side of Bed(Q: 5 Sit to Stand (QC): 5 Gait Training Does the Patient Walk?: Yes Distance: 200ft Walk 10 feet (QC): 5 Walk 50 ft with 2 Turns(QC): 5 Walk 150 ft (QC): 5 Gait Persons Needed: 1 Gait Assistive Device: FWW Exercises Supine Ex: LE Protocol Supine Reps: 20 Assessment Current Status: Excellent Progress Pt is motivated to get up, improve, and return home. He is safe and stable throughout gait training. PT Railroad Watchman Goals Custodial Goals PT Custodial Goals Time Frame: Oct 27, 2020 Roll Left & Right (QC): 6 Sit to Lying (QC): 6 Lying-Sitting on Side/Bed(QC): 6 Sit to Stand (QC): 6 Chair/Wuk-yl-Ftvjg Xfer(QC): 6 Toilet Transfer (QC): 6 Car Transfer (QC): 6 Does the Patient Walk: Yes Walk 10 feet (QC): 6 Walk 50ft with 2 Turns (QC): 6 Walk 150 ft (QC): 6 Walking 10ft on Uneven Surface: 6 1 Step (curb) (QC): 6 4 Steps (QC): 6 12 Steps (QC): 9 Picking up an Object (QC): 6 Wheel 50 feet with 2 turns (QC: 9 Wheel 150 feet: 9 PT Plan Treatment/Plan Treatment Plan: Continue Plan of Care Treatment Plan: Bed Mobility, Education, Functional Activity Yeimi, Functional Strength, Gait, Safety, Therapeutic Exercise, Transfers Treatment Duration: Oct 27, 2020 Frequency: 6 times per week Estimated Hrs Per Day: .25 hour per day Patient and/or Family Agrees t: Yes Time/GCodes Time In: 1100 Time Out: 1135 Total Billed Treatment Time: 35 Total Billed Treatment 1, gt 15, ex 20 DA HODGSON PT Oct 06, 2020 11:44
[2020-10-06 17:00] VITALS: BP 149/68
[2020-10-06] MEDS: ENOXAPARIN 40 MG/0.4 ML (LOVENOX) SYR SC SCH (18:03)
[2020-10-06] MEDS: ROSUVASTATIN 20 MG (CRESTOR) TABLET PO SCH (20:36)
[2020-10-07] MEDS: LACTATED RINGERS 1,000 ML IV SCH ×3 (00:14→15:45)
[2020-10-07] MEDS: PIPERACILLIN/TAZOBACTAM (BULK) 4.5 GM in NS (IVPB) 100 ML IV SCH ×3 (02:35→18:02)
[2020-10-07 03:15] VITALS: BP 149/68
[2020-10-07] MEDS: LEVOTHYROXINE 75 MCG (LEVOTHROID) TABLET PO SCH (05:39)
[2020-10-07 06:08] VITALS: BP 134/71
[2020-10-07] MEDS: inSUlin ASPART (NovoLOG) 1 UNIT/0.01 ML (CHARGE PER UNIT) SC SCH ×4 (06:42→21:07)
[2020-10-07] MEDS: RT-ALBUTEROL SULF 2.5 MG/3 ML PRE-MIX VIAL INH SCH ×2 (08:28→19:32)
[2020-10-07] MEDS: FAMOTIDINE 20 MG (PEPCID) TABLET PO SCH ×2 (08:36→19:51)
[2020-10-07] MEDS: ASPIRIN E.C. 81 MG (ECOTRIN) TAB PO SCH (08:36)
[2020-10-07] MEDS: lisINopril 5 MG (PRINIVIL) TABLET PO SCH (08:36)
--- NOTE | 2020-10-07 10:28 | Progress Note - Surgery ---
THUANJOSE LUIS 10/07/20 1028: Subjective Date Seen by a Provider: Oct 07, 2020 Time Seen by a Provider: 08:26 Subjective/Events-last exam Pt resting in bed comfortably without distress. Tolerating diet. including ensure for additional protein + BM x2 yesterday - no blood. Pt is able to ambulate daily. Wound VAC in place clean appearing sanguinous fluid being drained - anticipate change of dressing on Thursday. Wound site tender but margins look like healthy healing tissue. Pain controlled. Denies n/v fever sweats chills shortness of breath or chest pain. Pt states he feels dizzy if he sits up too quickly. Review of Systems General: No Chills, No Night Sweats, No Fatigue, No Malaise; Appetite HEENT: No Head Aches, No Visual Changes, No Eye Pain, No Ear Pain, No Dysphasia, No Sinus Congestion Pulmonary: No Dyspnea, No Cough, No Pleuritic Chest Pain Cardiovascular: Lt Headedness; No: Chest Pain, Palpitations, Orthopnea, Paroxysmal Noc. Dyspnea, Edema Gastrointestinal: No: Nausea, Vomiting, Abdominal Pain, Diarrhea, Constipation, Melena, Hematochezia Genitourinary: No Dysuria, No Frequency, No Incontinence, No Hematuria, No Retention; Other Musculoskeletal: No: neck pain, shoulder pain, arm pain, back pain, hand pain, leg pain, foot pain Neurological: Weakness; No: Numbness, Incoordination, Change in speech, Confusion Pain from incision only Objective Exam Vital Signs Date Time Temp Pulse Resp B/P (MAP) Pulse Ox O2 Delivery O2 Flow Rate FiO2 10/07/20 09:00 Room Air 10/07/20 08:33 Room Air 10/07/20 08:28 94 Nasal Cannula 2.00 10/07/20 06:08 36.6 66 16 134/71 (92) 97 Nasal Cannula 2.00 10/07/20 03:15 36.9 74 91 21 10/06/20 21:09 94 Nasal Cannula 2.00 10/06/20 21:00 Nasal Cannula 1.00 10/06/20 17:00 36.9 74 18 149/68 (95) 95 Nasal Cannula 2.00 I & O 10/07/20 07:00 Intake Total 3475 ml Output Total 3150 ml Balance 325 ml Capillary Refill : General Appearance: No Apparent Distress, Chronically ill HEENT: PERRL/EOMI, Moist Mucous Membranes Neck: Full Range of Motion, Normal Inspection, Supple Respiratory: Lungs Clear, Normal Breath Sounds, No Accessory Muscle Use, No Respiratory Distress Cardiovascular: Regular Rate, Rhythm, No Edema, No Murmur, Normal Peripheral Pulses Peripheral Pulses: 2+ Radial Pulses (R), 2+ Radial Pulses (L) Gastrointestinal: non tender, soft, no organomegaly, other (incision with wound VAC in place looks good, no erythema seen ) Extremity: Normal Capillary Refill, Non Tender, No Pedal Edema Neurologic/Psychiatric: Alert, Oriented x3, Normal Mood/Affect Skin: Normal Color, Warm/Dry Lymphatic: No Adenopathy (cervical and axillary) Results Lab Laboratory Tests 10/06/20 11:51: Glucometer 122H 10/06/20 15:40: Glucometer 122H 10/06/20 20:06: Glucometer 136H 10/07/20 05:42: Glucometer 124H Assessment/Plan Assessment/Plan Assessment/Plan S/P SB resection with wound infection Plan - change wound VAC on Thursday, encourage pt to eat more and continue protein shakes to help with healing. Also told pt to ambulate more and use IS. SUKHDEV FELIX DO 10/07/20 1356: Subjective Time Seen by a Provider: 11:30 Subjective/Events-last exam Pt seen and examined, states he is feeling a little stronger but still weak. He did walk in [place] yesterday. Still having good BMs and is taking protein shake. Review of Systems General: No Chills, No Night Sweats; Fatigue Pulmonary: No Dyspnea, No Cough Cardiovascular: No: Chest Pain, Palpitations Gastrointestinal: No: Nausea, Vomiting, Abdominal Pain Objective Exam General Appearance: No Apparent Distress, Chronically ill HEENT: PERRL/EOMI, Moist Mucous Membranes Respiratory: Lungs Clear, Normal Breath Sounds, No Accessory Muscle Use, No Respiratory Distress Cardiovascular: Regular Rate, Rhythm, No Murmur Gastrointestinal: non tender, soft, no organomegaly Assessment/Plan Assessment/Plan Assessment/Plan S/P SB resection with wound infection Plan - change wound VAC on Thursday, encourage pt to eat more and continue protein shakes to help with healing. Also told pt to ambulate more and use IS. Supervisory-Addendum Brief Verification & Attestation Participated in pt care: history, MDM, physical Personally performed: exam, history, MDM, supervision of care Care discussed with: Medical Student Procedures: n/a Verification and Attestation of Medical Student E/M Service A medical student performed and documented this service. I then reviewed and verified all information documented by the medical student and made modifications to such information, when appropriate. I personally performed a physical exam, medical decision making and then discussed any differences between the notes and made revisions as necessary to create one note. Sukhdev Felix , 10/07/20 , 13:56 JOSE LUIS LAROSE Oct 07, 2020 10:28 SUKHDEV FELIX DO Oct 07, 2020 13:56
[2020-10-07 17:23] VITALS: BP 133/68
[2020-10-07] MEDS: ENOXAPARIN 40 MG/0.4 ML (LOVENOX) SYR SC SCH (18:02)
[2020-10-07] MEDS: ROSUVASTATIN 20 MG (CRESTOR) TABLET PO SCH (19:51)
[2020-10-08] MEDS: PIPERACILLIN/TAZOBACTAM (BULK) 4.5 GM in NS (IVPB) 100 ML IV SCH ×3 (03:37→17:55)
[2020-10-08] MEDS: LACTATED RINGERS 1,000 ML IV SCH ×4 (03:37→23:16)
[2020-10-08] MEDS: LEVOTHYROXINE 75 MCG (LEVOTHROID) TABLET PO SCH (06:18)
[2020-10-08 06:20] VITALS: BP 113/66
[2020-10-08] MEDS: inSUlin ASPART (NovoLOG) 1 UNIT/0.01 ML (CHARGE PER UNIT) SC SCH ×4 (06:20→21:37)
--- NOTE | 2020-10-08 07:43 | Progress Note - Surgery ---
JAMES COWAN 10/08/20 0743: Subjective Date Seen by a Provider: Oct 08, 2020 Time Seen by a Provider: 07:15 Subjective/Events-last exam PT reports last BM was yesterday morning. Denies blood in stool. Reports he is ambulating. Incision, with less erythema. No pain on abdominal palpation. Denies nausea, vomiting, and fever. Denies shortness of breath and cough. Continues on solid food diet. Review of Systems General: No Chills, No Night Sweats HEENT: No Head Aches, No Visual Changes Pulmonary: No Dyspnea, No Cough Cardiovascular: No: Chest Pain, Palpitations Gastrointestinal: No: Nausea Genitourinary: No Dysuria, No Frequency Musculoskeletal: No: neck pain, arm pain Neurological: No: Weakness, Incoordination Objective Exam Vital Signs Date Time Temp Pulse Resp B/P (MAP) Pulse Ox O2 Delivery O2 Flow Rate FiO2 10/08/20 06:20 36.9 68 18 113/66 (82) 92 Room Air 10/07/20 20:08 Room Air 10/07/20 19:32 90 Room Air 10/07/20 17:23 37.9 82 18 133/68 (89) 92 Room Air 10/07/20 09:00 Room Air 10/07/20 08:33 Room Air 10/07/20 08:28 94 Nasal Cannula 2.00 I & O 10/08/20 07:00 Intake Total 3004 ml Output Total 2870 ml Balance 134 ml Capillary Refill : General Appearance: No Apparent Distress Respiratory: No Accessory Muscle Use, No Respiratory Distress Cardiovascular: Regular Rate, Rhythm, No JVD Gastrointestinal: non tender, soft, no organomegaly, no pulsatile mass Extremity: Non Tender, No Calf Tenderness Neurologic/Psychiatric: Alert, Oriented x3, Normal Mood/Affect Skin: Normal Color, Warm/Dry Lymphatic: No Adenopathy Results Lab Laboratory Tests 10/07/20 11:34: Glucometer 143H 10/07/20 17:22: Glucometer 142H 10/07/20 20:57: Glucometer 136H 10/08/20 06:19: Glucometer 124H Assessment/Plan Assessment/Plan Assessment/Plan Sepsis Infected wound s/p ex lap small bowel resection manual decompression of small bowel. Possible pneumonia Change wound vac today. Encourage ambulation. Encourage IS. Continue on solid food diet. DB SANCHEZ DO 10/08/20 1113: Subjective Subjective/Events-last exam Doing well. Wound vac in place. Tolerating diet. +bowel function. No new complaints. Objective Exam General Appearance: No Apparent Distress, WD/WN HEENT: PERRL/EOMI, Normal ENT Inspection Neck: Full Range of Motion, Normal Inspection Respiratory: Chest Non Tender, No Accessory Muscle Use, No Respiratory Distress Cardiovascular: Regular Rate, Rhythm, No JVD Gastrointestinal: non tender, soft, no organomegaly, other (wound vac in place) Extremity: Non Tender, No Calf Tenderness Neurologic/Psychiatric: Alert, Oriented x3, Normal Mood/Affect Skin: Normal Color, Warm/Dry Lymphatic: No Adenopathy Assessment/Plan Assessment/Plan Assessment/Plan Sepsis Infected wound s/p ex lap small bowel resection manual decompression of small bowel. Possible pneumonia Change wound vac today. Encourage ambulation. Encourage IS. Continue on solid food diet. Supervisory-Addendum Brief Verification & Attestation Participated in pt care: history, MDM, physical Personally performed: exam, history, MDM, supervision of care Care discussed with: Medical Student Procedures: n/a Results interpretation: Verified all documentation Verification and Attestation of Medical Student E/M Service A medical student performed and documented this service in my presence. I reviewed and verified all information documented by the medical student and made modifications to such information, when appropriate. I personally performed the physical exam and medical decision making. Db Sanchez, Oct 08, 2020,11:12 JAMES COWAN Oct 08, 2020 07:43 DB SANCHEZ DO Oct 08, 2020 11:13
[2020-10-08] MEDS: RT-ALBUTEROL SULF 2.5 MG/3 ML PRE-MIX VIAL INH SCH ×2 (08:34→20:25)
[2020-10-08] MEDS: lisINopril 5 MG (PRINIVIL) TABLET PO SCH (08:34)
[2020-10-08] MEDS: FAMOTIDINE 20 MG (PEPCID) TABLET PO SCH ×2 (08:34→20:20)
[2020-10-08] MEDS: ASPIRIN E.C. 81 MG (ECOTRIN) TAB PO SCH (08:34)
[2020-10-08] MEDS: morphine INJ 4 MG/ML 1 ML (VIAL/SYRINGE) IVP PRN ×2 (12:56→17:16)
--- NOTE | 2020-10-08 14:21 | Physical Therapy Progress Note ---
Therapy Progress Note Patient refuses therapy x3 today, once this morning and twice this afternoon. The benefits of therapy have been explained to patient but he continues to refuse. The first time he said he was recovering from activity that he just did and his knees were sore, the second time he didn't want to because he just got his wound vac changed, and the third time he said he just didn't want to do it. Patient refuses exercises in bed also. Will check back in the morning. POP DAVISON PT Oct 08, 2020 14:21
--- NOTE | 2020-10-08 14:48 | Occupational Ther Daily Note ---
OT Current Status-Daily Note Subjective Pt reports new pain in L knee. Improves with rest and repositioning. Mental Status/Objective Attachments: Drains, IV ADL-Treatment Therapy Code Descriptions/Definitions Functional [place] Measure: 0=Not Assessed/NA 4=Minimal Assistance 1=Total Assistance 5=Supervision or Setup 2=Maximal Assistance 6=Modified [place] 3=Moderate Assistance 7=Complete IndependenceSCALE: Activities may be completed with or without assistive devices. 6-Lumsnygekb-wxnubrq completes the activity by him/herself with no assistance from a helper. 5-Set-up or Clean-up Assistance-helper sets up or cleans up; patient completes activity. [place] assists only prior to or following the activity. 4-Supervision or Touching Assistance-helper provides verbal cues and/or touching/steadying and/or contact guard assistance as patient completes activity. Assistance may be provided throughout the activity or intermittently. 3-Partial/Moderate Assistance-helper does LESS THAN HALF the effort. [place] lifts, holds or supports trunk or limbs, but provides less than half the effort. 2-Substantial/Maximal Assistance-helper does MORE THAN HALF the effort. [place] lifts or holds trunk or limbs and provides more than half the effort. 9-Nnxmhdlqc-gshgfa does ALL the effort. Patient does none of the effort to complete the activity. Or, the assistance of 2 or more helpers is required for the patient to complete the activity. If activity was not attempted, code reason: 7-Patient Refused. 9-Not Applicable-not attempted and the patient did not perform the activity before the current illness, exacerbation or injury. 10-Not Attempted due to Environmental Limitations-(lack of equipment, weather restraints, etc.). 88-Not Attempted due to Medical Conditions or Safety Concerns. Toileting Hygiene (QC): 4 Toilet Transfer (QC): 4 Other Treatment Pt sleeping at OT arrival. Easy to rouse. With encouragement, pt agreeable to sit in chair for lunch. Upon standing, he reports need to use toilet. He ambulated to/from bathroom with SBA and use of walker. OT managing IV pole and wound vac. Continues to require cues for safety and awareness of multiple tubi ng/lines. He stood at toilet to void, sup for safety. Pt sitting in chair to eat lunch at OT departure. All needs within reach and in room. Education OT Patient Education: Progress toward Goal/Update tx plan, Purpose of tx/functional activities, Rehab process, Safety issues Teaching Recipient: Patient Teaching Methods: Discussion Response to Teaching: Verbalize Understanding, Reinforcement Needed OT Short Term Goals Short Term Goals Eatin Oral hygiene: 6 Toileting hygiene: 6 Shower/bathe self: 3 Upper body dressin Lower body dressin Putting on/taking off footwear: 3 OT Skilled Nursing Goals Skilled Nursing Goals Eating (QC): 6 Oral Hygiene (QC): 6 Toileting Hygiene (QC): 6 Shower/Bathe Self (QC): 5 Upper Body Dressing (QC): 5 Lower Body Dressing (QC): 4 On/Off Footwear (QC): 4 1=Demonstrate adherence to instructed precautions during ADL tasks. 2=Patient will verbalize/demonstrate understanding of assistive devices/modifications for ADL. 3=Patient will improve strength/tolerance for activity to enable patient to perform ADL's. OT Education/Plan Problem List/Assessment Assessment: Decreased Activ Tolerance, Decreased Safety Aware, Impaired Self- Care Skills Discharge Recommendations Plan/Recommendations: Continue POC Treatment Plan/Plan of Care Treatment,Training & Education: Yes Patient would benefit from OT for education, treatment and training to promote independence in ADL's, mobility, safety and/or upper extremity function for ADL's. Plan of Care: ADL Retraining, Functional Mobility, Group Exercise/Act as Ind, UE Funct Exercise/Act Treatment Duration: Oct 19, 2020 Frequency: 5 times per week Estimated Hrs Per Day: .25 hour per day Agreement: Yes Rehab Potential: Fair Time/GCodes Start Time: 11:50 Stop Time: 12:06 Total Time Billed (hr/min): 16 Billed Treatment Time 1, ADL Migdalia Hinton OT Oct 08, 2020 14:48
[2020-10-08 17:14] VITALS: BP 122/70
[2020-10-08] MEDS: ENOXAPARIN 40 MG/0.4 ML (LOVENOX) SYR SC SCH (17:16)
[2020-10-08] MEDS: ROSUVASTATIN 20 MG (CRESTOR) TABLET PO SCH (20:20)
[2020-10-09 00:01] VITALS: BP 115/66
[2020-10-09] MEDS: PIPERACILLIN/TAZOBACTAM (BULK) 4.5 GM in NS (IVPB) 100 ML IV SCH ×2 (02:06→10:38)
[2020-10-09 05:35] VITALS: BP 115/66
[2020-10-09] MEDS: inSUlin ASPART (NovoLOG) 1 UNIT/0.01 ML (CHARGE PER UNIT) SC SCH ×4 (06:29→21:16)
[2020-10-09] MEDS: LEVOTHYROXINE 75 MCG (LEVOTHROID) TABLET PO SCH (06:29)
--- NOTE | 2020-10-09 07:23 | Progress Note - Surgery ---
JAMES COWAN 10/09/20 0722: Subjective Date Seen by a Provider: Oct 09, 2020 Time Seen by a Provider: 07:00 Subjective/Events-last exam Last BM was yesterday at 8 am. Continues to pass flatus. No complaints with urination. No nausea, vomiting, or fevers. Wound vac was changed yesterday, and reports incision site hurts some when it is touched. Denies abdominal pain. Review of Systems General: No Chills, No Night Sweats HEENT: No Head Aches, No Visual Changes Pulmonary: No Dyspnea, No Cough Cardiovascular: No: Palpitations, Lt Headedness Gastrointestinal: No: Nausea, Vomiting Genitourinary: No Dysuria, No Frequency Musculoskeletal: No: neck pain, arm pain Neurological: No: Weakness, Change in speech Objective Exam Vital Signs Date Time Temp Pulse Resp B/P (MAP) Pulse Ox O2 Delivery O2 Flow Rate FiO2 10/09/20 05:35 37.6 75 18 115/66 (82) 95 Nasal Cannula 2.00 10/09/20 00:01 37.0 79 20 115/66 (82) 95 Nasal Cannula 2.00 10/08/20 20:26 91 Nasal Cannula 2.00 10/08/20 20:25 87 Room Air 10/08/20 20:25 87 Room Air 10/08/20 20:20 88 Room Air 10/08/20 17:14 36.4 89 16 122/70 (87) 92 Room Air 10/08/20 08:34 90 Room Air 10/08/20 08:00 Room Air I & O 10/09/20 07:00 Intake Total 4520 ml Output Total 2850 ml Balance 1670 ml Capillary Refill : General Appearance: No Apparent Distress, WD/WN Respiratory: No Accessory Muscle Use, No Respiratory Distress Cardiovascular: Regular Rate, Rhythm, No JVD Gastrointestinal: non tender, soft, no organomegaly, other (wound vac in place) Extremity: Non Tender, No Calf Tenderness Neurologic/Psychiatric: Alert, Oriented x3, Normal Mood/Affect Skin: Normal Color, Warm/Dry Results Lab Laboratory Tests 10/08/20 11:11: Glucometer 160H 10/08/20 15:58: Glucometer 170H 10/08/20 20:26: Glucometer 166H 10/09/20 05:25: Glucometer 122H Assessment/Plan Assessment/Plan Assessment/Plan Sepsis Infected wound s/p ex lap small bowel resection manual decompression of small bowel. Possible pneumonia Wound vac in place. Change next on 10/11. Encourage ambulation. Encourage IS. Continue on solid food diet. DB SANCHEZ DO 10/10/201: Subjective Subjective/Events-last exam Patient feeling well. He is tolerating diet. Urinating without difficulty. Wound VAC in place. Patient has no new complaints denies nausea vomiting fever sweats chills shortness of breath or chest pain at this time. Objective Exam General Appearance: No Apparent Distress, WD/WN HEENT: PERRL/EOMI, Normal ENT Inspection Neck: Normal Inspection, Non Tender Respiratory: Chest Non Tender, No Accessory Muscle Use, No Respiratory Distress Cardiovascular: Regular Rate, Rhythm, No JVD Gastrointestinal: non tender, soft, no organomegaly, other (wound vac in place) Extremity: Non Tender, No Calf Tenderness Neurologic/Psychiatric: Alert, Oriented x3, Normal Mood/Affect Skin: Normal Color, Warm/Dry Lymphatic: No Adenopathy Assessment/Plan Assessment/Plan Assessment/Plan Sepsis Infected wound s/p ex lap small bowel resection manual decompression of small bowel. Possible pneumonia Wound vac in place. Change next on 10/11. Encourage ambulation. Encourage IS. Continue on solid food diet. Patient later developed fever. Chest x-ray with left lower lobe infiltrate versus atelectasis. Did not feel this was possibly the source therefore concern for abscess getting CT scan abdomen pelvis with oral contrast for further ev aluation. Labs pending Supervisory-Addendum Brief Verification & Attestation Participated in pt care: history, MDM, physical Personally performed: exam, history, MDM, supervision of care Care discussed with: Medical Student Procedures: n/a Results interpretation: Verified all documentation Verification and Attestation of Medical Student E/M Service A medical student performed and documented this service in my presence. I reviewed and verified all information documented by the medical student and made modifications to such information, when appropriate. I personally performed the physical exam and medical decision making. Db Sanchez, Oct 09, 2020,22:51 JAMES COWAN Oct 09, 2020 07:22 DB SANCHEZ DO Oct 10, 2020 22:51
[2020-10-09] MEDS: RT-ALBUTEROL SULF 2.5 MG/3 ML PRE-MIX VIAL INH SCH ×2 (07:28→19:31)
[2020-10-09] MEDS: LACTATED RINGERS 1,000 ML IV SCH ×2 (07:45→15:12)
[2020-10-09] MEDS: ASPIRIN E.C. 81 MG (ECOTRIN) TAB PO SCH (08:23)
[2020-10-09] MEDS: FAMOTIDINE 20 MG (PEPCID) TABLET PO SCH ×2 (08:23→21:16)
[2020-10-09] MEDS: lisINopril 5 MG (PRINIVIL) TABLET PO SCH (08:23)
--- NOTE | 2020-10-09 08:26 | Physical Therapy Progress Note ---
Therapy Progress Note HEALTH EQUIPMENT SERVICER check on pt at 8:21, pt eating breakfast. Pt request HEALTH EQUIPMENT SERVICER come back later. CAROLYN POTTS HEALTH EQUIPMENT SERVICER Oct 09, 2020 08:26
--- NOTE | 2020-10-09 14:03 | Physical Therapy Daily Note ---
PT Daily Note-Current Subjective Pt in bed upon arrival w/ spouse in room, pt reluctantly agrees to tx. Pt has no c/o pain, but states he is extremely tired today. Spouse highly encourages pt to walk. Mental Status Patient Orientation: Person, Place, Time, Situation Attachments: Oxygen (2), Bynum Catheter, IV Transfers SCALE: Activities may be completed with or without assistive devices. 1-[place]-purrcuh completes the activity by him/herself with no assistance from a helper. 5-Set-up or Clean-up Assistance-helper sets up or cleans up; patient completes activity. [place] assists only prior to or following the activity. 4-Supervision or Touching Assistance-helper provides verbal cues and/or touching/steadying and/or contact guard assistance as patient completes activity. Assistance may be provided throughout the activity or intermittently. 3-Partial/Moderate Assistance-helper does LESS THAN HALF the effort. [place] lifts, holds or supports trunk or limbs, but provides less than half the effort. 2-Substantial/Maximal Assistance-helper does MORE THAN HALF the effort. [place] lifts or holds trunk or limbs and provides more than half the effort. 1-Gvgcjtxmp-pipopl does ALL the effort. Patient does none of the effort to complete the activity. Or, the assistance of 2 or more helpers is required for the patient to complete the activity. If activity was not attempted, code reason: 7-Patient Refused. 9-Not Applicable-not attempted and the patient did not perform the activity before the current illness, exacerbation or injury. 10-Not Attempted due to Environmental Limitations-(lack of equipment, weather restraints, etc.). 88-Not Attempted due to Medical Conditions or Safety Concerns. Lying to Sitting/Side of Bed(Q: 4 Sit to Stand (QC): 3 Gait Training Does the Patient Walk?: Yes Distance: 50' Walk 10 feet (QC): 4 Walk 50 ft with 2 Turns(QC): 4 Gait Persons Needed: 1 Gait Assistive Device: FWW Pt amb around bed, to the window, and sat in recliner. Exercises Supine Ex: Ankle pumps, Heel Slides, Straight leg raise, Hip abd/add Supine Reps: 10 Treatments Pt in bed performs supine, requiring rest breaks between each set. Pt uses u rinal, followed by sitting EOB. Pt required MANAGER [employer]ES A pt to get torso upright. Pt amb around bed, to window, and sits in recliner. Pt remains in recliner with all needs met, call light in hand. Assessment Current Status: Fair Progress Pt easily fatigued and felt extremely tired. Required encouragement for tx. PT Cloth Edge Singer Goals Jail Goals PT Jail Goals Time Frame: Oct 27, 2020 Roll Left & Right (QC): 6 Sit to Lying (QC): 6 Lying-Sitting on Side/Bed(QC): 6 Sit to Stand (QC): 6 Chair/Awn-cb-Alqeb Xfer(QC): 6 Toilet Transfer (QC): 6 Car Transfer (QC): 6 Does the Patient Walk: Yes Walk 10 feet (QC): 6 Walk 50ft with 2 Turns (QC): 6 Walk 150 ft (QC): 6 Walking 10ft on Uneven Surface: 6 1 Step (curb) (QC): 6 4 Steps (QC): 6 12 Steps (QC): 9 Picking up an Object (QC): 6 Wheel 50 feet with 2 turns (QC: 9 Wheel 150 feet: 9 PT Plan Problem List Problem List: Activity Tolerance Treatment/Plan Treatment Plan: Continue Plan of Care Treatment Plan: Bed Mobility, Education, Functional Activity [place], Functional Strength, Gait, Safety, Therapeutic Exercise, Transfers Treatment Duration: Oct 27, 2020 Frequency: 6 times per week Estimated Hrs Per Day: .25 hour per day Patient and/or Family Agrees t: Yes Safety Risks/Education Teaching Recipient: Patient, Family Teaching Methods: Demonstration, Discussion Response to Teaching: Verbalize Understanding, Return Demonstration Time/GCodes Time In: 1330 Time Out: 1353 Total Billed Treatment Time: 23 Total Billed Treatment 1, GT, CAROLYN LEIJA MANAGER [employer]ES Oct 09, 2020 14:03
--- NOTE | 2020-10-09 15:00 | Occupational Ther Daily Note ---
OT Current Status-Daily Note Subjective Pt reports pain only increases when he moves. ADL-Treatment Therapy Code Descriptions/Definitions Functional [place] Measure: 0=Not Assessed/NA 4=Minimal Assistance 1=Total Assistance 5=Supervision or Setup 2=Maximal Assistance 6=Modified [place] 3=Moderate Assistance 7=Complete IndependenceSCALE: Activities may be completed with or without assistive devices. 7-Nbcunjzefk-ceyants completes the activity by him/herself with no assistance from a helper. 5-Set-up or Clean-up Assistance-helper sets up or cleans up; patient completes activity. [place] assists only prior to or following the activity. 4-Supervision or Touching Assistance-helper provides verbal cues and/or touching/steadying and/or contact guard assistance as patient completes activity. Assistance may be provided throughout the activity or intermittently. 3-Partial/Moderate Assistance-helper does LESS THAN HALF the effort. [place] lifts, holds or supports trunk or limbs, but provides less than half the effort. 2-Substantial/Maximal Assistance-helper does MORE THAN HALF the effort. [place] lifts or holds trunk or limbs and provides more than half the effort. 8-Pxvdedctt-ayyozo does ALL the effort. Patient does none of the effort to complete the activity. Or, the assistance of 2 or more helpers is required for the patient to complete the activity. If activity was not attempted, code reason: 7-Patient Refused. 9-Not Applicable-not attempted and the patient did not perform the activity before the current illness, exacerbation or injury. 10-Not Attempted due to Environmental Limitations-(lack of equipment, weather restraints, etc.). 88-Not Attempted due to Medical Conditions or Safety Concerns. Lower Body Dressing (QC): 1 On/Off Footwear: 1 Toileting Hygiene (QC): 4 Pt sitting in chair at OT arrival. Requires education and encouragement to participate. Poor insight into purpose of therapy. Ot introduced and instructed pt on use of sock aid and material requirements planning manager to assist with LB dressing due to inability to perform secondary to abdominal pain with bending. During instruction, pt often rolling eyes. Education on reason for equipment. When handed equipment, pt with zero effort to initiate and immediately states "I can't do it." Cues for problem solving how he will manage if pain continues post d/c. OT performed initial steps of donning sock onto sock aid and asked pt to thread onto foot with use of tool. Pt again reported "I can't do it, How am I supposed to be able to do it if I can't even see my foot?' Pt cued to bring torso forward off back of recliner. No initiation or attempt from patient. He then reports need to void. Declines attempt to ambulate to bathroom this date and instead requests urinal. Education on importance of getting out of chair/bed throughout day. Pt remained in chair, all needs within reach at end of session. Education OT Patient Education: Correct positioning, Energy conservation, Modified ADL techniques, Progress toward Goal/Update tx plan, Purpose of tx/functional activities, Rehab process, Use of adapted equipment Teaching Recipient: Patient Teaching Methods: Demonstration, Discussion Response to Teaching: Unable to Return Demonstration, Reinforcement Needed OT Short Term Goals Short Term Goals Eatin Oral hygiene: 6 Toileting hygiene: 6 Shower/bathe self: 3 Upper body dressin Lower body dressin Putting on/taking off footwear: 3 OT Tuberculosis Specialist Goals Tuberculosis Specialist Goals Eating (QC): 6 Oral Hygiene (QC): 6 Toileting Hygiene (QC): 6 Shower/Bathe Self (QC): 5 Upper Body Dressing (QC): 5 Lower Body Dressing (QC): 4 On/Off Footwear (QC): 4 1=Demonstrate adherence to instructed precautions during ADL tasks. 2=Patient will verbalize/demonstrate understanding of assistive devices/modifications for ADL. 3=Patient will improve strength/tolerance for activity to enable patient to perform ADL's. OT Education/Plan Problem List/Assessment Assessment: Decreased Activ Tolerance, Decreased Safety Aware, Decreased UE Strength, Impaired Funct Balance, Impaired I ADL's, Impaired Self-Care Skills Discharge Recommendations Plan/Recommendations: Continue POC Treatment Plan/Plan of Care Treatment,Training & Education: Yes Patient would benefit from OT for education, treatment and training to promote independence in ADL's, mobility, safety and/or upper extremity function for ADL's. Plan of Care: ADL Retraining, Functional Mobility, Group Exercise/Act as Ind, UE Funct Exercise/Act Treatment Duration: Oct 19, 2020 Frequency: 5 times per week Estimated Hrs Per Day: .25 hour per day Agreement: Yes Rehab Potential: Fair Time/GCodes Start Time: 14:30 Stop Time: 14:47 Total Time Billed (hr/min): 17 Billed Treatment Time 1, ADL Migdalia Hinton OT Oct 09, 2020 15:00
[2020-10-09 16:20] VITALS: BP 102/49
--- NOTE | 2020-10-09 16:45 | Diagnostic Imaging Report ---
INDICATION: Fever and shortness of breath. TIME OF EXAM: 04:22 p.m. COMPARISON: Correlation is made with prior chest from 09/30/2020. FINDINGS: Changes of median sternotomy are noted. There is some residual infiltrate or atelectasis in the left lung base. Right lung is clear. There is no significant effusion or pneumothorax. IMPRESSION: Overall improved aeration of both lungs. There is some residual infiltrate or atelectasis in the left base. Dictated by: Dictated on workstation # [id number]
[2020-10-09] MEDS: ACETAMINOPHEN 325 MG TABLET PO PRN (16:56)
[2020-10-09] MEDS: ENOXAPARIN 40 MG/0.4 ML (LOVENOX) SYR SC SCH (16:56)
[2020-10-09 17:11] LABS: BASOPHILS # (AUTO) 0.1 10^3/uL (0.0-0.1); BASOPHILS % (AUTO) 1 % (0-10); EOSINOPHILS % (AUTO) 0 % (0-10); HEMATOCRIT 40 % (40-54); HEMOGLOBIN 12.6 g/dL (13.3-17.7); LYMPHOCYTES # (AUTO) 2.5 10^3/uL (1.0-4.0); LYMPHOCYTES % (AUTO) 15 % (12-44); MEAN CORPUSCULAR HEMOGLOBIN 29 pg (25-34); MEAN CORPUSCULAR HGB CONC 32 g/dL (32-36); MEAN CORPUSCULAR VOLUME 89 fL (80-99); MONOCYTES # (AUTO) 2.6 10^3/uL (0.0-1.0); MONOCYTES % (AUTO) 16 % (0-12); NEUTROPHILS # (AUTO) 10.9 10^3/uL (1.8-7.8); NEUTROPHILS % (AUTO) 67 % (42-75); PLATELET COUNT 352 10^3/uL (130-400); WHITE BLOOD COUNT 16.2 10^3/uL (4.3-11.0)
[2020-10-09 17:20] VITALS: BP 102/49
[2020-10-09 17:35] LABS: POTASSIUM 4.4 MMOL/L (3.6-5.0)
[2020-10-09 17:36] LABS: CALCIUM 9.6 MG/DL (8.5-10.1)
[2020-10-09 17:40] LABS: CREATININE SERUM 0.91 MG/DL (0.60-1.30)
[2020-10-09 18:14] LABS: LYMPHOCYTES % (MANUAL) 16 %; MONOCYTES % (MANUAL) 17 %; NEUTROPHILS % (MANUAL) 67 %; RBC MORPH NORMAL
[2020-10-09] MEDS: MEROPENEM 1,000 MG in WATER (STERILE) FOR INJECTION 20 ML IV SCH (18:18)
[2020-10-09 18:22] VITALS: BP 111/54
--- NOTE | 2020-10-09 19:56 | Progress Note - Hospitalist ---
Subjective HPI/CC On Admission Date Seen by Provider: Oct 09, 2020 Time Seen by Provider: 17:30 Patient is an 89-year-old male known to me from recent admission for small bowel obstruction who was admitted to [facility] for continued physical therapy, Occupational Therapy, IV antibiotics, and wound VAC care. He has been doing well postoperatively following his bowel resection. I am consulted for medical management. He states there's a little more redness around his wound today. Otherwise he has no complaints. Subjective/Events-last exam He has been having fevers. He denies trouble breathing or cough. He denies abdominal pain. He denies nausea and vomiting. He has no other complaints. Focused Exam Lactate Level 10/09/20 17:00: Lactic Acid Level 1.06 Lactic Acid Level Laboratory Tests Test 10/09/20 17:00 Lactic Acid Level 1.06 MMOL/L (0.50-2.00) Objective Exam Vital Signs Vital Signs Date Time Temp Pulse Resp B/P (MAP) Pulse Ox O2 Delivery O2 Flow Rate FiO2 10/09/20 19:31 91 Nasal Cannula 2.00 10/09/20 18:22 36.7 88 18 111/54 (73) 10/07/20 03:15 21 Capillary Refill : General Appearance: Mild Distress (diaphoretic), Obese Respiratory: Lungs Clear, Normal Breath Sounds, No Respiratory Distress Cardiovascular: Regular Rate, Rhythm, No Murmur Gastrointestinal: Normal Bowel Sounds, Soft, Tenderness, Other (wound vac in place) Extremity: Normal Inspection, Non Tender, Pedal Edema Neurologic/Psychiatric: Alert, Oriented x3, Normal Mood/Affect Skin: Normal Color, Warm/Dry Results/Procedures Lab Laboratory Tests 10/09/20 17:00 Patient resulted labs reviewed. Imaging: Reviewed Imaging Films, Reviewed Imaging Report Assessment/Plan Assessment and Plan Assess & Plan/Chief Complaint Sepsis s/p SBO s/p small bowel resection SIRS+ with fever, tachycardia, and leukocytosis CXR with possible left lower lobe infiltrate vs atelectasis UA ordered Lactic acid normal Procalcitonin within normal limits Wound vac well appearing LLQ and RLQ localized tenderness Obtain CT Abdomen Transition to [place] Diagnosis/Problems Diagnosis/Problems (1) Sepsis Status: Acute (2) Small bowel obstruction Status: Acute (3) S/P small bowel resection Status: Acute JORDAN OGDEN MD Oct 09, 2020 19:56
[2020-10-09] MEDS ORDERED: NS 100 ML (IVPB) BAG IV ONE (20:30)
[2020-10-09] MEDS ORDERED: IOHEXOL 350 MG/ML 100 ML (OMNIPAQUE 350) VIAL IV ONE (20:30)
[2020-10-09] MEDS ORDERED: DIATRIZOATE MEGLUM/SODIUM 37% 120 ML (GASTROGRAFIN) PO ONE (20:30)
[2020-10-09] MEDS ORDERED: HOLD METFORMIN - RECEIVED CONTRAST 20 ML VIAL IV SCH (20:30)
[2020-10-09] MEDS: ROSUVASTATIN 20 MG (CRESTOR) TABLET PO SCH (21:16)
--- NOTE | 2020-10-09 21:18 | Diagnostic Imaging Report ---
PROCEDURE: CT abdomen and pelvis with contrast, rule out appendicitis. TECHNIQUE: Multiple contiguous axial images were obtained through the abdomen and pelvis after the administration of intravenous contrast. All CT scans use one or more of the following dose optimizing techniques: automated exposure control, MA and/or KvP adjustment based on patient size and exam type or iterative reconstruction. DATE: October 09, 2020. COMPARISON: CT abdomen and pelvis November 24, 2020. INDICATION: 89-year-old male, lower abdominal pain. Infected wound. Recent exploratory surgery. FINDINGS: There are linear opacities in the lingula, left lower lobe, right lower lobe, and right middle lobe most compatible with atelectasis. There is minimal left-sided pleural fluid. The heart is not enlarged. There is no pericardial effusion. There are coronary artery calcifications and additional areas of atherosclerotic disease. The liver is unremarkable in size and contour. In the right lobe of the liver on axial image 37, there is a low-attenuation lesion measuring 1.4 cm in size which is consistent with a benign cyst. The main, right, and left portal veins are patent. The gallbladder is unremarkable. There is no identified intrahepatic or extrahepatic bile duct dilation. There are small pancreatic calcifications. There is no evidence of acute pancreatitis. Additional evaluation of the pancreas is unremarkable. The spleen is normal in size. The adrenal glands are unremarkable. Unremarkable appearance of the right renal parenchyma. There is a low-attenuation left renal lesion on axial image 45 measuring 10 mm in size with internal attenuation compatible with a benign cyst. The urinary collecting systems are not distended. There is no identified renal or ureteral stone. The prostate gland is prominent in size and indents on the posterior aspect of the urinary bladder. There is a left inguinal hernia. There is fluid within the hernia sac. There is a very small amount of layering free fluid in the pelvis. The intestinal tract is not distended. There is no evidence of acute appendicitis. There is no free intraperitoneal air. There is no drainable fluid collection. There is no identified abnormally enlarged lymph node in the abdomen or pelvis meeting CT size criteria for adenopathy. There is irregularity of the anterior abdominal wall near the level of the umbilicus with inflammatory stranding. 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 There are bilateral sacroiliac degenerative changes. There is multilevel degenerative changes of the spine. There is scoliosis. There are median sternotomy wires. IMPRESSION: CT ABDOMEN AND PELVIS. 1. Irregularity of the anterior abdominal wall skin surface near the level of the umbilicus with adjacent inflammatory stranding. No evidence of a drainable fluid collection or abscess. 2. Very small amount of layering fluid in the pelvis. 3. Trace left pleural effusion. 4. Additional incidental findings as above. Dictated by: Dictated on workstation # [id number]
[2020-10-10] MEDS: LACTATED RINGERS 1,000 ML IV SCH ×3 (00:49→15:50)
[2020-10-10 00:54] LABS: BILIRUBIN,URINE NEGATIVE (NEGATIVE); CLARITY,URINE CLEAR; COLOR,URINE YELLOW; GLUCOSE, URINE (UA) 1+ (NEGATIVE); KETONES,URINE NEGATIVE (NEGATIVE); LEUKOCYTE ESTERASE ,URINE NEGATIVE (NEGATIVE); NITRITE,URINE NEGATIVE (NEGATIVE); PROTEIN,URINE TRACE (NEGATIVE)
[2020-10-10 01:02] LABS: BACTERIA,URINE TRACE /HPF; RBC,URINE RARE /HPF; WBC,URINE 0-2 /HPF
[2020-10-10] MEDS: MEROPENEM 1,000 MG in WATER (STERILE) FOR INJECTION 20 ML IV SCH ×3 (01:18→17:38)
[2020-10-10 05:18] VITALS: BP 107/63
[2020-10-10] MEDS: inSUlin ASPART (NovoLOG) 1 UNIT/0.01 ML (CHARGE PER UNIT) SC SCH ×4 (05:24→21:00)
[2020-10-10] MEDS: LEVOTHYROXINE 75 MCG (LEVOTHROID) TABLET PO SCH (06:20)
[2020-10-10 06:25] LABS: HEMATOCRIT 39 % (40-54); HEMOGLOBIN 12.4 g/dL (13.3-17.7); MEAN CORPUSCULAR HEMOGLOBIN 29 pg (25-34); MEAN CORPUSCULAR HGB CONC 32 g/dL (32-36); MEAN CORPUSCULAR VOLUME 89 fL (80-99); PLATELET COUNT 354 10^3/uL (130-400); WHITE BLOOD COUNT 14.7 10^3/uL (4.3-11.0)
[2020-10-10 06:43] LABS: POTASSIUM 3.9 MMOL/L (3.6-5.0)
[2020-10-10 06:44] LABS: CALCIUM 9.7 MG/DL (8.5-10.1)
[2020-10-10 06:48] LABS: CREATININE SERUM 0.69 MG/DL (0.60-1.30)
--- NOTE | 2020-10-10 07:33 | Progress Note - Surgery ---
ISIDRA VUONG 10/10/20 0733: Subjective Date Seen by a Provider: Oct 10, 2020 Time Seen by a Provider: 06:15 Subjective/Events-last exam Pt is awake, alert and is feeling well this morning. He denies any SOB or difficulty breathing. He is having no problem using the restroom. Review of Systems General: No Chills, No Fatigue HEENT: No Head Aches, No Visual Changes, No Ear Pain Pulmonary: No Dyspnea, No Cough Cardiovascular: No: Chest Pain, Palpitations, Edema Gastrointestinal: No: Nausea, Vomiting, Diarrhea Genitourinary: No Dysuria, No Frequency, No Incontinence Musculoskeletal: No: neck pain, back pain, leg pain Neurological: No: Weakness, Numbness, Seizures Focused Exam Lactate Level 10/09/20 17:00: Lactic Acid Level 1.06 Objective Exam Vital Signs Date Time Temp Pulse Resp B/P (MAP) Pulse Ox O2 Delivery O2 Flow Rate FiO2 10/10/20 05:18 36.9 78 20 107/63 (78) 90 Nasal Cannula 2.00 10/09/20 21:00 Room Air 2.00 10/09/20 19:31 91 Nasal Cannula 2.00 10/09/20 18:22 36.7 88 18 111/54 (73) 95 10/09/20 17:33 38.3 10/09/20 17:20 39.8 91 93 10/09/20 16:20 39.8 91 20 102/49 (66) 93 Nasal Cannula 2.00 10/09/20 08:49 Room Air I & O 10/10/20 07:00 Intake Total 3218 ml Output Total 3000 ml Balance 218 ml Capillary Refill : General Appearance: No Apparent Distress, WD/WN Respiratory: Lungs Clear, Normal Breath Sounds, No Respiratory Distress Cardiovascular: Regular Rate, Rhythm, No Murmur Gastrointestinal: other (wound vac in place) Neurologic/Psychiatric: Alert, Oriented x3, Normal Mood/Affect Skin: Normal Color, Warm/Dry Results Lab Laboratory Tests 10/09/20 10:08: Glucometer 158H 10/09/20 15:47: Glucometer 163H 10/09/20 17:00: White Blood Count 16.2H, Red Blood Count 4.42, Hemoglobin 12.6L, Hematocrit 40, Mean Corpuscular Volume 89, Mean Corpuscular Hemoglobin 29, Mean Corpuscular Hemoglobin Concent 32, Red Cell Distribution Width 14.1, Platelet Count 352, Mean Platelet Volume 11.0, Immature Granulocyte % (Auto) 1, Neutrophils (%) (Auto) 67, Lymphocytes (%) (Auto) 15, Monocytes (%) (Auto) 16H, Eosinophils (%) (Auto) 0, Basophils (%) (Auto) 1, Neutrophils # (Auto) 10.9H, Lymphocytes # (Auto) 2.5, Monocytes # (Auto) 2.6H, Eosinophils # (Auto) 0.0, Basophils # (Auto) 0.1, Immature Granulocyte # (Auto) 0.1, Neutrophils % (Manual) 67, Lymphocytes % (Manual) 16, Monocytes % (Manual) 17, Blood Morphology Comment NORMAL, Sodium Level 129L, Potassium Level 4.4, Chloride Level 97L, Carbon Dioxide Level 24, Anion Gap 8, Blood Urea Nitrogen 10, Creatinine 0.91, Estimat Glomerular Filtration Rate 79, BUN/Creatinine Ratio 11, Glucose Level 166H, Lactic Acid Level 1.06, Calcium Level 9.6, Procalcitonin 0.17H 10/09/20 19:35: Urine Color YELLOW, Urine Clarity CLEAR, Urine pH 7.0, Urine Specific [place] 1.010L, Urine Protein TRACEH, Urine Glucose (UA) 1+H, Urine Ketones NEGATIVE, Urine Nitrite NEGATIVE, Urine Bilirubin NEGATIVE, Urine Urobilinogen 0.2, Urine Leukocyte Esterase NEGATIVE, Urine RBC (Auto) NEGATIVE, Urine RBC RARE, Urine WBC 0-2, Urine Crystals NONE, Urine Bacteria TRACE, Urine Casts NONE, Urine Mucus NEGATIVE, Urine Culture Indicated NO 10/09/20 21:07: Glucometer 144H 10/10/20 05:16: Glucometer 115H 10/10/20 05:18: White Blood Count 14.7H, Red Blood Count 4.35, Hemoglobin 12.4L, Hematocrit 39L, Mean Corpuscular Volume 89, Mean Corpuscular Hemoglobin 29, Mean Corpuscular Hemoglobin Concent 32, Red Cell Distribution Width 14.2, Platelet Count 354, Mean Platelet Volume 12.0, Sodium Level 132L, Potassium Level 3.9, Chloride Level 100, Carbon Dioxide Level 25, Anion Gap 7, Blood Urea Nitrogen 7, Crea tinine 0.69, Estimat Glomerular Filtration Rate 108, BUN/Creatinine Ratio 10, Glucose Level 104, Calcium Level 9.7, Magnesium Level 2.0 Assessment/Plan Assessment/Plan Assessment/Plan Sepsis Infected wound s/p ex lap small bowel resection manual decompression of small bowel. Possible pneumonia Wound vac in place. Change next on 10/11. Encourage ambulation. Encourage IS. Continue on solid food diet. DB SANCHEZ DO 10/10/20 1954: Subjective Subjective/Events-last exam Patient feeling better than last night. Not using incentive spirometer very much. He is not had any further fevers. He had CT scan of the abdomen pelvis without any significant acute abnormality. The chest x-ray yesterday demonstrating possible left-sided infiltrate versus atelectasis. Patient tolerating diet. Pain controlled no new complaints. Objective Exam General Appearance: No Apparent Distress, WD/WN HEENT: PERRL/EOMI Neck: Non Tender, Supple Respiratory: Chest Non Tender, No Accessory Muscle Use, No Respiratory Distress Cardiovascular: Regular Rate, Rhythm, No JVD Gastrointestinal: non tender, soft, other (wound vac in place) Extremity: Non Tender, No Calf Tenderness, Other (Minimal edema) Neurologic/Psychiatric: Alert, Oriented x3, Normal Mood/Affect Skin: Normal Color, Warm/Dry Assessment/Plan Assessment/Plan Assessment/Plan Sepsis Infected wound s/p ex lap small bowel resection manual decompression of small bowel. Possible pneumonia Wound vac in place. Change next on 10/11. Encourage ambulation. Encourage IS. Continue on solid food diet. Antibiotics were switched to Merrem He has been afebrile continue to monitor. White blood cell count trending down. Encouraged to use incentive spirometer. Supervisory-Addendum Brief Verification & Attestation Participated in pt care: history, MDM, physical Personally performed: exam, history, MDM, supervision of care Care discussed with: Medical Student Procedures: n/a Results interpretation: Verified all documentation Verification and Attestation of Medical Student E/M Service A medical student performed and documented this service in my presence. I reviewed and verified all information documented by the medical student and made modifications to such information, when appropriate. I personally performed the physical exam and medical decision making. bD Sanchez, Oct 10, 2020,22:54 ISIDRA VUONG Oct 10, 2020 07:33 DB SANCHEZ DO Oct 10, 2020 22:54
[2020-10-10] MEDS: RT-ALBUTEROL SULF 2.5 MG/3 ML PRE-MIX VIAL INH SCH ×2 (07:58→19:30)
[2020-10-10] MEDS: lisINopril 5 MG (PRINIVIL) TABLET PO SCH (08:35)
[2020-10-10] MEDS: ASPIRIN E.C. 81 MG (ECOTRIN) TAB PO SCH (08:35)
[2020-10-10] MEDS: FAMOTIDINE 20 MG (PEPCID) TABLET PO SCH ×2 (08:35→20:13)
[2020-10-10] MEDS: ACETAMINOPHEN 325 MG TABLET PO PRN (08:36)
--- NOTE | 2020-10-10 08:45 | Physical Therapy Daily Note ---
PT Daily Note-Current Subjective Pt in bed upon arrival and agrees to tx. Pt states pain in R UE 5/10. Pain Numeric Pain Scale: 5-Moderate Pain Location: Right Location Body Site: Arm Mental Status Patient Orientation: Person, Place, Time, Situation Attachments: Oxygen (2), Drains, IV Transfers SCALE: Activities may be completed with or without assistive devices. 0-Lwtsmbesma-yghchvl completes the activity by him/herself with no assistance from a helper. 5-Set-up or Clean-up Assistance-helper sets up or cleans up; patient completes activity. [place] assists only prior to or following the activity. 4-Supervision or Touching Assistance-helper provides verbal cues and/or touching/steadying and/or contact guard assistance as patient completes activity. Assistance may be provided throughout the activity or intermittently. 3-Partial/Moderate Assistance-helper does LESS THAN HALF the effort. [place] lifts, holds or supports trunk or limbs, but provides less than half the effort. 2-Substantial/Maximal Assistance-helper does MORE THAN HALF the effort. [place] lifts or holds trunk or limbs and provides more than half the effort. 4-Hdxionxng-qpjoxb does ALL the effort. Patient does none of the effort to complete the activity. Or, the assistance of 2 or more helpers is required for the patient to complete the activity. If activity was not attempted, code reason: 7-Patient Refused. 9-Not Applicable-not attempted and the patient did not perform the activity before the current illness, exacerbation or injury. 10-Not Attempted due to Environmental Limitations-(lack of equipment, weather restraints, etc.). 88-Not Attempted due to Medical Conditions or Safety Concerns. Lying to Sitting/Side of Bed(Q: 3 Sit to Stand (QC): 3 Chair/Iih-hi-Cxzqx Xfer(QC): 4 Pt supine to EOB requires Umang to A pt in getting torso UE, sit to stand Umang. Pt transfers from bed to recliner CGA. Gait Training Does the Patient Walk?: Yes Distance: 10' Walk 10 feet (QC): 4 Gait Assistive Device: FWW Pt able to amb 10' in room CGA. Pt has slow, shuffling gait. Treatments Pt performs bed mobility, then attempts to use urinal prior to sit to stand. Pt amb in room then transfers to recliner. Pt left in recliner with all needs met, call light in hand. Assessment Current Status: Good Progress Pt more alert and motivated today. PT Skilled Nursing Goals Skilled Nursing Goals PT Skilled Nursing Goals Time Frame: Oct 27, 2020 Roll Left & Right (QC): 6 Sit to Lying (QC): 6 Lying-Sitting on Side/Bed(QC): 6 Sit to Stand (QC): 6 Chair/Kco-tv-Rrzgm Xfer(QC): 6 Toilet Transfer (QC): 6 Car Transfer (QC): 6 Does the Patient Walk: Yes Walk 10 feet (QC): 6 Walk 50ft with 2 Turns (QC): 6 Walk 150 ft (QC): 6 Walking 10ft on Uneven Surface: 6 1 Step (curb) (QC): 6 4 Steps (QC): 6 12 Steps (QC): 9 Picking up an Object (QC): 6 Wheel 50 feet with 2 turns (QC: 9 Wheel 150 feet: 9 PT Plan Problem List Problem List: Functional Strength Treatment/Plan Treatment Plan: Continue Plan of Care Treatment Plan: Bed Mobility, Education, Functional Activity Yeimi, Functional Strength, Gait, Safety, Therapeutic Exercise, Transfers Treatment Duration: Oct 27, 2020 Frequency: 6 times per week Estimated Hrs Per Day: .25 hour per day Patient and/or Family Agrees t: Yes Safety Risks/Education Patient Education: Gait Training, Transfer Techniques Teaching Recipient: Patient Teaching Methods: Discussion Response to Teaching: Verbalize Understanding Time/GCodes Time In: 820 Time Out: 838 Total Billed Treatment Time: 18 Total Billed Treatment CASSIDY Tang POTTSCAROLYN SHORTS SIFTER Oct 10, 2020 08:45
--- NOTE | 2020-10-10 10:05 | Progress Note - Hospitalist ---
Subjective HPI/CC On Admission Date Seen by Provider: Oct 10, 2020 Time Seen by Provider: 09:15 Patient is an 89-year-old male known to me from recent admission for small bowel obstruction who was admitted to [facility] for continued physical therapy, Occupational Therapy, IV antibiotics, and wound VAC care. He has been doing well postoperatively following his bowel resection. I am consulted for medical management. He states there's a little more redness around his wound today. Otherwise he has no complaints. Subjective/Events-last exam He is not having any more fevers or chills. He denies shortness of breath and cough. He is not having abdominal pain. He denies nausea and vomiting. He has no other complaints or concerns. Focused Exam Lactate Level 10/09/20 17:00: Lactic Acid Level 1.06 Objective Exam Vital Signs Vital Signs Date Time Temp Pulse Resp B/P (MAP) Pulse Ox O2 Delivery O2 Flow Rate FiO2 10/10/20 09:00 Room Air 2.00 10/10/20 07:59 91 10/10/20 05:18 36.9 78 20 107/63 (78) 10/07/20 03:15 21 Capillary Refill : General Appearance: No Apparent Distress, Obese Respiratory: Lungs Clear, Normal Breath Sounds Cardiovascular: Regular Rate, Rhythm, No Edema, No Murmur Gastrointestinal: Normal Bowel Sounds, Soft, Other (Wound VAC in place) Extremity: Normal Inspection, Non Tender, No Pedal Edema Neurologic/Psychiatric: Alert, Oriented x3, No Motor/Sensory Deficits, Normal Mood/Affect Skin: Normal Color, Warm/Dry Results/Procedures Lab Laboratory Tests 10/09/20 17:00 10/10/20 05:18 Patient resulted labs reviewed. Imaging: Reviewed Imaging Report Assessment/Plan Assessment and Plan Assess & Plan/Chief Complaint Sepsis Possible pneumonia s/p SBO s/p small bowel resection Afebrile, WBC trending down CXR with possible left lower lobe infiltrate vs atelectasis Procalcitonin within normal limits UA normal Lactic acid normal Wound vac well appearing CT Abdomen with no acute abnormalities Continue Merrem Diagnosis/Problems Diagnosis/Problems (1) Sepsis Status: Acute (2) Small bowel obstruction Status: Acute (3) S/P small bowel resection Status: Acute JORDAN OGDEN MD Oct 10, 2020 10:05
--- NOTE | 2020-10-10 13:05 | Occupational Ther Daily Note ---
OT Current Status-Daily Note Subjective Pt declines any OOB activity as he reports just getting back into bed. ADL-Treatment Therapy Code Descriptions/Definitions Functional [place] Measure: 0=Not Assessed/NA 4=Minimal Assistance 1=Total Assistance 5=Supervision or Setup 2=Maximal Assistance 6=Modified [place] 3=Moderate Assistance 7=Complete IndependenceSCALE: Activities may be completed with or without assistive devices. 3-Gmlcuqdval-ezttwfv completes the activity by him/herself with no assistance from a helper. 5-Set-up or Clean-up Assistance-helper sets up or cleans up; patient completes activity. [place] assists only prior to or following the activity. 4-Supervision or Touching Assistance-helper provides verbal cues and/or touching/steadying and/or contact guard assistance as patient completes activity. Assistance may be provided throughout the activity or intermittently. 3-Partial/Moderate Assistance-helper does LESS THAN HALF the effort. [place] lifts, holds or supports trunk or limbs, but provides less than half the effort. 2-Substantial/Maximal Assistance-helper does MORE THAN HALF the effort. [place] lifts or holds trunk or limbs and provides more than half the effort. 8-Bisqnzfpw-nmkoby does ALL the effort. Patient does none of the effort to complete the activity. Or, the assistance of 2 or more helpers is required for the patient to complete the activity. If activity was not attempted, code reason: 7-Patient Refused. 9-Not Applicable-not attempted and the patient did not perform the activity before the current illness, exacerbation or injury. 10-Not Attempted due to Environmental Limitations-(lack of equipment, weather restraints, etc.). 88-Not Attempted due to Medical Conditions or Safety Concerns. Other Treatment Pt declines all OOB/EOB activities secondary to just returning to bed. Daughter in room and verifies this. Pt agreeable to complete UE exercises with goal to promote/maintain strength and endurance needed for adls and transfers. Pt often with speedy movements and requires cues for slow controlled pace. 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 Education on participating in therapy in order to maintain strength. 2x10 in all planes Education OT Patient Education: Energy conservation, Exercise program, Progress toward Goal/Update tx plan, Purpose of tx/functional activities, Rehab process Teaching Recipient: Patient, Family Teaching Methods: Demonstration, Discussion Response to Teaching: Verbalize Understanding, Reinforcement Needed OT Short Term Goals Short Term Goals Eatin Oral hygiene: 6 Toileting hygiene: 6 Shower/bathe self: 3 Upper body dressin Lower body dressin Putting on/taking off footwear: 3 OT Truck Body Repairer Goals Fpc Goals Eating (QC): 6 Oral Hygiene (QC): 6 Toileting Hygiene (QC): 6 Shower/Bathe Self (QC): 5 Upper Body Dressing (QC): 5 Lower Body Dressing (QC): 4 On/Off Footwear (QC): 4 1=Demonstrate adherence to instructed precautions during ADL tasks. 2=Patient will verbalize/demonstrate understanding of assistive devices/modifications for ADL. 3=Patient will improve strength/tolerance for activity to enable patient to perform ADL's. OT Education/Plan Problem List/Assessment Assessment: Decreased Activ Tolerance, Decreased UE Strength, Impaired Funct Balance, Impaired Self-Care Skills Discharge Recommendations Plan/Recommendations: Continue POC Treatment Plan/Plan of Care Treatment,Training & Education: Yes Patient would benefit from OT for education, treatment and training to promote independence in ADL's, mobility, safety and/or upper extremity function for ADL's. Plan of Care: ADL Retraining, Functional Mobility, Group Exercise/Act as Ind, UE Funct Exercise/Act Treatment Duration: Oct 19, 2020 Frequency: 5 times per week Estimated Hrs Per Day: .25 hour per day Agreement: Yes Rehab Potential: Fair Time/GCodes Start Time: 11:49 Stop Time: 12:06 Total Time Billed (hr/min): 17 Billed Treatment Time 1, EX Migdalia Hinton OT Oct 10, 2020 13:05
[2020-10-10] MEDS: ENOXAPARIN 40 MG/0.4 ML (LOVENOX) SYR SC SCH (17:38)
[2020-10-10 18:03] VITALS: BP 140/62
[2020-10-10] MEDS: ROSUVASTATIN 20 MG (CRESTOR) TABLET PO SCH (20:13)
[2020-10-11] MEDS: LACTATED RINGERS 1,000 ML IV SCH ×3 (01:19→17:11)
[2020-10-11] MEDS: MEROPENEM 1,000 MG in WATER (STERILE) FOR INJECTION 20 ML IV SCH ×3 (01:19→17:51)
[2020-10-11] MEDS: inSUlin ASPART (NovoLOG) 1 UNIT/0.01 ML (CHARGE PER UNIT) SC SCH ×4 (05:17→21:00)
[2020-10-11 05:35] VITALS: BP 140/62
[2020-10-11] MEDS: LEVOTHYROXINE 75 MCG (LEVOTHROID) TABLET PO SCH (06:31)
--- NOTE | 2020-10-11 07:22 | Progress Note - Surgery ---
ISIDRA VUONG 10/11/20 0722: Subjective Date Seen by a Provider: Oct 11, 2020 Time Seen by a Provider: 06:30 Subjective/Events-last exam Pt is feeling well this morning. Denies any worsening symptoms. His only new symptom is wrist pain that began last night. He has a wrist brace that his is bringing him today. He has reportedly been working on his breathing 10x/hour when he is awake as was requested. Review of Systems General: No Chills, No Night Sweats; Fatigue HEENT: No Head Aches, No Visual Changes Pulmonary: No Dyspnea; Cough Cardiovascular: No: Chest Pain, Palpitations Gastrointestinal: No: Nausea, Vomiting Genitourinary: No Dysuria, No Incontinence, No Hematuria Musculoskeletal: hand pain (R wrist) Neurological: No: Weakness, Change in speech Focused Exam Lactate Level 10/09/20 17:00: Lactic Acid Level 1.06 Objective Exam Vital Signs Date Time Temp Pulse Resp B/P (MAP) Pulse Ox O2 Delivery O2 Flow Rate FiO2 10/11/20 05:35 37.4 75 18 140/62 (88) 97 Nasal Cannula 2.00 10/11/20 01:27 36.6 10/10/20 20:15 Room Air 3.00 10/10/20 19:30 94 Nasal Cannula 3.00 10/10/20 18:03 39.3 87 20 140/62 (88) 94 Nasal Cannula 2.00 10/10/20 09:00 Room Air 2.00 10/10/20 07:59 91 Nasal Cannula 3.00 I & O 10/11/20 07:00 Intake Total 4634 ml Output Total 1950 ml Balance 2684 ml Capillary Refill : General Appearance: No Apparent Distress, WD/WN Neck: Non Tender, Supple Respiratory: Chest Non Tender, No Accessory Muscle Use, No Respiratory Distress Cardiovascular: Regular Rate, Rhythm Gastrointestinal: non tender, soft, other (wound vac in place) Extremity: Other (Minimal edema) Neurologic/Psychiatric: Alert, Oriented x3, Normal Mood/Affect Skin: Normal Color, Warm/Dry Lymphatic: No Adenopathy Results Lab Laboratory Tests 10/10/20 11:10: Glucometer 200H 10/10/20 15:50: Glucometer 178H 10/10/20 20:41: Glucometer 140H 10/11/20 05:16: Glucometer 122H Microbiology 10/09/20 Blood Culture - Preliminary, Resulted No growth Assessment/Plan Assessment/Plan Assessment/Plan Sepsis Infected wound s/p ex lap small bowel resection manual decompression of small bowel. Possible pneumonia Wound vac in place. Change next on 10/11. Encourage ambulation. Encourage IS. Continue on solid food diet. Antibiotics were switched to Merrem He has been afebrile continue to monitor. White blood cell count trending down. Encouraged to use incentive spirometer. DB SANCHEZ DO 10/11/202030: Subjective Subjective/Events-last exam Patient states that he is feeling okay. Not having any significant pain. He feels like he is doing okay with breathing but requiring O2 supplementation. Patient did have fever last night. Did not notice. Patient is using his incentive spirometer he states. Patient is also ambulating without significant difficulty. Patient wound VAC is in place without difficulty or complaints. Patient has no fever sweats chills shortness of breath or chest pain at this time Objective Exam General Appearance: No Apparent Distress, WD/WN, Obese HEENT: PERRL/EOMI Neck: Non Tender, Supple Respiratory: Chest Non Tender, No Accessory Muscle Use, No Respiratory Distress Cardiovascular: Regular Rate, Rhythm, No JVD Gastrointestinal: non tender, soft, other (wound vac in place, no surrounding erythema wound VAC changed today and good granulation tissue coming in wound decreasing in size) Extremity: Other (Minimal edema) Neurologic/Psychiatric: Alert, Oriented x3, Normal Mood/Affect Skin: Normal Color, Warm/Dry Lymphatic: No Adenopathy Assessment/Plan Assessment/Plan Assessment/Plan Sepsis Infected wound s/p ex lap small bowel resection manual decompression of small bowel. Possible pneumonia Wound vac in place. Changed today on 10/11. Encourage ambulation. Encourage IS. Continue on solid food diet. Antibiotics were on Merrem Febrile last night, continue to monitor. White blood cell count trending down. Encouraged to use incentive spirometer. Since fever, do not want to dc home yet. Supervisory-Addendum Brief Verification & Attestation Participated in pt care: history, MDM, physical Personally performed: exam, history, MDM, supervision of care Care discussed with: Medical Student Procedures: n/a Results interpretation: Verified all documentation Verification and Attestation of Medical Student E/M Service A medical student performed and documented this service in my presence. I reviewed and verified all information documented by the medical student and made modifications to such information, when appropriate. I personally performed the physical exam and medical decision making. Db Sanchez, Oct 11, 2020,20:29 ISIDRA VUONG Oct 11, 2020 07:22 DB SANCHEZ DO Oct 11, 2020 20:31
[2020-10-11] MEDS: RT-ALBUTEROL SULF 2.5 MG/3 ML PRE-MIX VIAL INH SCH ×2 (07:38→20:28)
[2020-10-11 08:00] VITALS: BP 125/65
[2020-10-11 08:50] LABS: BASOPHILS # (AUTO) 0.1 10^3/uL (0.0-0.1); BASOPHILS % (AUTO) 0 % (0-10); EOSINOPHILS # (AUTO) 0.1 10^3/uL (0.0-0.3); EOSINOPHILS % (AUTO) 1 % (0-10); MEAN CORPUSCULAR HGB CONC 32 g/dL (32-36)
[2020-10-11 08:52] LABS: HEMATOCRIT 38 % (40-54); HEMOGLOBIN 11.9 g/dL (13.3-17.7); LYMPHOCYTES # (AUTO) 2.3 10^3/uL (1.0-4.0); LYMPHOCYTES % (AUTO) 17 % (12-44); MEAN CORPUSCULAR HEMOGLOBIN 29 pg (25-34); MEAN CORPUSCULAR VOLUME 91 fL (80-99); MEAN PLATELET VOLUME 11.4 fL (9.0-12.2); MONOCYTES # (AUTO) 1.6 10^3/uL (0.0-1.0); MONOCYTES % (AUTO) 12 % (0-12); NEUTROPHILS # (AUTO) 9.4 10^3/uL (1.8-7.8); NEUTROPHILS % (AUTO) 69 % (42-75); PLATELET COUNT 384 10^3/uL (130-400); WHITE BLOOD COUNT 13.6 10^3/uL (4.3-11.0)
[2020-10-11] MEDS: lisINopril 5 MG (PRINIVIL) TABLET PO SCH (08:53)
[2020-10-11] MEDS: ASPIRIN E.C. 81 MG (ECOTRIN) TAB PO SCH (08:53)
[2020-10-11] MEDS: FAMOTIDINE 20 MG (PEPCID) TABLET PO SCH ×2 (08:53→20:36)
[2020-10-11] MEDS: ACETAMINOPHEN 325 MG TABLET PO PRN (08:56)
[2020-10-11 09:02] LABS: CALCIUM 9.8 MG/DL (8.5-10.1); CREATININE SERUM 0.74 MG/DL (0.60-1.30); POTASSIUM 4.1 MMOL/L (3.6-5.0)
--- NOTE | 2020-10-11 10:00 | Physical Therapy Daily Note ---
PT Daily Note-Current Subjective Patient agrees to PT. C/o right wrist pain. Mental Status Patient Orientation: Normal For Age Attachments: Oxygen, IV abdominal wound vac Transfers SCALE: Activities may be completed with or without assistive devices. 0-Tclpjeusaa-ppeyaul completes the activity by him/herself with no assistance from a helper. 5-Set-up or Clean-up Assistance-helper sets up or cleans up; patient completes activity. [place] assists only prior to or following the activity. 4-Supervision or Touching Assistance-helper provides verbal cues and/or touching/steadying and/or contact guard assistance as patient completes activ ity. Assistance may be provided throughout the activity or intermittently. 3-Partial/Moderate Assistance-helper does LESS THAN HALF the effort. [place] lifts, holds or supports trunk or limbs, but provides less than half the effort. 2-Substantial/Maximal Assistance-helper does MORE THAN HALF the effort. [place] lifts or holds trunk or limbs and provides more than half the effort. 8-Zxqlnlorp-insjiy does ALL the effort. Patient does none of the effort to complete the activity. Or, the assistance of 2 or more helpers is required for the patient to complete the activity. If activity was not attempted, code reason: 7-Patient Refused. 9-Not Applicable-not attempted and the patient did not perform the activity before the current illness, exacerbation or injury. 10-Not Attempted due to Environmental Limitations-(lack of equipment, weather restraints, etc.). 88-Not Attempted due to Medical Conditions or Safety Concerns. Lying to Sitting/Side of Bed(Q: 4 Sit to Stand (QC): 4 Chair/Uep-ug-Eekpv Xfer(QC): 4 Gait Training Does the Patient Walk?: Yes Distance: 250' Walk 10 feet (QC): 4 Walk 50 ft with 2 Turns(QC): 4 Walk 150 ft (QC): 4 Gait Assistive Device: Walker Platform (right to decrease wrist pain) slow, shuffle gait sequence Assessment Patient requires time to complete all functional tasks. Increase activity as tolerated by patient. PT Motion Picture Printer Goals Motion Picture Printer Goals PT Motion Picture Printer Goals Time Frame: Oct 27, 2020 Roll Left & Right (QC): 6 Sit to Lying (QC): 6 Lying-Sitting on Side/Bed(QC): 6 Sit to Stand (QC): 6 Chair/Jku-fc-Gnica Xfer(QC): 6 Toilet Transfer (QC): 6 Car Transfer (QC): 6 Does the Patient Walk: Yes Walk 10 feet (QC): 6 Walk 50ft with 2 Turns (QC): 6 Walk 150 ft (QC): 6 Walking 10ft on Uneven Surface: 6 1 Step (curb) (QC): 6 4 Steps (QC): 6 12 Steps (QC): 9 Picking up an Object (QC): 6 Wheel 50 feet with 2 turns (QC: 9 Wheel 150 feet: 9 PT Plan Treatment/Plan Treatment Plan: Continue Plan of Care Treatment Plan: Bed Mobility, Education, Functional Activity Yeimi, Functional Strength, Gait, Safety, Therapeutic Exercise, Transfers Treatment Duration: Oct 27, 2020 Frequency: 6 times per week Estimated Hrs Per Day: .25 hour per day Patient and/or Family Agrees t: Yes Time/GCodes Time In: 923 Time Out: 938 Total Billed Treatment Time: 15 Total Billed Treatment 1 visit FA 15 min WARNER COX PT Oct 11, 2020 10:00
--- NOTE | 2020-10-11 10:17 | Diagnostic Imaging Report ---
INDICATION: Fever. TIME OF EXAM: 9:45 a.m. Correlation is made with prior chest from 10/09/2020. Changes of median sternotomy and CABG are noted. There is some residual infiltrate or atelectasis in the left base, similar to prior exam. Right lung remains clear. No significant effusion is seen. There is no pneumothorax. IMPRESSION: Overall stable appearance of the chest when compared with exam 2 days earlier. Dictated by: Dictated on workstation # [id number]
--- NOTE | 2020-10-11 10:20 | Occupational Ther Daily Note ---
OT Current Status-Daily Note Subjective Pt alert, just got back from radiology. Pt agrees to therapy. C/o R wrist/hand pain due to bone spurs. See note below. Mental Status/Objective Patient Orientation: Person, Place, Time, Situation Attachments: Drains (wound vac), IV, Oxygen ADL-Treatment Pt agrees to complete sponge bath with bath pack sitting EOB. Pt able to bathe all areas except lower legs and feet. CGA for safety while standing as pt is cleansing marcela area/ buttocks. Supine <--> EOB independent. Assist to [facility] due to pain in R hand. Pt c/o pain in R hand. Pt stated is bringing wrist splint later today. ROSHNI wrap and ice pack placed on R wrist to decrease pain and support with movement. After therapy, pt lying in bed with call light/phone in reach. All needs met in room. Daughter present in room. Therapy Code Descriptions/Definitions Functional [place] Measure: 0=Not Assessed/NA 4=Minimal Assistance 1=Total Assistance 5=Supervision or Setup 2=Maximal Assistance 6=Modified [place] 3=Moderate Assistance 7=Complete IndependenceSCALE: Activities may be completed with or without assistive devices. 9-Uewilvgwya-ahwoxiz completes the activity by him/herself with no assistance from a helper. 5-Set-up or Clean-up Assistance-helper sets up or cleans up; patient completes activity. [place] assists only prior to or following the activity. 4-Supervision or Touching Assistance-helper provides verbal cues and/or touching/steadying and/or contact guard assistance as patient completes activity. Assistance may be provided throughout the activity or intermittently. 3-Partial/Moderate Assistance-helper does LESS THAN HALF the effort. [place] lifts, holds or supports trunk or limbs, but provides less than half the effort. 2-Substantial/Maximal Assistance-helper does MORE THAN HALF the effort. [place] lifts or holds trunk or limbs and provides more than half the effort. 1-Jixojixhv-kttcfe does ALL the effort. Patient does none of the effort to complete the activity. Or, the assistance of 2 or more helpers is required for the patient to complete the activity. If activity was not attempted, code reason: 7-Patient Refused. 9-Not Applicable-not attempted and the patient did not perform the activity before the current illness, exacerbation or injury. 10-Not Attempted due to Environmental Limitations-(lack of equipment, weather restraints, etc.). 88-Not Attempted due to Medical Conditions or Safety Concerns. Bathing Location: L Arm, R Arm, L Upper Leg, R Upper Leg, Chest, Abdomen, Buttocks, Perineal Area Shower/Bathe Self (QC): 3 On/Off Footwear: 2 Toileting Hygiene (QC): 5 (Pt able to place urninal, assist to gather and empty.) OT Short Term Goals Short Term Goals Eatin Oral hygiene: 6 Toileting hygiene: 6 Shower/bathe self: 3 Upper body dressin Lower body dressin Putting on/taking off footwear: 3 OT Cardiothoracic Surgeon Goals [facility] Goals Eating (QC): 6 Oral Hygiene (QC): 6 Toileting Hygiene (QC): 6 Shower/Bathe Self (QC): 5 Upper Body Dressing (QC): 5 Lower Body Dressing (QC): 4 On/Off Footwear (QC): 4 1=Demonstrate adherence to instructed precautions during ADL tasks. 2=Patient will verbalize/demonstrate understanding of assistive devices/modifications for ADL. 3=Patient will improve strength/tolerance for activity to enable patient to perform ADL's. OT Education/Plan Problem List/Assessment Assessment: Decreased Activ Tolerance, Decreased UE Strength Discharge Recommendations Plan/Recommendations: Continue POC Treatment Plan/Plan of Care Patient would benefit from OT for education, treatment and training to promote independence in ADL's, mobility, safety and/or upper extremity function for ADL's. Plan of Care: ADL Retraining, Functional Mobility, Group Exercise/Act as Ind, UE Funct Exercise/Act Treatment Duration: Oct 19, 2020 Frequency: 5 times per week Estimated Hrs Per Day: .25 hour per day Agreement: Yes Rehab Potential: Fair Time/GCodes Start Time: 09:48 Stop Time: 10:11 Total Time Billed (hr/min): 23 Billed Treatment Time 1 visit-ADL 2 (23 min) ROBERTO JAIN Oct 11, 2020 10:20
--- NOTE | 2020-10-11 13:14 | Progress Note - Hospitalist ---
Subjective HPI/CC On Admission Date Seen by Provider: Oct 11, 2020 Time Seen by Provider: 09:10 Patient is an 89-year-old male known to me from recent admission for small bowel obstruction who was admitted to [facility] for continued physical therapy, Occupational Therapy, IV antibiotics, and wound VAC care. He has been doing well postoperatively following his bowel resection. I am consulted for medical management. He states there's a little more redness around his wound today. Otherwise he has no complaints. Subjective/Events-last exam He is feeling about the same. He did not notice any fevers. He denies diaphoresis. He does not feel short of breath. He has had a cough. He denies abdominal pain, nausea, vomiting, and diarrhea. Focused Exam Lactate Level 10/09/20 17:00: Lactic Acid Level 1.06 Objective Exam Vital Signs Vital Signs Date Time Temp Pulse Resp B/P (MAP) Pulse Ox O2 Delivery O2 Flow Rate FiO2 10/11/20 09:00 Nasal Cannula 3.00 10/11/20 08:00 37.3 72 22 125/65 (85) 96 10/07/20 03:15 21 Capillary Refill : General Appearance: No Apparent Distress, Obese Respiratory: Lungs Clear, Normal Breath Sounds, No Respiratory Distress Cardiovascular: Regular Rate, Rhythm, No Murmur Gastrointestinal: Normal Bowel Sounds, Non Tender, Soft Extremity: Normal Inspection, Non Tender, Pedal Edema Neurologic/Psychiatric: Alert, Oriented x3, No Motor/Sensory Deficits, Normal Mood/Affect Skin: Normal Color, Warm/Dry Results/Procedures Lab Laboratory Tests 10/11/20 08:40 Patient resulted labs reviewed. Imaging: Reviewed Imaging Report Assessment/Plan Assessment and Plan Assess & Plan/Chief Complaint Sepsis Possible pneumonia s/p SBO s/p small bowel resection Febrile last night, WBC normal and stable Repeat chest xray with persistent left lower lobe infiltrate Procalcitonin within normal limits, stable UA normal Lactic acid normal Wound vac well appearing CT Abdomen with no acute abnormalities Continue Merrem Check d-dimer, consider venous dopplers if elevated Continue incentive spirometry DVT prophylaxis: Lovenox Diagnosis/Problems Diagnosis/Problems (1) Sepsis Status: Acute (2) Small bowel obstruction Status: Acute (3) S/P small bowel resection Status: Acute JORDAN OGDEN MD Oct 11, 2020 13:14
[2020-10-11] MEDS: morphine INJ 4 MG/ML 1 ML (VIAL/SYRINGE) IVP PRN (13:51)
[2020-10-11] MEDS: ENOXAPARIN 40 MG/0.4 ML (LOVENOX) SYR SC SCH (17:11)
[2020-10-11 17:38] VITALS: BP 128/61
[2020-10-11] MEDS: ROSUVASTATIN 20 MG (CRESTOR) TABLET PO SCH (20:36)
[2020-10-12] MEDS: LACTATED RINGERS 1,000 ML IV SCH ×4 (00:58→23:45)
[2020-10-12] MEDS: ACETAMINOPHEN 325 MG TABLET PO PRN ×2 (00:58→18:42)
[2020-10-12] MEDS: MEROPENEM 1,000 MG in WATER (STERILE) FOR INJECTION 20 ML IV SCH ×3 (01:45→17:19)
[2020-10-12] MEDS: inSUlin ASPART (NovoLOG) 1 UNIT/0.01 ML (CHARGE PER UNIT) SC SCH ×4 (05:19→21:01)
[2020-10-12 05:41] VITALS: BP 137/66
[2020-10-12] MEDS: LEVOTHYROXINE 75 MCG (LEVOTHROID) TABLET PO SCH (06:02)
--- NOTE | 2020-10-12 07:32 | Progress Note - Surgery ---
ISIDRA VUONG 10/12/20 0732: Subjective Date Seen by a Provider: Oct 12, 2020 Time Seen by a Provider: 06:15 Subjective/Events-last exam Patient states that he is doing well this morning. He is still having some pain in the wrist but other than that reports no new pain. He is still using the spirometer as was asked of him. He had a fever and sweats last night, which was treated with tylenol and is better now. Review of Systems General: Night Sweats (Last night. Better now.) Pulmonary: No Dyspnea; Cough Cardiovascular: No: Chest Pain, Palpitations Gastrointestinal: No: Nausea, Vomiting, Diarrhea, Constipation Genitourinary: No Dysuria, No Hematuria Neurological: No: Weakness, Numbness Focused Exam Lactate Level 10/09/20 17:00: Lactic Acid Level 1.06 Objective Exam Vital Signs Date Time Temp Pulse Resp B/P (MAP) Pulse Ox O2 Delivery O2 Flow Rate FiO2 10/12/20 05:41 36.4 86 20 137/66 (89) 96 Nasal Cannula 3.00 10/12/20 01:37 36.8 10/12/20 01:37 36.8 10/12/20 00:58 38.4 10/12/20 00:47 38.4 10/11/20 20:40 Nasal Cannula 3.00 10/11/20 20:28 93 3.00 10/11/20 17:38 38.0 79 20 128/61 (83) 97 Nasal Cannula 3.00 10/11/20 09:00 Nasal Cannula 3.00 10/11/20 08:00 37.3 72 22 125/65 (85) 96 Nasal Cannula 2.00 10/11/20 07:38 94 3.00 I & O 10/12/20 07:00 Intake Total 4870 ml Output Total 4425 ml Balance 445 ml Capillary Refill : General Appearance: No Apparent Distress, WD/WN, Obese Neck: Non Tender, Supple Respiratory: Chest Non Tender, Lungs Clear, Normal Breath Sounds, No Accessory Muscle Use, No Respiratory Distress Cardiovascular: Regular Rate, Rhythm, No Gallop, No Murmur Gastrointestinal: non tender, soft Neurologic/Psychiatric: Alert, Oriented x3, Normal Mood/Affect Skin: Normal Color Lymphatic: No Adenopathy Results Lab Laboratory Tests 10/11/20 08:40: White Blood Count 13.6H, Red Blood Count 4.15L, Hemoglobin 11.9L, Hematocrit 38L , Mean Corpuscular Volume 91, Mean Corpuscular Hemoglobin 29, Mean Corpuscular Hemoglobin Concent 32, Red Cell Distribution Width 14.3, Platelet Count 384, Mean Platelet Volume 11.4, Immature Granulocyte % (Auto) 1, Neutrophils (%) (Auto) 69, Lymphocytes (%) (Auto) 17, Monocytes (%) (Auto) 12, Eosinophils (%) (Auto) 1, Basophils (%) (Auto) 0, Neutrophils # (Auto) 9.4H, Lymphocytes # (Auto) 2.3, Monocytes # (Auto) 1.6H, Eosinophils # (Auto) 0.1, Basophils # (Auto) 0.1, Immature Granulocyte # (Auto) 0.1, Percent Immature Platelet Fraction 9.3H, D-Dimer 1.64H, Sodium Level 132L, Potassium Level 4.1, Chloride Level 99, Carbon Dioxide Level 29, Anion Gap 4L, Blood Urea Nitrogen 9, Creatinine 0.74, Estimat Glomerular Filtration Rate 100, BUN/Creatinine Ratio 12, Glucose Level 146H, Calcium Level 9.8, Procalcitonin 0.18H 10/11/20 11:05: Glucometer 177H 10/11/20 16:23: Glucometer 146H 10/11/20 20:46: Glucometer 163H 10/12/20 05:08: Glucometer 130H Microbiology 10/09/20 Blood Culture - Preliminary, Resulted No growth Assessment/Plan Assessment/Plan Assessment/Plan Sepsis Infected wound s/p ex lap small bowel resection manual decompression of small bowel. Possible pneumonia Wound vac in place. Changed yesterday on 10/11. Encourage ambulation. Encourage IS. Continue on solid food diet. Antibiotics were on Merrem Febrile last night, continue to monitor. Encouraged to use incentive spirometer. Since fever, do not want to dc home yet. DB SANCHEZ DO 10/12/202014: Subjective Subjective/Events-last exam Patient states he is feeling well. He has some wrist pain which she is using a brace for. Patient is still using incentive spirometer. He is still having fever on occasion. He is tolerating diet. He has no abdominal pain. Wound VAC in place without any signs of infection. Still requiring oxygen per nasal cannula. Denies any nausea vomiting fever sweats chills shortness of breath or chest pain at this time. Objective Exam General Appearance: No Apparent Distress, Obese HEENT: PERRL/EOMI, Normal ENT Inspection Neck: Non Tender, Supple Respiratory: Chest Non Tender, No Accessory Muscle Use, No Respiratory Distress Cardiovascular: Regular Rate, Rhythm, No JVD Gastrointestinal: non tender, soft, other (Wound VAC without any signs of surrounding infection) Neurologic/Psychiatric: Alert, Oriented x3, Normal Mood/Affect Skin: Normal Color, Warm/Dry Lymphatic: No Adenopathy Assessment/Plan Assessment/Plan Assessment/Plan Sepsis Infected wound s/p ex lap small bowel resection manual decompression of small bowel. Possible pneumonia Wound vac in place. Changed yesterday on 10/11. Encourage ambulation. Encourage IS. May use Acapella better? Working with respiratory therapy. Continue on solid food diet. Antibiotics on Merrem day BC trending down. Febrile last night, continue to monitor. Encouraged to use incentive spirometer. Since fever, do not want to dc home yet. Supervisory-Addendum Brief Verification & Attestation Participated in pt care: history, MDM, physical Personally performed: exam, history, MDM, supervision of care Care discussed with: Medical Student Procedures: n/a Results interpretation: Verified all documentation Verification and Attestation of Medical Student E/M Service A medical student performed and documented this service in my presence. I reviewed and verified all information documented by the medical student and made modifications to such information, when appropriate. I personally performed the physical exam and medical decision making. Db Sanchez, Oct 12, 2020,20:15 ISIDRA VUONG Oct 12, 2020 07:32 DB SANCHEZ DO Oct 12, 2020 20:15
[2020-10-12] MEDS: lisINopril 5 MG (PRINIVIL) TABLET PO SCH (08:09)
[2020-10-12] MEDS: FAMOTIDINE 20 MG (PEPCID) TABLET PO SCH ×2 (08:09→21:07)
[2020-10-12] MEDS: ASPIRIN E.C. 81 MG (ECOTRIN) TAB PO SCH (08:09)
[2020-10-12 08:39] LABS: HEMOGLOBIN 12.3 g/dL (13.3-17.7); MEAN PLATELET VOLUME 11.1 fL (9.0-12.2); WHITE BLOOD COUNT 11.3 10^3/uL (4.3-11.0)
[2020-10-12 09:05] LABS: CALCIUM 10.1 MG/DL (8.5-10.1); CREATININE SERUM 0.73 MG/DL (0.60-1.30); MAGNESIUM 2.1 MG/DL (1.6-2.4); POTASSIUM 4.3 MMOL/L (3.6-5.0)
[2020-10-12] MEDS: RT-ALBUTEROL SULF 2.5 MG/3 ML PRE-MIX VIAL INH SCH (10:48)
--- NOTE | 2020-10-12 11:38 | Occupational Ther Daily Note ---
OT Current Status-Daily Note Subjective Pt alert, lying in bed. Pt agrees to therapy. States that he feels better but not good enough to go home. Mental Status/Objective Patient Orientation: Person, Place, Time, Situation Attachments: Drains (wound vac), IV, Oxygen ADL-Treatment Therapy Code Descriptions/Definitions Functional [place] Measure: 0=Not Assessed/NA 4=Minimal Assistance 1=Total Assistance 5=Supervision or Setup 2=Maximal Assistance 6=Modified [place] 3=Moderate Assistance 7=Complete IndependenceSCALE: Activities may be completed with or without assistive devices. 3-Cgfpbdknxf-xgwuuiv completes the activity by him/herself with no assistance from a helper. 5-Set-up or Clean-up Assistance-helper sets up or cleans up; patient completes activity. [place] assists only prior to or following the activity. 4-Supervision or Touching Assistance-helper provides verbal cues and/or touching/steadying and/or contact guard assistance as patient completes activity. Assistance may be provided throughout the activity or intermittently. 3-Partial/Moderate Assistance-helper does LESS THAN HALF the effort. [place] lifts, holds or supports trunk or limbs, but provides less than half the effort. 2-Substantial/Maximal Assistance-helper does MORE THAN HALF the effort. [place] lifts or holds trunk or limbs and provides more than half the effort. 8-Cxhtzuesa-szqxiu does ALL the effort. Patient does none of the effort to complete the activity. Or, the assistance of 2 or more helpers is required for the patient to complete the activity. If activity was not attempted, code reason: 7-Patient Refused. 9-Not Applicable-not attempted and the patient did not perform the activity before the current illness, exacerbation or injury. 10-Not Attempted due to Environmental Limitations-(lack of equipment, weather restraints, etc.). 88-Not Attempted due to Medical Conditions or Safety Concerns. Other Treatment Supine to sitting EOB with HOB raised independently. Using elevated surface, CGA for sit <--> stand. CGA to ambulated using platform FWW from bed to recliner. Pt then completed 2 sets 10 reps of B UE exercises to increase B UE strength for daily functional tasks. Skilled instruction to complete exercises in all planes against gravity. After therapy, pt sitting in recliner with call light/phone in reach. All needs met in room. OT Short Term Goals Short Term Goals Eatin Oral hygiene: 6 Toileting hygiene: 6 Shower/bathe self: 3 Upper body dressin Lower body dressin Putting on/taking off footwear: 3 OT Contract Recruiter Goals Contract Recruiter Goals Eating (QC): 6 Oral Hygiene (QC): 6 Toileting Hygiene (QC): 6 Shower/Bathe Self (QC): 5 Upper Body Dressing (QC): 5 Lower Body Dressing (QC): 4 On/Off Footwear (QC): 4 1=Demonstrate adherence to instructed precautions during ADL tasks. 2=Patient will verbalize/demonstrate understanding of assistive devices/modifications for ADL. 3=Patient will improve strength/tolerance for activity to enable patient to pe rform ADL's. OT Education/Plan Problem List/Assessment Assessment: Decreased Activ Tolerance, Decreased UE Strength, Impaired Bed Mobility, Impaired Self-Care Skills Discharge Recommendations Plan/Recommendations: Continue POC Treatment Plan/Plan of Care Patient would benefit from OT for education, treatment and training to promote independence in ADL's, mobility, safety and/or upper extremity function for ADL's. Plan of Care: ADL Retraining, Functional Mobility, Group Exercise/Act as Ind, UE Funct Exercise/Act Treatment Duration: Oct 19, 2020 Frequency: 5 times per week Estimated Hrs Per Day: .25 hour per day Agreement: Yes Rehab Potential: Fair Time/GCodes Start Time: 10:30 Stop Time: 10:48 Total Time Billed (hr/min): 18 Billed Treatment Time 1 visit-FA 1 (18 min) ROBERTO JAIN Oct 12, 2020 11:38
--- NOTE | 2020-10-12 11:59 | Physical Therapy Daily Note ---
PT Daily Note-Current Subjective Patient initially declined PT due to fatigue/weakness. PT educated patient on importance of participating with therapy to improve strength and mobility to return to home with spouse. Mental Status Patient Orientation: Normal For Age Attachments: Oxygen, [place]um Catheter, IV Transfers SCALE: Activities may be completed with or without assistive devices. 9-Oetxlkafmr-hmgqzig completes the activity by him/herself with no assistance from a helper. 5-Set-up or Clean-up Assistance-helper sets up or cleans up; patient completes activity. [place] assists only prior to or following the activity. 4-Supervision or Touching Assistance-helper provides verbal cues and/or touching/steadying and/or contact guard assistance as patient completes activity. Assistance may be provided throughout the activity or intermittently. 3-Partial/Moderate Assistance-helper does LESS THAN HALF the effort. [place] lifts, holds or supports trunk or limbs, but provides less than half the effort. 2-Substantial/Maximal Assistance-helper does MORE THAN HALF the effort. [place] lifts or holds trunk or limbs and provides more than half the effort. 2-Hykpyfkzt-yumoyq does ALL the effort. Patient does none of the effort to complete the activity. Or, the assistance of 2 or more helpers is required for the patient to complete the activity. If activity was not attempted, code reason: 7-Patient Refused. 9-Not Applicable-not attempted and the patient did not perform the activity before the current illness, exacerbation or injury. 10-Not Attempted due to Environmental Limitations-(lack of equipment, weather restraints, etc.). 88-Not Attempted due to Medical Conditions or Safety Concerns. Sit to Stand (QC): 3 Gait Training Does the Patient Walk?: Yes Distance: 325' Walk 10 feet (QC): 4 Walk 50 ft with 2 Turns(QC): 4 Walk 150 ft (QC): 4 Gait Assistive Device: Walker Platform (right due to wrist pain) slow, shuffle gait sequence Exercises Seated Therapy Exercises: Ankle pumps, Long arc quads, Hip flexion Seated Reps: 12 Assessment Patient remains up in recliner with needs met. Increase activity as tolerated by patient. PT Skilled Nursing Goals Excel Expert Goals PT Excel Expert Goals Time Frame: Oct 27, 2020 Roll Left & Right (QC): 6 Sit to Lying (QC): 6 Lying-Sitting on Side/Bed(QC): 6 Sit to Stand (QC): 6 Chair/Gvy-ge-Fwttu Xfer(QC): 6 Toilet Transfer (QC): 6 Car Transfer (QC): 6 Does the Patient Walk: Yes Walk 10 feet (QC): 6 Walk 50ft with 2 Turns (QC): 6 Walk 150 ft (QC): 6 Walking 10ft on Uneven Surface: 6 1 Step (curb) (QC): 6 4 Steps (QC): 6 12 Steps (QC): 9 Picking up an Object (QC): 6 Wheel 50 feet with 2 turns (QC: 9 Wheel 150 feet: 9 PT Plan Treatment/Plan Treatment Plan: Continue Plan of Care Treatment Plan: Bed Mobility, Education, Functional Activity [place], Functional Strength, Gait, Safety, Therapeutic Exercise, Transfers Treatment Duration: Oct 27, 2020 Frequency: 6 times per week Estimated Hrs Per Day: .25 hour per day Patient and/or Family Agrees t: Yes Time/GCodes Time In: 1055 Time Out: 1110 Total Billed Treatment Time: 15 Total Billed Treatment 1 visit FA 15 min WARNER COX PT Oct 12, 2020 11:59
--- NOTE | 2020-10-12 14:22 | Diagnostic Imaging Report ---
PROCEDURE: US Venous Lower Ext Suman. TECHNIQUE: Multiple real-time grayscale images were obtained over the lower extremities in various projections, bilaterally. Additional duplex Doppler and color Doppler images were also obtained. INDICATION: Elevated D-dimer. FINDINGS: There is no evidence of right or left lower extremity DVT. Both lower extremity deep venous systems showed normal compressibility with normal response to augmentation and Valsalva. No fluid collection or mass is detected. IMPRESSION: No evidence of right or left lower extremity DVT. Dictated by: Dictated on workstation # [id number]
[2020-10-12] MEDS: ENOXAPARIN 40 MG/0.4 ML (LOVENOX) SYR SC SCH (17:19)
[2020-10-12 18:00] VITALS: BP 127/60
[2020-10-12 18:36] VITALS: BP 137/66
[2020-10-12] MEDS: ROSUVASTATIN 20 MG (CRESTOR) TABLET PO SCH (21:07)
[2020-10-13] MEDS: LACTATED RINGERS 1,000 ML IV SCH ×3 (01:53→18:15)
[2020-10-13] MEDS: MEROPENEM 1,000 MG in WATER (STERILE) FOR INJECTION 20 ML IV SCH ×3 (01:57→17:33)
[2020-10-13 05:31] VITALS: BP 111/56
[2020-10-13] MEDS: inSUlin ASPART (NovoLOG) 1 UNIT/0.01 ML (CHARGE PER UNIT) SC SCH ×4 (06:17→20:25)
[2020-10-13] MEDS: LEVOTHYROXINE 75 MCG (LEVOTHROID) TABLET PO SCH (06:42)
[2020-10-13 08:00] VITALS: BP 111/62
[2020-10-13] MEDS ORDERED: RT-ALBUTEROL SULF 2.5 MG/3 ML PRE-MIX VIAL INH PRN (08:00)
[2020-10-13] MEDS: lisINopril 5 MG (PRINIVIL) TABLET PO SCH (08:16)
[2020-10-13] MEDS: FAMOTIDINE 20 MG (PEPCID) TABLET PO SCH ×2 (08:16→20:52)
[2020-10-13] MEDS: ASPIRIN E.C. 81 MG (ECOTRIN) TAB PO SCH (08:16)
[2020-10-13] MEDS ORDERED: RT-ALBUTEROL SULF 2.5 MG/3 ML PRE-MIX VIAL INH SCH (09:00)
--- NOTE | 2020-10-13 11:09 | Progress Note ---
Subjective Date Seen by a Provider: Oct 13, 2020 Time Seen by a Provider: 10:20 Subjective/Events-last exam Patient seen with Dr. Tolbert. Patient reports doing well. Having some mild abdominal discomfort but no significant pain. Tolerating diet. Denies any sweats or chills. Passing flatus. Working with PT. Objective Exam Vital Signs Date Time Temp Pulse Resp B/P (MAP) Pulse Ox O2 Delivery O2 Flow Rate FiO2 10/13/20 09:00 Nasal Cannula 2.00 10/13/20 07:46 69 96 24 10/13/20 07:27 95 Nasal Cannula 1.00 10/13/20 05:31 36.9 78 20 111/56 (74) 94 Nasal Cannula 3.00 10/12/20 21:00 Nasal Cannula 3.00 10/12/20 18:42 37.6 10/12/20 18:36 36.4 86 96 10/12/20 18:00 37.4 81 20 127/60 (82) 95 Nasal Cannula 3.00 10/12/20 16:32 37.0 I & O 10/13/20 07:00 Intake Total 2355 ml Output Total 6000 ml Balance -3645 ml Capillary Refill : General Appearance: No Apparent Distress, WD/WN Neck: Normal Inspection, Non Tender Respiratory: No Accessory Muscle Use, No Respiratory Distress Cardiovascular: Regular Rate, Rhythm, No Edema Gastrointestinal: normal bowel sounds, soft, tenderness (Mid abdomen), other (Wound vac in place to incision with no redness or erythema noted) Extremity: Normal Inspection, Normal Range of Motion Neurologic/Psychiatric: Alert, Oriented x3 Skin: Normal Color, Warm/Dry Results Lab Laboratory Tests 10/12/20 11:31: Glucometer 149H 10/12/20 20:58: Glucometer 168H 10/13/20 05:34: Glucometer 109 Microbiology 10/09/20 Blood Culture - Preliminary, Resulted No growth Assessment/Plan Assessment/Plan Assess & Plan/Chief Complaint An 89 year old male with Sepsis, Infected wound, s/p ex lap small bowel resection manual decompression of small bowel, Possible pneumonia VSS WBC 11.3 Continue IV fluids, abx, pain medications Wound vac in place. Continue PT and IS Continue diet Will continue to monitor VS and labs NAT MCKENZIE APRN Oct 13, 2020 11:08
[2020-10-13] MEDS: RT-ALBUTEROL SULF 2.5 MG/3 ML PRE-MIX VIAL INH SCH ×3 (11:22→19:00)
--- NOTE | 2020-10-13 11:37 | Physical Therapy Daily Note ---
PT Daily Note-Current Subjective Pt supine in bed upon arrival to room, agreeable to PT session. States he has low energy this date. Appearance Following session, pt up in recliner chair with BLE elevated, call light and tray within reach. RN present giving medication this date Mental Status Patient Orientation: Person Attachments: Oxygen (1L), Other-See Comments (wound vac), IV Transfers SCALE: Activities may be completed with or without assistive devices. 9-Gscakebcpd-khlfdqr completes the activity by him/herself with no assistance from a helper. 5-Set-up or Clean-up Assistance-helper sets up or cleans up; patient completes activity. [place] assists only prior to or following the activity. 4-Supervision or Touching Assistance-helper provides verbal cues and/or touching/steadying and/or contact guard assistance as patient completes activity. Assistance may be provided throughout the activity or intermittently. 3-Partial/Moderate Assistance-helper does LESS THAN HALF the effort. [place] lifts, holds or supports trunk or limbs, but provides less than half the effort. 2-Substantial/Maximal Assistance-helper does MORE THAN HALF the effort. [place] lifts or holds trunk or limbs and provides more than half the effort. 8-Lreslecsv-fgnskf does ALL the effort. Patient does none of the effort to complete the activity. Or, the assistance of 2 or more helpers is required for the patient to complete the activity. If activity was not attempted, code reason: 7-Patient Refused. 9-Not Applicable-not attempted and the patient did not perform the activity before the current illness, exacerbation or injury. 10-Not Attempted due to Environmental Limitations-(lack of equipment, weather restraints, etc.). 88-Not Attempted due to Medical Conditions or Safety Concerns. Sit to Stand (QC): 4 Chair/Cut-ei-Thjll Xfer(QC): 4 Gait Training Distance: 200' Walk 10 feet (QC): 4 Walk 50 ft with 2 Turns(QC): 4 Walk 150 ft (QC): 4 Gait Assistive Device: FWW Pt ambulates with small, shuffling steps. No LOB noted. Exercises Seated Therapy Exercises: Ankle pumps, Long arc quads Assessment Current Status: Fair Progress Pt required encouragement to complete PT session, tolerated well once agreeable. PT Detention Goals Detention Goals PT Detention Goals Time Frame: Oct 27, 2020 Roll Left & Right (QC): 6 Sit to Lying (QC): 6 Lying-Sitting on Side/Bed(QC): 6 Sit to Stand (QC): 6 Chair/Jhs-xo-Xabde Xfer(QC): 6 Toilet Transfer (QC): 6 Car Transfer (QC): 6 Does the Patient Walk: Yes Walk 10 feet (QC): 6 Walk 50ft with 2 Turns (QC): 6 Walk 150 ft (QC): 6 Walking 10ft on Uneven Surface: 6 1 Step (curb) (QC): 6 4 Steps (QC): 6 12 Steps (QC): 9 Picking up an Object (QC): 6 Wheel 50 feet with 2 turns (QC: 9 Wheel 150 feet: 9 PT Plan Problem List Problem List: Activity Tolerance, Functional Strength, Safety, Balance, Gait, Transfer, Bed Mobility, ROM Treatment/Plan Treatment Plan: Continue Plan of Care Treatment Plan: Bed Mobility, Education, Functional Activity Yeimi, Functional Strength, Gait, Safety, Therapeutic Exercise, Transfers Treatment Duration: Oct 27, 2020 Frequency: 6 times per week Estimated Hrs Per Day: .25 hour per day Patient and/or Family Agrees t: Yes Time/GCodes Time In: 952 Time Out: 1015 Total Billed Treatment Time: 23 Total Billed Treatment 1 visit EX (10') GT (13') ABHILASH RUIZ PT Oct 13, 2020 11:37
[2020-10-13 17:27] VITALS: BP 100/58
[2020-10-13] MEDS: ENOXAPARIN 40 MG/0.4 ML (LOVENOX) SYR SC SCH (17:34)
[2020-10-13] MEDS: ROSUVASTATIN 20 MG (CRESTOR) TABLET PO SCH (20:52)
[2020-10-14] MEDS: LACTATED RINGERS 1,000 ML IV SCH ×3 (02:10→18:51)
[2020-10-14] MEDS: MEROPENEM 1,000 MG in WATER (STERILE) FOR INJECTION 20 ML IV SCH ×2 (02:11→09:58)
[2020-10-14 04:21] LABS: BASOPHILS # (AUTO) 0.1 10^3/uL (0.0-0.1); BASOPHILS % (AUTO) 1 % (0-10); EOSINOPHILS # (AUTO) 0.2 10^3/uL (0.0-0.3); EOSINOPHILS % (AUTO) 3 % (0-10); HEMATOCRIT 40 % (40-54); HEMOGLOBIN 12.5 g/dL (13.3-17.7); LYMPHOCYTES # (AUTO) 2.4 10^3/uL (1.0-4.0); LYMPHOCYTES % (AUTO) 29 % (12-44); MEAN CORPUSCULAR HEMOGLOBIN 28 pg (25-34); MEAN CORPUSCULAR HGB CONC 32 g/dL (32-36); MEAN CORPUSCULAR VOLUME 89 fL (80-99); MONOCYTES # (AUTO) 1.2 10^3/uL (0.0-1.0); MONOCYTES % (AUTO) 14 % (0-12); NEUTROPHILS # (AUTO) 4.5 10^3/uL (1.8-7.8); NEUTROPHILS % (AUTO) 53 % (42-75); PLATELET COUNT 475 10^3/uL (130-400); WHITE BLOOD COUNT 8.4 10^3/uL (4.3-11.0)
[2020-10-14 04:30] LABS: ALBUMIN 2.8 GM/DL (3.2-4.5); POTASSIUM 4.6 MMOL/L (3.6-5.0)
[2020-10-14 04:32] LABS: TOTAL PROTEIN 6.8 GM/DL (6.4-8.2)
[2020-10-14 04:34] LABS: BILIRUBIN,TOTAL 0.4 MG/DL (0.1-1.0)
[2020-10-14 04:36] LABS: CREATININE SERUM 0.72 MG/DL (0.60-1.30)
[2020-10-14] MEDS: inSUlin ASPART (NovoLOG) 1 UNIT/0.01 ML (CHARGE PER UNIT) SC SCH ×4 (05:35→20:05)
[2020-10-14 05:47] VITALS: BP 111/68
[2020-10-14] MEDS: LEVOTHYROXINE 75 MCG (LEVOTHROID) TABLET PO SCH (06:23)
[2020-10-14] MEDS: RT-ALBUTEROL SULF 2.5 MG/3 ML PRE-MIX VIAL INH SCH ×4 (07:35→18:45)
[2020-10-14 08:00] VITALS: BP 120/70
[2020-10-14] MEDS: ASPIRIN E.C. 81 MG (ECOTRIN) TAB PO SCH (08:37)
[2020-10-14] MEDS: lisINopril 5 MG (PRINIVIL) TABLET PO SCH (08:37)
[2020-10-14] MEDS: FAMOTIDINE 20 MG (PEPCID) TABLET PO SCH ×2 (08:37→20:05)
--- NOTE | 2020-10-14 10:23 | Progress Note ---
Subjective Date Seen by a Provider: Oct 14, 2020 Time Seen by a Provider: 09:55 Subjective/Events-last exam Patient seen with Dr. Tolbert. Patient reports doing well. Denies any abdominal pain. Tolerating diet and working with PT. Wound vac in place. Objective Exam Vital Signs Date Time Temp Pulse Resp B/P (MAP) Pulse Ox O2 Delivery O2 Flow Rate FiO2 10/14/20 09:00 94 Room Air 10/14/20 08:00 36.2 78 24 120/70 (87) 91 Room Air 10/14/20 07:35 92 Room Air 10/14/20 05:47 36.3 79 20 111/68 (82) 92 Room Air 10/13/20 21:00 Nasal Cannula 2.00 10/13/20 19:01 89 Room Air 10/13/20 17:27 36.3 86 18 100/58 (72) 93 Room Air 10/13/20 16:00 95 Room Air 10/13/20 12:00 37.0 10/13/20 11:23 94 Nasal Cannula 1.00 I & O 10/14/20 07:00 Intake Total 6806 ml Output Total 2950 ml Balance 3856 ml Capillary Refill : General Appearance: No Apparent Distress, WD/WN Neck: Normal Inspection, Non Tender Respiratory: No Accessory Muscle Use, No Respiratory Distress Cardiovascular: Regular Rate, Rhythm, No Edema Gastrointestinal: normal bowel sounds, non tender, soft, other (Wound vac in place with no signs of infection) Extremity: Normal Inspection, Normal Range of Motion Neurologic/Psychiatric: Alert, Oriented x3 Skin: Normal Color, Warm/Dry Results Lab Laboratory Tests 10/13/20 11:27: Glucometer 176H 10/13/20 16:01: Glucometer 136H 10/13/20 20:16: Glucometer 166H 10/14/20 04:00: White Blood Count 8.4, Red Blood Count 4.47, Hemoglobin 12.5L, Hematocrit 40, Mean Corpuscular Volume 89, Mean Corpuscular Hemoglobin 28, Mean Corpuscular Hemoglobin Concent 32, Red Cell Distribution Width 14.0, Platelet Count 475H, Mean Platelet Volume 11.0, Immature Granulocyte % (Auto) 1, Neutrophils (%) (Auto) 53, Lymphocytes (%) (Auto) 29, Monocytes (%) (Auto) 14H, Eosinophils (%) (Auto) 3, Basophils (%) (Auto) 1, Neutrophils # (Auto) 4.5, Lymphocytes # (Auto) 2.4, Monocytes # (Auto) 1.2H, Eosinophils # (Auto) 0.2, Basophils # (Auto) 0.1, Immature Granulocyte # (Auto) 0.1, Sodium Level 130L, Potassium Level 4.6, Chloride Level 97L, Carbon Dioxide Level 26, Anion Gap 7, Blood Urea Nitrogen 16, Creatinine 0.72, Estimat Glomerular Filtration Rate 103, BUN/Creatinine Ratio 22, Glucose Level 118H, Calcium Level 10.0, Corrected Calcium 11.0H, Total Bilirubin 0.4, Aspartate Amino Transf (AST/SGOT) 181H, Alanine Aminotransferase (ALT/SGPT) 180H, Alkaline Phosphatase 89, Total Protein 6.8, Albumin 2.8L Microbiology 10/09/20 Blood Culture - Preliminary, Resulted No growth Assessment/Plan Assessment/Plan Assess & Plan/Chief Complaint An 89 year old male with Sepsis, Infected wound, s/p ex lap small bowel resection manual decompression of small bowel, Possible pneumonia VSS WBC 8.4 Continue IV fluids, abx, pain medications Wound vac in place. Continue PT and IS Continue diet NAT MCKENZIE [employer] SCALE TESTER Oct 14, 2020 10:23
[2020-10-14 11:35] VITALS: BP 110/66
[2020-10-14 17:06] VITALS: BP 123/57
[2020-10-14] MEDS: ENOXAPARIN 40 MG/0.4 ML (LOVENOX) SYR SC SCH (17:33)
[2020-10-14] MEDS: ROSUVASTATIN 20 MG (CRESTOR) TABLET PO SCH (20:05)
[2020-10-15] MEDS: LACTATED RINGERS 1,000 ML IV SCH ×3 (02:31→18:13)
[2020-10-15] MEDS: inSUlin ASPART (NovoLOG) 1 UNIT/0.01 ML (CHARGE PER UNIT) SC SCH ×4 (05:18→20:07)
[2020-10-15 05:52] VITALS: BP 116/65
[2020-10-15] MEDS: LEVOTHYROXINE 75 MCG (LEVOTHROID) TABLET PO SCH (05:56)
[2020-10-15 06:10] VITALS: BP 116/65
[2020-10-15] MEDS ORDERED: RT-ALBUTEROL SULF 2.5 MG/3 ML PRE-MIX VIAL INH PRN (06:15)
--- NOTE | 2020-10-15 09:18 | Occupational Ther Daily Note ---
OT Current Status-Daily Note Subjective Pt up in chair, agreeable to OT Tx. Requests UE exercise in order to increase BUE strength. Mental Status/Objective Patient Orientation: Person, Place, Situation ADL-Treatment Therapy Code Descriptions/Definitions Functional [place] Measure: 0=Not Assessed/NA 4=Minimal Assistance 1=Total Assistance 5=Supervision or Setup 2=Maximal Assistance 6=Modified [place] 3=Moderate Assistance 7=Complete IndependenceSCALE: Activities may be completed with or without assistive devices. 9-Hgxfcnqsiw-gvpjdyo completes the activity by him/herself with no assistance from a helper. 5-Set-up or Clean-up Assistance-helper sets up or cleans up; patient completes activity. [place] assists only prior to or following the activity. 4-Supervision or Touching Assistance-helper provides verbal cues and/or t ouching/steadying and/or contact guard assistance as patient completes activity. Assistance may be provided throughout the activity or intermittently. 3-Partial/Moderate Assistance-helper does LESS THAN HALF the effort. [place] lifts, holds or supports trunk or limbs, but provides less than half the effort. 2-Substantial/Maximal Assistance-helper does MORE THAN HALF the effort. [place] lifts or holds trunk or limbs and provides more than half the effort. 0-Mnnufhcla-lcfszm does ALL the effort. Patient does none of the effort to complete the activity. Or, the assistance of 2 or more helpers is required for the patient to complete the activity. If activity was not attempted, code reason: 7-Patient Refused. 9-Not Applicable-not attempted and the patient did not perform the activity before the current illness, exacerbation or injury. 10-Not Attempted due to Environmental Limitations-(lack of equipment, weather restraints, etc.). 88-Not Attempted due to Medical Conditions or Safety Concerns. Other Treatment Pt up in chair, requests hearing aides. OT handed pt HAs and he was then able to put in his ears independently. Pt requests exercises in order to strengthen arms. Moderate resistance theraband in pt's room, pt states he does not remember any exercises from previous sessions. OT educated pt on 5/5 UE exercises using moderate resistance theraband, x10 reps BUEs. Pt required moderate skilled verbal cues for proper positioning/technique. OT provided pt with printed HEP, as OT was unable to locate one in his room, OT and pt reviewed the 5 exercises, OT informed pt to complete 2-3 times a day, 10-15 reps each, he verbalized understanding. Post tx, pt up in chair, call light in reach and all needs met. Education OT Patient Education: Correct positioning, Modified ADL techniques, Progress toward Goal/Update tx plan, Purpose of tx/functional activities, Rehab process Teaching Recipient: Patient Teaching Methods: Demonstration, Discussion Response to Teaching: Return Demonstration, Reinforcement Needed OT Short Term Goals Short Term Goals Eatin Oral hygiene: 6 Toileting hygiene: 6 Shower/bathe self: 3 Upper body dressin Lower body dressin Putting on/taking off footwear: 3 OT Halfway Goals Halfway Goals Eating (QC): 6 Oral Hygiene (QC): 6 Toileting Hygiene (QC): 6 Shower/Bathe Self (QC): 5 Upper Body Dressing (QC): 5 Lower Body Dressing (QC): 4 On/Off Footwear (QC): 4 1=Demonstrate adherence to instructed precautions during ADL tasks. 2=Patient will verbalize/demonstrate understanding of assistive devices/modifications for ADL. 3=Patient will improve strength/tolerance for activity to enable patient to perform ADL's. OT Education/Plan Problem List/Assessment Assessment: Decreased Activ Tolerance, Decreased UE Strength Discharge Recommendations Plan/Recommendations: Continue POC Treatment Plan/Plan of Care Patient would benefit from OT for education, treatment and training to promote independence in ADL's, mobility, safety and/or upper extremity function for ADL's. Plan of Care: ADL Retraining, Functional Mobility, Group Exercise/Act as Ind, UE Funct Exercise/Act Treatment Duration: Oct 19, 2020 Frequency: 5 times per week Estimated Hrs Per Day: .25 hour per day Agreement: Yes Rehab Potential: Fair Time/GCodes Start Time: 08:45 Stop Time: 09:00 Total Time Billed (hr/min): 15 Billed Treatment Time 1, EX NEFTALI GUILLORY OT Oct 15, 2020 09:18
[2020-10-15] MEDS: ASPIRIN E.C. 81 MG (ECOTRIN) TAB PO SCH (09:46)
[2020-10-15] MEDS: lisINopril 5 MG (PRINIVIL) TABLET PO SCH (09:46)
[2020-10-15] MEDS: FAMOTIDINE 20 MG (PEPCID) TABLET PO SCH ×2 (09:46→19:52)
--- NOTE | 2020-10-15 09:51 | Physical Therapy Daily Note ---
PT Daily Note-Current Subjective Patient in recliner pre tx, agrees to PT, voices no complaints of pain. Patient needs to use the urinal before getting up and he does so. Patient needs some motivation to participate and he does participate after a few minutes of encouragement. Appearance Patient on toilet in restroom post tx, instructed to use nurse call, when done. Mental Status Patient Orientation: Person, Place, Situation Attachments: IV wound vac Transfers SCALE: Activities may be completed with or without assistive devices. 1-Ocnkcshqnf-gkxuzxp completes the activity by him/herself with no assistance from a helper. 5-Set-up or Clean-up Assistance-helper sets up or cleans up; patient completes activity. [place] assists only prior to or following the activity. 4-Supervision or Touching Assistance-helper provides verbal cues and/or touching/steadying and/or contact guard assistance as patient completes activity. Assistance may be provided throughout the activity or intermittently. 3-Partial/Moderate Assistance-helper does LESS THAN HALF the effort. [place] lifts, holds or supports trunk or limbs, but provides less than half the effort. 2-Substantial/Maximal Assistance-helper does MORE THAN HALF the effort. [place] lifts or holds trunk or limbs and provides more than half the effort. 1-Dftkryumq-easzom does ALL the effort. Patient does none of the effort to complete the activity. Or, the assistance of 2 or more helpers is required for the patient to complete the activity. If activity was not attempted, code reason: 7-Patient Refused. 9-Not Applicable-not attempted and the patient did not perform the activity before the current illness, exacerbation or injury. 10-Not Attempted due to Environmental Limitations-(lack of equipment, weather restraints, etc.). 88-Not Attempted due to Medical Conditions or Safety Concerns. Sit to Stand (QC): 3 Chair/Xkt-gt-Qhfde Xfer(QC): 4 Gait Training Distance: 150' Walk 10 feet (QC): 4 Walk 50 ft with 2 Turns(QC): 4 Walk 150 ft (QC): 4 Gait Persons Needed: 1 Gait Assistive Device: Walker Platform SBA, slow but steady ambulation, slumped posture, patient has to turn around and go back to his room to have a BM, patient ambulates into the restroom and sits on toilet Treatments transfers, ambulation Assessment Current Status: Poor Progress poor motivation PT Ocean Export Agent Goals Ocean Export Agent Goals PT Care Home Goals Time Frame: Oct 27, 2020 Roll Left & Right (QC): 6 Sit to Lying (QC): 6 Lying-Sitting on Side/Bed(QC): 6 Sit to Stand (QC): 6 Chair/Sdg-hg-Kslpu Xfer(QC): 6 Toilet Transfer (QC): 6 Car Transfer (QC): 6 Does the Patient Walk: Yes Walk 10 feet (QC): 6 Walk 50ft with 2 Turns (QC): 6 Walk 150 ft (QC): 6 Walking 10ft on Uneven Surface: 6 1 Step (curb) (QC): 6 4 Steps (QC): 6 12 Steps (QC): 9 Picking up an Object (QC): 6 Wheel 50 feet with 2 turns (QC: 9 Wheel 150 feet: 9 PT Plan Problem List Problem List: Activity Tolerance, Functional Strength, Safety, Balance, Gait, Transfer, Bed Mobility, ROM Treatment/Plan Treatment Plan: Continue Plan of Care Treatment Plan: Bed Mobility, Education, Functional Activity Yeimi, Functional Strength, Gait, Safety, Therapeutic Exercise, Transfers Treatment Duration: Oct 27, 2020 Frequency: 6 times per week Estimated Hrs Per Day: .25 hour per day Patient and/or Family Agrees t: Yes Safety Risks/Education Patient Education: Gait Training, Transfer Techniques, Correct Positioning, Safety Issues Teaching Recipient: Patient Teaching Methods: Demonstration, Discussion Response to Teaching: Reinforcement Needed Time/GCodes Time In: 919 Time Out: 935 Total Billed Treatment Time: 16 Total Billed Treatment 1 visit FA POP LAYTON PT Oct 15, 2020 09:51
--- NOTE | 2020-10-15 10:14 | Progress Note ---
Subjective Date Seen by a Provider: Oct 15, 2020 Time Seen by a Provider: 09:45 Subjective/Events-last exam Patient seen with Dr. Tolbert. Patient reports doing well. Denies any abdominal pain, N/V, Fever/Chills. Tolerating diet and having BMs. Continues to work with PT. Objective Exam Vital Signs Date Time Temp Pulse Resp B/P (MAP) Pulse Ox O2 Delivery O2 Flow Rate FiO2 10/15/20 06:10 37.1 78 92 21 10/15/20 05:52 37.1 913 18 116/65 (82) 92 Room Air 10/14/20 20:05 Room Air 10/14/20 18:45 93 Room Air 10/14/20 17:06 37.0 78 18 123/57 (79) 92 Room Air 10/14/20 15:33 90 Room Air 10/14/20 11:43 92 Room Air 10/14/20 11:35 35.3 80 20 110/66 (81) 94 Room Air I & O 10/15/20 07:00 Intake Total 3574 ml Output Total 5025 ml Balance -1451 ml Capillary Refill : General Appearance: No Apparent Distress, WD/WN Neck: Normal Inspection, Supple Respiratory: No Accessory Muscle Use, No Respiratory Distress Cardiovascular: Regular Rate, Rhythm, No Edema Gastrointestinal: normal bowel sounds, non tender, soft, other (Wound vac in place to incision with no signs of infection) Extremity: Normal Inspection, Normal Range of Motion Neurologic/Psychiatric: Alert, Oriented x3 Skin: Normal Color, Warm/Dry Results Lab Laboratory Tests 10/14/20 10:43: Glucometer 167H 10/14/20 15:49: Glucometer 162H 10/14/20 20:04: Glucometer 187H 10/15/20 04:57: Glucometer 141H Microbiology 10/09/20 Blood Culture - Preliminary, Resulted No growth Assessment/Plan Assessment/Plan Assess & Plan/Chief Complaint An 89 year old male with Sepsis, Infected wound, s/p ex lap small bowel resection manual decompression of small bowel, Possible pneumonia VSS Continue IV fluids and pain medications Wound vac in place. Continue PT and IS Continue diet NAT MCKENZIE APRN Oct 15, 2020 10:14
[2020-10-15] MEDS: ENOXAPARIN 40 MG/0.4 ML (LOVENOX) SYR SC SCH (16:57)
[2020-10-15] MEDS: ROSUVASTATIN 20 MG (CRESTOR) TABLET PO SCH (19:52)
[2020-10-15 20:11] VITALS: BP 115/58
[2020-10-16] MEDS: LACTATED RINGERS 1,000 ML IV SCH ×2 (02:14→10:29)
[2020-10-16] MEDS: inSUlin ASPART (NovoLOG) 1 UNIT/0.01 ML (CHARGE PER UNIT) SC SCH ×3 (05:25→15:59)
[2020-10-16] MEDS: LEVOTHYROXINE 75 MCG (LEVOTHROID) TABLET PO SCH (05:26)
--- NOTE | 2020-10-16 07:18 | Progress Note - Surgery ---
YESIKA VUONGOR 10/16/20 0718: Subjective Date Seen by a Provider: Oct 16, 2020 Time Seen by a Provider: 06:30 Subjective/Events-last exam Patient feels well this morning. He continues to use the spirometer as asked and denies any difficulty breathing. Normal bowel movements. No recent fevers. Tu reports that he does not feel strong enough to go home yet. Review of Systems General: No Chills, No Night Sweats HEENT: No Head Aches, No Visual Changes Pulmonary: No Dyspnea Cardiovascular: No: Chest Pain, Palpitations Gastrointestinal: No: Nausea, Vomiting, Diarrhea, Constipation Genitourinary: No Dysuria, No Hematuria Neurological: No: Weakness, Numbness Objective Exam Vital Signs Date Time Temp Pulse Resp B/P (MAP) Pulse Ox O2 Delivery O2 Flow Rate FiO2 10/15/20 20:11 37.0 86 18 115/58 (77) 93 Room Air 10/15/20 20:01 Room Air 10/15/20 09:00 92 Room Air I & O 10/16/20 07:00 Intake Total 4430 ml Output Total 4200 ml Balance 230 ml Capillary Refill : General Appearance: No Apparent Distress, WD/WN Neck: Normal Inspection, Supple Respiratory: No Accessory Muscle Use, No Respiratory Distress Cardiovascular: Regular Rate, Rhythm, No Edema Gastrointestinal: normal bowel sounds, other (Wound vac in place to incision with no signs of infection) Extremity: Normal Inspection Neurologic/Psychiatric: Alert, Oriented x3 Skin: Normal Color, Warm/Dry Results Lab Laboratory Tests 10/15/20 15:35: Glucometer 143H 10/15/20 20:02: Glucometer 170H Microbiology 10/09/20 Blood Culture - Final, Complete No growth Assessment/Plan Assessment/Plan Assessment/Plan An 89 year old male with Sepsis, Infected wound, s/p ex lap small bowel resection manual decompression of small bowel, possible pneumonia VSS Continue IV fluids and pain medications Wound vac in place. Continue PT and IS Continue diet DB SANCHEZ DO 10/16/202006: Subjective Subjective/Events-last exam Patient is feeling well this morning. He is having bowel function. He has had no recent fevers. Patient has no new complaints. Patient's wound VAC in place. To be changed today. Denies any other complaints denies nausea vomiting fever sweats chills shortness of breath or chest pain. Objective Exam General Appearance: No Apparent Distress, WD/WN HEENT: PERRL/EOMI, Normal ENT Inspection Neck: Normal Inspection, Supple Respiratory: Chest Non Tender, No Accessory Muscle Use, No Respiratory Distress Cardiovascular: Regular Rate, Rhythm, No JVD Gastrointestinal: non tender, soft, other (Open wound good granulation tissue no signs of infection) Extremity: Normal Inspection, Non Tender Neurologic/Psychiatric: Alert, Oriented x3 Skin: Normal Color, Warm/Dry Lymphatic: No Adenopathy Assessment/Plan Assessment/Plan Assessment/Plan Status post small bowel resection, wound infection, sepsis Patient with VAC change today. Patient continue to have wound changes on Tuesdays and Fridays. Patient to be discharged home with home physical therapy and wound care at home nursing. Patient agrees with plan. Supervisory-Addendum Brief Verification & Attestation Participated in pt care: history, MDM, physical Personally performed: exam, history, MDM, supervision of care Care discussed with: Medical Student Procedures: n/a Results interpretation: Verified all documentation Verification and Attestation of Medical Student E/M Service A medical student performed and documented this service in my presence. I reviewed and verified all information documented by the medical student and made modifications to such information, when appropriate. I personally performed the physical exam and medical decision making. Db Sanchez, Oct 16, 2020,20:07 ISIDRA VUONG Oct 16, 2020 07:18 DB SANCHEZ DO Oct 16, 2020 20:07
[2020-10-16 08:32] VITALS: BP 120/73
[2020-10-16] MEDS: ASPIRIN E.C. 81 MG (ECOTRIN) TAB PO SCH (08:56)
[2020-10-16] MEDS: FAMOTIDINE 20 MG (PEPCID) TABLET PO SCH (08:56)
[2020-10-16] MEDS: lisINopril 5 MG (PRINIVIL) TABLET PO SCH (08:56)
--- NOTE | 2020-10-16 09:33 | Physical Therapy Daily Note ---
PT Daily Note-Current Subjective Patient in toilet pre tx, having BM, agrees to PT, no complaints of pain. When done patient wipes himself. Appearance Patient in recliner post tx with nurse call, phone, tray, all needs met. Mental Status Patient Orientation: Person, Place, Situation Attachments: IV wound vac Transfers SCALE: Activities may be completed with or without assistive devices. 0-Kavatvtkbf-mblczdk completes the activity by him/herself with no assistance from a helper. 5-Set-up or Clean-up Assistance-helper sets up or cleans up; patient completes activity. [place] assists only prior to or following the activity. 4-Supervision or Touching Assistance-helper provides verbal cues and/or touching/steadying and/or contact guard assistance as patient completes activity. Assistance may be provided throughout the activity or intermittently. 3-Partial/Moderate Assistance-helper does LESS THAN HALF the effort. [place] lifts, holds or supports trunk or limbs, but provides less than half the effort. 2-Substantial/Maximal Assistance-helper does MORE THAN HALF the effort. [place] lifts or holds trunk or limbs and provides more than half the effort. 9-Hxggqtqdp-gzatfz does ALL the effort. Patient does none of the effort to complete the activity. Or, the assistance of 2 or more helpers is required for the patient to complete the activity. If activity was not attempted, code reason: 7-Patient Refused. 9-Not Applicable-not attempted and the patient did not perform the activity before the current illness, exacerbation or injury. 10-Not Attempted due to Environmental Limitations-(lack of equipment, weather restraints, etc.). 88-Not Attempted due to Medical Conditions or Safety Concerns. Sit to Stand (QC): 3 Chair/Lis-ri-Rjwpn Xfer(QC): 4 Gait Training Distance: 200' Walk 10 feet (QC): 4 Walk 50 ft with 2 Turns(QC): 4 Walk 150 ft (QC): 4 Gait Persons Needed: 1 Gait Assistive Device: Walker Platform SBA, slumped posture, has some difficulty with turning using a platform walker but can do it without assist, just increased effort Exercises Seated Therapy Exercises: Ankle pumps, Long arc quads Seated Reps: 20 Treatments transfers, ambulation, LE strengthening Assessment Current Status: Fair Progress improving endurance PT Telephone Operator Receptionist Goals [facility] Goals PT Telephone Operator Receptionist Goals Time Frame: Oct 27, 2020 Roll Left & Right (QC): 6 Sit to Lying (QC): 6 Lying-Sitting on Side/Bed(QC): 6 Sit to Stand (QC): 6 Chair/Yvs-gg-Wtfxb Xfer(QC): 6 Toilet Transfer (QC): 6 Car Transfer (QC): 6 Does the Patient Walk: Yes Walk 10 feet (QC): 6 Walk 50ft with 2 Turns (QC): 6 Walk 150 ft (QC): 6 Walking 10ft on Uneven Surface: 6 1 Step (curb) (QC): 6 4 Steps (QC): 6 12 Steps (QC): 9 Picking up an Object (QC): 6 Wheel 50 feet with 2 turns (QC: 9 Wheel 150 feet: 9 PT Plan Problem List Problem List: Activity Tolerance, Functional Strength, Safety, Balance, Gait, Transfer, Bed Mobility, ROM Treatment/Plan Treatment Plan: Continue Plan of Care Treatment Plan: Bed Mobility, Education, Functional Activity [place], Functional Strength, Gait, Safety, Therapeutic Exercise, Transfers Treatment Duration: Oct 27, 2020 Frequency: 6 times per week Estimated Hrs Per Day: .25 hour per day Patient and/or Family Agrees t: Yes Safety Risks/Education Patient Education: Gait Training, Transfer Techniques, Correct Positioning, Safety Issues Teaching Recipient: Patient Teaching Methods: Demonstration, Discussion Response to Teaching: Reinforcement Needed Time/GCodes Time In: 857 Time Out: 913 Total Billed Treatment Time: 16 Total Billed Treatment 1 visit FA 16POP HOYT PT Oct 16, 2020 09:33
[2020-10-16] MEDS: morphine INJ 4 MG/ML 1 ML (VIAL/SYRINGE) IVP PRN (12:57)
--- NOTE | 2020-10-16 13:53 | D/C HH Face to Face Order ---
D/C Face to Face Orders Instructions for Patient Via [facility], Patient Instructions/FollowUp: Laura- 2-3 weeks. Physician to follow Patient: Laura Discharge Diet for Home: Regular Diet Patient Data-Allergies,Ht & Wt Patient Allergies: Coded Allergies: No Known Drug Allergies (Unverified , 11/25/09) Height (Feet): 5 Height (Inches): 10.00 Weight (Pounds): 200 Weight (Ounces): 4.0 Home Health Need/Face to Face Date of Face to Face: Oct 16, 2020 Clinical Findings: Muscle weakness, Wound infection I have seen Pt [id number]: Yes Discharged To: Home Diagnosis/Conditions: S/p small bowel resection with anastamosis. Wound infection, open wound with wound vac change Tuesdays and Fridays. Patient is Homebound due to: Tad fall risk due to instabilty Homebound Status Due to the above stated illness, injury or surgical procedure (medical condition or diagnosis) and associated clinical findings, the patient is homebound because of his/her inability to leave home except with aid of a supportive device and/or person AND leaving the home requires a considerable and taxing effort or is medically contraindicated. Pt req the following assistanc: Aid of another person Home Health Nursing Orders Home Health Services Order: Nursing Services, Business Communications Instructor-Evaluate & Treat, Physical Therapy-Evaluate & Treat, Wound Care-Eval/Treat Therapy Orders Therapy Orders: Physical Therapy, PT to assess for OT Certify Stmt I certify that this patient is under my care and that I, a nurse practitioner or a physician; a phlebotomist medical lab assistant working with me, had a face to face encounter that - meets the physician face to face encounter requirements with this patient as dated. DB QUIGLEY DO Oct 16, 2020 13:53
--- NOTE | 2020-10-16 14:14 | Occupational Ther Daily Note ---
OT Current Status-Daily Note Subjective Pt alert, lying in bed. Pt agrees to therapy. No c/o pain. Mental Status/Objective Patient Orientation: Person, Place, Time, Situation Attachments: Drains (wound vac), IV ADL-Treatment Pt agrees to sponge bath sitting EOB. Supine <--> EOB independently with HOB raised and use of bed rails. After set up, pt able to bathe upper body and upper legs by self. SBA while pt stood for bathing buttocks/marcela area. While pt was standing, pt used urinal, pt placed urinal and manipulated clothing with SBA. Pt requires assist with donning/doffing socks and cleansing feet and lower legs. Pt declines oral care. After therapy, pt lying in bed with call light/phone. present in room. All needs met in room. Therapy Code Descriptions/Definitions Functional Bollinger Measure: 0=Not Assessed/NA 4=Minimal Assistance 1=Total Assistance 5=Supervision or Setup 2=Maximal Assistance 6=Modified [place] 3=Moderate Assistance 7=Complete IndependenceSCALE: Activities may be completed with or without assistive devices. 5-Jrzkqqxugv-wzjimls completes the activity by him/herself with no assistance from a helper. 5-Set-up or Clean-up Assistance-helper sets up or cleans up; patient completes activity. [place] assists only prior to or following the activity. 4-Supervision or Touching Assistance-helper provides verbal cues and/or touching/steadying and/or contact guard assistance as patient completes activity. Assistance may be provided throughout the activity or intermittently. 3-Partial/Moderate Assistance-helper does LESS THAN HALF the effort. [place] lifts, holds or supports trunk or limbs, but provides less than half the effort. 2-Substantial/Maximal Assistance-helper does MORE THAN HALF the effort. [place] lifts or holds trunk or limbs and provides more than half the effort. 0-Joflnfjlv-dvllff does ALL the effort. Patient does none of the effort to complete the activity. Or, the assistance of 2 or more helpers is required for the patient to complete the activity. If activity was not attempted, code reason: 7-Patient Refused. 9-Not Applicable-not attempted and the patient did not perform the activity before the current illness, exacerbation or injury. 10-Not Attempted due to Environmental Limitations-(lack of equipment, weather restraints, etc.). 88-Not Attempted due to Medical Conditions or Safety Concerns. Eating (QC): 6 (Per clinical judgement, pt able to complete eating by self.) Oral Hygiene (QC): 7 Bathing Location: L Arm, R Arm, L Upper Leg, R Upper Leg, Chest, Abdomen, Buttocks, Perineal Area Shower/Bathe Self (QC): 3 Upper Body Dressing (QC): 5 (Pt demonstrates ability to don/doff shirt.) Lower Body Dressing (QC): 3 (Per clinical judgement pt requires min A for lower body dressing.) On/Off Footwear: 2 Toileting Hygiene (QC): 4 (SBA) OT Short Term Goals Short Term Goals Eatin Oral hygiene: 6 Toileting hygiene: 6 Shower/bathe self: 3 Upper body dressin Lower body dressin Putting on/taking off footwear: 3 OT Wax Machine Operator Goals Wax Machine Operator Goals Eating (QC): 6 Oral Hygiene (QC): 6 Toileting Hygiene (QC): 6 Shower/Bathe Self (QC): 5 Upper Body Dressing (QC): 5 Lower Body Dressing (QC): 4 On/Off Footwear (QC): 4 1=Demonstrate adherence to instructed precautions during ADL tasks. 2=Patient will verbalize/demonstrate understanding of assistive devices/modifications for ADL. 3=Patient will improve strength/tolerance for activity to enable patient to perform ADL's. OT Education/Plan Problem List/Assessment Assessment: Decreased Activ Tolerance, Impaired Self-Care Skills Discharge Recommendations Plan/Recommendations: Continue POC Treatment Plan/Plan of Care Patient would benefit from OT for education, treatment and training to promote independence in ADL's, mobility, safety and/or upper extremity function for ADL's. Plan of Care: ADL Retraining, Functional Mobility, Group Exercise/Act as Ind, UE Funct Exercise/Act Treatment Duration: Oct 19, 2020 Frequency: 5 times per week Estimated Hrs Per Day: .25 hour per day Agreement: Yes Rehab Potential: Fair Time/GCodes Start Time: 13:30 Stop Time: 13:53 Total Time Billed (hr/min): 23 Billed Treatment Time 1 visit-ADL 2 (23 min) ROBERTO JAIN Oct 16, 2020 14:14
[2020-10-16 18:30] VITALS: BP 120/73
--- NOTE | 2020-10-17 15:23 | Therapy Team Discharge Summary ---
Therapy Discharge Summary Discharge Recommendations Date of Discharge Oct 16, 2020 at 18:30 Occupational Therapy Pt admitted to [facility] status for continued therapy, IV antibiotics and wound vac care following SBO. Prior to admission, pt was indep with ADLs and utilized no AD for mobility. At time of eval, pt was min-mod a for bathing, Max a for Lb dressing, SBA for toileting, upper body dressing, and oral care. While on rehab, Ot focused on balance, endurance, UE strength, safety, compensatory/adaptive strategies and energy conservation techniques. Pt met all goals except LB dressing, bathing, and toileting which he required sba-min a for. Goals not met due to poor motivation and refusal to use AE or compensatory methods taught. Pt reports that his will help him with tasks at home. in agreement. Pt discharged home with continued support from family and will be d/c from OT. Decreased Activ Tolerance, Decreased UE Strength, Impaired Self-Care Skills PT Networks Software Consultant Goals Half-Way Goals PT Networks Software Consultant Goals Time Frame: Oct 27, 2020 Roll Left to Right (QC): 6 Sit to Lying (QC): 6 Lying-Sitting on Side/Bed(QC): 6 Sit to Stand (QC): 6 Chair/Qmx-to-Dbhvc Xfer(QC): 6 Car Transfer (QC): 6 Does the Patient Walk: Yes Walk 10 feet (QC): 6 Walk 10ft-Uneven Surface(QC): 6 Walk 50ft with 2 Turns (QC): 6 Walk 150 ft (QC): 6 Wheel 50 feet with 2 turns (QC: 9 1 Step (curb) (QC): 6 4 Steps (QC): 6 12 Steps (QC): 9 Picking up an Object (QC): 6 OT Half-Way Goals Half-Way Goals Eating (QC): 6 (met) Oral Hygiene (QC): 6 (met) Shower/Bathe Self (QC): 5 (not met) Upper Body Dressing (QC): 5 (met) Lower Body Dressing (QC): 4 (not met, min a) On/Off Footwear (QC): 4 (not met) Toileting Hygiene (QC): 6 (not met) Toilet/Commode Transfer (QC): 6 (not met) 1=Demonstrate adherence to instructed precautions during ADL tasks. 2=Patient will verbalize/demonstrate understanding of assistive usman elisa/modifications for ADL. 3=Patient will improve strength/tolerance for activity to enable patient to perform ADL's. Migdalia Hinton OT Oct 17, 2020 15:23
--- NOTE | 2020-10-17 15:34 | Therapy Team Discharge Summary ---
Therapy Discharge Summary Discharge Recommendations Date of Discharge Oct 16, 2020 at 18:30 Physical Therapy Patient with Abdominal pain, Exploratory laparotomy with small bowel resection. Upon evaluation patient performed bed mobility and transfers with SBA, car transfer SBA, ambulated 300' with a rolling walker with SBA (including 10' over an uneven surface). Patient has been performing bed mobility and transfer train ing, balance and endurance training, functional strengthening, gait training, and education. Patient has made little to no progress and has not met any of his mcc goals. Patient is essentially the same now except he now requires min assist for sit <-> stand. Patient was discharged from this facility and will be discharged from PT at this time. Occupational Therapy Decreased Activ Tolerance, Decreased UE Strength, Impaired Self-Care Skills PT Medical Records Receptionist Goals Medical Records Receptionist Goals PT Medical Records Receptionist Goals Time Frame: Oct 27, 2020 Roll Left to Right (QC): 6 Sit to Lying (QC): 6 Lying-Sitting on Side/Bed(QC): 6 Sit to Stand (QC): 6 Chair/Kzk-pe-Xzolw Xfer(QC): 6 Car Transfer (QC): 6 Does the Patient Walk: Yes Walk 10 feet (QC): 6 Walk 10ft-Uneven Surface(QC): 6 Walk 50ft with 2 Turns (QC): 6 Walk 150 ft (QC): 6 Wheel 50 feet with 2 turns (QC: 9 1 Step (curb) (QC): 6 4 Steps (QC): 6 12 Steps (QC): 9 Picking up an Object (QC): 6 OT Medical Records Receptionist Goals Retirement Goals Eating (QC): 6 (met) Oral Hygiene (QC): 6 (met) Shower/Bathe Self (QC): 5 (not met) Upper Body Dressing (QC): 5 (met) Lower Body Dressing (QC): 4 (not met, min a) On/Off Footwear (QC): 4 (not met) Toileting Hygiene (QC): 6 (not met) Toilet/Commode Transfer (QC): 6 (not met) 1=Demonstrate adherence to instructed precautions during ADL tasks. 2=Patient will verbalize/demonstrate understanding of assistive devices/modifications for ADL. 3=Patient will improve strength/tolerance for activity to enable patient to perform ADL's. POP DAVISON PT Oct 17, 2020 15:34
--- NOTE | 2020-10-18 07:36 | Physician Query Clarification ---
PQ-Further Specificity Admission/Discharge Admission Date: Oct 04, 2020 at 15:42 Discharge Date: Oct 16, 2020 at 18:30 Dr. Sanchez, The medical record reflects the following clinical scenario: History/Risk Factors: postop wound infection, DM Clinical Findings: 10/09 CXR - There is some residual infiltrate or atelectasis in the left base. 10/07 T - 37.9 Treatment: IS, IV Piperacillin, IV Clinamycin, IV Meropenem Question: Can you further specify the underlying cause of the fever per the clinical indicators above? Please document a response in the Progress Notes or Discharge Summary. 1. Pneumonia 2. Atelectasis 3. Fever undetermined etiology 4. Other, with explanation of the clinical findings. 5. Clinically undetermined, no explanation for the clinical findings. PHYSICIAN RESPONSE Can you specify per above: Clinically undetermined Explanation/Clinical Findings possible from atelectasis/infiltrate Please remember a lack of response to the above will prompt a phone page by CDI/Coding staff. In responding to this query, please exercise your independent professional judgment. The purpose of this communication is to more accurately reflect the complexity of your patients condition. The fact that a question is asked does not imply that any particular answer is desired or expected. Thank you for your timely response to this clarification. Requestors name: Tre THIS PHYSICIAN QUERY FORM IS A PERMANENT PART OF THE MEDICAL RECORD TRE ACEVEDO Oct 18, 2020 07:36 DB SANCHEZ DO Oct 24, 2020 11:56
== END 2020-10-16 18:30 | disposition home health service (06) | DRG 863 ==
LOC: 4TH 10-04 15:42
PROVIDERS: ADMIT Surgery; ATTEND Surgery
DX: T81.41XA Infection following a procedure, superficial incisional surgical site, initial encounter (principal); J98.11 Atelectasis; E11.9 Type 2 diabetes mellitus without complications; E03.9 Hypothyroidism, unspecified; I25.10 Atherosclerotic heart disease of native coronary artery without angina pectoris; I10 Essential (primary) hypertension; R91.8 Other nonspecific abnormal finding of lung field; E78.5 Hyperlipidemia, unspecified; Z95.1 Presence of aortocoronary bypass graft; Z79.84 Long term (current) use of oral hypoglycemic drugs; Z97.4 Presence of external hearing-aid; Z83.3 Family history of diabetes mellitus
CPT/HCPCS: 36415; 71045; 71046; 74177; 80048; 80053; 81000; 82947; 83605; 83735; 84145; 85007; 85025; 85027; 85379; 87040; 93970; 94640; 94664; 94760

== ENCOUNTER → 2020-12-19 | Outpatient (CLI) | payer MEDICARE ==
[~2020-12-19] MED LIST changes: -TADA5TAB3 PO; +TADA5TAB4 PO
== END ==
LOC: CARD 09:00
PROVIDERS: ATTEND Internal Medicine Cardiovascular Disease
DX: I08.0 Rheumatic disorders of both mitral and aortic valves (principal); I25.10 Atherosclerotic heart disease of native coronary artery without angina pectoris
CPT/HCPCS: 93306

== ENCOUNTER → 2021-09-10 | Outpatient (CLI) | payer MEDICARE ==
[~2021-09-10] MED LIST changes: -LISI-729 PO; +LISI5TAB20 PO
--- NOTE | 2021-09-10 10:33 | Diagnostic Imaging Report ---
Indication: Low back pain. FINDINGS: 3 views. There is mild levoscoliosis. There is mild retrolisthesis of L2 on L3 and L1 on L2. Body height is well-maintained throughout the lumbar spine. Large bridging osteophytes are seen anteriorly at multiple levels. There is sclerotic endplate changes with loss of disc space height. Facet show good alignment with rather advanced hypertrophic changes. Dense calcification aorta is seen without evidence of aneurysm. 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 Dictated by: Dictated on workstation # [id number]
== END ==
LOC: RAD 08:47
PROVIDERS: ATTEND Family Medicine
DX: M47.816 Spondylosis without myelopathy or radiculopathy, lumbar region (principal); M41.86 Other forms of scoliosis, lumbar region; M51.36 Other intervertebral disc degeneration, lumbar region
CPT/HCPCS: 72100

== ENCOUNTER 2021-10-08 09:49 | Outpatient (RCR) | payer MEDICARE | END 2021-10-09 | disposition home or self-care (01) | PROVIDERS: ATTEND Family Medicine | DX: M51.36 Other intervertebral disc degeneration, lumbar region (principal) ==